=== PATIENT | male | born 1940 | race Caucasian/White ===

== ENCOUNTER 2023-06-09 21:15 | Emergency (ER) | payer MEDICARE, SELFPAY ==
[2023-06-09 21:20] VITALS: BP 152/91; PULSE 61; RESP 18; TEMP 36.6; O2SAT 98; BMI 25.8
--- NOTE | 2023-06-09 21:28 | XR_ITS ---
The [address] [address] Patient Name: DORIS FAY MRN: [id number] date: 1940 Sex: M Assigned Patient Location: ED.MAIN Current Patient Location: ER Accession/Order Number: [id number] Exam Date: 06/09/2023 22:20 Report Date: 06/09/2023 23:17 At the request of: GAGAN DINH Procedure: XR knee RT 4V EXAM: XR knee RT 4V HISTORY: fall COMPARISON: None. TECHNIQUE: 4 views FINDINGS: IMPRESSION: Anterior soft tissue edema. Patient is status post total knee replacement arthroplasty. No knee effusion. The prosthesis or [place] bone are unremarkable. Joint spaces are maintained Electronically authenticated by: YAMEL LOVE Date: 06/09/2023 23:17
--- NOTE | 2023-06-09 21:35 | PC.NURSE ---
pt presents to ED because pt states at 2pm he tripped on a curb and fell. pt caught himself with his hands. pt now has laceration to left palm of hand/thumb and laceration to right thumb. pt has brusing and swelling to right knee and c/o pain. pt is able to move the right knee without difficulty. pt is on eliquis. denies hitting head. no loc.
--- NOTE | 2023-06-09 21:43 | XR_ITS ---
[address] [address] Patient Name: DORIS FAY MRN: [id number] date: 1940 Sex: M Assigned Patient Location: ER Current Patient Location: ER Accession/Order Number: [id number] Exam Date: 06/09/2023 22:20 Report Date: 06/09/2023 23:16 At the request of: GAGAN DINH Procedure: XR hand RT min 3V EXAM: XR hand RT min 3V HISTORY: Pain after tripping off of curb COMPARISON: None. TECHNIQUE: 3 views FINDINGS: IMPRESSION: Dorsal soft tissue edema. No visualized acute fracture, dislocation, subluxation or osseous lesion. Severe degenerative changes of the first carpometacarpal joint. Degenerative changes of the IP and triscaphe joints. Electronically authenticated by: YAMEL LOVE Date: 06/09/2023 23:16
--- NOTE | 2023-06-09 21:52 | ED.GENADUL1 ---
HPI - General Adult General Chief complaint: Wound/Laceration Stated complaint: FALL/ HAND INJURY RT KNEE Time Seen by Provider: 06/09/23 21:52 Source: patient Mode of arrival: Wheelchair Limitations: no limitations History of Present Illness HPI narrative: Patient process the emergency department after he fell. Patient was going to a and tripped over a curb. He states he can't do so with his hands which hit the curb. He landed on his right knee and has pain and swelling to the right knee. He is able to move it and bear weight. He sustained bilateral lacerations to the thumbs. Patient is on Eliquist. He did not hit his head, or having loss of consciousness. He denies any headache. He denies any visual disturbance, speech difficulties. He denies any neck pain. He denies any paresthesias, or weakness. Denies any chest pain, shortness of breath.He denies any abdominal pain, or flank pain. Patient has not taken anything for pain. His concern was that the bleeding wasn't stopping from his hand lacerations. Denies any hand pain. Related Data Allergies Allergy/AdvReac Type Severity Reaction Status Date / Time No Known Drug Allergies Allergy Verified 06/09/23 21:25 Review of Systems ROS Status of ROS 10 or more systems reviewed and unremarkable except as noted in history and below Exam Narrative Exam Narrative: Nurses notes and vital signs reviewed and patient is not hypoxic. General: Nontoxic, Elderly,Well-appearing and in no apparent distress. Skin: Warm, dry, no pallor noted. No Rash Head: Normocephalic, atraumatic. Neck: Supple, non-tender. Eye: Pupils are equal, round and EOMI. No scleral icterus. Ears, Nose, Mouth, and Throat: TM clear, no posterior oropharynx erythema or nasal mucosal hypertrophy, uvula is mid-line Oral mucosa is moist Cardiovascular: Regular Rate and Rhythm without murmur, gallop or rub. Respiratory: No accessory muscle use or respiratory distress. Lungs are clear to auscultation, no wheezing, rales or rhonchi Chest Wall: no tenderness Back: No midline thoracic or lumbar vertebral tenderness. No CVA tenderness Musculoskeletal: Right knee with an anterior patella 3cm hematoma, small abrasion. Full range of motion. no calf or popliteal tenderness, no lower extremity edema/swelling Bilateral hand lacerations to the palmar surface of the MCP joints without any arterial bleeding. Right hand laceration is 2.5 cm, left hand laceration is 2 cm. There is no bony tenderness. There is no pain over the snuffbox. He has full range of motion. GI: Abdomen is soft, non-distended. Normal bowel sounds. No masses appreciated. No tenderness to palpation. No rebound, guarding, or rigidity noted. Neurological: A&O x4. No cranial nerve dysfunction observed. No truncal ataxia. Moves all extremities. Sensation intact. Psychiatric: Cooperative and interactive. Normal mood and affect. Constitutional Vital Signs, click to edit/add: Last Vital Signs Temp 97.9 F 06/09/23 21:20 Pulse 61 06/09/23 21:20 Resp 18 06/09/23 21:20 BP 152/91 H 06/09/23 21:20 Pulse Ox 98 06/09/23 21:20 O2 Del Method Room Air 06/09/23 21:20 Course Vital Signs Vital signs: Vital Signs Temperature 97.9 F 06/09/23 21:20 Pulse Rate 61 06/09/23 21:20 Respiratory Rate 18 06/09/23 21:20 Blood Pressure 152/91 H 06/09/23 21:20 Pulse Oximetry 98 06/09/23 21:20 Oxygen Delivery Method Room Air 06/09/23 21:20 Temperature 97.9 F 06/09/23 21:20 Pulse Rate 61 06/09/23 21:20 Respiratory Rate 18 06/09/23 21:20 Blood Pressure 152/91 H 06/09/23 21:20 Pulse Oximetry 98 06/09/23 21:20 Oxygen Delivery Method Room Air 06/09/23 21:20 Medical Decision Making MDM Narrative Medical decision making narrative: X-ray of the right knee and right hand Without any bony injury. Ted wrap was applied to the left knee. Laceration repair Right hand The patient was identified by me. Procedure risks and benefits were discussed with patient and/or family. Area was prepped and draped in a sterile fashion. 1ml lidocaine 1% without epinephrine were injected. wound was inspected in full range of motion. Adequate anesthesia was obtained.4 sutures, interrupted, nylon 4.0 were used to obtain adequate closure The edges were well approximated. Antibiotic ointment was applied. Nonstick dressing was applied with pressure gauze and Ted wrap. Laceration repair left hand The patient was identified by me. Procedure risks and benefits were discussed with patient and/or family. Area was prepped and draped in a sterile fashion. 1ml lidocaine 1% without epinephrine were injected. wound was inspected in full range of motion. Adequate anesthesia was obtained. 5 sutures, interrupted, nylon 4.0 were used to obtain adequate closure. The edges were well approximated. Antibiotic ointment was applied. Nonstick dressing was applied with pressure gauze and Ted wrap. Wound care instructions given to the patient and daughter who is a nurse. sutures out in 10-12 days. At this time the patient is without objective evidence of an acute process requiring hospitalization or inpatient management. The patient has remained hemodynamically stable. No additional indication for emergent studies at this time. I answered all questions. Discussed discharge instructions including standard anticipatory guidance and what should prompt a return to the emergency department, including if they get worse are not getting better or develops any new or concerning symptoms. I've given them specific time frame in which to follow-up, and who to follow-up with. The patient demonstrates understanding. Patient is nontoxic and stable for discharge with outpatient follow-up. This note was created with the assistance of a speech recognition program. Although the intention is to generate documents that actually reflects the content of the visit, no guarantees can be provided that every mistake has been identified and corrected by editing. Discharge Plan Discharge Chief Complaint: Wound/Laceration Clinical Impression: Laceration, Contusion of knee, right Patient Disposition: Home, Self-Care Time of Disposition Decision: 23:23 Condition: Good Mode of Transportation: Private Vehicle Instructions: Laceration (ED), Contusion in Adults (ED) Additional Instructions: Wound care as instructed. Sutures out in 10-12 days. Follow-up with primary care doctor for reevaluation. Return to the emergency department With any problems or concerns as discussed. Stand Alone Forms: Portal Instructions Discharge Date/Time: 06/10/23 00:25
--- NOTE | 2023-06-09 21:59 | PC.NURSE ---
bilateral thumb laceration were cleansed with hibicleanse and wrapped with gauze and combine.
== END 2023-06-10 00:25 | disposition home or self-care (01) ==
PROVIDERS: Emergency Provider Emergency Medicine
DX: S80.01XA Contusion of right knee, initial encounter (principal); S61.412A Laceration without foreign body of left hand, initial encounter; S61.411A Laceration without foreign body of right hand, initial encounter; W10.1XXA Fall (on)(from) sidewalk curb, initial encounter; Z79.01 Long term (current) use of anticoagulants
CPT/HCPCS: 12002; 73130; 73564; 99284

== ENCOUNTER 2024-01-13 08:54 | Outpatient (OUT) | payer MEDICARE, SELFPAY ==
[2024-01-13 09:16] LABS: Basophils Percent Auto 0.6 % (0.2-2.0); Eosinophils Absolute Auto 0.1 10^3/uL (0.0-0.7); Eosinophils Percent Auto 2.6 % (0.9-7.0); Hematocrit 42.7 % (42.0-54.0); Hemoglobin 13.9 g/dL (14.0-18.0); Immature Granulocytes Abs Auto 0.01 10^3/uL (0.00-0.03); Immature Granulocytes Pct Auto 0.2 % (0.0-0.5); Lymphocytes Absolute Auto 0.9 10^3/uL (1.2-3.8); Mean Corpuscular HGB Conc 32.6 g/dL (29.9-35.2); Mean Platelet Volume 9.6 fL (9.5-13.5); Monocytes Absolute Auto 0.4 10^3/uL (0.3-0.8); Monocytes Percent Auto 8.4 % (1.7-12.0); Neutrophils Absolute Auto 3.6 10^3/uL (1.4-6.5); Neutrophils Percent Auto 71.2 % (43.0-75.0); Platelet Count 197 10^3/uL (150-450); Red Blood Count 4.64 10^6/uL (4.70-6.10); Red Cell Distribution Width 14.6 % (11.0-15.0)
[2024-01-13 10:47] LABS: Alanine Aminotransferase 21 U/L (16-63); Albumin Globulin Ratio 1.2; Albumin Level 3.7 g/dL (3.4-5.0); Alkaline Phosphatase 55 U/L (46-116); Anion Gap 12.8; Aspartate Amino Transferase 17 U/L (15-37); BUN Creatinine Ratio 17.6; Bilirubin Total 0.7 mg/dL (0.2-1.0); Calcium 9.4 mg/dL (8.5-10.1); Carbon Dioxide 28.5 mmol/L (21.0-32.0); Chloride 105 mmol/L (98-107); Chol HDL Ratio 3.9; Cholesterol 164 mg/dL (<=200); Estimated GFR (African America >60 (>=60); Estimated GFR (Non-African Ame >60 (>=60); Globulin 3.2 g/dL; Glucose 108 mg/dL (74-106); HDL Cholesterol 42 mg/dL (40-60); LDL Cholesterol Calculated 105.2 mg/dL; Potassium 4.3 mmol/L (3.5-5.1); Sodium 142 mmol/L (136-145); Total Protein 6.9 g/dL (6.4-8.2); Triglycerides 84 mg/dL (<=150); VLDL CHOLESTEROL 16.8 mg/dL
== END 2024-01-13 08:55 | disposition home or self-care (01) ==
LOC: LAB 08:59
PROVIDERS: Visit Provider Nurse Practitioner
DX: I10 Essential (primary) hypertension (principal); I25.10 Atherosclerotic heart disease of native coronary artery without angina pectoris
CPT/HCPCS: 36415; 80053; 80061; 85025

== ENCOUNTER 2024-02-25 22:35 | Emergency (ER) | payer MEDICARE, SELFPAY ==
[2024-02-25 22:53] VITALS: BP 145/56; PULSE 50; TEMP 36.8; O2SAT 99; BMI 26.5
--- NOTE | 2024-02-25 23:01 | ECG_ITS ---
The [facility] Test Date: 2024-02-25 Pat Name: DORIS FAY Department: Room: - Gender: Male Pediatric Physician Assistant: : 1940 Requested By: [id number] Order Number: [id number] Reading MD: QAMAR VASQUEZ Measurements Intervals [place] Rate: 78 P: 44 MO: 244 QRS: 53 QRSD: 92 T: 74 QT: 368 QTc: 402 Interpretive Statements 1100 Sinus rhythm with frequent ventricular premature complexes in a pattern of bigeminy 2231 First degree AV block 7300 Indeterminate axis 8003 Consistent with pulmonary disease 9150 abnormal ECG Electronically Signed On 02-26-2024 6:59:57 EDT by QAMAR VASQUEZ
--- NOTE | 2024-02-25 23:25 | ED_ITS ---
HPI - Weakness General Chief complaint: Weakness Stated complaint: Low Heart Rate, Hypertension, Hip and Knee Pain Time Seen by Provider: 02/25/24 23:11 Source: patient and family Mode of arrival: walk-in Limitations: no limitations History of Present Illness HPI Narrative: This 84-year-old male who has a pacemaker and a history of coronary artery disease presents for evaluation of generalized weakness. Earlier today the patient was not feeling well, he was flushed and kind of dizzy. He called his daughter who took his pulse and thought that it was a regular. 2 weeks ago the patient had his pacemaker interrogated and was told he had a run of atrial fibrillation that was nonsustained. He was asymptomatic at that time. He is on Coreg and also on Eliquis. He denies any chest pain or shortness of breath. He d enies any syncope. He has no abdominal pain or back pain. He did recently completed a Medrol Dosepak due to bursitis in his hip. The patient's female letter of credit document examiner states that she took his pulse and found it to be very irregular and when she took his blood pressure was greater than 200/100. Upon arrival an EKG was done that shows sinus rhythm with frequent PVCs C's in a pattern of bigeminy. He has never been told that he had bigeminy in the past. Related Data Home Medications ?Medication ?Instructions ?Recorded ?Confirmed acetaminophen 500 mg tablet 500 mg PO Q4H PRN pain 02/25/24 02/25/24 apixaban 5 mg tablet (Eliquis) 5 mg PO Q12H 02/25/24 02/25/24 carvedilol 6.25 mg tablet 6.25 mg PO Q12H 02/25/24 02/25/24 saw palmetto 450 mg capsule 450 mg PO BID 02/25/24 02/25/24 Allergies Allergy/AdvReac Type Severity Reaction Status Date / Time No Known Drug Allergies Allergy Verified 02/25/24 22:58 Review of Systems ROS Status of ROS 10 or more systems reviewed and unremark able except as noted in history and below Exam Narrative Exam Narrative: Nurses note and vital signs reviewed and patient is not hypoxic. He is bradycardic with a pulse of 50, blood pressure is mildly elevated at 145/56 he is not hypoxic with pulse ox is 99 percent on room air General: The patient appears well and in no apparent distress. Patient is resting comfortably on cart. Skin: Warm, dry, no pallor noted. There is no rash noted. Head: Normocephalic, atraumatic Eye: Normal conjunctiva, no drainage, EOMI. PERRL Ears, Nose, Mouth, and Throat: oral mucosa is moist. Nares patent. Cardiovascular: Regular Rate and Rhythm S1S2 with frequent PVS in a pattern of Bigeminy, pulses are brisk and equal bilaterally Respiratory: Patient is in no distress, no accessory muscle use, lungs are clear to auscultation, no wheezing, rales or rhonchi Back: non-tender, no CVA tenderness bilaterally to percussion. GI: Normal bowel sounds, no tenderness to palpation, no masses appreciated. No rebound, guarding, or rigidity noted. Musculoskeletal: The patient has no evidence of calf tenderness, no pitting edema, symmetrical pulses noted bilaterally Neurological: A&O x4, normal speech Psychiatric: Cooperative Constitutional Vital Signs, click to edit/add: Last Vital Signs Temp 98.2 F 02/25/24 22:53 Pulse 67 02/26/24 01:39 Resp 24 H 02/26/24 01:39 BP 132/77 02/26/24 01:39 Pulse Ox 98 02/26/24 01:39 O2 Del Method Room Air 02/25/24 22:53 Course Vital Signs Vital signs: Vital Signs Temperature 98.2 F 02/25/24 22:53 Pulse Rate 50 L 02/25/24 22:53 Respiratory Rate 20 02/25/24 22:53 Blood Pressure 145/56 H 02/25/24 22:53 Pulse Oximetry 99 02/25/24 22:53 Oxygen Delivery Method Room Air 02/25/24 22:53 Temperature 98.2 F 02/25/24 22:53 Pulse Rate 67 02/26/24 01:39 Respiratory Rate 24 H 02/26/24 01:39 Blood Pressure 132/77 02/26/24 01:39 Pulse Oximetry 98 02/26/24 01:39 Oxygen Delivery Method Room Air 02/25/24 22:53 MDM - Weakness MDM Narrative Medical decision making narrative: This 84-year-old male with a history of coronary artery disease who had a pacemaker placed 6 or 7 years ago and is a patient of Dr. Lozoya at [facility] presents for evaluation of a low pulse and high blood pressure. The patient pulse and blood pressure was taken at home on a home monitoring device. His da ughter who brought him to the ED states that his blood pressure was extremely high and his pulse felt irregular to her. He is on Eliquis and has episodes of atrial fibrillation. He denied any lambert chest pain but states he generally feels weak and his daughter states that he was flushed and was not quick to respond to her, which was unusual for him. He was recently on a Medrol Dosepak bursitis in his hip and knee pain. On arrival an EKG was performed that was a pattern of bigeminy with a first-degree AV block. An IV was placed and he was medicated with a small amount of IV fluids and 2 g of IV magnesium. Routine cardiac labs were reviewed. He has a normal white count and hemoglobin. Electrolytes are normal. Troponin is normal. BNP is normal. TSH is normal. CXR was reviewed by radiology and is normal. After the magnesium and IV fluids his rhythm changed and he had fewer PVCs. Repeat EKG is a sinus rhythm at 65 bpm with only occasional PVCs. I did reach out to the pacemaker company to see if we could interrogate his pacemaker via one of our portable devices but this pacemaker company does not have a portable devices that we can interrogated the pacemaker with so the computed tomography technician came to the ED. He Interrogated the pacemaker and found that it is functioning normally. The pacemaker was interrogated on February 03. In the prior 6 months the device noted that there had been 98,000 PVCs. However in the 3 weeks since this device was interrogated there was 101,000 PVCs. By the computed tomography technician. I did discuss this with Dr. Matamoros, [facility] cardiology operator receptionist who suggested that I have the patient increase his Coreg to 12.5mg PO BID. She was in agreement with a one time dose of IV Lopressor and at that time his pulse was in the 70s and BP 150's/70s. This was discussed with the patient that his daughter who is in agreement with this plan. 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 He has enough of the Coreg to increase this dose without needing a prescription and I also suggested that he take MagOx 400mg po daily and he will be given a prescription for this at the time of discharge. Medical Records Medical records narrative: The [address] [address] XRay Report Signed Patient: DORIS FAY MR#: [id number] : 1940 Acct:[id number] Age/Sex: 84 / M ADM Date: 02/25/24 Loc: ER Attending Dr: Ordering Physician: Gian Zavala Date of Service: 02/26/24 Procedure(s): XR chest 1V Accession Number(s): [id number] cc: Gina Zavala; Physician,Non-Staff M.D.~ The [address] [address] Patient Name: DORIS FAY MRN: [id number] date: 1940 Sex: M Assigned Patient Location: ER Current Patient Location: ER Accession/Order Number: [id number] Exam Date: 02/26/2024 01:12 Report Date: 02/26/2024 02:11 At the request of: GINA ZAVALA Procedure: XR chest 1V EXAM: XR chest 1V HISTORY: CP COMPARISON: Chest x-ray 09/20/2022 TECHNIQUE: Single frontal view chest x-ray FINDINGS: Left chest wall device with lead tips are at the right atrium and right ventricle. No lung consolidation, large pleural effusion, pneumothorax, or acute bony abnormality. Cardiac size is borderline prominent. XR/XR chest 1V IMPRESSION: Borderline prominent heart size. No radiographic lung consolidation or large pleural effusion. Lab Data Attestation: I reviewed the patient's lab results. Labs: Lab Results 02/25/24 Range/Units 23:20 WBC 9.6 (4.0-11.0) 10^3/uL RBC 4.69 L (4.70-6.10) 10^6/uL Hgb 14.0 (14.0-18.0) g/dL Hct 42.7 (42.0-54.0) % MCV 91.0 (80.0-94.0) fL MCH 29.9 (25.9-34.0) pg MCHC 32.8 (29.9-35.2) g/dL RDW 14.9 (11.0-15.0) % Plt Count 206 (150-450) 10^3/uL MPV 9.7 (9.5-13.5) fL Neut % (Auto) 77.8 H (43.0-75.0) % Lymph % (Auto) 12.9 L (20.5-60.0) % Creek % (Auto) 7.1 (1.7-12.0) % Eos % (Auto) 1.5 (0.9-7.0) % Baso % (Auto) 0.3 (0.2-2.0) % Neut # (Auto) 7.4 H (1.4-6.5) 10^3/uL Lymph # (Auto) 1.2 (1.2-3.8) 10^3/uL Creek # (Auto) 0.7 (0.3-0.8) 10^3/uL Eos # (Auto) 0.1 (0.0-0.7) 10^3/uL Baso # (Auto) 0.0 (0.0-0.1) 10^3/uL Abs Immat Gran (auto) 0.04 H (0.00-0.03) 10^3/uL Imm/Tot Granulo (auto) 0.4 (0.0-0.5) % Sodium 138 (136-145) mmol/L Potassium 4.5 (3.5-5.1) mmol/L Chloride 105 (98-107) mmol/L Carbon Dioxide 24.1 (21.0-32.0) mmol/L Anion Gap 13.4 BUN 26.0 H (7.0-18.0) mg/dL Creatinine 1.23 (0.70-1.30) mg/dL Est GFR ( Amer) >60 (>=60) Est GFR (Non-Af Amer) 56 L (>=60) BUN/Creatinine Ratio 21.1 Glucose 97 (74-106) mg/dL Calcium 9.3 (8.5-10.1) mg/dL Magnesium 2.2 (1.8-2.4) mg/dL Total Bilirubin 0.4 (0.2-1.0) mg/dL AST 14 L (15-37) U/L ALT 21 (16-63) U/L Alkaline Phosphatase 48 (46-116) U/L Troponin I High Sens 8.1 (4.0-76.1) pg/mL NT-Pro-B Natriuret Pep 753.0 (<=1800.0) pg/mL Total Protein 6.6 (6.4-8.2) g/dL Albumin 3.4 (3.4-5.0) g/dL Globulin 3.2 g/dL Albumin/Globulin Ratio 1.1 TSH 2.669 (0.358-3.740) uIU/mL ECG Data Attestation: I personally reviewed and interpreted this ECG as follows: (Sinus rhythm with frequent PVCs in a pattern of bigeminy. First-degree AV block, normal axis, no acute ST segment elevation or T-wave inversion) Discharge Plan Discharge Stand Alone Forms: Portal Instructions Chief Complaint: Weakness Clinical Impression: Bigeminy, Arrhythmia Patient Disposition: Home, Self-Care Time of Disposition Decision: 03:24 Condition: Good Prescriptions / Home Meds: No Action Eliquis 5 mg tablet 5 mg PO Q12H carvedilol 6.25 mg tablet 6.25 mg PO Q12H saw palmetto 450 mg capsule 450 mg PO BID Rx Instructions: give with food (meal/snack) acetaminophen 500 mg tablet 500 mg PO Q4H PRN (Reason: pain) Print Language: Portuguese Instructions: Premature Ventricular Contractions (ED) Additional Instructions: Increase your COREG to 12.5mg BID. Call your reclamation furnace operator for a follow up appointment in the next several weeks. Referrals: Kevin Lozoya MD [Physician] - 1 week PhysicianNon-MD Estrada [Primary Care Provider] - 1 week
[2024-02-25 23:31] LABS: Basophils Percent Auto 0.3 % (0.2-2.0); Eosinophils Absolute Auto 0.1 10^3/uL (0.0-0.7); Eosinophils Percent Auto 1.5 % (0.9-7.0); Hematocrit 42.7 % (42.0-54.0); Immature Granulocytes Abs Auto 0.04 10^3/uL (0.00-0.03); Immature Granulocytes Pct Auto 0.4 % (0.0-0.5); Lymphocytes Absolute Auto 1.2 10^3/uL (1.2-3.8); Lymphocytes Percent Auto 12.9 % (20.5-60.0); Mean Corpuscular HGB Conc 32.8 g/dL (29.9-35.2); Mean Corpuscular Hemoglobin 29.9 pg (25.9-34.0); Mean Platelet Volume 9.7 fL (9.5-13.5); Monocytes Absolute Auto 0.7 10^3/uL (0.3-0.8); Monocytes Percent Auto 7.1 % (1.7-12.0); Neutrophils Absolute Auto 7.4 10^3/uL (1.4-6.5); Neutrophils Percent Auto 77.8 % (43.0-75.0); Platelet Count 206 10^3/uL (150-450); Red Blood Count 4.69 10^6/uL (4.70-6.10); Red Cell Distribution Width 14.9 % (11.0-15.0); White Blood Count 9.6 10^3/uL (4.0-11.0)
[2024-02-25 23:46] LABS: Alanine Aminotransferase 21 U/L (16-63); Albumin Globulin Ratio 1.1; Albumin Level 3.4 g/dL (3.4-5.0); Alkaline Phosphatase 48 U/L (46-116); Anion Gap 13.4; Aspartate Amino Transferase 14 U/L (15-37); BUN Creatinine Ratio 21.1; Bilirubin Total 0.4 mg/dL (0.2-1.0); Calcium 9.3 mg/dL (8.5-10.1); Carbon Dioxide 24.1 mmol/L (21.0-32.0); Chloride 105 mmol/L (98-107); Estimated GFR (African America >60 (>=60); Estimated GFR (Non-African Ame 56 (>=60); Globulin 3.2 g/dL; Glucose 97 mg/dL (74-106); Potassium 4.5 mmol/L (3.5-5.1); Sodium 138 mmol/L (136-145); Total Protein 6.6 g/dL (6.4-8.2)
[2024-02-25 23:54] LABS: Magnesium 2.2 mg/dL (1.8-2.4); Thyroid Stimulating Hormone 2.669 uIU/mL (0.358-3.740); Troponin I High Sensitivity 8.1 pg/mL (4.0-76.1)
[2024-02-26] MEDS: 0.9 % SODIUM CHLORIDE 250 ML IV.SOLN IV (00:03)
[2024-02-26] MEDS: MAGNESIUM SULFATE IN WATER 2 GM/50 ML PREMIX IV (00:03)
--- NOTE | 2024-02-26 00:53 | XR_ITS ---
The [address] [address] Patient Name: DORIS FAY MRN: [id number] date: 1940 Sex: M Assigned Patient Location: ER Current Patient Location: ER Accession/Order Number: [id number] Exam Date: 02/26/2024 01:12 Report Date: 02/26/2024 02:11 At the request of: SKYLER MARKER Procedure: XR chest 1V EXAM: XR chest 1V HISTORY: CP COMPARISON: Chest x-ray 09/20/2022 TECHNIQUE: Single frontal view chest x-ray FINDINGS: Left chest wall device with lead tips are at the right atrium and right ventricle. No lung consolidation, large pleural effusion, pneumothorax, or acute bony abnormality. Cardiac size is borderline prominent. XR/XR chest 1V IMPRESSION: Borderline prominent heart size. No radiographic lung consolidation or large pleural effusion. Electronically authenticated by: SANGEETA OBANDO Date: 02/26/2024 02:11
--- NOTE | 2024-02-26 01:07 | ECG_ITS ---
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
--- NOTE | 2024-02-26 01:14 | PC.NURSE ---
States sat down and felt warm all over. No dizziness or other complaints
[2024-02-26 01:39] VITALS: BP 132/77; PULSE 67; O2SAT 98
[2024-02-26] MEDS: ONDANSETRON PF 4 MG/2 ML VIAL IV (01:48)
[2024-02-26] MEDS: HYDROCODONE/ACET 5-325 MG TABLET 1 TAB PO (01:48)
[2024-02-26] MEDS: METOPROLOL TARTRATE 5 MG/5 ML VIAL IVP (02:59)
== END 2024-02-26 03:45 | disposition home or self-care (01) ==
PROVIDERS: Emergency Provider Emergency Medicine
DX: I49.9 Cardiac arrhythmia, unspecified (principal); R00.8 Other abnormalities of heart beat; R53.1 Weakness; I25.10 Atherosclerotic heart disease of native coronary artery without angina pectoris; Z95.0 Presence of cardiac pacemaker; Z79.01 Long term (current) use of anticoagulants; Z79.899 Other long term (current) drug therapy
CPT/HCPCS: 36415; 71045; 80053; 83735; 83880; 84443; 84484; 85025; 93005; 96365; 96375; 99285

== ENCOUNTER 2024-04-10 13:51 | Outpatient (OUT) | payer MEDICARE, SELFPAY ==
--- NOTE | 2024-04-10 14:00 | CA_ITS ---
Patient Name: DORIS FAY MR#: [id number] : 1940 Exam Date: 04/10/2024 Ordering Doctor: JIE MAHARAJ ECHOCARDIOGRAM REPORT PROCEDURE: CA ECHO DOPPLER COMPLETE INDICATIONS: Mitral valve regurgitation, pacemaker COMPARISON: None. DESCRIPTION: COMPLETE ECHOCARDIOGRAM Real-time transthoracic echocardiography with 2D, M-mode, spectral and color flow Doppler performed. QUALITY: Technical quality was good. LEFT VENTRICLE: Normal chamber size. Thickened septal wall. Systolic function is at the lower limits of normal. LV EF: Lower limits of normal left ventricular ejection fraction, (50-55%). DIASTOLIC: Diastolic function is indeterminate. ATRIAL SEPTUM: Visually appears intact. LEFT ATRIUM: Moderate dilatation. RIGHT ATRIUM: Moderate dilatation. RIGHT VENTRICLE: Mild dilatation. Normal right ventricular systolic function. Pacer wire present. TRICUSPID VALVE: Normal mobility and thickness. No stenosis with trivial regurgitation. No evidence of pulmonary hypertension. RVSP 33 mmHg MITRAL VALVE: Normal mobility and thickness. No evidence of mitral valve stenosis. There is no mitral annular calcification. Mild mitral regurgitation. AORTIC VALVE: Normal trileaflet appearance. No visible sclerosis. Normal leaflet mobility. No evidence of aortic valve stenosis. Trivial aortic regurgitation. AORTIC ROOT: Normal diameter and appearance. Ascending aorta is normal in size. PULMONIC VALVE: Normal thickness and mobility. No stenosis. Mild regurgitation. PERICARDIUM: No evidence of pericardial effusion. IVC: Collapses with inspirations. PLEURA: CONCLUSION: 1. The left ventricle is normal in size and exhibits low normal systolic function. LVEF is 50 to 55%. 2. The right ventricle is mildly dilated and exhibits normal systolic function. 3. Moderate biatrial dilatation. 4. Mild mitral and pulmonic regurgitation. 5. Normal right-sided pressures. Adult Echocardiography Procedure Report Left Ventricle LVEDD (3.7 - 5.6 cm): 5.41 cm LVESD (2.2 - 4.0 cm): 3.50 cm LVIVS thickness (0.6 - 1.2 cm): 1.11 cm LVPW thickness (0.5 - 1.0 cm): 0.89 cm e': 0.09 m/s E - e': 5.47 LVOT Max Gradient: 1.57 mm[Hg] LVOT Area (cm2): 0.63 m/s Peak Velocity (LVOT): 0.63 m/s Mean Velocity (LVOT): 0.43 m/s LVOT Diameter 2.67 cm Left Atrium LA Volume Index (2D A2C): 37.75 ml/m2 Left Atrium Systolic Dimension: 4.10 cm Mitral Valve MV E to A Ratio: 0.92 Mitral Valve A-Wave Peak Velocity: 0.55 m/s Mitral Valve E-Wave Peak Velocity: 0.51 m/s Right Ventricle Aorta AO Root Diam: 3.74 cm Ascending Ao Diam: 3.03 cm Aortic Valve AoV Area (Peak Nain): 4.23 cm2, 4.23 cm2 AoV Area (VTI): 3.95 cm2, 3.95 cm2 Peak Velocity(Antegrade Flow): 0.83 m/s Peak Gradient(Antegrade Flow): 2.74 mm[Hg] Mean Velocity(Antegrade Flow): 0.59 m/s Mean Gradient(Antegrade Flow): 1.53 mm[Hg] Velocity Time Integral: 21.99 cm Tricuspid Valve Peak Velocity (Regurgitant Flow): 2.76 m/s Pulmonic Valve Peak Gradient: 7.43 mm[Hg], 5.86 mm[Hg] Right Atrium Right Atrium Systolic Pressure: 77.87 ml, 77.87 ml Dictated by: Sammy Mcdaniel M.D. on 04/10/2024 at 18:48 Approved by: Sammy Mcdaniel M.D. on 04/10/2024 at 18:50
== END 2024-04-10 13:52 | disposition home or self-care (01) ==
LOC: CARD 13:52
PROVIDERS: PCP Family Medicine; Visit Provider Internal Medicine Cardiovascular Disease
DX: I34.0 Nonrheumatic mitral (valve) insufficiency (principal)
CPT/HCPCS: 93306

== ENCOUNTER 2024-09-18 08:41 | Emergency (ER) | payer MEDICARE, SELFPAY ==
[2024-09-18 08:46] VITALS: BP 152/80; PULSE 74; TEMP 36.6; O2SAT 95; BMI 26.7
--- OUTSIDE RECORDS SUMMARY | 2024-09-18 08:58 | XMS_ITS | CCD ---
Author Organization [facility] Cl[facility]Syin Care Team Providers Care Breaker Boss Name Role Phone BRIANNE MUSTAFA Admitting Unavailable BRIANNE MUSTAFA Attending Unavailable ZIGGY KABA Primary Care Unavailable UNKNOWN, PHYSICIAN Referring Unavailable SEGUN TRAVIS Admitting Unavailable SEGUN TRAVIS Attending Unavailable ZIGGY KABA Referring Unavailable ZIGGY KABA Primary Care Unavailable Harsha Whitehead Unavailable Jhony Coyle II Unavailable MD Ziggy Kaba Primary Care Provider [phone] MD Jhony Coyle II Attending Provider [phone] SESAR, DR ZIGGY Aguayo Primary Care Unavailable ELTAHAWY, DR ANDERS Admitting Unavailable ELTAHAWY, DR ANDERS Attending Unavailable ELTAHAWY, DR ANDERS Consulting Unavailable SESAR, DR ZIGGY Aguayo Admitting Unavailable KABA, DR ZIGGY Aguayo Attending Unavailable KABA, DR ZIGGY Aguayo Consulting Unavailable KABA, DR ZIGGY Aguayo Primary Care Unavailable KABA, DR ZIGGY Aguayo Primary Care Unavailable KABA, DR ZIGGY Aguayo Admitting Unavailable KABA, DR ZIGGY Aguayo Attending Unavailable KABA, DR ZIGGY Aguayo Consulting Unavailable WILLARD YANG Consulting Unavailable MD Ziggy Kaba Primary Care Provider MD Jhony Coyle II Attending Provider Esperanza Powell Unavailable Abby Rocha Unavailable MD Ziggy Kaba Primary Care Provider [phone] KANIKA Rocha Attending Provider KANIKA Rocha Attending Provider NO FAMILY, PHYSICIAN Primary Care Provider Unava [facility] Provider [phone] NO FAMILY, PHYSICIAN Primary Care Provider Unava ilable Deny INSURANCE VERIFICATION SPECIALISTMaria VictoriaC Bianca Martínez Attending Provider MD Cory Hameed Primary Care Provider MD Cory Hameed Attending Provider DO Brian Hernandez Attending Provider Beba Castillo Admitting Unavailable Beba Castillo N Attending Unavailable NO FAMILY, PHYSICIAN Primary Care Unavailable Abby Rocha Admitting Unavailable Abby Rocha Attending Unavailable Ziggy Kaba Primary Care Unavailable Bianca Barclay Admitting Unavailable Bianca Barclay Attending Unavailable NO FAMILY, PHYSICIAN Primary Care Unavailable Cory Hameed Admitting Unavailable Cory Hameed Primary Care Unavailable Cory Hameed Attending Unavailable Brian Hernandez Admitting Unavailable David, Brian Attending Unavailable Cory Hameed Primary Care Unavailable Brian Hernandez Admitting Unavailable David, Brian Attending Unavailable Ziggy Kaba Primary Care Unavailable Jhony Coyle II Admitting Unavailkevin Coyle II Jhony Sharron Attending UnavailMD Cory Chan. Attending Unavailable MD Cory Hameed Attending Unavailable MD Cory Hameed Attending Unavailable MD Cory Hameed Attending Unavailable MD Cory Hameed Attending Unavailable MD Cory Hameed Attending Unavailable MD Cory Hameed Attending Unavailable SKYLER GREER Attending Unavailable JIE MAHARAJ Referring Unavailable JIE MAHARAJ Attending Unavailable JIE MAHARAJ Referring Unavailable eKlly Boykin MD Unavailable Brian Hernandez DO Unavailable Cory Hameed MD Primary Care Provider KELLY BOYKIN Attending Unavailable CORY HAMEED Referring Unavailable BRIAN HERNANDEZ Attending Unavailable PETITTKELLY Castrejon Referring Unavailable RUSHCEKBRIAN W Attending Unavailable RUSHCEKBRIAN W Referring Unavailable MURCEKBRIAN W Attending Unavailable PETITTCash KELLY A Referring Unavailable RUSHCEKBRIAN W Attending Unavailable PETITTKELLY Castrejon A Attending Unavailable Allergies Allergy Classification Reported Allergen(s) Allergy Type Date of Onset Reaction(s) Facility (4 sources) Adhesive Tape Drug allergy (disorder) 7 Blister, redness [facility] Repository (1 source) Desonide Drug Allergy 7 [facility] Repository (1 source) Adhesive Tape Drug allergy (disorder) [address] [facility] Repository (1 source) Adhesive bandage; Translations: [Adhesive Bandage] Propensity to adverse reactions (disorder) [facility] Repository (1 source) hydrOXYzine; Translations: [Vistaril] Drug Allergy [facility] Repository (1 source) ADHESIVE TAPE-SILICONES; Translations: [ADHESIVE TAPE-SILICONES] Propensity to adverse reactions to drug (disorder) 2 [facility] Repository (3 sources) hydrOXYzine Drug Allergy 4 [facility] Work Phone: (3 sources) Wound Dressing Adhesive Drug Allergy 2 [facility] Healthcare Medications Current Medications Medication Drug Class(es) Dates Sig (Normalized) Sig (Original) acetaminophen 325 mg oral tablet (8 sources) take 1 tablet by mouth every four hours Tylenol 325 MG 1 tablet as needed Orally every 4 hrs prn Active acetaminophen 325 mg / oxyCODONE hydrochloride 5 mg oral tablet (15 sources) Opioid Agonist Start: 06-28-2021 take 1 tablet by mouth every six hours as needed for pain Percocet 5-325 MG 1 tablet Orally every 6 hrs as needed for severe pain for 7 days Jun, Active Start: 05-16-2021 take 1 tablet by phu th every four to six hours Oxycodone-Acetaminophen (Percocet) 5-325 mg tablet Active 1 - 2 TAB PO EVERY 4-6 HOURS 7 May 16, 2021 apixaban 5 mg oral tablet (20 sources) Factor Xa Inhibitor Start: 05-03-2021 take 1 tablet by mouth twice daily Apixaban (Eliquis) 5 mg tablet Active 5 MG PO Twice daily May 03, 2021 12:00am aspirin 81 mg delayed release oral tablet (17 sources) Platelet Aggregation Inhibitor, Nonsteroidal Anti-inflammatory Drug Start: 05-03-2021 Aspirin (Verna Low Dose Aspirin) 81 mg Tablet,Delayed Release (Dr/Ec) Active 81 MG PO Daily May 03, 2021 12:00am aspirin 81 MG ch ewable tablet Chew 81 mg 1 (one) time Active carvedilol 12.5 mg oral tablet (20 sources) alpha-Adrenergic Randi, beta-Adrenergic Randi Start: 03-20-2024 End: 03-20-2025 take 1 tablet by mouth in the morning carvedilol (Coreg) 12.5 MG tablet Take 12.5 mg by mouth in the morning and 12.5 mg in the evening. Take with meals. 03/20/2024 03/20/2025 Active Start: 02-10-2024 take 2 tablets by mo uth in the morning carvedilol (Coreg) 6.25 MG tablet Take 12.5 mg by mouth in the morning and 12.5 mg in the evening. Take with meals. 02/10/2024 Active Start: 05-03-2021 take 6.25 mg by mout h twice daily Carvedilol Active 6.25 MG PO Twice daily May 03, 2021 12:00am cefuroxime 500 mg oral tablet (1 source) Cephalosporin Antibacterial Start: 10-28-2023 take 1 tablet by mouth every twelve hours Cefuroxime Axetil 500 MG 1 tablet Orally every 12 hrs for 7 days Oct, Active Chondroitin Sulfates / Glucosamine (8 sources) Glucosamine-Jani droitin Active codeine phosphate 2 mg/ml / phenylephrine hydrochloride 1 mg/ml / promethazine hydrochloride 1.25 mg/ml oral solution (9 sources) Opioid Agonist, Phenothiazine, alpha-1 Adrenergic Agonist Start: 11-10-2023 Promethazine-Phe nyleph-Codeine 6.25-5-10 MG/5ML syrup EVERY 4-6 HOURS 11/10/2023 Active Start: 11-10-2023 take 1 mL by mouth every four to six hours Vxmdybdpfdvy-Suuftwphu-Mjesbnb (Prometha zine Vc-Codeine) 6.25-5-10 mg/5 mL syrup Active 5 ML PO EVERY 4-6 HOURS 473 7 November 10, 2023 1:00am dextromethorphan hydrobromide 1.5 mg/ml / pyrilamine maleate 1.5 mg/ml oral solution (2 sources) Uncompetitive Q-woqibp-K-aspartate Receptor Antagonist, Sigma-1 Agonist Start: 10-15-2023 [place] DM 7.5-7.5 MG/5ML 20 ml Orally every 6-8 hours as needed for cough for 5 days Sep, Active docusate sodium 100 mg oral capsule (9 sources) Start: 05-16-2021 take 1 capsule by mouth twice daily Docusate Sodium (Dok) 100 mg Capsule Active 100 MG PO Twice daily May 16, 2021 12:00am doxycycline hyclate 100 mg oral tablet (1 source) Tetracycline-class Drug Start: 10-28-2023 take 1 tablet by mouth every twelve hours Doxycycline Hyclate 100 MG 1 tablet Orally Twice a day for 7 days Oct, Active Glucosamine-Chondroit -Vit C-Mn (Glucosamine-Chondroi tin Complx) Capsule (9 sources) Start: 05-03-2021 take 1 capsule by mouth twice daily Glucosamine-Cho ndroit-Vit C-Mn (Glucosamine-Ch ondroitin Complx) Capsule Active 1 CAP PO Twice daily May 02, 2021 11:00pm Start: 05-03-2021 take 1 capsule by mo [facility] twice daily Aniojwgcalg-Szrlgendf-Krz C-Mn (Glucosamine-Chondroitin Complx) Capsule Active 1 CAP PO Twice daily May 03, 2021 12:00am hydrOXYzine pamoate 25 mg oral capsule (10 sources) Antihistamine Start: 05-10-2021 Hydroxyzine Pamoate (Vistaril) 25 mg capsule Active 25 MG PO every 6 to 8 hours May 16, 2021 12:00am magnesium oxide 400 mg oral tablet (3 sources) Start: 03-10-2024 take 1 tablet by mouth in the morning magnesium oxide (Mag-Ox) 400 MG tablet Take 400 mg by mouth in the morning. 03/10/2024 Active methylPREDNISolone 4 mg oral tablet (5 sources) Corticosteroid Start: 02-13-2024 take 1 tablet by mouth once Methylprednisolone (Medrol (Gerry)) 4 mg tablets,dose pack Active 0 PO per package directions February 13, 2024 12:00am PO PER PKG DIR Start: 10-28-2023 Medrol 4 MG as directed Orally As Directed for 6 days Oct, Active nitroglycerin 0.4 mg sublingual tablet (12 sources) Nitrate Vasodilator Start: 05-03-2021 Nitroglycerin Active 0.4 MG SUBLINGUAL every 5 to 15 minutes May 03, 2021 12:00am rivaroxaban 20 mg oral tablet (3 sources) Factor Xa Inhibitor Start: 02-03-2024 take 1 tablet by mouth at mealtime rivaroxaban (Xarelto) 20 MG tablet Take 20 mg by mouth in the evening. Take with meals 02/03/2024 Active [place] 450 MG (8 sources) [place] 450 MG as directed Orally Active [place] (9 sources) Start: 05-03-2021 take 450 mg by mouth twice daily [place] Active 450 MG PO Twice daily May 02, 2021 11:00pm Start: 05-03-2021 take 450 mg by mouth twice dorothy ly [place] Active 450 MG PO Twice daily May 03, 2021 12:00am Completed/Discontinued Medications Medication Drug Class(es) Dates Sig (Normalized) Sig (Original) amoxicillin 500 mg oral capsule (4 sources) Penicillin-class Antibacterial Start: 06-12-2023 Amoxicillin 500 MG 2 grams 1hr before dental procedure Orally as directed for 1 May, Not-Taking/PRN amoxicillin 875 mg / clavulanate 125 mg oral tablet (2 sources) Penicillin-class Antibacterial Start: 10-15-2023 take 1 tablet by mouth every twelve hours Amoxicillin-Pot Clavulanate 875-125 MG 1 tablet Orally every 12 hrs for 10 day(s) Sep, Not-Taking/PRN diclofenac sodium 75 mg delayed release oral tablet (8 sources) Nonsteroidal Anti-inflammatory Drug Start: 11-30-2019 take 1 tablet by mouth every twelve hours Diclofenac Sodium 75 MG 1 tablet Orally Twice a day for 30 day(s) Nov, Not-Taking/PRN hyaluronate (20 sources) Start: 01-18-2020 Supartz Dec, 25 mg Start: 01-11-2020 Supartz Dec 25 mg Start: 01-04-2020 Supartz Dec 25 mg Start: 12-28-2019 Supartz Dec 25 mg Start: 12-21-2019 Supartz Dec 25 mg predniSONE 20 mg oral tablet (6 sources) Start: 11-10-2023 End: 02-13-2024 take 40 mg by mouth once daily Prednisone Discontinued 40 MG PO Daily 6 November 10, 2023 1:00am February 13, 2024 8:40am Triamcinolone (6 sources) Corticosteroid Start: 11-30-2019 Kenalog -40 mg 10 Nov, 2019 40 mg Problems Active Problems Problem Classification Problem Date Documented Date Episodic/Chronic Acute bronchitis (1 source) Acute bronchitis, unspecified Episodic Acute myocardial infarction (3 sources) Myocardial infarction; Translations: [Acute myocardial infarction, unspecified] Onset: 7 04-18-2024 Chronic Cardiac dysrhythmias (4 sources) Paroxysmal atrial fibrillation; Translations: [Atrial fibrillation] Onset: 2 04-18-2024 Chronic Conduction disorders (7 sources) Encounter for adjustment and management of automatic implantable cardiac defibrillator; Translations: [Presence of cardiac pacemaker] Onset: 4 Chronic Coronary atherosclerosis and other heart disease (9 sources) 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; Translations: [Arteriosclerotic vascular disease] Onset: 1 Chronic Disorders of lipid metabolism (1 source) Pure hypercholesterolemia, unspecified; Translations: [PURE HYPERCHOLESTEROLEMIA UNSPEC] Onset: 2 Chronic Essential hypertension (6 sources) Essential (primary) hypertension; Translations: [Hypertensive disorder] Onset: 7 Chronic Fever of unknown origin (1 source) Fever, unspecified Episodic Heart valve disorders (11 sources) Nonrheumatic mitral (valve) insufficiency; Translations: [Rheumatic tricuspid insufficiency] Onset: 1 Chronic Osteoarthritis (20 sources) Osteoarthritis of left knee joint; Translations: [Unilateral primary osteoarthritis, left knee] Onset: 1 Resolved: 2 Chronic Other aftercare (8 sources) Patient encounter status; Translations: [Aftercare following joint replacement surgery] Chronic Other connective tissue disease (11 sources) History of left total knee replacement; Translations: [Presence of left artificial knee joint] Onset: 4 05-11-2024 Chronic Other connective tissue disease (10 sources) Presence of left artificial knee joint; Translations: [Knee joint replacement] Onset: 1 Resolved: 2 Chronic Other connective tissue disease (17 sources) History of total knee arthroplasty; Translations: [Presence of left artificial knee joint] Onset: 4 05-16-2021 Chronic Other connective tissue disease (1 source) Presence of right artificial knee joint Chronic Other connective tissue disease (4 sources) Trochanteric bursitis, unspecified hip; Translations: [Enthesopathy of hip region] 02-13-2024 Episodic Other non-epithelial cancer of skin (3 sources) Unspecified malignant neoplasm of skin of scalp and neck; Translations: [History of squamous cell carcinoma of skin] Onset: 4 09-14-2024 Episodic Other skin disorders (2 sources) Seborrheic keratosis; Translations: [Other seborrheic keratosis] 09-14-2024 Episodic Other upper respiratory infections (1 source) Acute maxillary sinusitis, unspecified Episodic Residual codes; unclassified (3 sources) Sleep apnea; Translations: [Sleep apnea, unspecified] Onset: 7 04-18-2024 Chronic Unclassified (3 sources) COUGH, UNSPECIFIED; Translations: [COUGH, UNSPECIFIED] Onset: 2 Unclassified (1 source) Cough, unspecified; Translations: [Cough, unspecified] Onset: 4 Unclassified (1 source) Presence of right artificial knee joint; Translations: [Presence of right artificial knee joint] Onset: 3 Past or Other Problems Problem Classification Problem Date Documented Date Episodic/Chronic Malaise and fatigue (3 sources) Asthenia; Translations: [Weakness] Onset: 04-18-2024 04-18-2024 Episodic Other aftercare (4 sources) 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) use of anticoagulants; Translations: [USP CURRNT USE ANTICOAGULANTS] Onset: 01-01-2022 Episodic Other connective tissue disease (7 sources) Trochanteric bursitis; Translations: [Trochanteric bursitis, unspecified hip] Onset: 05-11-2024 02-13-2024 Episodic Other diseases of veins and lymphatics (3 sources) Vascular insufficiency; Translations: [Venous insufficiency (chronic) (peripheral)] Onset: 03-10-2024 04-18-2024 Episodic Other infections; including parasitic (9 sources) Personal history of other infectious and parasitic diseases; Translations: [History of COVID-19] Onset: 03-10-2024 11-10-2023 Episodic Other lower respiratory disease (9 sources) Cough; Translations: [Cough] Onset: 03-10-2024 11-10-2023 Episodic Other non-traumatic joint disorders (8 sources) Hip pain; Translations: [Pain in left hip] Onset: 05-11-2024 02-13-2024 Episodic Other non-traumatic joint disorders (6 sources) Pain in left hip; Translations: [Pain in joint, pelvic region and thigh] Onset: 02-13-2024 02-13-2024 Episodic Other nutritional; endocrine; and metabolic disorders (3 sources) Overweight in adulthood with body mass index of 25 or more but less than 30; Translations: [Body mass index (BMI) 28.0-28.9, adult] Onset: 03-10-2024 04-18-2024 Episodic Other screening for suspected conditions (not mental disorders or infectious disease) (3 sources) Melanocytic nevus of skin ; Translations: [Encounter for screening for other disorder] Onset: 03-10-2024 04-18-2024 Episodic Other skin disorders (3 sources) Actinic keratosis; Translations: [Actinic keratosis] Onset: 04-16-2017 04-18-2024 Episodic Residual codes; unclassified (3 sources) Peripheral edema; Translations: [Localized edema] Onset: 03-10-2024 04-18-2024 Episodic Unclassified (1 source) COUGH, UNSPECIFIED; Translations: [COUGH, UNSPECIFIED] Onset: 09-20-2022 Unclassified (1 source) Cough, unspecified R05.9 Results Test Name Value Interpretation Reference Range Facil ity Ambulatory Visit Summaryon 1 Ambulatory Visit Summary Ambulatory Visit Summary MORGAN BARRIENTOS :1940 Visit Date:08/03/2024 Ambulatory Visit Instructions Your Diagnosis ASCVD (arteriosclerotic cardiovascular disease) Atrial fibrillation HTN (hypertension) Sleep apnea BMI 28.0-28.9,adult Overweight Former smoker Other benign neoplasm of skin, unspecified Your Care Team Attending Physician - Cory Hameed MD Primary Care Physician - Cory Hameed MD This Is Your Medications List Contact prescribing physician if questions or concerns apixaban (Eliquis 5 mg oral tablet) carvedilol (carvedilol 6.25 mg Tab) nitroglycerin aide severino [Image Removed: STOP]Stop taking these medications Misc Prescription (Physical Therapy) magnesium oxide (magnesium oxide 400 mg Tab) Procedures Performed Arthroplasty, Cardiac pacemaker, Knee replacement, Knee replacement. Discharge Vitals Temperature (Temporal Artery) 36.3 ?C Heart Rate (Peripheral) 56 Respiratory Rate 16 Blood Pressure 100/64 Height 178 cm Height 70 in Weight 91.0 kg Weight 200.2 lb BMI 28.72 What to do next Scheduled Follow-Up Appointments Saturday 10:45 AM EDT With: Siddhartha OROZCO, Cory Sanderson Where: [address] [address]- Saturday 11:00 AM EDT With: Where: [address] [phone]- Medications What How Much When Instructions Unchanged apixaban (Eliquis 5 mg oral tablet) 1 Tablets By Mouth 2 times a day TAKE 1 TABLET BY MOUTH IN THE MORNING and ONE TABLET BY MOUTH AT BEDTIME Contact prescribing physician if questions or concerns Unchanged carvedilol (carvedilol 6.25 mg Tab) 2 Tablets By Mouth 2 times a day TAKE 1 TABLET BY MOUTH IN THE MORNING then TAKE 1 TABLET BY MOUTH AT BEDTIME Contact prescribing physician if questions or concerns Unchanged nitroglycerin 0.4 Milligram Sublingual Every 5 minutes as needed for Chest pain Contact prescribing physician if questions or concerns Unchanged aide severino See instructions take 450mg twice daily Contact prescribing physician if questions or concerns What How Much When Comments Stop Taking magnesium oxide (magnesium oxide 400 mg Tab) 1 Tablets By Mouth Every day Stop Taking Misc Prescription (Physical Therapy) See instructions evaluate and treat for weakness Medications and Immunizations Administered Not Given influenza virus vaccine, inactivated, Patient Refuses Allergies Adhesive Bandage (Unknown) Vistaril Problems Ongoing - Any problem that you are currently receiving treatment for. ASCVD (arteriosclerotic cardiovascular disease) Atrial fibrillation BMI 28.0-28.9,adult Encounter for surveillance of abnormal nevi HTN (hypertension) Peripheral edema Sleep apnea Venous insufficiency Weakness Patient Survey You may receive a survey via text or e-mail asking about your office visit. Please share your experience with us by completing your survey. We appreciate your feedback and thank you for choosing us for your care. Normal Ken [facility] Medicine Office/Clini c Noteon 08-03-2024 Family Medicine Office/Clinic Note Family Medicine Office/Clinic Note Chief Complaint The patient presents for routine follow-up to manage atrial fibrillation and sleep apnea. HPI Staff Morgan is an 84 year old male presenting for 6 month follow up htn, afib, ASCVD and sleep apnea Follows with cardiology, Dr Lozoya for a fib and ASCVD Patient is here for follow up on hypertension. How often are you checking your blood pressure? sometimes daily or every couple days What are your average readings? normal for him around 130/80's Yearly BMP: 01/13/24 flu: refused questions/concerns: none History of Present Illness The patient is an 84-year-old male presenting for a routine follow-up visit. The primary focus of this visit is the management of his atrial fibrillation and sleep apnea. The patient has a documented history of Atrial Fibrillation, with Dr. Lozoya providing specialized care for this condition. The patient currently manages the condition with the use of medications, specifically Eliquis and Coreg. The patient has confirmed compliance with these medications and reported no missed doses. Previous evaluations indicated irregular heartbeat consistent with atrial fibrillation, which persists without exacerbation and with no associated symptoms such as chest pain or shortness of breath reported during this visit. Additionally, the patient has a history of sleep apnea, for which continuous positive airway pressure (CPAP) therapy is being utilized. The patient reports adequate compliance with the CPAP machine and does not currently exhibit any symptoms indicative of exacerbations in his sleep apnea, such as nocturnal dyspnea or excessive daytime sleepiness. In addition to the aforementioned conditions, the patient mentioned a recent dermatological procedure concerning a potential skin cancer lesion on the ear. This lesion required surgical excision. The patient reported encountering residual nodularity at the surgical site, but no acute symptoms or complications necessitating further immediate intervention were discussed during this visit. Review of Systems PHQ Score Initial Depression Screen Score: 0 SCORE - Respiratory: Denies shortness of breath. - Cardiovascular: Denies chest pain. - Integumentary: Reports recent skin lesion removal, with residual nodularity. Physical Exam Vitals & Measurements T: 36.3 ?C(Temporal Artery) HR: 56(Peripheral) RR: 16 BP: 100/64 SpO2: 97% HT: 70 in HT: 178 cm WT: 91.0 kg WT: 200.2 lb BMI: 28.72 General: alert, no acute distress ENMT: oral mucosa moist Cardiovascular: Irregular heartbeat, normal peripheral perfusion Respiratory: Lungs clear to auscultation, respirations non labored Extremities: no deformity, no trauma Neurological: oriented x 4, level of consciousness appropriate for age, CN II-XII intact, motor strength equal & normal bilaterally, speech normal Abdomen: Soft, Non-tender, Non-distended, + Bowel sounds Assessment/Plan 1. ASCVD (arteriosclerotic cardiovascular disease) (I25.10: 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) The patient continues to be monitored for atherosclerotic heart disease secondary to documented ASCVD. Ongoing management with Coreg has shown stability with no new angina symptoms. Evaluation of blood pressure and symptom monitoring will remain integral to management. Ordered: Body Mass Index (BMI) documented 3008F Current tobacco non-user 1036F Depression Screening Negative 3352F Influenza immunization status assessed 1030F Most recent diastolic blood pressure <80 mm Hg 3078F Patient screen for fall risk: no falls in last year or 1 fall with no injury in last year 1101F Systolic BP <130 mm Hg (Most Recent) 3074F 2. Atrial fibrillation (I48.91: Unspecified atrial fibrillation) The chronic atrial fibrillation is being effectively managed with anticoagulant therapy (Eliquis) and beta-randi therapy (Coreg). The patient denies typical arrhythmia symptoms, indicating adequate management. Continued routine monitoring, symptom evaluation, and compliance with prescribed medical regimen are advised. Ordered: Body Mass Index (BMI) documented 3008F Current tobacco non-user 1036F Depression Screening Negative 3352F Influenza immunization status assessed 1030F Most recent diastolic blood pressure <80 mm Hg 3078F Patient screen for fall risk: no falls in last year or 1 fall with no injury in last year 1101F Systolic BP <130 mm Hg (Most Recent) 3074F 3. HTN (hypertension) (I10: Essential (primary) hypertension) At goal. No issues with meds. Reviewed with the patient. Follow up PRN Ordered: Body Mass Index (BMI) documented 3008F Current tobacco non-user 1036F Depression Screening Negative 3352F Influenza immunization status assessed 1030F Most recent diastolic blood pressure <80 mm Hg 3078F Patient screen for fall risk: no falls in last year or 1 fall with no injury in last year 1101F Systolic BP <130 mm Hg (Most Recent) 307 (more content not included)... [facility] Comment on above: Result Comment: Elec tronically Signed By: Siddhartha OROZCO, Cory Armstrong.brandon\Date and Time Signed: 08/03/24 10:18 EDT Geraldo 05-05-2024 L Specimen: [id number] Received: 05/06/24 Status: SOUJohnson Owens Num: [id number] Spec Type: Surgical Subm Dr: Brian Hernandez DO Tissues: A Skin-Other than Cyst, tag, debridement or plastic repair (LT POSTERIOR NECK) Procedures: HE/8, Gross/Micro L4 Age/ Patient Sex Location Account Attending Physician Morgan Barrientos/M ZULMA [id number] Brian Hernandez DO SPEC NUM: [id number] RECD: 05/06/24 STATUS: VIVIENNEJohnson OWENS NUM: [id number] JORGE: 05/05/24- SUBM DR: Brian Hernandez DO ENTERED: 05/06/24 [facility] DR: Michael Aguilar [facility] SPEC TYPE: Surgical DEPT: S ORDERED: HE/8, Gross/Micro L4 ORDERED: HE8, Gross/Micro L4 Pathological Diagnosis Skin of neck, left posterior (excision): Actinic changes Changes consistent with prior excision/biopsy No residual carcinoma seen Clinical Information Skin cancer. Excision. Gross Description Received in formalin, labeled with the patient's name, date of and left posterior neck is an unoriented pale-robles elliptical excision of skin measuring 3.0 x 1.5 x 0.7 cm in depth. The skin surface contains an eccentrically located 0.9 x 0.6 cm well-healed, ill- defined previous biopsy site coming to within 0.2 cm of the nearest margin. The specimen is inked black along its resection margin. The tips are amputated. The remainder of the excision is serially sectioned. The specimen is submitted entirely in A1 (tips), A2-A4 (remainder of excision). CPT Codes 63653 -------- -------- Specimen: [id number] Received: 05/06/24 Status: TAYLOR Adi Num: [id number] Spec Type: Surgical Subm Dr: Brian Hernandez DO Tissues: A Skin-Other than Cyst, tag, debridement or plastic repair (LT POSTERIOR NECK) Procedures: Farzana ASHLEY/Gail L4 -------- Patient: Morgan Barrientos [id number] (Continued) -------- Signed (signature on file) Isaiah Olivarez Jr., MD 05/12/24 0859 Normal [facility] Automated basophil %Ordered By: Brian Hernandez on 04-28-2024 Basophils/100 WBC (Bld) 0.5 % Normal . [facility] Comment on above: Performed By: #### C BC #### [address] Automated basophil countOrde red By: Brian Hernandez on 04-28-2024 Basophils (Bld) [#/Vol] 0.0 10*3/uL Normal 0.0-0.[address] [facility] Comment on above: Result Comment: PERF ORMED BY: [place] [address] PATHOLOGIST [employer] MARY JANE ORNELAS M.D. Performed By: #### C BC #### [address] Automated blood monocyte cou ntOrdered By: Brian Hernandez on 04-28-2024 Monocytes (Bld) [#/Vol] 0.5 10*3/uL Normal 0.0-0.[address] [facility] Comment on above: Performed By: #### C BC #### [address] Automated eosinophil %Ordere d By: Brian Hernandez on 04-28-2024 Eosinophils/100 WBC (Bld) 1.6 % Normal . [facility] Comment on above: Performed By: #### C BC #### [address] Automated eosinophil countOr dered By: Brian Hernandez on 04-28-2024 Eosinophils (Bld) [#/Vol] 0.1 10*3/uL Normal 0.0-0.[address] [facility] Comment on above: Performed By: #### C BC #### [address] Automated monocyte %Ordered By: Brian Hernandez on 04-28-2024 Monocytes/100 WBC (Bld) 7.5 % Normal . [facility] Comment on above: Performed By: #### C BC #### [address] Automated neutrophil %Ordere d By: Brian Hernandez on 04-28-2024 Neutrophils/100 WBC (Bld) 76.4 % Normal . [facility] Comment on above: Performed By: #### C BC #### [address] Basic Metabolic Panelon GFR/1.73 sq M.predicted MDRD (S/P/Bld) [Vol rate/Area] mL/min/{1.73_m2} Normal [facility] Comment on above: Performed By: #### B MP #### [address] Calcium [Mass/volume] in Ser um or PlasmaOrdered By: Brian Hernandez on 04-28-2024 Calcium [Mass/Vol] 9.0 mg/dL Normal 8.6-10.[address] [facility] Comment on above: Result Comment: PERF ORMED BY: [place] [address] PATHOLOGIST [employer] MARY JANE ORNELAS M.D. Performed By: #### B MP #### [address] Carbon dioxide, total [Moles /volume] in Serum or PlasmaOrdered By: Brian Hernandez on 04-28-2024 CO2 [Moles/Vol] 30.8 mmol/L Normal 21.0-31.0 [facility] Comment on above: Performed By: #### B MP #### [place] [address] [place] Chloride [Moles/volume] in S zaina or PlasmaOrdered By: Brian Hernandez on 04-28-2024 Chloride [Moles/Vol] 105 mmol/L Normal 98-107 [facility] Comment on above: Performed By: #### B MP #### [address] Complete Blood Count Auto Di ffon 04-28-2024 Mean Corpuscular HGB Conc 33.2 g/dL Normal 32.5-35.6 [facility] Comment on above: Performed By: #### C BC #### [facility] [address] NRBC% 0.1 /100{WBC} Normal 0-0.5 [facility] Comment on above: Performed By: #### C BC #### [facility] [address] Creatinine [Mass/volume] in Serum or PlasmaOrdered By: Brian Hernandez on 04-28-2024 Creatinine [Mass/Vol] 1.11 mg/dL Normal 0.70-1.30 [facility] Comment on above: Performed By: #### B MP #### [address] ECG 12 lead ECGon 04-28-2024 ECG 12 lead ECG [facility] [place] [address] [place] [address] Electrocardiograph Report Signed Patient: Morgan Barrientos MR#: [id number] : 1940 Acct:[id number] Age/Sex: 84 / M ADM Date: 04/28/24 Loc: Room: Type: [facility] Attending Dr: Brian Hernandez DO Ordering Provider: Brian Hernandez DO Date of Service: 04/28/2407/14/1149 ECG/ECG 12 lead ECG: pst Copies to: Test Reason : Blood Pressure : / mmHG Vent. Rate : 071 BPM Atrial Rate : 060 BPM P-R Int : 000 ms QRS Dur : 130 ms QT Int : 412 ms P-R-T Axes : 000 104 061 degrees QTc Int : 447 ms Electronic ventricular pacemaker Abnormal ECG When compared with ECG of 10-NOV-2023 13:59, Ventricular pacemaker rhythm replaced sinus rhythm Confirmed by SERGO OROZCO [facility], JESSICA ([id number]) on 04/28/2024 4:02:29 PM Referred By: Electronically Signed By:JESSICA TROTTER MD [facility] Transcribed By: MUS Signed By Jessica Trotter MD, FAC 04/28/24 1602 Normal [facility] Erythrocyte distribution wid th [Ratio] by Automated countOrdered By: Brian Hernandez on 04-28-2024 Erythrocyte distribution width (RBC) [Ratio] 15.9 % High 12.0-14.[address] [facility] Comment on above: Performed By: #### C BC #### [facility] [address] Erythrocytes [#/volume] in B lood by Automated countOrdered By: Brian Hernandez on 04-28-2024 RBC (Bld) [#/Vol] 4.66 10*6/uL Normal 3.90-5.60 [facility] Comment on above: Performed By: #### C BC #### [facility] [address] Glucose [Mass/volume] in Ser um or PlasmaOrdered By: Brian Hernandez on 04-28-2024 Glucose [Mass/Vol] 85 mg/dL Normal 70-[address] [facility] Comment on above: ADA recommended refe rence rangeRandom Glucose Reference Range is dependent on time and content of last meal. Glucose of more than 200 mg/dL in a nonstressed, ambulatory subject supports the diagnosis of Diabetes Mellitus. Result Comment: [place] om Glucose Reference Range is dependent on time and content of last meal. Glucose of more than 200 mg/dL in a nonstressed, ambulatory subject supports the diagnosis of Diabetes Mellitus. ADA recommended reference range Performed By: #### B MP #### [address] Hematocrit [Volume Fraction] of Blood by Automated countOrdered By: Brian Hernandez on 04-28-2024 Hematocrit (Bld) [Volume fraction] 41.6 % Normal 38.8-50.[address] [facility] Comment on above: Performed By: #### C BC #### [facility] [address] [place] [address] [place] Hemoglobin [Mass/volume] in BloodOrdered By: Brian Hernandez on 04-28-2024 Hemoglobin (Bld) [Mass/Vol] 13.8 g/dL Normal 13.0-17.[address] [facility] Comment on above: Performed By: #### C BC #### [place] [address] [place] Leukocytes [#/volume] correc sofía for nucleated erythrocytes in Blood by Automated counOrdered By: Brian Hernandez on 04-28-2024 WBC corrected for nucl RBC Auto (Bld) [#/Vol] 6.2 10*3/uL 4.1-10.[address] [facility] Leukocytes [#/volume] in Blo od by Automated countOrdered By: Brian Hernandez on 04-28-2024 WBC (Bld) [#/Vol] 6.2 10*3/uL Normal 4.1-10.[address] [facility] Comment on above: Performed By: #### C BC #### [address] Lymphocytes [#/volume] in Bl ood by Automated countOrdered By: Brian Hernandez on 04-28-2024 Lymphocytes (Bld) [#/Vol] 0.9 10*3/uL Low 1.00-4.[address] [facility] Comment on above: Performed By: #### C BC #### [address] Lymphocytes/100 leukocytes i n Blood by Automated countOrdered By: Brian Hernandez on 04-28-2024 Lymphocytes/100 WBC (Bld) 14.0 % Normal . [facility] Comment on above: Performed By: #### C BC #### [address] MCH [Entitic mass] by Automa sofía countOrdered By: Brian Hernandez on 04-28-2024 MCH (RBC) [Entitic mass] 29.7 pg Normal 27.5-35.[address] [facility] Comment on above: Performed By: #### C BC #### [address] MCHC Auto (RBC) [Mass/Vol]Or dered By: Brian Hernandez on 04-28-2024 MCHC (RBC) [Mass/Vol] 33.2 g/dL 32.5-35.6 [facility] MCV [Entitic volume] by Auto mated countOrdered By: Brian Hernandez on 04-28-2024 MCV (RBC) [Entitic vol] 89.4 fL Normal 83.5-[address] [facility] Comment on above: Performed By: #### C BC #### [address] Neutrophils [#/volume] in Bl ood by Automated countOrdered By: Brian Hernandez on 04-28-2024 Neutrophils (Bld) [#/Vol] 4.7 10*3/uL Normal 1.8-7.[address] [facility] Comment on above: Performed By: #### C BC #### [address] No Panel InformationOrdered By: Brian Hernandez on 04-28-2024 Estimated GFR (CKD-EPI) > 60.0 mL/Min [facility] Creatinine Clearance (Chem N/A [facility] Nucleated erythrocytes [Pres ence] in Blood by Automated countOrdered By: Brian Hernandez on 04-28-2024 Nucleated RBC Auto Ql (Bld) 0.1 /100{WBC} 0-0.[address] [facility] Platelet mean volume [Entiti c volume] in Blood by Automated countOrdered By: Brian Hernandez on 04-28-2024 Platelet mean volume (Bld) [Entitic vol] 8.3 fL Normal 6.6-10.[address] [facility] Comment on above: Performed By: #### C BC #### [address] Platelets [#/volume] in Bloo d by Automated countOrdered By: Brian Hernandez on 04-28-2024 Platelets (Bld) [#/Vol] 181 10*3/uL Normal 150-[address] [facility] Comment on above: Performed By: #### C BC #### [address] Potassium [Moles/volume] in Serum or PlasmaOrdered By: Brian Hernandez on 04-28-2024 Potassium [Moles/Vol] 4.6 mmol/L Normal 3.5-5.1 [facility] Comment on above: Performed By: #### B MP #### [address] [place] [address] [facility] Serum or plasma anion gap de terminationOrdered By: Brian Hernandez on 04-28-2024 Anion gap [Moles/Vol] 7.8 mmol/L Normal 6.0-15.0 [facility] Comment on above: Performed By: #### B MP #### [facility] [address] Sodium [Moles/volume] in Ser um or PlasmaOrdered By: Brian Hernandez on 04-28-2024 Sodium [Moles/Vol] 139 mmol/L Normal 136-[address] [facility] Comment on above: Performed By: #### B MP #### [facility] [address] Urea nitrogen [Mass/volume] in Serum or PlasmaOrdered By: Brian Hernandez on 04-28-2024 Urea nitrogen [Mass/Vol] 18 mg/dL Normal 7-[address] [facility] Comment on above: Performed By: #### B MP #### [address] ED Note-Physicianon 03-11-20 24 ED Note-Physician [id number] .00TIFF [facility] Physician Referralon 024 Physician Referral [id number]. 00TIFF [facility] Ambulatory Visit Summaryon 0 03-10-2024 Ambulatory Visit Summary MORGAN BARRIENTOS :1940 Visit Date:03/10/2024 Ambulatory Visit Instructions Your Diagnosis BMI 27.0-27.9,adult Over weight Nonsmoker Your Care Team Attending Physician - Cory Hameed MD Primary Care Physician - Cory Hameed MD This Is Your Medications List apixaban (Eliquis 5 mg oral tablet) carvedilol (carvedilol 6.25 mg Tab) magnesium oxide (magnesium oxide 400 mg Tab) nitroglycerin saw palmhilario Procedures Performed Arthroplasty, Cardiac pacemaker, Knee replacement, Knee replacement. Discharge Vitals Temperature (Oral) 36.7 ?C Heart Rate (Peripheral) 60 Respiratory Rate 14 Blood Pressure 122/70 Height 178 cm Height 70 in Weight 87.2 kg Weight 191.84 lb BMI 27.52 What to do next Scheduled Follow-Up Appointments Saturday 10:00 AM EDT With: Siddhartha OROZCO, Cory Sanderson Where: [facility] [place] Normal [address] [id number]- \.br\ Medications\.br \ What How Much When Instructions\.b r\ Unchanged apixaban (Eliquis 5 mg oral tablet) 1 Tablets By Mouth 2 times a day TAKE 1 TABLET BY MOUTH IN THE MORNING and ONE TABLET BY MOUTH AT BEDTIME \.br\ Unchanged carvedilol (carvedilol 6.25 mg Tab) 2 Tablets By Mouth 2 times a day TAKE 1 TABLET BY MOUTH IN THE MORNING then TAKE 1 TABLET BY MOUTH AT BEDTIME \.br\ Unchanged magnesium oxide (magnesium oxide 400 mg Tab) 1 Tablets By Mouth Every day\.br\ Unchanged nitroglycerin 0.4 Milligram Sublingual Every 5 minutes as needed for Chest pain\.br\ Unchanged saw palmetto See instructions take 450mg twice daily \.br\ Allergies\.br\ Adhesive Bandage (Unknown)\.br\ Vistaril\.br\ Problems\.br\ Ongoing - Any problem that you are currently receiving treatment for.\.br\ ASCVD (arteriosclerot ic cardiovascular disease)\.br\ Atrial fibrillation\.b r\ BMI 28.0-28.9,adult \.br\ Encounter for surveillance of abnormal nevi\.br\ HTN (hypertension)\ .br\ Peripheral edema\.br\ Sleep apnea\.br\ Venous insufficiency\. br\ Patient Survey\.br\ You may receive a survey via text or e-mail asking about your office visit. Please share your experience with us by completing your survey. We appreciate your feedback and thank you for choosing us for your care.\.br\ \.br\ [facility] Medicine Office/Clini c Noteon 03-10-2024 Family Medicine Office/Clinic Note HPI Staff morgan is an 84 year old male presenting for ER follow up ER followup: Hospital: [facility] Visit date: 02/25/24 Symptoms the patient presented with: elevated BP low pulse Did labs work, chest xray, couple EKG's, had his pacemaker interrogated per his daughter tried to override it to lessen his PVCs from Jul to January had just under 97,000 PVCs then from february 03 to february 24 had over 100,000 PVCs. That night he went to ER was in bigemy and couldn't get him out of it. Gave him metoprolol and magnesium Current concerns: Increased his slow rate on pacemaker from 55 to 60 and that's okay but checks BP at home and still gets some rates of 53. History of Present Illness - See staff HPI. Review of Systems PHQ Score Initial Depression Screen Score: 0 SCORE Physical Exam Vitals & Measurements T: 36.7 ?C(Oral) HR: 60(Peripheral) RR: 14 BP: 122/70 SpO2: 98% HT: 70 in HT: 178 cm WT: 87.2 kg WT: 191.84 lb BMI: 27.52 General: alert, no acute distress ENMT: oral mucosa moist, Cardiovascular: Marciano rate and rhythm, normal peripheral perfusion Respiratory: Lungs CTA, respirations non labored Extremities: no deformity, no trauma Neurological: oriented x 4, LOC appropriate for age, CN II-XII intact, motor strength equal & normal bilaterally, speech normal Abdomen: Soft, Nontender, Non-distended, + BS Assessment/Plan 1. Atrial fibrillation (I48.91: Unspecified atrial fibrillation) - Called his [employer] office and asked for an EP doctor to see the patient. - EP doctor in today and willing to work him in - Pt is very happy and is heading there now. - No other concerns 2. ASCVD (arteriosclerotic cardiovascular disease) (I25.10: 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) - No CP today 3. HTN (hypertension) (I10: Essential (primary) hypertension) - At goal. 4. BMI 27.0-27.9,adult (Z68.27: Body mass index [BMI] 27.0-27.9, adult) - BMI education given Ordered: Body Mass Index (BMI) documented 3008F Current tobacco non-user 1036F Depression Screening Negative 3352F Most recent diastolic blood pressure <80 mm Hg 3078F Patient screen for fall risk: no falls in last year or 1 fall with no injury in last year 1101F Systolic BP <130 mm Hg (Most Recent) 3074F 5. Over weight (E66.3: Overweight) - Diet and exercise advised Ordered: Body Mass Index (BMI) documented 3008F Current tobacco non-user 1036F Depression Screening Negative 3352F Most recent diastolic blood pressure <80 mm Hg 3078F Patient screen for fall risk: no falls in last year or 1 fall with no injury in last year 1101F Systolic BP <130 mm Hg (Most Recent) 3074F 6. Nonsmoker (Z78.9: Other specified health status) - Please continue to not smoke. Ordered: Body Mass Index (BMI) documented 3008F Current tobacco non-user 1036F Depression Screening Negative 3352F Most recent diastolic blood pressure <80 mm Hg 3078F Patient screen for fall risk: no falls in last year or 1 fall with no injury in last year 1101F Systolic BP <130 mm Hg (Most Recent) 3074F 7. Weakness (R53.1: Weakness) - Discussed PT with the patient as there is concerns for weakness - Follow up PRN Ordered: Physical Therapy Evaluation - External Facility Total time spent preparing for the encounter, evaluating and assessing the patient, documenting the visit, and ordering appropriate follow-up work was 40 minutes. Follow-up No qualifying data available Problem List/Past Medical History Ongoing ASCVD (arteriosclerotic cardiovascular disease) Atrial fibrillation BMI 28.0-28.9,adult Encounter for surveillance of abnormal nevi HTN (hypertension) Peripheral edema Sleep apnea Venous insufficiency Weakness Historical No qualifying data Procedure/Surgical History Arthroplasty, Cardiac pacemaker, Knee replacement, Knee replacement. Medications carvedilol 6.25 mg Tab, 12.5 mg= 2 tab(s), Oral, BID Eliquis 5 mg oral tablet, 5 mg= 1 tab(s), Oral, BID magnesium oxide 400 mg Tab, 400 mg= 1 tab(s), Oral, Daily nitroglycerin, 0.4 mg, SubLingual, q5min, PRN aide severino, See Instructions Allergies Adhesive Bandage (Unknown) Vistaril Social History Alcohol - Low Risk, 02/10/2024 Current, Beer, 1-2 times per month, 1 drinks/episode average. 2.00 drinks/episode maximum. Previous treatment: None. Alcohol use interferes with work or home: No. Drinks more than intended: No. Others hurt by drinking: No. Ready to change: No. Household alcohol concerns: No., 02/10/2024 Substance Abuse - Denies Substance Abuse, 02/10/2024 Tobacco - Denies Tobacco Use, 02/10/2024 4 or less cigarettes(less than 1/4 pack)/day in last 30 days Tobacco Use:. Never Smokeless Tobacco Use:. Cigarettes, 0.25 per day. 22 year(s). Total pack years: 6. Started age 18.0 Years. Stopped age 39 Years., 03/10/2024 Immunizations Vaccine Date Status Comments tetanus-diphtheria toxoids 06/11/2023 Given SARS-CoV-2 (COVID-19) (more content not included)... [facility] Comment on above: Result Comment: Elec tronically Signed By: Siddhartha OROZCO, Cory Sanderson\.br\Date and Time Signed: 03/10/24 15:52 EDT Office Visiton 03-10-2024 Follow-up visit [id number] Parul Barrientos 1940 M Date Provider Department Center 03/10/2024 JIE JAIMES TOBY [place] Family History Problem Relation Age of Onset Heart disease Mother Other Mother Heart disease Father Family Status - Relation Status Age at Mother Father Level of Service:09463 RI OFFICE/OUTPATIENT NEW MODERATE MDM 45 MINUTES Normal [facility] Orders Onlyon 03-10-2024 Orders Only [id number] Parul Barrientos 1940 M Date Provider Department Center 03/10/2024 MATEO ARANA TOBY [facility] Family History Problem Relation Age of Onset Heart disease Mother Other Mother Heart disease Father Family Status - Relation Status Age at Mother Father Normal [facility] ECG 12-Leadon 03-09-2024 ECG 12-Lead [id number]. 00TIFF [facility] RAD - MISCon 03-09-2024 RAD - MISC [id number]#1 .00TIFF [facility] XR knee LT 3V - NOT FOR ER U Cadence 02-13-2024 XR knee LT 3V - NOT FOR ER USE [facility] [address] [place] [address] XRay Report Signed Patient: Morgan Barrientos MR#: [id number] : 1940 Acct:[id number] Age/Sex: 84 / M ADM Date: 02/13/24 Loc: [facility] Room: Type: [facility] Attending Dr: Bianca WYMANC Copies to: NESS Dumont Ordering Provider: NESS Dumont Date of Service: 02/13/24 XR/XR knee LT 3V - NOT FOR ER USE: Z96.652 - Presence of left artificial knee joint ([id number]) XR/XR hip LT min 2V(w/wo pelvis)*: M25.552 - Pain in left hip 2 views left hip with single view pelvis plain film COMPARISON: None HISTORY: Left posterior hip pain ACUTE FINDINGS: None DEGENERATIVE CHANGE: Mild bilateral hip and SI joint degeneration. SOFT TISSUE FINDINGS: Unremarkable JOINT EFFUSION: None POSTOP CHANGES: None BONY MINERALIZATION: Adequate XR/XR hip LT min 2V(w/wo pelvis)* IMPRESSION: Mild degeneration 3 views left knee Left anterior knee pain Left knee arthroplasty. No hardware failure. Small joint effusion. Adequate alignment. No acute bony findings. IMPRESSION: Uncomplicated left knee arthroplasty. Impression dictated by: Kirill Garcia M.D.02/13/2024 2:12 PM Dictation Location: [place] [address] Transcribed By: [facility] 02/13/24 1412 Dictated By: Kirill Garcia DO 02/13/24 1408 Signed By: 02/13/24 1412 Normal [facility] Consultation Noteon 02-12-20 Consultation Note [id number] .00TIFF [facility] Family Medicine Office/Clini c Noteon 02-11-2024 Family Medicine Office/Clinic Note Chief Complaint Medicare Wellness Visit History of Present Illness Covid-19, MERS, Ebola Screen *Contact With Person With Highly Contagious Disease Like Ebola/MERS/COVID-19 AND Have One or More of the Symptoms Below : No *Travel to a Country With Wide-Spread Ebola/MERS/COVID-19 in the Past 21 Days AND Have One or More of the Symptoms Below : No Patient Reported Covid-19 Testing : No *Verify Droplet, Contact Precautions for Ebola (Reference for CDC) : N/A *Verify Airborne, Droplet Precautions for MERS/COVID-19 : N/A Nicole Calles LPN Mauricio - 02/10/2024 11:03 EDT Medicare/Medicaid Summary Chief Complaint : Medicare Wellness Visit Patient Counseled : Nutrition, Physical activity, Elevated BMI Height/Length Measured : 178 cm(Converted to: 5 ft 10 in, 70.08 in) Weight Measured : 91 kg(Converted to: 200 lb 10 Ounces, 200.621 lb) Body Mass Index Measured : 28.72 kg/m2 Height in Inches : 70 in Weight in Pounds : 200.2 lb Systolic Blood Pressure : 154 mmHg (HI) Diastolic Blood Pressure : 82 mmHg Blood Pressure Location : Right arm Blood Pressure Position : Sitting O2 Sat Resting/Exertion Alpha : Resting Peripheral Pulse Rate : 72 bpm Respiratory Rate : 16 br/min SpO2 : 98 % Pain Present : No actual or suspected pain Nicole Calles LPN Mauricio - 02/10/2024 11:03 EDT Hearing and Vision Screening FT FT Whisper Test Comments : No deficits noted. Vision Screen Comments : Wears glasses to read. Sees [facility] yearly. 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 Patient Wishes to Receive Further Information on Advance Directives : No Organ Donation Consent : No Nicole Calles LPN Mauricio - 02/10/2024 11:03 EDT Procedures / Surgeries FT - Procedure History (As Of: 02/10/2024 11:24:35 EDT) Anesthesia Minutes: 0 ; Procedure Name: Arthroplasty, left knee ; Procedure Minutes: 0 ; Last Reviewed Dt/Tm: 02/10/2024 11:11:57 EDT Anesthesia Minutes: 0 ; Procedure Name: Knee replacement, left ; Procedure Minutes: 0 ; Last Reviewed Dt/Tm: 02/10/2024 11:11:57 EDT Anesthesia Minutes: 0 ; Procedure Name: Knee replacement, right ; Procedure Minutes: 0 ; Last Reviewed Dt/Tm: 02/10/2024 11:11:57 EDT Anesthesia Minutes: 0 ; Procedure Name: Cardiac pacemaker ; Procedure Minutes: 0 ; Comments: 02/03/2024 13:29 EDT - Renee Dillon LPN 2016 ; Last Reviewed Dt/Tm: 02/10/2024 11:11:57 EDT Family History Family History (As Of: 02/10/2024 11:24:35 EDT) Father: Relation: Father ; Gender: Male ; Unknown History Mother: Relation: Mother ; Gender: Female ; Unknown History Medicare/Medicaid Social History FT Social History (As Of: 02/10/2024 11:24:35 EDT) Alcohol: Low Risk Current, Beer, 1-2 times per month, 1 drinks/episode average. 2.00 drinks/episode maximum. Previous treatment: None. Alcohol use interferes with work or home: No. Drinks more than intended: No. Others hurt by drinking: No. Ready to change: No. Household alcohol concerns: No. (Last Updated: 02/10/2024 11:13:18 EDT by Nicole Calles LPN) Tobacco: Denies Tobacco Use 4 or less cigarettes(less than 1/4 pack)/day in last 30 days Tobacco Use:. Never Smokeless Tobacco Use:. Cigarettes, 0.25 per day. 21 year(s). Total pack years: 6. Started age 17.0 Years. Stopped age 39 Years. (Last Updated: 02/10/2024 11:14:58 EDT by Nicole Calels LPN) Substance Abuse: Denies Substance Abuse (Last Updated: 02/10/2024 11:15:02 EDT by Nicole Calles LPN ) Health Risk Assessment FT HRA little interest or pleasure? : No HRA down, depressed, or hopeless? : No Hazards in your house? : No Fall Risk Past Year : No Worried About Falling : No Use a Cane or Walker? : No Someone Helps You in the Morning : No Fallen or felt dizzy standing up? : No Assistance with personal care? : No Trouble taking meds correctly? : No HRA Pain Present : No Able to walk without help? : Yes Ability to shop w/out help : Yes Prepare your own meals? : Yes Housework without help? : Yes Handle money without help : Yes Track own medications without help? : Yes Overall mood for past four weeks : Very well General health rating : Good Someone avail. to help if needed? : Yes, as much as I wanted Phys. & emotional health limit social act? : Not at all Nicole Calles LPN - 02/10/2024 11:03 EDT Misc Health Risks Grid Sexual problems : Never Trouble eating well : Never Teeth or denture problems : Never Problems using the telephone : Never Nicole Calles LPN - 02/10/2024 11:03 EDT Confident you control health problems : Very confident Difficulties driving your car? : No Seatbelts : I always fasten my seat belt Nicole Calles LPN - 02/10/2024 11:03 EDT Depression Screening Little Interest, Pleasure in Activities (ref) : Not at all Feeling Down, Depressed, Hopeless : Not at all Initial Depression Screening Score : 0 SCO (more content not included)... [facility] Comment on above: Result Comment: Elec tronically Signed By: Cory Hameed MD\.br\Date and Time Signed: 02/11/24 08:40 EDT\.br\Electronically Co-Signed By: Nicole Calles LPN\.br\Date and Time Co-Signed: 02/10/24 17:25 EDT [place] 02-11-2024 Screens [id number] .[id number] [facility] Ambulatory Visit Summaryon 0 02-10-2024 Ambulatory Visit Summary MORGAN BARRIENTOS :1940 Visit Date:02/10/2024 Ambulatory Visit Instructions Your Diagnosis Annual visit for general adult medical examination with abnormal findings ASCVD (arteriosclerotic cardiovascular disease) Atrial fibrillation HTN (hypertension) Overweight Vaccination refused by patient Your Care Team Attending Physician - Cory Hameed MD Primary Care Physician - Cory Hameed MD This Is Your Medications List apixaban (Eliquis 5 mg oral tablet) carvedilol (carvedilol 6.25 mg Tab) nitroglycerin saw palmetto Procedures Performed Arthroplasty, Cardiac pacemaker, Knee replacement, Knee replacement. Discharge Vitals Heart Rate (Peripheral) 72 Respiratory Rate 16 Blood Pressure 130/82 Height 70 in Height 178 cm Weight 200.2 lb Weight 91 kg BMI 28.72 What to do next Scheduled Follow-Up Appointments Saturday 10:00 AM EDT With: Siddhartha OROZCO, Cory Sanderson Where: [facility] [address] [place] [address]- \.br\ Medications\.br \ What How Much When Instructions\.b r\ Unchanged apixaban (Eliquis 5 mg oral tablet) 1 Tablets By Mouth 2 times a day TAKE 1 TABLET BY MOUTH IN THE MORNING and ONE TABLET BY MOUTH AT BEDTIME \.br\ Unchanged carvedilol (carvedilol 6.25 mg Tab) 1 Tablets By Mouth 2 times a day TAKE 1 TABLET BY MOUTH IN THE MORNING then TAKE 1 TABLET BY MOUTH AT BEDTIME \.br\ Unchanged nitroglycerin 0.4 Milligram Sublingual Every 5 minutes as needed for Chest pain\.br\ Unchanged saw palmetto See instructions take one daily \.br\ Allergies\.br\ Adhesive Bandage (Unknown)\.br\ Vistaril\.br\ Problems\.br\ Ongoing - Any problem that you are currently receiving treatment for.\.br\ ASCVD (arteriosclerot ic cardiovascular disease)\.br\ Atrial fibrillation\.b r\ BMI 28.0-28.9,adult \.br\ Encounter for surveillance of abnormal nevi\.br\ HTN (hypertension)\ .br\ Peripheral edema\.br\ Sleep apnea\.br\ Venous insufficiency\. br\ Patient Survey\.br\ You may receive a survey via text or e-mail asking about your office visit. Please share your experience with us by completing your survey. We appreciate your feedback and thank you for choosing us for your care.\.br\ Education Materials\.br\ Heart Disease Prevention\.br\ Heart disease is the leading cause of in the world. Coronary artery disease is the most common cause of heart disease. This condition results when cholesterol and other substances (plaque) build up inside the cotton of the blood vessels that supply your heart muscle (arteries). This buildup in arteries is called atherosclerosis . You can take actions to lower your risk of heart disease.\.br\ How can heart disease affect me?\.br\ Heart disease can cause many unpleasant symptoms and complications, such as:\.br\ ? \.br\ Chest pain (angina).\.br\ ? \.br\ Reduced or blocked blood flow to your heart. This can cause:\.br\ ? \.br\ Irregular heartbeats (arrhythmias).\ .br\ ? \.br\ Heart attack.\.br\ ? \.br\ Heart failure.\.br\ What can increase my risk?\.br\ The following factors may make you more likely to develop this condition:\.br\ ? \.br\ High blood pressure (hypertension). \.br\ ? \.br\ High cholesterol.\.b r\ ? \.br\ A diet high in saturated fats or trans fats.\.br\ ? \.br\ Obesity.\.br\ ? \.br\ Diabetes.\.br\ ? \.br\ Having a family history of heart disease.\.br\ ? \.br\ Certain lifestyle factors, including:\.br\ ? \.br\ Smoking.\.br\ ? \.br\ Lack of physical activity.\.br\ ? \.br\ Drinking too much alcohol.\.br\ What actions can I take to prevent heart disease?\.br\ Nutrition\.br\ \.br\ ? \.br\ Follow a heart-healthy eating plan as told by your health care provider. Examples include the DASH eating plan. DASH stands for Dietary Approaches to Stop Hypertension.\. br\ ? \.br\ Generally, it is recommended that you:\.br\ ? \.br\ Eat less salt (sodium). Ask your health care provider how much sodium is safe for you. Most people should have less than 2,300 mg each day.\.br\ ? \.br\ Limit unhealthy fats, such as saturated and trans fats, in your diet. You can do this by eating low-fat dairy products, eating less red meat, and avoiding processed foods.\.br\ ? \.br\ Eat healthy fats (omega-3 fatty acids). These are found in fish, such as mackerel or salmon.\.br\ ? \.br\ Eat more fruits and vegetables. You should try to fill one-half of your plate with fruits and vegetables at each meal.\.br\ ? \.br\ Eat more whole grains.\.br\ ? \.br\ Avoid foods and drinks that have added sugars. Try to limit how much added sugar you have to:\.br\ ? \.br\ Less than 25 grams a day for women.\.br\ ? \.br\ Less than 36 grams a day for men.\.br\ Lifestyle\.br\ \.br\ ? \.br\ Get regular exercise. This is one of the most important things you can do for your health. Generally, it is recommended that you:\.br\ ? \.br\ Exercise for at least 30 minutes on most days of the week (150 minutes each week). This should be exercise that causes your heart to beat faster (aerobic exercise).\.br\ ? \.br\ Add strength exercises on at least 2 days each week.\.br\ ? \.br\ Do not use any products that contain nicotine or tobacco. These products include cigarettes, chewing tobacco, and vaping devices, such as e-cigarettes. These can damage your heart and blood vessels. If you need help quitting, ask your health care provider.\.br\ Alcohol use\.br\ ? \.br\ Do not drink alcohol if:\.br\ ? \.br\ Your health care provider tells you not to drink.\.br\ ? \.br\ You are , may be , or are planning to become .\.br\ ? \.br\ If you drink alcohol:\.br\ ? \.br\ Limit how much you have to:\.br\ ? \.br\ 0?1 drink a day for women.\.br\ ? \.br\ 0?2 drinks a day for men.\.br\ ? \.br\ Know how much alcohol is in your drink. In the [place] one drink equals one 12 oz bottle of beer (355 mL), one 5 oz glass of wine (148 mL), or one 1? oz glass of hard liquor (44 mL).\.br\ Medicines\.br\ ? \.br\ Take rtjg-pgr-aqyrac r and prescription medicines only as told by your health care provider.\.br\ ? \.br\ Work with your health care provider to find out whether it is safe and beneficial for you to take aspirin daily. Make sure that you understand how much to take and what form to take.\.br\ ? \.br\ Depending on your risk factors, your health care provider may prescribe medicines to lower your risk of heart disease or to control related conditions. You may take medicine to:\.br\ ? \.br\ Lower cholesterol.\.b r\ ? \.br\ Control blood pressure.\.br\ ? \.br\ Control diabetes.\.br\ General information\.br \ ? \.br\ Keep your blood pressure under control, as recommended by your health care provider. For most healthy people, the upper number of their blood pressure (systolic) should be no higher than 120, and the lower number (diastolic) no higher than 80. Treatment may be needed if your blood pressure is higher than 130/80.\.br\ ? \.br\ Have your blood pressure checked at least every 2 years. Your health care provider may check your blood pressure more often if you have high blood pressure.\.br\ ? \.br\ After age 20, have your cholesterol checked every 4?6 years. If you have risk factors for heart disease, you may need to have it checked more often. Treatment may be needed if your cholesterol is high.\.br\ ? \.br\ Have your body mass index (BMI) checked every year. Your health care provider can calculate your BMI from your height and weight.\.br\ ? \.br\ Check your waist circumference. It should be:\.br\ ? \.br\ No more than 35 inches (89 cm) for women who are not .\.br\ ? \.br\ No more than 40 inches (102 cm) for men.\.br\ ? \.br\ Work with your health care provider to lose weight, if needed, or to maintain a healthy weight.\.br\ Where to find more information:\.b r\ ? \.br\ Centers for Disease Control and Prevention: www.cdc.gov/hea rtdisease\.br\ ? \.br\ [place] [employer] Association: www.heart.org\. br\ Summary\.br\ ? \.br\ Heart disease is the leading cause of in the world.\.br\ ? \.br\ Heart disease can cause chest pain, abnormal heart rhythms, heart attack, and heart failure.\.br\ ? \.br\ Some of the risk factors for heart disease include high blood pressure, high cholesterol, and smoking.\.br\ ? \. [facility] Ambulatory Visit Summary MORGAN BARRIENTOS :1940 Visit Date:02/10/2024 Ambulatory Visit Instructions Your Care Team Attending Physician - Cory Hameed MD Primary Care Physician - Cory Hameed MD This Is Your Medications List apixaban (Eliquis 5 mg oral tablet) carvedilol (carvedilol 6.25 mg Tab) nitroglycerin aide severino Procedures Performed Arthroplasty, Cardiac pacemaker, Knee replacement, Knee replacement. Discharge Vitals Heart Rate (Peripheral) 72 Respiratory Rate 16 Blood Pressure 154/82 Height 178 cm Height 70 in Weight 91 kg Weight 200.2 lb BMI 28.72 What to do next Scheduled Follow-Up Appointments Saturday 10:00 AM EDT With: Cory Hameed MD Where: [facility] [address] [place], [place] [id number]- \.br\ Medications\.br \ What How Much When Instructions\.b r\ Unchanged apixaban (Eliquis 5 mg oral tablet) 1 Tablets By Mouth 2 times a day TAKE 1 TABLET BY MOUTH IN THE MORNING and ONE TABLET BY MOUTH AT BEDTIME \.br\ Unchanged carvedilol (carvedilol 6.25 mg Tab) 1 Tablets By Mouth 2 times a day TAKE 1 TABLET BY MOUTH IN THE MORNING then TAKE 1 TABLET BY MOUTH AT BEDTIME \.br\ Unchanged nitroglycerin 0.4 Milligram Sublingual Every 5 minutes as needed for Chest pain\.br\ Unchanged saw maycol See instructions take one daily \.br\ Allergies\.br\ Adhesive Bandage (Unknown)\.br\ Vistaril\.br\ Problems\.br\ Ongoing - Any problem that you are currently receiving treatment for.\.br\ ASCVD (arteriosclerot ic cardiovascular disease)\.br\ Atrial fibrillation\.b r\ Encounter for surveillance of abnormal nevi\.br\ HTN (hypertension)\ .br\ Peripheral edema\.br\ Sleep apnea\.br\ Venous insufficiency\. br\ Patient Survey\.br\ You may receive a survey via text or e-mail asking about your office visit. Please share your experience with us by completing your survey. We appreciate your feedback and thank you for choosing us for your care.\.br\ \.br\ [facility] Patient Educationon 02-10-20 Patient Education Cardiovascular Hypertension, Adult High blood pressure (hypertension) is when the force of blood pumping through the arteries is too strong. The arteries are the blood vessels that carry blood from the heart throughout the body. Hypertension forces the heart to work harder to pump blood and may cause arteries to become narrow or stiff. Untreated or uncontrolled hypertension can lead to a heart attack, heart failure, a stroke, kidney disease, and other problems. A blood pressure reading consists of a higher number over a lower number. Ideally, your blood pressure should be below 120/80. The first ( top ) number is called the systolic pressure. It is a measure of the pressure in your arteries as your heart beats. The second ( bottom ) number is called the diastolic pressure. It is a measure of the pressure in your arteries as the heart relaxes. What are the causes? The exact cause of this condition is not known. There are some conditions that result in high blood pressure. What increases the risk? Certain factors may make you more likely to develop high blood pressure. Some of these risk factors are under your control, including: ? Smoking. ? Not getting enough exercise or physical activity. ? Being overweight. ? Having too much fat, sugar, calories, or salt (sodium) in your diet. ? Drinking too much alcohol. Other risk factors include: ? Having a personal history of heart disease, diabetes, high cholesterol, or kidney disease. ? Stress. ? Having a family history of high blood pressure and high cholesterol. ? Having obstructive sleep apnea. ? Age. The risk increases with age. What are the signs or symptoms? High blood pressure may not cause symptoms. Very high blood pressure (hypertensive crisis) may cause: ? Headache. ? Fast or irregular heartbeats (palpitations). ? Shortness of breath. ? Nosebleed. ? Nausea and vomiting. ? Vision changes. ? Severe chest pain, dizziness, and seizures. How is this diagnosed? This condition is diagnosed by measuring your blood pressure while you are seated, with your arm resting on a flat surface, your legs uncrossed, and your feet flat on the floor. The cuff of the blood pressure monitor will be placed directly against the skin of your upper arm at the level of your heart. Blood pressure should be measured at least twice using the same arm. Certain conditions can cause a difference in blood pressure between your right and left arms. If you have a high blood pressure reading during one visit or you have normal blood pressure with other risk factors, you may be asked to: ? Return on a different day to have your blood pressure checked again. ? Monitor your blood pressure at home for 1 week or longer. If you are diagnosed with hypertension, you may have other blood or imaging tests to help your health care provider understand your overall risk for other conditions. How is this treated? This condition is treated by making healthy lifestyle changes, such as eating healthy foods, exercising more, and reducing your alcohol intake. You may be referred for counseling on a healthy diet and physical activity. Your health care provider may prescribe medicine if lifestyle changes are not enough to get your blood pressure under control and if: ? Your systolic blood pressure is above 130. ? Your diastolic blood pressure is above 80. Your personal target blood pressure may vary depending on your medical conditions, your age, and other factors. Follow these instructions at home: Eating and drinking ? Eat a diet that is high in fiber and potassium, and low in sodium, added sugar, and fat. An example of this eating plan is called the DASH diet. DASH stands for Dietary Approaches to Stop Hypertension. To eat this way: ? Eat plenty of fresh fruits and vegetables. Try to fill one half of your plate at each meal with fruits and vegetables. ? Eat whole grains, such as whole-wheat pasta, brown rice, or whole-grain bread. Fill about one fourth of your plate with whole grains. ? Eat or drink low-fat dairy products, such as skim milk or low-fat yogurt. ? Avoid fatty cuts of meat, processed or cured meats, and poultry with skin. Fill about one fourth of your plate with lean proteins, such as fish, chicken without skin, beans, eggs, or tofu. ? Avoid pre-made and processed foods. These tend to be higher in sodium, added sugar, and fat. ? Reduce your daily sodium intake. Many people with hypertension should eat less than 1,500 mg of sodium a day. ? Do not drink alcohol if: ? Your health care provider tells you not to drink. ? You are , may be , or are planning to become . ? If you drink alcohol: ? Limit how much you have to: ? 0?1 drink a day for women. ? 0?2 drinks a day for men. ? Know how much alcohol is in your drink. In the [place] one drink equals one 12 oz bottle of beer (355 mL), one 5 oz glass of wine (148 mL), or one 1? oz glass (more content not included)... [facility] Medicine Office/Clini c Noteon 02-07-2024 Family Medicine Office/Clinic Note HPI Staff Morgan is an 83 year old male presenting to replaced by [facility] Establish Care: History: pacemaker, ascvd, a fib, sleep apnea Any previous diagnosis: htn History of seeing any specialist: partner marketing manager [facility] Devora When was your last doctors visit: 2021 Last provider: Sesar Any recent labs: unsure when and what was done Health Maintenance UTD: Colonoscopy: aged out last one been quite awhile ago PSA: ?? flu: refused Acute: Current issues/complaints: growth on left neck that he thinks needs removed and one by right ear on eliquis bid for a fib but he doesn't know the mg strength History of Present Illness Morgan Barrientos is an 83-year-old male who presents for evaluation of multiple medical concerns. The patient reports experiencing a stinging sensation upon palpation of a growth on his skin. He denies picking at the growth, however, he does acknowledge its friction from his sleep apnea machine. Since Saturday and Saturday, he has been having a cold marked by a constant rhinorrhea. He has not been tested for COVID-19. He has been using acetaminophen and cough syrup, which have helped relieve his symptoms. He had COVID-19 before. He is under the care of Dr. Lozoya for his atrial fibrillation and has an appointment scheduled for tomorrow. The patient's blood pressure has been well-regulated. Review of Systems PHQ Score Initial Depression Screen Score: 0 SCORE Physical Exam Vitals & Measurements T: 36.6 ?C(Oral) HR: 60(Peripheral) RR: 16 BP: 112/66 SpO2: 98% HT: 70 in HT: 178.9 cm WT: 90.3 kg WT: 198.66 lb BMI: 28.21 General: alert, no acute distress ENMT: oral mucosa moist, no pharyngeal erythema or exudate Cardiovascular: The heart has an irregularly irregular rate Respiratory: Lungs CTA, respirations non labored Extremities: no deformity, no trauma Neurological: oriented x 4, LOC appropriate for age, CN II-XII intact, motor strength equal & normal bilaterally, speech normal Assessment/Plan 1. Atrial fibrillation (I48.91: Unspecified atrial fibrillation) The patient is under the care of a partner marketing manager and is currently on beta randi and Xarelto. I have requested that the partner marketing manager send us his records for further information. 2. ASCVD (arteriosclerotic cardiovascular disease) (I25.10: 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) The patient is going to be put on statin when he discusses with his partner marketing manager tomorrow. 3. HTN (hypertension) (I10: Essential (primary) hypertension) The patient's blood pressure is at goal with no concerns. His heart rate is also well-controlled. 4. Peripheral edema (R60.9: Edema, unspecified) The edema is minimal today. We will continue to monitor . 5. Sleep apnea (G47.30: Sleep apnea, unspecified) The patient is doing well. He continues to use his CPAP. 6. BMI 28.0-28.9,adult (Z68.28: Body mass index [BMI] 28.0-28.9, adult) BMI education given. 7. Over weight (E66.3: Overweight) Diet and exercise advised. 8. Nonsmoker (Z78.9: Other specified health status) I have encouraged the patient to abstain from smoking. 9. Encounter for surveillance of abnormal nevi (Z13.89: Encounter for screening for other disorder) The nevi is causing issues with the patient's CPAP machine. I will refer the patient to dermatology for removal. Follow-up The patient is scheduled for a follow-up visit in 6 months, or sooner if necessary. Portions of this record may have been created with voice recognition artificial intelligence software, specifically [employer] and or [employer] Substitutions may have occurred due to the inherent limitations of voice recognition and artificial intelligence software. Documentation services were performed after patient or guardian consented to allow [employer] to record this visit. [facility] access specialist and provider reviewed before signing. [place]: Ijeoma Fang Follow-up No qualifying data available Patient Education BMI for Adults Problem List/Past Medical History Ongoing ASCVD (arteriosclerotic cardiovascular disease) Atrial fibrillation Encounter for surveillance of abnormal nevi HTN (hypertension) Peripheral edema Sleep apnea Venous insufficiency Historical No qualifying data Procedure/Surgical History Arthroplasty, Cardiac pacemaker, Knee replacement, Knee replacement. Medications carvedilol 3.125 mg Tab, 3.125 mg= 1 tab(s), Oral, BID nitroglycerin, 0.4 mg, SubLingual, q5min, PRN aide severino, See Instructions Xarelto 20 mg oral tablet, 20 mg= 1 tab(s), Oral, qPM Allergies Adhesive Bandage (Unknown) Vistaril Social History Tobacco Never (less than 100 in lifetime) Tobacco Use:. Never Smokeless Tobacco Use:., 02/03/2024 Immunizations Vaccine Date Status Comments tetanus-diphtheria toxoids 06/11/2023 Given SARS-CoV-2 (COVID-19) mRNA [id number] vax 10/11/2021 Recorded SARS-CoV-2 (COVID-19) mRNA (more content not included)... [facility] Comment on above: Result Comment: Elec tronically Signed By: Cory Hameed MD\.br\Date and Time Signed: 02/07/24 09:46 EDT\.br\Electronically Co-Signed By: Ijeoma Fang\.br\Date and Time Co-Signed: 02/03/24 17:05 EDT Physician Referralon 024 Physician Referral [id number] 1.00TIFF [facility] Ambulatory Visit Summaryon 0 02-03-2024 Ambulatory Visit Summary MORGAN BARRIENTOS :1940 Visit Date:02/03/2024 Ambulatory Visit Instructions Your Diagnosis Atrial fibrillation BMI 28.0-28.9,adult Over weight Nonsmoker ASCVD (arteriosclerotic cardiovascular disease) HTN (hypertension) Peripheral edema Sleep apnea Your Care Team Attending Physician - Cory Hameed MD Primary Care Physician - Cory Hameed MD This Is Your Medications List rivaroxaban (Xarelto 20 mg oral tablet) Contact prescribing physician if questions or concerns carvedilol (carvedilol 3.125 mg Tab) nitroglycerin aide severino [Image Removed: STOP]Stop taking these medications aspirin Procedures Performed Arthroplasty, Cardiac pacemaker, Knee replacement, Knee replacement. Discharge Vitals Temperature (Oral) 36.6 ?C Heart Rate (Peripheral) 60 Respiratory Rate 16 Blood Pressure 112/66 Height 178.9 cm Height 70 in Weight 90.3 kg Weight 198.66 lb BMI 28.21 What to do next Scheduled Follow-Up Appointments Saturday 11:00 AM EDT Where: [facility] [place] [facility] ECG 12-Leadon 02-03-2024 ECG 12-Lead [id number] .00TIFF [facility] Lab Reportson 02-03-2024 Lab Reports [id number] .00TIFF [facility] Patient Educationon 02-03-20 Patient Education Nutrition BMI for Adults What is BMI? Body mass index (BMI) is a number that is calculated from a person's weight and height. BMI can help estimate how much of a person's weight is composed of fat. BMI does not measure body fat directly. Rather, it is an alternative to procedures that directly measure body fat, which can be difficult and expensive. BMI can help identify people who may be at higher risk for certain medical problems. What are BMI measurements used for? BMI is used as a screening tool to identify possible weight problems. It helps determine whether a person is obese, overweight, a healthy weight, or underweight. BMI is useful for: ? Identifying a weight problem that may be related to a medical condition or may increase the risk for medical problems. ? Promoting changes, such as changes in diet and exercise, to help reach a healthy weight. BMI screening can be repeated to see if these changes are working. How is BMI calculated? BMI involves measuring your weight in relation to your height. Both height and weight are measured, and the BMI is calculated from those numbers. This can be done either in [place] or metric measurements. Note that charts and online BMI calculators are available to help you find your BMI quickly and easily without having to do these calculations yourself. To calculate your BMI in [place] measurements: 1. Measure your weight in pounds (lb). 2. Multiply the number of pounds by 703. ? For example, for a person who weighs 180 lb, multiply that number by 703, which equals 126,540. 3. Measure your height in inches. Then multiply that number by itself to get a measurement called inches squared. ? For example, for a person who is 70 inches tall, the inches squared measurement is 70 inches x 70 inches, which equals 4,900 inches squared. 4. Divide the total from step 2 (number of lb x 703) by the total from step 3 (inches squared): 126,540 ? 4,900 = 25.8. This is your BMI. To calculate your BMI in metric measurements: 1. Measure your weight in kilograms (kg). 2. Measure your height in meters (m). Then multiply that number by itself to get a measurement called meters squared. ? For example, for a person who is 1.75 m tall, the meters squared measurement is 1.75 m x 1.75 m, which is equal to 3.1 meters squared. 3. Divide the number of kilograms (your weight) by the meters squared number. In this example: 70 ? 3.1 = 22.6. This is your BMI. What do the results mean? BMI charts are used to identify whether you are underweight, normal weight, overweight, or obese. The following guidelines will be used: ? Underweight: BMI less than 18.5. ? Normal weight: BMI between 18.5 and 24.9. ? Overweight: BMI between 25 and 29.9. ? Obese: BMI of 30 or above. Keep these notes in mind: ? Weight includes both fat and muscle, so someone with a muscular build, such as an athlete, may have a BMI that is higher than 24.9. In cases like these, BMI is not an accurate measure of body fat. ? To determine if excess body fat is the cause of a BMI of 25 or higher, further assessments may need to be done by a health care provider. ? BMI is usually interpreted in the same way for men and women. Where to find more information For more information about BMI, including tools to quickly calculate your BMI, go to these websites: ? Centers for Disease Control and Prevention: www.cdc.gov ? [place] Heart Association: www.heart.org ? National Heart, Lung, and Blood [place]: www.nhlbi.nih.gov Summary ? Body mass index (BMI) is a number that is calculated from a person's weight and height. ? BMI may help estimate how much of a person's weight is composed of fat. BMI can help identify those who may be at higher risk for certain medical problems. ? BMI can be measured using [place] measurements or metric measurements. ? BMI charts are used to identify whether you are underweight, normal weight, overweight, or obese. This information is not intended to replace advice given to you by your health care provider. Make sure you discuss any questions you have with your health care provider. Document Revised: 06/29/2020 Document Reviewed: 05/06/2020 [employer] Patient Education ? 2022 [employer]. [facility]20[facility] [id number] .00TIFF [facility] 36on 01-15-2024 36 Regarding lab result s from 01/13/2024: ANGIE Cervantes MA Let him labs looks pretty good- CBC, kidney and liver function good, except his cholesterol is a little too high- why isn't he taking a statin? I don't see an allergy. If he is agreeable start lipitor 40 mg or crestor 20 mg. Please and thank you Spoke with patient and informed him of lab results. He doesn't think he's ever taken a statin in the past, and I also did not see any in his historical medications in [place]. He said he would think about it and let me know. Normal [facility] Activated partial thrombopla stin time (aPTT) in platelet poor plasma by coagulation aOrdered By: Beba Castillo on 11-10-2023 aPTT Coag (PPP) [Time] 33.2 s 25.1-36.[address] [facility] Comment on above: A hematocrit value g reater than 55% may lead to inaccurate results in coagulation testing. Patients having hematocrit values >55% require a special collection tube for coagulation studies. Please contact the laboratory at [phone] for redraw instructions. Automated basophil %Ordered By: Beba Castillo on 11-10-2023 Basophils/100 WBC (Bld) 0.9 % Normal . [facility] Comment on above: Performed By: #### P TT, BMP, DDIMER, CBC, HS TROP, PT, BNP #### [facility] [address] [place] [address] Automated basophil countOrde red By: Beba Castillo on 11-10-2023 Basophils (Bld) [#/Vol] 0.1 10*3/uL Normal 0.0-0.[address] [facility] Comment on above: Result Comment: PERF ORMED BY: [place] [address] PATHOLOGIST [employer] MARY JANE ORNELAS M.D. Performed By: #### P TT, BMP, DDIMER, CBC, HS TROP, PT, BNP #### [facility] [address] [place] [address] Automated blood monocyte cou ntOrdered By: Beba Castillo on 11-10-2023 Monocytes (Bld) [#/Vol] 0.4 10*3/uL Normal 0.0-0.[address] [facility] Comment on above: Performed By: #### P TT, BMP, DDIMER, CBC, HS TROP, PT, BNP #### [address] Automated eosinophil %Ordere d By: Beba Castillo on 11-10-2023 Eosinophils/100 WBC (Bld) 2.6 % Normal . [facility] Comment on above: Performed By: #### P TT, BMP, DDIMER, CBC, HS TROP, PT, BNP #### [facility] [address] Automated eosinophil countOr dered By: Beba Castlilo on 11-10-2023 Eosinophils (Bld) [#/Vol] 0.2 10*3/uL Normal 0.0-0.[address] [facility] Comment on above: Performed By: #### P TT, BMP, DDIMER, CBC, HS TROP, PT, BNP #### [facility] [address] Automated monocyte %Ordered By: Beba Castillo on 11-10-2023 Monocytes/100 WBC (Bld) 6.5 % Normal . [facility] Comment on above: Performed By: #### P TT, BMP, DDIMER, CBC, HS TROP, PT, BNP #### [address] Automated neutrophil %Ordere d By: Beba Castillo on 11-10-2023 Neutrophils/100 WBC (Bld) 77.3 % Normal . [facility] Comment on above: Performed By: #### P TT, BMP, DDIMER, CBC, HS TROP, PT, BNP #### [address] BNP ser/plasOrdered By: Gume Castillo on 11-10-2023 Natriuretic peptide B (Bld) [Mass/Vol] 100.0 pg/mL Normal 5-[address] [facility] Comment on above: Result Comment: PERF ORMED BY: [place] [address] PATHOLOGIST [employer] MARY JANE ORNELAS M.D. Performed By: #### P TT, BMP, DDIMER, CBC, HS TROP, PT, BNP #### [address] Basic Metabolic Panelon 10-22 Creatinine Clr Calc Pharmacy 60.33 Normal [facility] Comment on above: Result Comment: PERF ORMED BY: [place] [address] PATHOLOGIST [employer] MARY JANE ORNELAS M.D. Performed By: #### P TT, BMP, DDIMER, CBC, HS TROP, PT, BNP #### [address] GFR/1.73 sq M.predicted MDRD (S/P/Bld) [Vol rate/Area] mL/min/{1.73_m2} Normal [facility] Comment on above: Performed By: #### P TT, BMP, DDIMER, CBC, HS TROP, PT, BNP #### [place] [address] [place] Calcium [Mass/volume] in Ser um or PlasmaOrdered By: Beba Castillo on 11-10-2023 Calcium [Mass/Vol] 8.8 mg/dL Normal 8.6-10.[address] [facility] Comment on above: Performed By: #### P TT, BMP, DDIMER, CBC, HS TROP, PT, BNP #### [address] Carbon dioxide, total [Moles /volume] in Serum or PlasmaOrdered By: Beba Castillo on 11-10-2023 CO2 [Moles/Vol] 29.8 mmol/L Normal 21.0-31.0 [facility] Comment on above: Performed By: #### P TT, BMP, DDIMER, CBC, HS TROP, PT, BNP #### [place] [address] [place] Chloride [Moles/volume] in S zaina or PlasmaOrdered By: Beba Castillo on 11-10-2023 Chloride [Moles/Vol] 105 mmol/L Normal 98-107 [facility] Comment on above: Performed By: #### P TT, BMP, DDIMER, CBC, HS TROP, PT, BNP #### [address] Complete Blood Count Auto Di ffon 11-10-2023 Mean Corpuscular HGB Conc 34.2 g/dL Normal 32.5-35.6 [facility] Comment on above: Performed By: #### P TT, BMP, DDIMER, CBC, HS TROP, PT, BNP #### [address] Monocytes/100 WBC (Bld) 17.18 % Normal 0.00-20.00 [facility] Comment on above: Performed By: #### P TT, BMP, DDIMER, CBC, HS TROP, PT, BNP #### [address] NRBC% 0.1 /100{WBC} Normal 0-0.5 [facility] Comment on above: Performed By: #### P TT, BMP, DDIMER, CBC, HS TROP, PT, BNP #### [address] Creatinine [Mass/volume] in Serum or PlasmaOrdered By: Beba Castillo on 11-10-2023 Creatinine [Mass/Vol] 1.03 mg/dL Normal 0.70-1.30 [facility] Comment on above: Performed By: #### P TT, BMP, DDIMER, CBC, HS TROP, PT, BNP #### [address] D-Dimer High Sensitivityon 0 11-10-2023 D-Dimer High Sensitivity < 200 Normal 0-243 [facility] Comment on above: Result Comment: The reference range for D-dimer is <243 ng/mL D-dimer units. D-dimer results must be used in conjunction with a clinical pretest probability (PTP) assessment model for deep vein thrombosis (DVT) and pulmonary embolism (PE). Results <230 ng/mL d-dimer units can be used as a negative predictor in patients with low or moderate probability for DVT/PE. Results above the exclusion threshold of 230 ng/ml D-dimer units for DVT/PE may indicate the need for further diagnostic testing. D-Dimer can be increased in hospitalized patients due to co-morbid conditions. A hematocrit value greater than 55% may lead to inaccurate results in coagulation testing. Patients having hematocrit values >55% require a special collection tube for coagulation studies. Please contact the laboratory at [phone] for redraw instructions. PERFORMED BY: [place] [address] PATHOLOGIST [employer] MARY JANE ORNELAS M.D. Performed By: #### P TT, BMP, DDIMER, CBC, HS TROP, PT, BNP ####[facility] [id number] [place] [address] [facility] ECG 12 lead ECGon 11-10-2023 ECG 12 lead ECG [facility] [place] [address] [place] [address] Electrocardiograph Report Signed Patient: Morgan Barrientos MR#: [id number] : 1940 Acct:[id number] Age/Sex: 83 / M ADM Date: 11/10/23 Loc: ER Room: Type: [facility] ER Attending Dr: Ordering Provider: Beba Castillo APRN Date of Service: 11/10/23 ECG/ECG 12 lead ECG: Shortness of Breath/Dyspnea Copies to: Test Reason : Blood Pressure : / mmHG Vent. Rate : 062 BPM Atrial Rate : 062 BPM P-R Int : 306 ms QRS Dur : 094 ms QT Int : 370 ms P-R-T Axes : 047 111 045 degrees QTc Int : 375 ms Sinus rhythm with 1st degree AV block Right axis deviation Septal infarct , age undetermined Abnormal ECG When compared with ECG of 06-MAR-2016 11:38, premature atrial complexes are no longer present Confirmed by VICKY CARPENTER MD ([id number]) on 11/10/2023 3:17:31 PM Referred By: Electronically Signed By:VICKY CARPENTER MD Transcribed By: MUS Signed By Vicky Carpenter MD 11/10/23 1517 Normal [facility] Erythrocyte distribution wid th [Ratio] by Automated countOrdered By: Beba Castillo on 11-10-2023 Erythrocyte distribution width (RBC) [Ratio] 14.6 % Normal 12.0-14.[address] [facility] Comment on above: Performed By: #### P TT, BMP, DDIMER, CBC, HS TROP, PT, BNP #### [facility] [address] [place], [place] [id number] [facility] Erythrocytes [#/volume] in B lood by Automated countOrdered By: Beba Castillo on 11-10-2023 RBC (Bld) [#/Vol] 4.40 10*6/uL Normal 3.90-5.60 [facility] Comment on above: Performed By: #### P TT, BMP, DDIMER, CBC, HS TROP, PT, BNP #### [address] Fibrin D-dimer [Presence] in Platelet poor plasma by Latex agglutinationOrdered By: Beba Castillo on 11-10-2023 Fibrin D-dimer LA Ql (PPP) < 200 ng/mL 0-[address] [facility] Comment on above: The reference range for D-dimer is <243 ng/mL D-dimer units.D-dimer results must be used in conjunction with a clinicalpretest probability (PTP) assessment model for deep veinthrombosis (DVT) and pulmonary embolism (PE). Results <230ng/mL d-dimer units can be used as a negative predictor inpatients with low or moderate probability for DVT/PE.Results above the exclusion threshold of 230 ng/ml D-dimerunits for DVT/PE may indicate the need for furtherdiagnostic testing.D-Dimer can be increased in hospitalized patients due toco-morbid conditions.A hematocrit value greater than 55% may lead to inaccurate results in coagulation testing. Patients having hematocrit values >55% require a special collection tube for coagulation studies. Please contact the laboratory at [phone] for redraw instructions. Glucose [Mass/volume] in Ser um or PlasmaOrdered By: Beba Castillo on 11-10-2023 Glucose [Mass/Vol] 100 mg/dL Normal 70-[address] [facility] Comment on above: ADA recommended refe rence rangeRandom Glucose Reference Range is dependent on time and content of last meal. Glucose of more than 200 mg/dL in a nonstressed, ambulatory subject supports the diagnosis of Diabetes Mellitus. Result Comment: [place] om Glucose Reference Range is dependent on time and content of last meal. Glucose of more than 200 mg/dL in a nonstressed, ambulatory subject supports the diagnosis of Diabetes Mellitus. ADA recommended reference range Performed By: #### P TT, BMP, DDIMER, CBC, HS TROP, PT, BNP #### [facility] [address] Hematocrit [Volume Fraction] of Blood by Automated countOrdered By: Beba Castillo on 11-10-2023 Hematocrit (Bld) [Volume fraction] 38.6 % Low 38.8-50.[address] [facility] Comment on above: Performed By: #### P TT, BMP, DDIMER, CBC, HS TROP, PT, BNP #### [facility] [address] Hemoglobin [Mass/volume] in BloodOrdered By: Beba Castillo on 11-10-2023 Hemoglobin (Bld) [Mass/Vol] 13.2 g/dL Normal 13.0-17.[address] [facility] Comment on above: Performed By: #### P TT, BMP, DDIMER, CBC, HS TROP, PT, BNP #### [facility] [address] INR in Platelet poor plasma by Coagulation assayOrdered By: Beba Castillo on 11-10-2023 INR Coag (PPP) [Relative time] 1.4 {INR} Normal [facility] Comment on above: INR Therapeutic Rang e A) Pre- and Peroperative OAT started two weeks before surgery. NOT HIP SURGERY: 1.5 - 2.5 HIP SURGERY: 2 - 3B) Primary and secondary prevention of venous THROMBOSIS: 2 - 3C) Active venous thrombosis, pulmonary embolismand prevention of recurrent venous thrombosis: 2 - 3D) Prevention of arterial thromboembolismincluding patients with mechanical heart valves: 3 - 4.5 Result Comment: INR Therapeutic Range A) Pre- and Peroperative OAT started two weeks before surgery. NOT HIP SURGERY: 1.5 - 2.5 HIP SURGERY: 2 - 3 B) Primary and secondary prevention of venous THROMBOSIS: 2 - 3 C) Active venous thrombosis, pulmonary embolism and prevention of recurrent venous thrombosis: 2 - 3 D) Prevention of arterial thromboembolism including patients with mechanical heart valves: 3 - 4.5 Performed By: #### P TT, BMP, DDIMER, CBC, HS TROP, PT, BNP ####[facility] [id number] Leukocytes [#/volume] correc sofía for nucleated erythrocytes in Blood by Automated counOrdered By: Beba Castillo on 11-10-2023 WBC corrected for nucl RBC Auto (Bld) [#/Vol] 6.5 10*3/uL 4.1-10.[address] [facility] Leukocytes [#/volume] in Blo od by Automated countOrdered By: Beba Castillo on 11-10-2023 WBC (Bld) [#/Vol] 6.5 10*3/uL Normal 4.1-10.[address] [facility] Comment on above: Performed By: #### P TT, BMP, DDIMER, CBC, HS TROP, PT, BNP #### [facility] [address] [place] [address] [place] Lymphocytes [#/volume] in Bl ood by Automated countOrdered By: Beba Castillo on 11-10-2023 Lymphocytes (Bld) [#/Vol] 0.8 10*3/uL Low 1.00-4.[address] [facility] Comment on above: Performed By: #### P TT, BMP, DDIMER, CBC, HS TROP, PT, BNP #### [facility] [address] [place] [address] [place] Lymphocytes/100 leukocytes i n Blood by Automated countOrdered By: Beba Castillo on 11-10-2023 Lymphocytes/100 WBC (Bld) 12.7 % Normal . [facility] Comment on above: Performed By: #### P TT, BMP, DDIMER, CBC, HS TROP, PT, BNP #### [facility] [address] [place] [address] [place] MCH [Entitic mass] by Automa sofía countOrdered By: Beba Castillo on 11-10-2023 MCH (RBC) [Entitic mass] 30.1 pg Normal 27.5-35.[address] [facility] Comment on above: Performed By: #### P TT, BMP, DDIMER, CBC, HS TROP, PT, BNP #### [facility] [address] [place] [address] MCHC Auto (RBC) [Mass/Vol]Or dered By: Beba Castillo on 11-10-2023 MCHC (RBC) [Mass/Vol] 34.2 g/dL 32.5-35.6 [facility] MCV [Entitic volume] by Auto mated countOrdered By: Beba Castillo on 11-10-2023 MCV (RBC) [Entitic vol] 87.9 fL Normal 83.5-[address] [facility] Comment on above: Performed By: #### P TT, BMP, DDIMER, CBC, HS TROP, PT, BNP #### [facility] [address] Monocyte distribution width [Entitic volume] in Blood by AutomatedOrdered By: Beba Castillo on 11-10-2023 Monocyte distribution width Auto (Bld) [Entitic vol] 17.18 % 0.00-20.[address] [facility] Neutrophils [#/volume] in Bl ood by Automated countOrdered By: Beba Castillo on 11-10-2023 Neutrophils (Bld) [#/Vol] 5.0 10*3/uL Normal 1.8-7.[address] [facility] Comment on above: Performed By: #### P TT, BMP, DDIMER, CBC, HS TROP, PT, BNP #### [facility] [address] No Panel InformationOrdered By: Beba Castillo on 11-10-2023 Estimated GFR (CKD-EPI) > 60.0 mL/Min [facility] Creatinine Clearance (Chem 60.[address] [facility] Nucleated erythrocytes [Pres ence] in Blood by Automated countOrdered By: Beba Castillo on 11-10-2023 Nucleated RBC Auto Ql (Bld) 0.1 /100{WBC} 0-0.[address] [facility] Partial Thromboplastin Timeo n 11-10-2023 aPTT Coag (Bld) [Time] 33.2 s Normal 25.1-36.5 [facility] Comment on above: Result Comment: A he matocrit value greater than 55% may lead to inaccurate results in coagulation testing. Patients having hematocrit values >55% require a special collection tube for coagulation studies. Please contact the laboratory at [phone] for redraw instructions. Performed By: #### P TT, BMP, DDIMER, CBC, HS TROP, PT, BNP ####[facility] [id number] Platelet mean volume [Entiti c volume] in Blood by Automated countOrdered By: Beba Castillo on 11-10-2023 Platelet mean volume (Bld) [Entitic vol] 8.3 fL Normal 6.6-10.[address] [facility] Comment on above: Performed By: #### P TT, BMP, DDIMER, CBC, HS TROP, PT, BNP #### [facility] [address] Platelets [#/volume] in Bloo d by Automated countOrdered By: Beba Castillo on 11-10-2023 Platelets (Bld) [#/Vol] 157 10*3/uL Normal 150-[address] [facility] Comment on above: Performed By: #### P TT, BMP, DDIMER, CBC, HS TROP, PT, BNP #### [facility] [address] Potassium [Moles/volume] in Serum or PlasmaOrdered By: Beba Castillo on 11-10-2023 Potassium [Moles/Vol] 4.3 mmol/L Normal 3.5-5.1 [facility] Comment on above: Performed By: #### P TT, BMP, DDIMER, CBC, HS TROP, PT, BNP #### [facility] [address] Prothrombin time (PT)Ordered By: Beba Castillo on 11-10-2023 PT Coag (PPP) [Time] 15.6 s High 9.0-12.9 [facility] Comment on above: A hematocrit value g reater than 55% may lead to inaccurate results in coagulation testing. Patients having hematocrit values >55% require a special collection tube for coagulation studies. Please contact the laboratory at [phone] for redraw instructions. Result Comment: A he matocrit value greater than 55% may lead to inaccurate results in coagulation testing. Patients having hematocrit values >55% require a special collection tube for coagulation studies. Please contact the laboratory at [phone] for redraw instructions. Performed By: #### P TT, BMP, DDIMER, CBC, HS TROP, PT, BNP ####[address] Serum or plasma anion gap de terminationOrdered By: Beba Castillo on 11-10-2023 Anion gap [Moles/Vol] 6.5 mmol/L Normal 6.0-15.0 [facility] Comment on above: Performed By: #### P TT, BMP, DDIMER, CBC, HS TROP, PT, BNP #### [facility] [address] [place] [address] Sodium [Moles/volume] in Ser um or PlasmaOrdered By: Beba Castillo on 11-10-2023 Sodium [Moles/Vol] 137 mmol/L Normal 136-[address] [facility] Comment on above: Performed By: #### P TT, BMP, DDIMER, CBC, HS TROP, PT, BNP #### [address] Troponin I High Sensitivityo n 11-10-2023 Troponin I High Sensitivity 4.1 pg/mL Normal 0.0-20.0 [facility] Comment on above: Result Comment: PERF ORMED BY: [place] [address] PATHOLOGIST [employer] MARY JANE ORNELAS M.D. Performed By: #### P TT, BMP, DDIMER, CBC, HS TROP, PT, BNP ####[address] Troponin I.cardiac [Mass/vol ume] in Serum or Plasma by Detection limit <= 0.01 ng/Ordered By: Beba Castillo on 11-10-2023 Troponin I.cardiac DL <= 0.01 ng/mL [Mass/Vol] 4.1 pg/mL 0.0-20.[address] [facility] Urea nitrogen [Mass/volume] in Serum or PlasmaOrdered By: Beba Castillo on 11-10-2023 Urea nitrogen [Mass/Vol] 14 mg/dL Normal 7-[address] [facility] Comment on above: Performed By: #### P TT, BMP, DDIMER, CBC, HS TROP, PT, BNP #### [facility] [address] [place] [address] [place] XR chest 1V portableon 11-10 XR chest 1V portable [facility] [address] [place] [address] XRay Report Signed Patient: Morgan Barrientos MR#: [id number] : 1940 Acct:[id number] Age/Sex: 83 / M ADM Date: 11/10/23 Loc: ER Room: Type: PRE ER Attending Dr: Copies to: Beba Castillo APRN Ordering Provider: Beba Castillo APRN Date of Service: 11/10/23 XR/XR chest 1V portable: Shortness of Breath/Dyspnea SINGLE VIEW CHEST CLINICAL HISTORY: Shortness of breath COMPARISON: Chest 10/28/2023 FINDINGS: 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 Heart is normal in size. Lungs are clear. No free air. XR/XR chest 1V portable IMPRESSION: NO ACUTE FINDINGS Impression dictated by: Yimi Merlos Jr., D.O.11/10/2023 2:19 PM Dictation Location: [facility] Transcribed By: [facility] 11/10/23 1419 Dictated By: Yimi Merlos Jr, DO 11/10/23 1418 Signed By: 11/10/23 1419 Normal [facility] XR chest 2V*on 10-28-2023 XR chest 2V* [facility] [employer] Other XR chest 2V* [facility] [employer] Other XR chest 2V* [address] [place] [address] [employer] Other XR chest 2V* [place] [address] [facility] [employer] Other XR chest 2V* XRay Report [facility] [employer] Other XR chest 2V* Signed [place] [email or web address] Other XR chest 2V* Patient: Parul Barrientos MR#: [id number] [place] Other XR chest 2V* : 1940 Acct:[id number] [place] Other XR chest 2V* Age/Sex: 83 / M ADM Date: 10/28/23 [place] Other XR chest 2V* Loc: XDUCLY Room: Type: [facility] [place] Other XR chest 2V* Attending Dr: Abby BOUDREAUX [place] Other XR chest 2V* Copies to: KANIKA Arcos [place] Other XR chest 2V* Ordering Provider: KANIKA Arcos [place] Other XR chest 2V* Date of Service: 10/28/23 [place] Other XR chest 2V* XR/XR chest 2V*: Cough, unspecified [place] Other XR chest 2V* Chest 2 views [facility]UN[facility]E [facility] [employer] Other XR chest 2V* CLINICAL HISTORY: Productive cough and congestion, wheezing for 20 days [place] Other XR chest 2V* COMPARISON: Chest 03/06/2016 [place] Other XR chest 2V* FINDINGS: [place] Other XR chest 2V* 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 Heart is normal in size. Lungs are clear. No free air. [place] Other XR chest 2V* XR/XR chest 2V* [place] Other XR chest 2V* IMPRESSION: [place] Other XR chest 2V* NO ACUTE CARDIOPULMONARY ABNORMALITY. [place] Other XR chest 2V* Impression dictated by: Yimi Merlos Jr., D.O.10/28/2023 1:25 PM [place] Other XR chest 2V* Dictation Location: [facility]15 [place] [employer] Other XR chest 2V* Transcribed By: DEVON 10/28/23 1325 [place] Other XR chest 2V* Dictated By: Yimi Merlos Jr, DO 10/28/23 1323 [place] Other XR chest 2V* Signed By: [place] Other XR chest 2V* 10/28/23 1325 [facility] [employer] Other XR chest 2V* [facility] Main [place] [address] [place] [address] XRay Report Signed Patient: Morgan Barrientos MR#: [id number] : 1940 Acct:[id number] Age/Sex: 83 / M ADM Date: 10/28/23 Loc: [facility] Room: Type: [facility] Attending Dr: Abby BOUDREAUX Copies to: KANIKA Arcos Ordering Provider: KANIKA Arcos Date of Service: 10/28/23 XR/XR chest 2V*: Cough, unspecified Chest 2 views CLINICAL HISTORY: Productive cough and congestion, wheezing for 20 days COMPARISON: Chest 03/06/2016 FINDINGS: 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 Heart is normal in size. Lungs are clear. No free air. XR/XR chest 2V* IMPRESSION: NO ACUTE CARDIOPULMONARY ABNORMALITY. Impression dictated by: Yimi Merlos Jr., D.O.10/28/2023 1:25 PM Dictation Location: [facility]15 Transcribed By: DEVON 10/28/23 1325 Dictated By: Yimi Merlos Jr, DO 10/28/23 1323 Signed By: 10/28/23 1325 Normal [facility] Office Visiton 10-23-2023 Follow-up visit [id number] Parul Barrientos rosita Natarajan 1940 M Date Provider Department Center 10/23/2023 SKYLER MONTEJO CARD [facility] Family History Problem Relation Age of Onset Heart disease Mother Other Mother Heart disease Father Family Status - Relation Status Age at Mother Father Level of Service:99475 RI OFFICE/OUTPATIENT ESTABLISHED MOD MDM 30 MIN Normal [facility] XR knee BI 3Von 06-20-2023 XR knee BI 3V XR/XR knee BI 3V - NOT FOR ER USE: History of total left knee [place] Other XR knee BI 3V replacement;Presence of right art [place] Other XR knee BI 3V 3 views both knee plain film [place] Other XR knee BI 3V COMPARISON: 05/17/2022 [place] Other XR knee BI 3V HISTORY: Fell. Right knee tightness [place] Other XR knee BI 3V ACUTE FINDINGS: None [employer] Other XR knee BI 3V DEGENERATIVE CHANGE: Unremarkable [place] Other XR knee BI 3V SOFT TISSUE FINDINGS : Unremarkable [place] Other XR knee BI 3V JOINT EFFUSION: None [employer] Other XR knee BI 3V POSTOP CHANGES: Bilateral knee arthroplasties without hardware failure loosening [place] Other XR knee BI 3V BONE MINERALIZATION: Adequate [place] Other XR knee BI 3V XR/XR knee BI 3V - NOT FOR ER USE [place] Other XR knee BI 3V IMPRESSION: No acute findings [place] Other XR knee BI 3V Dictated By: Kirill Garcia DO 06/20/23 1621 [place] Other XR knee BI 3V - NOT FOR ER U [facility] 06-20-2023 XR knee BI 3V - NOT FOR ER USE [facility] Main [address] [address] XRay Report Signed Patient: Morgan Barrientos MR#: [id number] : 1940 Acct:[id number] Age/Sex: 83 / M ADM Date: 06/20/23 Loc: [facility] Room: Type: REG CLI Attending Dr: Jhony Coyle II, MD Copies to: Jhony Coyle MD Ordering Provider: Jhony Coyle MD Date of Service: 06/20/23 XR/XR knee BI 3V - NOT FOR ER USE: History of total left knee replacement;Presence of right art 3 views both knee plain film COMPARISON: 05/17/2022 HISTORY: Fell. Right knee tightness ACUTE FINDINGS: None DEGENERATIVE CHANGE: Unremarkable SOFT TISSUE FINDINGS: Unremarkable JOINT EFFUSION: None POSTOP CHANGES: Bilateral knee arthroplasties without hardware failure loosening BONE MINERALIZATION: Adequate XR/XR knee BI 3V - NOT FOR ER USE IMPRESSION: No acute findings Impression dictated by: Kirill Garcia M.D.06/20/2023 4:21 PM Dictation Location: [place] [address] Transcribed By: [facility] 06/20/23 162 Dictated By: Kirill Garcia DO 06/20/23 162 Signed By: 06/20/23 1621 Normal [facility] XR pelvis 1-2Von 06-20-2023 XR pelvis 1-2V [facility] Main [address] [address] XRay Report Signed Patient: Morgan Barrientos MR#: [id number] : 1940 Acct:[id number] Age/Sex: 83 / M ADM Date: 06/20/23 Loc: [facility] Room: Type: REG CLI Attending Dr: Jhony Coyle II, MD Copies to: Jhony Coyle MD Ordering Provider: Jhony Coyle MD Date of Service: 06/20/23 XR/XR pelvis 1-2V: History of total left knee replacement;Presence of right art Single view of the pelvis plain film HISTORY: Fell. Right knee bruising COMPARISON: None SI JOINTS Intact HIPS Unremarkable FRACTURE: No fracture BONY ALIGNMENT: Adequate SOFT TISSUES: Unremarkable LOWER LUMBAR SPINE: Unremarkable INTRAPELVIC STRUCTURES: Unremarkable POSTSURGICAL CHANGES:None XR/XR pelvis 1-2V IMPRESSION:No significant bony abnormality. Impression dictated by: Kirill Garcia M.D.06/20/2023 4:21 PM Dictation Location: [facility]14 Transcribed By: [facility] 06/20/23 162 Dictated By: Kirill Garcia DO 06/20/23 161 Signed By: 06/20/23 162 Normal [facility] XR pelvis 1-2V [facility] [email or web address] Other XR pelvis 1-2V [facility] [email or web address] Other XR pelvis 1-2V [address] [place] [address] [employer] Other XR pelvis 1-2V [place] [id number] No [facility] [employer] Other XR pelvis 1-2V XRay Report [employer] Other XR pelvis 1-2V Signed [employer] Other XR pelvis 1-2V Patient: Parul Barrientos MR#: [id number] [place] Other XR pelvis 1-2V : 1940 Acct:[id number] [place] Other XR pelvis 1-2V Age/Sex: 83 / M ADM Date: 06/20/23 [place] Other XR pelvis 1-2V Loc: [facility] Room: Type : [facility] [place] Other XR pelvis 1-2V Attending Dr: Jhony Coyle II, MD [place] Other XR pelvis 1-2V Copies to: Jhony Coyle MD [place] Other XR pelvis 1-2V Ordering Provider: Jhony Coyle MD [place] Other XR pelvis 1-2V Date of Service: 06/20/23 [place] Other XR pelvis 1-2V XR/XR pelvis 1-2V: History of total left knee replacement;Presence of [place] Other XR pelvis 1-2V right art [employer] Other XR pelvis 1-2V Single view of the pelvis plain film [place] Other XR pelvis 1-2V HISTORY: Fell. Right knee bruising [place] Other XR pelvis 1-2V COMPARISON: None [employer] Other XR pelvis 1-2V SI JOINTS Intact [employer] Other XR pelvis 1-2V HIPS Unremarkable [employer] Other XR pelvis 1-2V FRACTURE: No fracture [place] Other XR pelvis 1-2V BONY ALIGNMENT: Adequate [place] Other XR pelvis 1-2V SOFT TISSUES: Unremarkable [place] Other XR pelvis 1-2V LOWER LUMBAR SPINE: Unremarkable [place] Other XR pelvis 1-2V INTRAPELVIC STRUCTURES: Unremarkable [place] Other XR pelvis 1-2V POSTSURGICAL CHANGES:None [place] Other XR pelvis 1-2V XR/XR pelvis 1-2V [place] Other XR pelvis 1-2V IMPRESSION:No significant bony abnormality. [place] Other XR pelvis 1-2V Impression dictated by: Kirill Garcia M.D.06/20/2023 4:21 PM [place] Other XR pelvis 1-2V Dictation Location: [facility] [place] Other XR pelvis 1-2V Transcribed By: [facility] 06/20/23 1621 [place] Other XR pelvis 1-2V Dictated By: Kirill Garcia DO 06/20/23 1619 [place] Other XR pelvis 1-2V Signed By: [employer] Other XR pelvis 1-2V 06/20/23 1621 [employer] Other ECHOCARDIO M/2D COMPLETEon 0 11-16-2022 ECHOCARDIO M/2D COMPLETE Patient: MORGAN BARRIENTOS Exam Date: 11/16/2022 : 1940 Gender:M Ordering : DR MARTITA LOZOYA M.D. Admission #: [id number] Family : DR ZIGGY KABA . Order #: [id number] CLICK HERE TO VIEW EXAM ECHOCARDIOGRAM REPORT PROCEDURE: CARDIO PULMONARY ECHOCARDIO M/2D COMP INDICATIONS: Nonrheumatic mitral valve disease, pacemaker COMPARISON: None. DESCRIPTION: COMPLETE ECHOCARDIOGRAM Real-time transthoracic echocardiography with 2D, M-mode, spectral and color flow Doppler performed. QUALITY: Technical quality was good. 73 190# BP 124/68 LEFT VENTRICLE: Normal chamber size. Borderline left ventricular hypertrophy. Normal systolic function. LV EF: Normal left ventricular ejection fraction, (>55%). DIASTOLIC: Normal diastolic function. ATRIAL SEPTUM: Visually appears intact. LEFT ATRIUM: Mild dilatation. RIGHT ATRIUM: Moderate dilatation. RIGHT VENTRICLE: Moderate dilatation. Normal systolic function. Pacer wire present. TRICUSPID VALVE: Normal mobility and thickness. No stenosis with mild regurgitation. Doppler studies reveal mildly (35-45) elevated right sided pressures. RVSP is 40 mmHg MITRAL VALVE: Normal mobility and thickness. No evidence of mitral valve stenosis. There is no mitral annular calcification. Mild to moderate mitral regurgitation. AORTIC VALVE: Normal trileaflet appearance. Mildly calcified aortic valve. Normal leaflet mobility. No evidence of aortic valve stenosis. Trivial aortic regurgitation. AORTIC ROOT: Normal diameter and appearance. PULMONIC VALVE: Normal thickness and mobility. No stenosis. Mild regurgitation. PERICARDIUM: No evidence of pericardial effusion. IVC: Collapses with inspirations. IVC is normal in size. PLEURA: CONCLUSION: 1. Normal left ventricular systolic function. LVEF is 55 to 60%. 2. Moderately dilated right ventricle with normal systolic function. 3. Mild to moderate mitral regurgitation. 4. Mild tricuspid and pulmonic regurgitation. 5. Mildly elevated right-sided pressures. Adult Echocardiography Procedure Report Left Ventricle LVEDD (3.7 - 5.6 cm): 5.31 cm LVESD (2.2 - 4.0 cm): 3.33 cm LVIVS thickness (0.6 - 1.2 cm): 1.06 cm LVPW thickness (0.5 - 1.0 cm): 0.96 cm e': 0.11 m/s E - e': 5.96 LVOT Max Gradient: 2.40 mm[Hg] Peak Velocity (LVOT): 0.77 m/s Mean Velocity (LVOT): 0.56 m/s LVOT Diameter 2.21 cm Left Ventricular Ejection Fraction: 55-60% Left Atrium LA Volume Index (2D A2C): 75.31 ml, 75.31 ml Left Atrium Systolic Dimension: 3.80 cm Mitral Valve MV E to A Ratio: 1.15, 0.93 Mitral Valve A-Wave Peak Velocity: 0.63 m/s, 0.66 m/s Mitral Valve E-Wave Peak Velocity: 0.73 m/s, 0.61 m/s Right Ventricle Aorta AO Root Diam: 3.66 cm Aortic Valve AoV Area (Peak Nain): 2.84 cm2, 2.84 cm2 AoV Area (VTI): 2.61 cm2, 2.61 cm2 Peak Velocity(Antegrade Flow): 1.05 m/s Peak Gradient(Antegrade Flow): 4.39 mm[Hg] Mean Velocity(Antegrade Flow): 0.76 m/s Mean Gradient(Antegrade Flow): 2.59 mm[Hg] Velocity Time Integral: 27.36 cm Tricuspid Valve Peak Velocity (Regurgitant Flow): 2.67 m/s, 3.06 m/s Peak Velocity: 0.44 m/s Pulmonic Valve Peak Velocity: 1.64 m/s, 1.82 m/s Peak Gradient: 10.71 mm[Hg], 13.28 mm[Hg] Right Atrium Right Atrium Systolic Pressure: 80.92 ml, 80.92 ml Dictated by: Sammy Mcdaniel M.D. on 11/16/2022 at 17:08 Approved by: Sammy Mcdaniel M.D. on 11/16/2022 at 17:12 Normal [facility] XR CHEST 2 Von 09-20-2022 XR CHEST 2 V EXAM: XR CHEST 2 V HISTORY: Cough for 3 months. A small amount of hemoptysis 2 days ago. COMPARISON: 08/23/2017 TECHNIQUE: Upright PA and lateral chest x-ray FINDINGS: The heart is not enlarged and the vasculature is not distended. No acute infiltrate, effusion or pneumothorax is identified. A left-sided pacemaker remains in place. Degenerative changes are seen in the spine. IMPRESSION: No acute infiltrate or evidence of cardiac decompensation. The overall appearance of the chest is unchanged. Electronically authenticated by: WILLARD YANG Date: 2022-09-20 17:24 Normal [facility] CBC AUTO DIFFon 01-01-2022 BASO # 0.0 103/ul Normal 0.0-0.1 [facility] Comment on above: Performed By: #### C BC #### [facility] [address] [place] [address] Dr. Judy Ortiz Basophils/100 WBC (Bld) 0.5 % Normal 0.2-2.0 [facility] Comment on above: Performed By: #### C BC #### [facility] [address] [place] [address] Dr. Judy Ortiz EO # 0.2 103/ul Normal 0.0-0.7 [facility] Comment on above: Performed By: #### C BC #### [facility] [address] [place] [address] Dr. Judy Ortiz Eosinophils/100 WBC (Bld) 2.7 % Normal 0.9-7.0 [facility] Comment on above: Performed By: #### C BC #### [facility] [address] [place] [address] Dr. Judy Ortiz Erythrocyte distribution width (RBC) [Ratio] 14.7 % Normal 11.0-15.0 [facility] Comment on above: Performed By: #### C BC #### [facility] [address] [place] [address] Dr. Judy Ortiz Hematocrit (Bld) [Volume fraction] 44.3 % Normal 42.0-54.0 [facility] Comment on above: Performed By: #### C BC #### [facility] [address] [place] [address] Dr. Judy Ortiz Hemoglobin (Bld) [Mass/Vol] 14.6 g/dL Normal 14.0-18.0 [facility] Comment on above: Performed By: #### C BC #### [facility] [address] [place] [address] Dr. Judy Otriz IG # 0.02 10e3/ul Normal 0.00-0.03 [facility] Comment on above: Performed By: #### C BC #### [facility] [address] [place] [address] Dr. Judy Ortiz IG % 0.4 % Normal 0.0-0.5 [facility] Comment on above: Performed By: #### C BC #### [facility] [address] [place] [address] Dr. Judy Ortiz LYMPH # 0.8 103/ul Critically low 1.2-3.8 [facility] Comment on above: Performed By: #### C BC #### [facility] [address] [place] [address] Dr. Judy Ortiz Lymphocytes/100 WBC (Bld) 14.0 % Critically low 20.5-60.0 [facility] Comment on above: Performed By: #### C BC #### [facility] [address] [place] [address] Dr. Judy Ortiz MANUAL DIFF REQ NO Normal [facility] Comment on above: Performed By: #### C BC #### [facility] [address] [place] [address] Dr. Judy Ortiz MCH (RBC) [Entitic mass] 29.9 pg Normal 25.9-34.0 [facility] Comment on above: Performed By: #### C BC #### [facility] [address] [place] [address] [address] Judy Ortiz MCHC (RBC) [Mass/Vol] 33.0 g/dL Normal 29.9-35.2 [facility] Comment on above: Performed By: #### C BC #### [facility] [address] [place] [address] [address] Judy Ortiz MCV (RBC) [Entitic vol] 90.6 fL Normal 80.0-94.0 [facility] Comment on above: Performed By: #### C BC #### [facility] [address] [place] [address] Dr. Judy Ortiz MONO # 0.4 103/ul Normal 0.3-0.8 [facility] Comment on above: Performed By: #### C BC #### [facility] [address] [place] [address] Dr. Judy Ortiz Monocytes/100 WBC (Bld) 7.9 % Normal 1.7-12.0 [facility] Comment on above: Performed By: #### C BC #### [facility] [address] [place] [address] Dr. Judy Ortiz NEUT # 4.2 103/ul Normal 1.4-6.5 [facility] Comment on above: Performed By: #### C BC #### [facility] [address] [place] [address] Dr. Judy Ortiz Neutrophils/100 WBC (Bld) 74.5 % Normal 43.0-75.0 [facility] Comment on above: Performed By: #### C BC #### [facility] [address] [place] [address] [address] Judy Ortiz Platelet mean volume (Bld) [Entitic vol] 9.8 fL Normal 9.5-13.5 [facility] Comment on above: Performed By: #### C BC #### [facility] [address] [place] [address] [address] Judy Ortiz PLT 183 103/ul Normal 150-450 [facility] Comment on above: Performed By: #### C BC #### [facility] [address] [place] [address] [address] Judy Ortiz RBC 4.89 106/ul Normal 4.70-6.10 [facility] Comment on above: Performed By: #### C BC #### [facility] [address] [place] [address] [address] Judy Ortiz WBC 5.6 103/ul Normal 4.0-11.0 [facility] Comment on above: Performed By: #### C BC #### [facility] [address] [place] [address] Dr. Judy Ortiz LIPID PROFILEon 01-01-2022 CHOL-HDL RATIO NORM SEE BELOW Normal [facility] Comment on above: Result Comment: 3.3 - 4.4 LOW RISK 4.4 - 7.1 AVERAGE RISK 7.1 - 11.0 MODERATE RISK >11.0 HIGH RISK Performed By: #### C MP, LIPID #### [facility] [address] [place] [address] Dr. Judy Ortiz Cholesterol [Mass/Vol] 146 mg/dL Normal <=200 [facility] Comment on above: Performed By: #### C MP, LIPID #### [facility] [address] [place] [address] Dr. Judy Ortiz Cholesterol in HDL [Mass/Vol] 37 mg/dL Normal [facility] Comment on above: Performed By: #### C MP, LIPID #### [facility] [address] [place] [address] Dr. Judy Ortiz Cholesterol in LDL [Mass/Vol] 87.2 mg/dL Normal [facility] Comment on above: Performed By: #### C MP, LIPID #### [facility] [address] [place] [address] Dr. Judy Ortiz Cholesterol.total/Cho lesterol in HDL [Mass ratio] 3.9 {ratio} Normal [facility] Comment on above: Performed By: #### C MP, LIPID #### [facility] [address] [place] [address] [address] Judy Ortiz HDL NORMAL > or = 60 mg/dl - LO W CARDIOVASCULAR RISK <40 mg/dl - HIGH CARDIOVASCULAR RISK Normal [facility] Comment on above: Performed By: #### C MP, LIPID #### [facility] [address] [place] [address] Dr. Judy Ortiz LDL CALC NORMAL SEE BELOW Normal [facility] Comment on above: Result Comment: <100 mg/dl OPTIMAL 100 - 129 mg/dl NEAR OR ABOVE OPTIMAL 130 - 159 mg/dl BORDERLINE HIGH 160 - 189 mg/dl HIGH >190 mg/dl VERY HIGH Performed By: #### C MP, LIPID #### [facility] [address] [place] [address] Dr. Judy Ortiz Triglyceride [Mass/Vol] 109 mg/dL Normal <=150 [facility] Comment on above: Performed By: #### C MP, LIPID #### [facility] [address] [place] [address] [address] Judy Ortiz VLDL CALC 21.8 mg/dL Normal [facility] Comment on above: Performed By: #### C MP, LIPID #### [facility] [address] [place] [address] Dr. Judy Ortiz PROF 14(COMP METB)on 022 Albumin [Mass/Vol] 3.6 g/dL Normal 3.5-5.[address] [facility] Comment on above: Performed By: #### C MP, LIPID #### [facility] [address] [place] [address] Dr. Judy Ortiz Albumin/Globulin [Mass ratio] 1.1 {ratio} Normal [facility] Comment on above: Performed By: #### C MP, LIPID #### [facility] [address] [place] [address] Dr. Judy Ortiz ALP [Catalytic activity/Vol] 57 U/L Normal 38-126 [facility] Comment on above: Performed By: #### C MP, LIPID #### [facility] [address] [place] [address] Dr. Judy Ortiz ALT [Catalytic activity/Vol] 17 U/L Critically low 21-72 [facility] Comment on above: Performed By: #### C MP, LIPID #### [facility] [address] [place] [address] Dr. Judy Ortiz Anion gap [Moles/Vol] 11.5 mmol/L Normal Th [facility] Comment on above: Performed By: #### C MP, LIPID #### [facility] [address] [place] [address] [address] Judy Ortiz AST [Catalytic activity/Vol] 19 U/L Normal 17-59 [facility] Comment on above: Performed By: #### C MP, LIPID #### [facility] [address] [place] [address] Dr. Judy Ortiz Bilirubin [Mass/Vol] 0.6 mg/dL Normal 0.2-1.3 [facility] Comment on above: Performed By: #### C MP, LIPID #### [facility] [address] [place] [address] Dr. Judy Ortiz Calcium [Mass/Vol] 9.0 mg/dL Normal 8.4-10.[address] [facility] Comment on above: Performed By: #### C MP, LIPID #### [facility] [address] [place] [address] Dr. Judy Ortiz Chloride [Moles/Vol] 103 mmol/L Normal 98-107 [facility] Comment on above: Performed By: #### C MP, LIPID #### [facility] [address] [place] [address] Dr. Judy Ortiz CO2 [Moles/Vol] 29.1 mmol/L Normal 22.0-30.0 [facility] Comment on above: Performed By: #### C MP, LIPID #### [facility] [address] [place] [address] Dr. Judy Ortiz Creatinine [Mass/Vol] 1.16 mg/dL Normal 0.66-1.25 [facility] Comment on above: Performed By: #### C MP, LIPID #### [facility] [address] [place] [address] Dr. Judy Ortiz EGFR-AF SPANISH >60 Normal >=60 [facility] Comment on above: Performed By: #### C MP, LIPID #### [facility] [address] [place] [address] Dr. Judy Ortiz EGFR-NON AF SPANISH =60 Normal >=60 [facility] Comment on above: Performed By: #### C MP, LIPID #### [facility] [address] [address] [address] Judy Ortiz Globulin (S) [Mass/Vol] 3.2 g/dL Normal [facility] Comment on above: Performed By: #### C MP, LIPID #### [facility] [address] [address] [address] Judy Ortiz Glucose [Mass/Vol] 101 mg/dL Normal 74-[address] [facility] Comment on above: Performed By: #### C MP, LIPID #### [facility] [address] [place] [address] Dr. Judy Ortiz Potassium [Moles/Vol] 4.6 mmol/L Normal 3.4-5.0 [facility] Comment on above: Performed By: #### C MP, LIPID #### [facility] [address] [place] [address] Dr. Judy Ortiz Protein [Mass/Vol] 6.8 g/dL Normal 6.1-8.[address] [facility] Comment on above: Performed By: #### C MP, LIPID #### [facility] [address] [place] [address] Dr. Judy Ortiz Sodium [Moles/Vol] 139 mmol/L Normal 137-145 [facility] Comment on above: Performed By: #### C MP, LIPID #### [facility] [address] [address] [address] uJdy Ortiz Urea nitrogen [Mass/Vol] 21.0 mg/dL Critically high 9.0-20.0 [facility] Comment on above: Performed By: #### C MP, LIPID #### [facility] [address] [place] [address] Dr. Judy Ortiz Urea nitrogen/Creatinine [Mass ratio] 18.1 mg/mg Normal [facility] Comment on above: Performed By: #### C MP, LIPID #### [facility] [address] [address] [address] Judy Ortiz XR knee LT 2Von 08-08-2021 XR knee LT 2V [facility] [place] Other XR knee LT 2V [facility] [email or web address] Other XR knee LT 2V [address] [place] [address] [employer] Other XR knee LT 2V [address] [employer] Other XR knee LT 2V XRay Report [email or web address] [facility] [email or web address] Other XR knee LT 2V Signed [place] Other XR knee LT 2V Patient: Parul Barrientos MR#: [id number] [place] Other XR knee LT 2V : 1940 Acct:[id number] [place] Other XR knee LT 2V Age/Sex: 81 / M ADM Date: 08/08/21 [place] Other XR knee LT 2V Loc: [facility] Room: Type : [facility] [place] Other XR knee LT 2V Attending Dr: Harsha Whitehead MD [place] Other XR knee LT 2V Ordering Provider: Harsha Whitehead MD [place] Other XR knee LT 2V Date of Service: 08/08/21 [place] Other XR knee LT 2V XR/XR knee LT 2V: History of total left knee replacement [place] Other XR knee LT 2V Copies to: Harsha Whitehead MD [place] Other XR knee LT 2V CLINICAL INFORMATION : Status post knee arthroplasty. [place] Other XR knee LT 2V POST OP LEFT KNEE: Nor [employer] Other XR knee LT 2V COMPARISON: 06/28/2021] [place] Other XR knee LT 2V FINDINGS: Standing A P and lateral views of the left knee were obtained. There is unremarkable [place] Other XR knee LT 2V alignment of the bon y structures and knee prosthesis. No fracture is noted. [place] Other XR knee LT 2V XR/XR knee LT 2V [place] Other XR knee LT 2V IMPRESSION: [employer] Other XR knee LT 2V UNREMARKABLE POSTOPERATIVE EXAMINATION. [place] Other XR knee LT 2V Impression dictated by: Edison Angel M.D.08/08/2021 1:21 PM [place] Other XR knee LT 2V Dictation Location: [facility] [place] Other XR knee LT 2V Transcribed By: [facility] 08/08/21 [facility] [place] Other XR knee LT 2V Dictated By: Edison Angel MD 08/08/21 [facility] [place] Other XR knee LT 2V Signed By: [place] Other XR knee LT 2V [facility]08[facility] UPPER EXTREMITY W CONTRAS T Kym 10-11-2020 CT UPPER EXTREMITY W CONTRAST RIGHT [facility] Department of Radiology [address] [place] [phone] Patient Name: MORGAN BARRIENTOS : 1940 Sex: M Age: Race: White Pt. Location: Patient Status: D Ordered Date: 10/03/2020 3:10:00 PM Completed Date: 10/11/2020 01:02 PM Requesting Provider: SEGUN TRAVIS Attending Provider: SEGUN TRAVIS Report Copy To: ZIGGY KABA Signs & Symptoms: M75.101 Unsp rotatr-cuff tear/ruptr of right shoulder, not trauma I10 History: [place] [facility] PER MEDICARE ABN PASSED [id number] 10-06-20 [place] Comments: , CT arthrogram of the R shouldeR Exam: CT UPPER EXTREMITY W CONTRAST RIGHT CT UPPER EXTREMITY W CONTRAST RIGHT 10/11/2020 1:02 PM CLINICAL INDICATION: M75.101 Unsp rotatr-cuff tear/ruptr of right shoulder, not trauma I10 TECHNOLOGIST COMMENTS: s/p right shoulder arthrogram QUESTION FOR THE RADIOLOGIST: , CT arthrogram of the R shouldeR PROTOCOL: Axial CT images of the extremity were obtained with IV contrast. CONTRAST: Post arthrogram CT. No adverse reactions reported. TECHNIQUE: Multiple detector CT axial slices of the right shoulder/upper extremity were obtained after intra-articular injection of contrast in the fluoroscopy suite. Multiplanar reformats were performed and viewed on a separate workstation and reviewed to further define anatomy and possible pathology. All CT scans at this facility use dose modulation, iterative reconstruction, and/or weight based dosing when appropriate to reduce radiation dose to as low as reasonably achievable no adverse reaction is reported COMPARISON: None. FINDINGS: The supraspinatus tendon is torn. The frayed stump is retracted to the glenoid rim. The infraspinatus tendon is torn. The frayed stump is retracted to the glenoid rim. The teres minor tendon is intact. The subscapularis appears intact. The long head biceps tendon is intact. Contrast is appreciated in the subacromial bursa as expected given the large rotator cuff tear. The humeral head is high riding, as expected. The head nearly opposes the acromion. The humeral head is somewhat sagging posteriorly. The anterior labrum appears torn or avulsed. The debris posteriorly in the glenohumeral joint space is noted. No fracture, healing fracture, or callus formation is noted. Irregularity and hypertrophy of the lesser tuberosity is appreciated. This indicates sequela of chronic tendinopathy. Sclerosis and irregularity of the greater tuberosity is less prominent. AC joint is maintained. IMPRESSION: Large rotator cuff tear. The supraspinatus and infraspinatus tendons are torn and retracted to the glenoid rim. The humeral head is nearly opposing the acromion. Anterior labral tear. Please see above discussion. Electronically signed: Chandrika Isabel. Transcribed by: [email or web address], User Resident: Electronically Signed by: CHANDRIKA ISABEL @ 10/17/2020 10:20 AM Normal [facility] Comment on above: Order Comment: , CT arthrogram of the R shouldeR SHOULDER ARTHROGRAM RIGHTon 10-11-2020 SHOULDER ARTHROGRAM RIGHT [facility] Department of Radiology [address] [place] [id number] Patient Name: MORGAN BARRIENTOS : 1940 Sex: M Age: Race: White Pt. Location: Patient Status: D Ordered Date: 09/23/2020 3:10:00 PM Completed Date: 10/11/2020 12:46 PM Requesting Provider: SEGUN TRAVIS Attending Provider: SEGUN TRAVIS Report Copy To: ZIGGY KABA Signs & Symptoms: M75.101 Unsp rotatr-cuff tear/ruptr of right shoulder, not trauma I10 History: Comments: Evaluate Exam: SHOULDER ARTHROGRAM RIGHT SHOULDER ARTHROGRAM RIGHT 10/11/2020 12:46 PM CLINICAL INDICATIONS: M75.101 Unsp rotatr-cuff tear/ruptr of right shoulder, not trauma I10 TECHNOLOGIST COMMENTS: right shoulder arthrogram with Dr. Stone .51 minutes fluoro time used 3 images sent QUESTION FOR THE RADIOLOGIST: Evaluate TECHNIQUE: See below CONTRAST: Contrast: OMNIPAQUE 180 (LOCM), 11 milliliter, Intra-articular Procedure: Risks, benefits, indications, and alternatives to the procedure were explained to the patient. Risks include bleeding and infection. All questions were answered. Both written and verbal informed consent was obtained. Patient was placed in the supine position on the fluoroscopic table. Suitable site was marked using fluoroscopic guidance and overlying the right shoulder. Skin prepped and draped in usual sterile fashion. Lidocaine 1% was used for local and deep anesthesia. A 22-gauge 3-1/2 inch spinal needle was advanced under fluoroscopic guidance. Approximately 12 cc of Omnipaque 180 injected into the joint space for CT arthrogram. There was no complication. Needle was removed and a sterile bandage applied. Patient tolerated the procedure well. IMPRESSION: Intra-articular administration of 12 cc of Omnipaque [address] arthrogram into the right shoulder. Procedure done by Dr. Stone No complications and minimal, less than 5mL bleeding. Electronically signed: Oscar Stone. Transcribed by: [email or web address], User Resident: Electronically Signed by: OSCAR STONE @ 10/12/2020 08:35 PM Normal [facility] Comment on above: Order Comment: Evalu ate SHOULDER RIGHTon 09-02-2020 SHOULDER RIGHT [facility] Department of Radiology [address] [place] [phone] Patient Name: MORGAN BARRIENTOS : 1940 Sex: M Age: Race: White Pt. Location: 84 Patient Status: Ordered Date: 09/02/2020 9:40:00 AM Completed Date: 09/02/2020 10:00 AM Requesting Provider: SEGUN TRAVIS Attending Provider: Report Copy To: Signs & Symptoms: M25.511 Pain in right shoulder I10 History: [place] Comments: Evaluate Exam: SHOULDER RIGHT SHOULDER RIGHT 09/02/2020 10:00 AM CLINICAL INDICATIONS: M25.511 Pain in right shoulder I10 TECHNOLOGIST COMMENTS: Follow up right shoulder injury about six weeks ago. QUESTION FOR THE RADIOLOGIST: Evaluate PROTOCOL: AP,Grashey and Axillary views were obtained. COMPARISON: July 29, 2020. FINDINGS: AC joint DJD. Spur formation of the acromion. Osseous irregularity of the humeral head and greater tuberosity. The mild degree of offset of the greater tuberosity is likely due to chronic rotator cuff tendon insertion disease. IMPRESSION: Chronic insertional rotator cuff tendon disease. Electronically signed: Jay Colon. Transcribed by: [email or web address], User Resident: Electronically Signed by: JAY COLON @ 09/02/2020 02:28 PM Normal [facility] Comment on above: Order Comment: Evalu ate SHOULDER RIGHTon 07-29-2020 SHOULDER RIGHT [facility] Department of Radiology [address] [place] [phone] Patient Name: MORGAN BARRIENTOS : 1940 Sex: M Age: Race: White Pt. Location: Patient Status: Ordered Date: 07/29/2020 9:35:00 AM Completed Date: 07/29/2020 09:50 AM Requesting Provider: SEGUN TRAVIS Attending Provider: Report Copy To: Signs & Symptoms: S43.004A Unspecified dislocation of right shoulder joint, init encntr I10 History: Comments: Evaluate Exam: SHOULDER RIGHT EXAMINATION: SHOULDER RIGHT 07/29/2020 9:50 AM CLINICAL HISTORY: S43.004A Unspecified dislocation of right shoulder joint, init encntr I10 TECHNOLOGIST COMMENTS: right shoulder pain and swelling s/p fall 07/25/20 QUESTION FOR THE RADIOLOGIST: Evaluate TECHNIQUE: AP,Grashey and Axillary views were obtained. COMPARISON: None FINDINGS: There is no evidence of fracture, dislocation or acute bony pathology. Glenohumeral joint is intact. There are minimal degenerative changes in the acromioclavicular joint. Right clavicular and right upper bony rib cage are intact. No abnormal soft tissue calcifications are seen. IMPRESSION: Mild degenerative changes in the acromioclavicular joint. No evidence of fracture or acute bony pathology. Electronically signed: Burak Dodson. Transcribed by: [email or web address], User Resident: Electronically Signed by: BURAK DODSON @ 07/29/2020 10:47 AM Normal [facility] Comment on above: Order Comment: Evalu ate *SARS-CoV-2 COVID-19on 07-25 Clinical Report Normal [facility] Comment on above: Result Comment: Spec imen: OROPHARYNGEAL Collected: 07/25/2020 04:47 Status: Final Last Updated: 07/25/2020 11:53 COVID-19 (Final) Not Detected The Pi[employer]GX SARS-CoV-2 assay is a real-time (rt) reverse transcriptase (RT) polymerase chain reaction (PCR) test intended for the [employer] system. The SARS-CoV-2 primer and probe sets are designed to detect RNA from SARS-CoV-2 in a nasopharyngeal (INSURANCE VERIFICATION SPECIALIST) or oropharyngeal (OP) swab from patients with signs and symptoms of infection who are suspected of COVID-19. Results are for the identification of SARS-CoV-2 RNA. The SARS-CoV-2 RNA is generally detectable in a nasopharyngeal or oropharyngeal swab during the acute phase of infection. The Pi[employer]GX SARS-CoV-2 assay is intended for use by qualified and trained clinical laboratory personnel specifically instructed and trained in the techniques of real-time PCR and in vitro diagnostic procedures. The PiperGX SARS-CoV-2 assay is only for use under the Food and Drug Administration Emergency Use Authorization. Testing is limited to laboratories certified under the Clinical Laboratory Improvement Amendments of 1988 (CLIA), 42 U.S.C. 263a, to perform high complexity tests. Performed By: #### 3 [id number] #### [address] Consultationon 07-25-2020 Consultation MR#: [id number] [facility] Pt. Name: Morgan Barrientos Date of Service: 07/25/2020 Room #: FRANK Birthdate: 1940 Referring Physician: CONSULTATION REASON FOR CONSULTATION: Right shoulder dislocation. HISTORY: This is an 80-year-old male, who presents as a transfer from [facility] after sustaining a right shoulder dislocation yesterday at approximately 7 p.m. He states he was walking when he tripped and fell on his outstretched arm, and immediately felt pain and deformity. He was able to make it to his daughter's house just across the street, and was brought to the [facility] ER. There, 2 attempts at closed reduction with conscious sedation were performed and unsuccessful, he was transferred to [facility] for higher level of care. He denies any previous dislocations and has never had any surgeries or injuries to this shoulder before. Currently complains of pain only of the shoulder and denies pain elsewhere in the extremity, denies any numbness and tingling, denies any radiating pain. PAST MEDICAL HISTORY: HI, hypertension, and arthritis. PAST SURGICAL HISTORY: None. ALLERGIES: Adhesive tape. MEDICATIONS: Carvedilol, nitroglycerin p.r.n., and aspirin 81 daily. FAMILY HISTORY: Noncontributory. PHYSICAL EXAM: GENERAL: The patient is in no acute distress, he is alert and oriented, as healthy-appearing. EXTREMITIES: Focused exam of the right upper extremity reveals tenderness to palpation over the right shoulder and none elsewhere. Sensation is grossly intact to light touch in the extremity. There are no noticeable motor deficits distally. Brisk capillary refill. IMAGING DATA: Outside x-rays of the right shoulder reveals an anterior dislocation confirmed by new imaging obtained in our ER. ASSESSMENT: An 80-year-old male with right glenohumeral dislocation, anterior. PLAN: The patient was given a dose of oral Flexeril, and verbal consent was obtained for closed reduction with conscious sedation. Conscious sedation was provided with propofol by the emergency department attending participating in his care, which was adequate for the reduction. I was able to close reduce him with a combination of traction, abduction, and internal rotation. Once relocated, he quickly dislocated again, and was able to relocate him following that. Post reduction x-rays confirmed concentric reduction, he was placed in a sling with instructions to remain at all times until he sees Dr. Travis this coming Saturday. I also spoke with his , who is understanding and agreeable to this plan, and all other questions and concerns were addressed. Case was discussed with Dr. Travis. Electronically Signed by: Segun Travis M.D. 07/27/2020 09:57 A Segun Travis M.D. I was not present but assume all responsibility for the exam. NOT BILLABLE Date Dict: 07/25/2020/06:38 A/Kirill Joseph MD Date Trans: 07/25/2020 09:50 A/mmo [id number] cc: Ziggy Kaba M.D. [address] [place] [address] A [facility] [phone] Normal [facility] PORTABLE SHOULDER RIGHT 2 VW Son 07-25-2020 PORTABLE SHOULDER RIGHT 2 S [facility] Department of Radiology [address] [place] [phone] Patient Name: MORGAN BARRIENTOS : 1940 Sex: M Age: Race: White Pt. Location: [facility] Patient Status: E Ordered Date: 07/25/2020 5:20:00 AM Completed Date: 07/25/2020 05:49 AM Requesting Provider: KIRILL JOSEPH Attending Provider: BRIANNE MUSTAFA Report Copy To: Signs & Symptoms: Pain ( specify Location) History: See Comments Comments: evaluate for Dislocation, post reduction Exam: PORTABLE SHOULDER RIGHT 2 [facility] PORTABLE SHOULDER RIGHT 2 S 07/25/2020 5:49 AM CLINICAL INDICATIONS: Right shoulder pain, anterior shoulder dislocation post reduction TECHNOLOGIST COMMENTS: post reduction QUESTION FOR THE RADIOLOGIST: evaluate for Dislocation, post reduction PROTOCOL: AP and Axillary views were obtained. COMPARISON: 07/25/2020 FINDINGS: Portable AP and axillary view of the right shoulder demonstrates improved alignment post reduction of glenohumeral joint. No displaced fracture. IMPRESSION: Improved alignment of the glenohumeral joint postreduction. Electronically signed: Clara Garces. Transcribed by: [email or web address], User Resident: Electronically Signed by: CLARA GARCES @ 07/25/2020 05:52 AM Normal [facility] Comment on above: Order Comment: evalu ate for Dislocation, post reduction PORTABLE SHOULDER RIGHT 2 [facility] Department of Radiology [address] [place] [phone] Patient Name: MORGAN BARRIENTOS : 1940 Sex: M Age: Race: White Pt. Location: [facility] Patient Status: E Ordered Date: 07/25/2020 3:40:00 AM Completed Date: 07/25/2020 04:20 AM Requesting Provider: BRIANNE MUSTAFA Attending Provider: BRIANNE MUSTAFA Report Copy To: Signs & Symptoms: Deformity History: See Comments Comments: evaluate for Dislocation Exam: PORTABLE SHOULDER RIGHT 2 [facility] PORTABLE SHOULDER RIGHT 2 [facility] 07/25/2020 4:20 AM CLINICAL INDICATIONS: Deformity acute right shoulder pain and injury with deformity TECHNOLOGIST COMMENTS: right shoulder pain QUESTION FOR THE RADIOLOGIST: evaluate for Dislocation COMPARISON: None FINDINGS: Portable AP, Grashey and axillary view of the right shoulder demonstrates anterior glenohumeral joint dislocation. No displaced fracture. IMPRESSION: Anterior glenohumeral dislocation. Electronically signed: Clara Garces. Transcribed by: Skye, User Resident: Electronically Signed by: CLARA GARCES @ 07/25/2020 04:25 AM Normal [facility] Comment on above: Order Comment: evalu ate for Dislocation Vital Signs Date Time Vital Sign Value Performing Clinician Facility 11-10-2023 15:07-0500 Diastolic blood pressure 79 mm[Hg] MD Ziggy Kaba Work Phone: [facility] 11-10-2023 15:07-0500 Heart rate 63 /min MD Ziggy Kaba Work Phone: [facility] 11-10-2023 15:07-0500 Respiratory rate 20 /min MD Ziggy Kaba Work Phone: [facility] 11-10-2023 15:07-0500 SaO2% (BldA) [Mass fraction] 99 % MD Ziggy Kaba Work Phone: [facility] 11-10-2023 15:07-0500 Systolic blood pressure 164 mm[Hg] MD Ziggy Kaba Work Phone: [facility] 11-10-2023 13:29-0500 Body height 185.42 cm MD Ziggy Kaba Work Phone: [facility] 11-10-2023 13:29-0500 Body temperature 97.6 [degF] MD Ziggy Kaba Work Phone: [facility] 11-10-2023 13:29-0500 Body weight 88.4 kg MD Ziggy Kaba Work Phone: [facility] 10-28-2023 12:30-0500 Body height 185.42 cm Abyb Rocha Other [place] Other 10-28-2023 12:30-0500 Body mass index (BMI) [Ratio] 26.38 kg/m2 Abby Rocha Other [place] Other 10-28-2023 12:30-0500 Body temperature 97.9 [degF] Abby Rocha Other [place] Other 10-28-2023 12:30-0500 Body weight 90.72 kg Abby Rocha Other [place] Other 10-28-2023 12:30-0500 Diastolic blood pressure 48 mm[Hg] Abby Rocha Other [place] Other 10-28-2023 12:30-0500 Respiratory rate 16 /min Abby Rocha Other [place] Other 10-28-2023 12:30-0500 SaO2% (BldA) [Mass fraction] 100 % Abby Rocha Other [place] Other 10-28-2023 12:30-0500 Systolic blood pressure 101 mm[Hg] Abby Rocha Other [place] Other 10-15-2023 14:45-0500 Body height 185.42 cm Esperanza Powell Other [place] Other 10-15-2023 14:45-0500 Body mass index (BMI) [Ratio] 26.52 kg/m2 Esperanza Powell Other [place] Other 10-15-2023 14:45-0500 Body temperature 98.3 [degF] Esperanza Powell Other [place] Other 10-15-2023 14:45-0500 Body weight 91.17 kg Esperanza Powell Other [place] Other 10-15-2023 14:45-0500 Respiratory rate 18 /min Esperanza Powell Other [place] Other 10-15-2023 14:45-0500 SaO2% (BldA) [Mass fraction] 99 % Esperanza Powell Other [place] Other 06-20-2023 15:00-0400 Body height 185.42 cm Jhony Red Devil II Other [place] Other 06-20-2023 15:00-0400 Body mass index (BMI) [Ratio] 25.06 kg/m2 Jhony Red Devil II Other [place] Other 06-20-2023 15:00-0400 Body weight 86.18 kg Jhony Leonides II Other [place] Other 05-17-2022 10:30-0400 Body height 185.42 cm Jhony Red Devil II Other [place] Other 05-17-2022 10:30-0400 Body mass index (BMI) [Ratio] 25.06 kg/m2 Jhony Red Devil II Other [place] Other 05-17-2022 10:30-0400 Body weight 86.18 kg Jhony Red Devil II Other [place] Other 08-08-2021 11:45-0400 Body height 185.42 cm Harsha Whitehead Other [place] Other 08-08-2021 11:45-0400 Body mass index (BMI) [Ratio] 25.06 kg/m2 Harsha Whiteehad Other [place] Other 08-08-2021 11:45-0400 Body weight 86.18 kg Harsha Whitehead Other [place] Other Encounters Encounter Date Encounter Type Care Provider Facility Start: 02-08-2025 ambulatory MD Cory Torrez ity: ROMEL [facility] Start: 09-14-2024 End: 09-14-2024 Office outpatient visit 10 minutes Kelly Boykin MD Work Phone: [facility] Comment on above: Seborrheic keratosis (Primary Dx); History of SCC (squamous cell carcinoma) of skin Start: 09-14-2024 End: 09-14-2024 ambulatory KELLY BOYKIN Not Available Start: 09-14-2024 End: 09-14-2024 Bamboo flowsheet Kelly Boykin MD Work Phone: [facility] Start: 09-14-2024 End: 09-14-2024 Bamboo flowsheet Kelly Boykin MD Work Phone: [facility] Start: 09-01-2024 End: 09-01-2024 ambulatory [facility] Start: 08-03-2024 End: 08-03-2024 ambulatory MD Cory Hameed Facility:[facility] Iris frankel Start: 06-30-2024 End: 06-30-2024 ambulatory BRIAN HERNANDEZ Not Available Start: 05-13-2024 End: 05-13-2024 ambulatory BRIAN W LORELEIK Not Available Start: 05-06-2024 End: 05-06-2024 ambulatory BRIAN W MURCEK Not Available Start: 05-05-2024 End: 05-05-2024 ambulatory PHYSICIAN NO [facility] Work Phone: Start: 05-05-2024 End: 05-05-2024 Departed Referred PHYSICIAN [facility] [place] Work Phone: Start: 04-28-2024 End: 04-28-2024 Patient encounter procedure PHYSICIAN NO [facility] Work Phone: Start: 04-28-2024 Encounter for other preprocedural examination Brian Hernandez [facility] Start: 04-28-2024 End: 04-28-2024 ambulatory PHYSICIAN NO [facility] Work Phone: Start: 04-28-2024 End: 04-28-2024 Discharged Recurring PHYSICIAN NO [facility] [place] Start: 04-28-2024 Registered Recurring PHYSICIAN NO [facility] [facility] [place] Start: 04-22-2024 End: 04-22-2024 ambulatory BRIAN MOSELEYTena Not Available Start: 03-24-2024 End: 03-24-2024 ambulatory KELLY CORCORANCash Not Available Start: 03-10-2024 End: 03-10-2024 ambulatory [facility] Start: 03-10-2024 End: 03-10-2024 ambulatory MD Cory Hameed Facility:[facility] Start: 02-13-2024 End: 02-13-2024 ambulatory PHYSICIAN NO [facility] Work Phone: Start: 02-13-2024 End: 02-13-2024 Patient encounter procedure PHYSICIAN NO [facility] [facility] Work Phone: Start: 02-10-2024 End: 02-10-2024 ambulatory MD Cory Hameed Facility:[facility] [place] [facility] Start: 02-04-2024 End: 02-04-2024 ambulatory [facility] Start: 02-03-2024 End: 02-03-2024 ambulatory MD Cory Hameed Facility:[facility] [place] [facility] Start: 02-03-2024 ambulatory MD Cory Hameed Facility :[facility] Start: 11-10-2023 End: 11-10-2023 Emergency department patient visit MD Ziggy Kaba Work Phone: [facility] Work Phone: Start: 10-28-2023 Office outpatient vi sit 15 minutes Abby Rocha [facility] Start: 10-28-2023 End: 10-28-2023 Patient encounter procedure MD Ziggy Kaba Work Phone: [facility] Work Phone: Start: 10-28-2023 End: 10-28-2023 ambulatory MD Ziggy Kaba Work Phone: [facility] Work Phone: Start: 10-28-2023 End: 10-28-2023 Patient encounter procedure MD Ziggy Kaba Work Phone: [facility] Work Phone: Start: 10-23-2023 End: 10-23-2023 ambulatory [facility] Start: 10-15-2023 End: 10-15-2023 ambulatory Esperanza Powell Other [place] Other Start: 10-15-2023 Office outpatient vi sit 15 minutes Esperanza Powell [facility] Start: 10-15-2023 End: 10-15-2023 Patient encounter procedure MD Ziggy Kaba Work Phone: [facility] Work Phone: Start: 06-20-2023 End: 06-20-2023 Patient encounter procedure MD Ziggy Kaba Work Phone: [facility] [place] [facility] Start: 06-20-2023 End: 06-20-2023 ambulatory MD Ziggy Kaba Work Phone: [facility] Work Phone: Start: 06-20-2023 Office outpatient vi sit 25 minutes Jhony Coyle II [facility] [place] [facility] Start: 06-12-2023 End: 06-12-2023 ambulatory Jhony Coyle II Other [place] Other Start: 06-12-2023 Telephone encounter Jhony Mimsle II [facility] [facility] Start: 11-16-2022 End: 11-17-[address] ZIGGY KABA Facility:[facility] Start: 09-20-2022 End: 09-21-[address] ZIGGY KABA Facility:[facility] Start: 05-17-2022 End: 05-17-2022 ambulatory Jhony Red Devil II Other [place] Other Start: 05-17-2022 End: 05-17-2022 Patient encounter procedure Jhony Red Devil II [facility] [place] [facility] Start: 03-20-2022 End: 03-20-2022 ambulatory Harsha Ventura Other [place] Other Start: 03-20-2022 Telephone encounter Harsha Whitehead [facility] [facility] Start: 01-01-2022 End: 01-02-[address] ZIGGY KABA Facility:[facility] Start: 11-08-2021 End: 11-08-2021 ambulatory Jhony Leonides II Other [place] Other Start: 11-08-2021 Patient encounter procedure Jhony Red Devil II [facility] [facility] Start: 08-08-2021 End: 08-08-2021 ambulatory Harsha Whitehead Other [place] Other Start: 08-08-2021 Postop follow up vis it related to original px Harsha Whitehead [facility] Start: 09-02-2020 End: 09-03-2020 Patient encounter procedure SEGUN TRAVIS Facility:[facility] Start: 07-25-2020 End: 07-25-2020 Emergency department patient visit BRIANNE MUSTAFA Facility:[facility] Procedures Date Procedure Procedure Detail Performing Clinician Start: 02-13-2024 Plain X-ray of left hip PHYSICIAN NO FAMILY Start: 02-13-2024 X-ray of left knee PHYS ICIAN NO FAMILY Start: 11-10-2023 Plain chest X-ray MD Ashwin Kaba Work Phone: Start: 10-28-2023 Plain chest X-ray MD Ashwin Kaba Work Phone: Start: 06-20-2023 Pelvis X-ray MD Ziggy Lynne [facility] Work Phone: Start: 06-20-2023 X-ray of both knees MD Ziggy Kaba Work Phone: Start: 05-17-2022 X-ray of left knee MD Tena Kaba Work Phone: H/O: artificial joint Harsha Whitehead Other History of operative procedure on knee Harsha Whitehead Other Plan of Treatment Date Care Activity Detail Author Start: 03-25-2025 End: 03-25-2025 Patient encounter procedure 03/25/2025 2:30 PM EDT Office Visit [facility] [address] [place] [address] Kelly Boykin MD [address] [place] [address] [facility] Start: 09-14-2024 End: 09-14-2024 Patient encounter procedure 09/14/2024 2:30 PM EST Office Visit [facility] [address] [place] [address] Kelly Boykin MD [address] [place] [address] Arrived [facility] Comment on above: Arrived Start: 06-21-2024 Influenza vaccination Influenza Vacc ine (#1) [facility] Start: 02-13-2024 Plain X-ray of left hip XR hip LT min 2V(w/wo pelvis)* [facility] Start: 02-13-2024 X-ray of left knee XR knee LT 3V - NOT FOR ER USE [facility] Start: 02-13-2024 XR Hip - left 2 Views F [facility] Start: 02-13-2024 XR Knee - left [address] [facility] Start: 02-07-2004 Pneumococcal Vaccine : 65+ Years (1 of 1 - PCV) Pneumococcal Vaccine: 65+ Years (1 of 1 - PCV) [facility] Patient Education Cough in adults [facility] Work Phone: Patient referral [facility] Work Phone: Immunizations Immunization Date Immunization Notes Care Provider Fa [facility] 06-11-2023 tetanus and diphther ia toxoids, adsorbed, preservative free, for adult use (5 Lf of tetanus toxoid and 2 Lf of diphtheria toxoid) Kelly Boykin MD Work Phone: [facility] 12-15-2020 COVID-19 Peyton Barkley (Pfizer) MD Ziggy Kaba Work Phone: [facility] 11-23-2020 COVID-19 mRNAPeyton (Pfizer) MD Ziggy Kaba Work Phone: [facility] Payers Date Payer Category Payer Medicare (Managed Care) SHUKRI INMAN [id number] 2023 Medicare [id number] 2023 Self-pay [id number] 1959 Medicare [id number] 1959 Unknown [id number] 1939 Unknown [id number] 2..840.1.395652.3.579.2. 647 1939 Unknown [id number] 2.16.840.1.473290.3.579.2. 647 1939 Unknown [id number] 2.16.840.1.203198.3.579.2. 593 1939 Unknown [id number] 2.16.840.1.896055.3.579.2. 593 1939 Unknown [id number] 2.16.840.1.606224.3.579.2. 593 1939 Unknown [id number] 2.16.840.1.380973.3.579.2. 727 1939 Unknown [id number] 2.16.840.1.575094.3.579.2. 72 1939 Unknown [id number] 2.16.840.1.030501.3.579.2. 72 1939 Unknown [id number] 2.16.840.1.140636.3.579.2. 72 1939 Unknown [id number] 2.16.840.1.198356.3.579.2. 72 1939 Unknown [id number] 2.16.840.1.134809.3.579.2. 727 1939 Unknown [id number] 2.16.840.1.462589.3.579.2. 72 1939 Unknown [id number] 2.16.840.1.887027.3.579.2. 125 1939 Unknown [id number] 2.16.840.1.824316.3.579.2. 125 1939 Unknown [id number] 2.16.840.1.031076.3.579.2. 125 1939 Unknown [id number] 2.16.840.1.419606.3.579.2. 125 1939 Unknown [id number] 2.16.840.1.252307.3.579.2. 1259 1939 Unknown [id number] 2.16.840.1.068311.3.579.2. 1259 Unknown [id number] 2.16.840.1.883591.3.579.2. 531 Unknown [id number] 2.16.840.1.371672.3.579.2. 531 Unknown [id number] 2.16.840.1.899850.3.579.2. 531 Unknown [id number] 2.16.840.1.532523.3.579.2. 531 Unknown [id number] 2.16.840.1.510712.3.579.2. 531 Unknown [id number] 2.16.840.1.526582.3.579.2. 531 Unknown [id number] 2.16.840.1.770449.3.579.2. 531 Social History Date Type Detail Facility Unknown if ever smoked [facility] [employer] Other Start: 06-30-2024 Sex Assigned At N [facility] [employer] Other Start: 05-15-2021 End: 04-22-2024 Tobacco smoking status FLIS Ex-smoker (finding) [facility] Start: 1940 Sex Assigned At Male F [facility] History of tobacco use Current smoker [facility] History of tobacco use Cigarette Smoker [facility] Start: 04-22-2024 Tobacco use and exposure Smokeless tobacco non-user [facility] Start: 06-30-2024 History of Social function [facility] Start: 1940 Sex assigned at Not on file N [facility] Medical Equipment Procedure Code Equipment Code Equipment Origin al Text Equipment Identifier Dates Arthroplasty, knee, total, minimally invasive Orthopaedic cement, non-medicated [id number] FDA Start: 05-15-2021 Arthroplasty, knee, total, minimally invasive Coated knee femur prosthesis ()[id number] FDA Start: 05-15-2021 Arthroplasty, knee, total, minimally invasive Polyethylene patella prosthesis ()[id number] FDA Start: 05-15-2021 Arthroplasty, knee, total, minimally invasive Tibial insert ()[id number] FDA Start: 05-15-2021 Arthroplasty, knee, total, minimally invasive Uncoated knee tibia prosthesis, metallic [id number] FDA Start: 05-15-2021 Clinical Notes 08-08-2021 to 09-14-2024 Kelly Boykin MD - 09/14/2024 2:30 PM EST Note Date & Type Note Facility 09-14-2024 History of Present illness Narrative Follow up Diagnosis: Squamous Cell Carcinoma Location: left neck Last visit: 03/2024 Symptoms: itchy at times Procedure performed: Excision by Dr. Hernandez Date of procedure: 05/05/2024 Lesions: Location: nose Duration: I have no idea Quality: denies pain, denies itch, denies bleeding Associated symptoms: non-healing Treatments: none Established patient All pertinent medical history, medications, and allergies were reviewed. General Exam: alert, oriented to person, place, and time, normal affect, well appearing Unaccompanied A focused exam completed based on patient reported problems, see below: 1. Seborrheic keratosis (2) Mid Tip of Nose, Right Forearm - Posterior Stuck on verrucous, robles-brown papules and plaques. Patient was counseled regarding these benign growths. Removal is normally not necessary, but they may be removed if they are symptomatic or for cosmetic reasons. 2. History of SCC (squamous cell carcinoma) of skin Left Neck No evidence of recurrence at SCC scar. The patient was counseled that scars from excisional sites of nonmelanoma skin cancers should be monitored closely for recurrence. The patient was instructed to contact the office for any new, changing, or symptomatic moles. The patient was also instructed to contact the office for any new lesions that develop within or around the previous surgery scar. Next Visit: as scheduled documented in this encounter [facility] 03-10-2024 Note [facility] Consult Note [facility] Reason for visit: PVC HPI: Morgan Barrientos is a 84 y.o. year old with past medical history of HTN, SND s/p PPM, Afib was recently seen at [facility] as his pulse was felt to be low in the 40's. He was noted to have signficant PVC. He was seen later at [facility] and Dr. Shelton increased carvedilol to 12.5mg bid when she was consulted over the phone. Daughter said a rep from [facility] came to the ED and interrogated his device. He also says he isn't himself and hasn't been doing his normal day to day activities around the house. He denies chest pain, SOB, palpitations, lightheadedness/syncope, and bleeding on Eliquis. PMH: Past Medical History: Diagnosis Date Coronary artery disease Heart valve disease Hypertension Myocardial infarction (CMS/HCC) Paroxysmal atrial flutter (CMS/HCC) Sleep apnea PSH: Past Surgical History: Procedure Laterality Date APPENDECTOMY CARDIAC CATHETERIZATION 05/27/2017 INSERT / REPLACE / REMOVE PACEMAKER TONSILLECTOMY SH: Social Determinants of Health Tobacco Use: Medium Risk (10/23/2023) Patient History Smoking Tobacco Use: Former Smokeless Tobacco Use: Never Passive Exposure: Not on file Alcohol Use: Not on file Financial Resource Strain: Not on file Food Insecurity: Not on file Transportation Needs: Not on file Physical Activity: Not on file Stress: Not on file Social Connections: Not on file Intimate Partner Violence: Unknown (12/12/2023) [facility] Safety [facility] Fear of Current or Ex-Partner: Not on file Emotionally Abused: Not on file Physically Abused: Not on file Sexually Abused: Not on file Physically or Sexually Abused: Not on file Depression: Not on file Housing Stability: Not on file Utilities: Not on file Allergies: Allergies Allergen Reactions Adhesive Tape-Silicones Weight: 85.7kg Visit Vitals BP 146/70 (BP Location: Right arm, Patient Position: Sitting) Pulse 77 Ht 1.854 m (6' 1 ) Wt 85.7 kg (189 lb) SpO2 96% BMI 24.94 kg/m??? Smoking Status Former BSA 2.1 m??? Meds: Current Outpatient Medications on File Prior to Visit Medication Sig Dispense Refill apixaban (Eliquis) 5 mg tablet Take 1 tablet (5 mg) by mouth in the morning and at bedtime. 60 tablet 11 carvedilol (Coreg) 6.25 mg tablet Take 1 tablet (6.25 mg) by mouth in the morning and at bedtime. (Patient taking differently: Take 12.5 mg by mouth in the morning and at bedtime.) 180 tablet 3 magnesium oxide (Mag-Ox) 400 mg tablet 400 mg in the morning. nitroglycerin (Nitrostat) 0.4 mg SL tablet See administration instructions. aspirin 81 mg chewable tablet Chew 1 tablet every day by oral route. No current facility-administered medications on file prior to visit. ROS: Review of Systems Hematologic/Lymphatic: Bruises/bleeds easily. All other systems reviewed and are negative. Physical Exam: Constitutional General Appearance: well-nourished, well-developed, appears stated age Level of Distress: comfortable Psychiatric Mental Status: alert, normal affect Orientation: oriented to time, place, and person Insight: good judgement Eyes Lids and Conjunctivae: non-injected, no xanthelasma ENMT Ears: no lesions on external ear Nose: no lesions on external nose Oropharynx: no cyanosis, no pallor Neck Neck: supple, trachea midline Carotid Arteries: bilateral normal upstroke, no bruits Jugular Veins: normal jugular venous pressure Thyroid: not enlarged Lungs Respiratory Effort: unlabored Chest Exam: normal curvature, no thoracic deformity Auscultation: clear, no wheezing, no rales, no rhonchi Cardiovascular Rate And Rhythm: regular Heart Sounds: normal S1, normal s2, no gallop Systolic Murmur: not heard Diastolic Murmur: not heard Extremities: no cyanosis, no edema, no peripheral signs of emboli Peripheral Pulses Radial Pulse: normal Abdomen Inspection and Palpation: soft, non distended, no bruit, non tender Musculoskeletal Inspection: no joint swelling Neurologic Gait: normal gait Skin Inspection and Palpation: warm and dry Nails: no clubbing Labs: @LABRESULTS@ No results found for: CHOLESTEROL TOTAL , HDL , LDL CALC , LDL DIRECT , TRIGLYCERIDES , TSH , T3 TOTAL , T4 TOTAL , THYROID PEROXIDASE AB , BNP EKG: No results found for this or any previous visit (from the past 4464 hour(s)). Echo:11/16/22 Echocardiogram 11/23/20 Normal LVSF EF >55% Mild dilatation of RV- normal systolic function Mild LA and moderate RA dilatation Mild Mitral valve regurg Coronary angiogram: 05/30/2017: Impression: Patent coronary arteries with normal LAD, left circumflex and dominant right system. The patient should be medically managed for other causes of chest discomfort. Assessment and Plan: - PVC: patient had evidence of bigeminy which was resulted in the heart rate being noted as low due to the lack of (more content not included)... [facility] 11-10-2023 Hospital Discharge instructions Additional Instructions A humidifier may be beneficial Flonase daily may be beneficial Zyrtec or Claritin daily may be beneficial Good handwashing Cough syrup as needed to help suppress cough Be cautious when taking due to side effect of drowsiness Steroids at home as instructed Start your steroid dose tomorrow Albuterol inhaler 2 puffs every 4-6 hours if needed for wheezing or shortness of breath [facility] Work Phone: 10-28-2023 Evaluation note Encounter Date Diagnosis Assessment Notes Oct, Cough, unspecified (ICD-10 - R05.9) Oct, Acute bronchitis, unspecified organism (ICD-10 - J20.9) Drink plenty fluids, get plenty of rest. Continue your home medications as prescribed. Take the doxycycline and cefuroxime as well as Medrol Dosepak as prescribed until gone. You may take Mucinex and/or Sudafed as needed for congestion. Take your Keppra and as needed for cough. Follow-up with your family physician if no improvement in 2 to 3 days. Go to the ER for worsening symptoms or concerns Oct, Fever, unspecified (ICD-10 - R50.9) [place] Other 01-03-2024 NoteNo concerning symptomsUnHolzer [facility]-03-2024 NotePatient here for 1 year follow up CAD, hypertension, and mitral valve regurgitation. He's doing very well, as he denies chest pain, SOB, palpitations, lightheadedness/syncope, and bleeding on Eliquis. Review of Systems Hematologic/Lymphatic: Bruises/bleeds easily. All other systems reviewed and are negative.[facility] 10-23-2023 NoteUTP CARDIOLOGY PROGRESS NOTE HPI: Morgan Barrientos is a 83 y.o. male here for routine f/U HPI Pt presents for 1 year follow up CAD, hypertension, paroxysmal a flutter, and mitral valve regurgitation. He's doing very well, as he denies chest pain, SOB, palpitations, lightheadedness/syncope, and bleeding on Eliquis. Overall he is doing well without any concerning symptoms. Denied any significant bleeding events- admits that he bruises easily but no worse than usual. States he is looking for a new PCP. Review of Systems Hematologic/Lymphatic: Bruises/bleeds easily. All other systems reviewed and are negative. Visit Vitals BP 140/70 (BP Location: Left arm, Patient Position: Sitting) Pulse 68 Ht 1.854 m (6' 1 ) Wt 88.5 kg (195 lb) SpO2 97% BMI 25.73 kg/m??? Smoking Status Former BSA 2.13 m??? Allergies Allergen Reactions Adhesive Tape-Silicones Medications: Current Outpatient Medications on File Prior to Visit Medication Sig Dispense Refill apixaban (Eliquis) 5 mg tablet Take 1 tablet (5 mg) by mouth in the morning and at bedtime. 60 tablet 11 carvedilol (Coreg) 6.25 mg tablet Take 1 tablet (6.25 mg) by mouth in the morning and at bedtime. 180 tablet 3 nitroglycerin (Nitrostat) 0.4 mg SL tablet See administration instructions. aspirin 81 mg chewable tablet Chew 1 tablet every day by oral route. No current facility-administered medications on file prior to visit. Physical Exam: Constitutional: Appearance: Normal appearance. Without apparent distress HENT: Head: Normocephalic and atraumatic. Nose: Nose normal. Mouth/Throat: Mouth: Mucous membranes are moist. Eyes: Extraocular Movements: Extraocular movements intact. Conjunctiva/sclera: Conjunctivae normal. Neck: Vascular: No JVD. Cardiovascular: Rate and Rhythm: Normal rate and regular rhythm. Pulses: Dorsalis pedis pulses are 3 on the right side and 3on the left side. Posterior tibial pulses are 3 on the right side and 3 on the left side. Heart sounds: Normal heart sounds, S1 normal and S2 normal. Pulmonary: Effort: Pulmonary effort is normal. Breath sounds: Normal breath sounds. Abdominal: General: Bowel sounds are normal. Palpations: Abdomen is soft. Musculoskeletal: General: Normal range of motion. Cervical back: Normal range of motion. Right lower leg: No edema. Left lower leg: No edema. Skin: General: Skin is warm and dry. Capillary Refill: Capillary refill takes less than 2 seconds. Neurological: General: No focal deficit present. Mental Status: he is alert and oriented to person, place, and time. Psychiatric: Mood and Affect: Mood normal. Behavior: Behavior normal. Thought Content: Thought content normal. Judgment: Judgment normal. Labs: 01/01/23 renal and liver function normal, CBC normal LDL 87 Last lab values have been reviewed CV Testin08/13/2023 PPM interrogation 11/16/2022 TTE Echocardiogram 11/23/20 Normal LVSF EF >55% Mild dilatation of RV- normal systolic function Mild LA and moderate RA dilatation Mild Mitral valve regurg Cardiac catheterization 05/30/2017: Impression: Patent coronary arteries with normal LAD, left circumflex and dominant right system. The patient should be medically managed for other causes of chest discomfort. Assessment/Plan: Coronary arteriosclerosis Coronary artery disease is stable Continue GDMT- ASA, coreg continue risk factor modifications- heart healthy diet, regular exercise as tolerated and continue all medications. Hypertensive disorder Hypertension is stable and well controlled at home Continue coreg Cardiac pacemaker in situ Device interrogation q 6 months Recent was 07/2023- battery life 3 years, device working appropriately. 1 episode of NSVT- 5 sec and Atrial tach Mitral valve regurgitation No concerning symptoms RTC q 6 months for device check- RTC for eval in 6 mos to 1 year.[facility]01-03-2024 NoteDevice interrogation q 6 months Recent was 07/2023- battery life 3 years, device working appropriately. 1 episode of NSVT- 5 sec and Atrial tachUnHolzer Medical Center [facility] [place] 10-23-2023 NoteHypertension is stable and well controlled at home Continue coregUnHolzer Medical Center – [place]01-03-2024 NoteCoronary artery disease is stable Continue GDMT- ASA, coreg continue risk factor modifications- heart healthy diet, regular exercise as tolerated and continue all medications.[facility] 10-15-2023 Evaluation note* Encounter Date Diagnosis Assessment Notes Treatment Notes Treatment Clinical Notes Sep, Acute non-recurrent maxillary sinusitis (ICD-10 - J01.00) Lung clear on exam, lower suspicion for pneumonia. Will tx tody for bacterial sinusitis based on physical exam and duration of symptoms. Take antibiotic as prescribed, complete entire course of therapy even if symptoms resolve. [place] as needed for cough. Encouraged OTC Mucinex. Supportive care as directed, push fluids and rest, Tylenol/Motrin as directed for aches/fever, warm moist compress over sinuses several times a day, cool mist humidifier, nasal saline spray as directed. Symptoms should improve in the next 2-3 days, if symptoms persist follow up with PCP. Immediate eval for warning s/sx as discussed including worsening SOB, chest pain, palpitations, light headedness/dizziness , significant dehydration, fevers unresponsive to antipyretic, weakness or lethargy. Patient verbalizes understanding and is agreeable to treatment plan. 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 In regards to the left knee, I will think there is anything to do since he is doing so well and x-rays look good. In regards to the right knee, we discussed his prepatellar hematoma and we discussed icing, swelling prevention and continue conservative management. At this point time if in 4 weeks he is not seeing improvement he is getting give me a call and we will reevaluate. Otherwise he can call on a as needed basis. [place] Other 07-28-2022 Evaluation note* Encounter Date Diagnosis Assessment Notes Treatment Notes Treatment Clinical Notes Apr, Primary osteoarthritis of left knee (ICD-10 - M17.12) Apr, History of total lef t knee replacement (ICD-10 - Z96.652) Apr, Other [place] TKA at [facility] on 05/15/2021 Happy with surgical result Follow up yearly with standing AP and lateral xrays of the left knee Patient instructed to call with any questions or concerns. [place] Other 01-19-2022 Evaluation note* Encounter Date Diagnosis Assessment Notes Treatment Notes Treatment Clinical Notes Oct, Primary osteoarthritis of left knee (ICD-10 - M17.12) Oct, History of total lef t knee replacement (ICD-10 - Z96.652) Oct, Other On the lungs michelle with the patient and his daughter in regards to his left total knee. I feel that he is doing A[place] fantastic at this time. I recommended that he continue all activities as tolerated. If he has any issues he should give us a call soon as possible. We also discussed dental prophylaxis with antibiotics as well as any other invasive procedures. The patient and his daughter were all in agreement about taking oral antibiotics within 1 hour of the procedure. If he needs us to prescribe this, he understands that he will call us and we will provide him a prescription for 2000 mg of amoxicillin. I will see him back in 6 months with repeat x-rays. [place] Other 10-19-2021 Evaluation note* Encounter Date Diagnosis Assessment Notes Treatment Notes Treatment Clinical Notes Jul, Primary osteoarthritis of left knee (ICD-10 - M17.12) Jul, History of total lef t knee replacement (ICD-10 - Z96.652) Patient is progressing well. Continue physical therapy exercises and TKA precautions. Instructed patient to call with any questions or concerns. [place] Other Evaluation noteNo InformationNort [email or web address] Other Evnsrfqeqf noteNo assessment information available [facility] Work Phone: Evaluation note* Diagnosis Onset Date Resolution Status History of total left knee replacement acute Left hip pain acute Primary osteoarthritis of left knee acute [facility] Work Phone: Evaluation note* Diagnosis Onset Date Resolution Status Greater trochanteric bursitis acute History of total left knee replacement acute Left hip pain acute Primary osteoarthritis of left knee acute [facility] Work Phone: Evaluation note* Diagnosis Seborrheic keratosis- Primary History of SCC (squamous cell carcinoma) of skin Personal history of other malignant neoplasm of skin documented in this encounter [facility] N[facility]ative - Reported* Type Description Date Medical History hypertension Medical History Atrial fibrillation Surgical History right total knee arthroplasty 2 016 Surgical History Pacemaker insertion 2016 Surgical History hernia X3 Surgical History hemorrhoidectomy Surgical History appendectomy Surgical History left TKA 2020 Hospitalization History see above [place] Other Summary Purpose Family History No Family History Records Found Relationship Condition Age at Onset Recorded Date/T juan alberto father Irregular heart rhythm Unknown Heart block Unknown Not Specified Malignant neoplasm of breast Unknown Disorder of thyroid Unknown Relationship Condition Age at Onset Recorded Date/T juan alberto father Irregular heart rhythm Unknown Heart block Unknown Not Specified Malignant neoplasm of breast Unknown Disorder of thyroid Unknown father Unknown Not Specified Unknown Relationship Condition Age at Onset Recorded Date/T juan alberto father Irregular heart rhythm Unknown Heart block Unknown mother Malignant neoplasm of breast Unknown Disorder of thyroid Unknown father Unknown mother Unknown Advance Directives No Advanced Directives Records Found Advance Directive Response Recorded Date/ Time Advance Directives No November 5:11pm Advance Directive Response Recorded Date/ Time Advance Directives No November 4:11pm Chief Complaint and Reason for Visit Chief Complaint M17.12 Z96.652 Chief Complaint Upper Respitory, Cou gh, Congestion, Sor Cough, Congestion R05.9 COUGH Chief Complaint [facility] PT LTKA AND LT H IP PAIN NX M25.552 - Pain in left hip Z96.652 - Presence of l Reason for Visit History of total lef t knee replacement Left hip pain Primary osteoarthritis of left knee Chief Complaint [facility] PT LTKA AND LT H IP PAIN NX M25.552 - Pain in left hip Z96.652 - Presence of l Reason for Visit Greater trochanteric bursitis History of total left knee replacement Left hip pain Primary osteoarthritis of left knee Chief Complaint [facility] PT LTKA AND LT H IP PAIN NX Z96.652 M17.12 M25.552 weakness Z01.818 Reason for Visit Greater trochanteric bursitis History of total left knee replacement Left hip pain Primary osteoarthritis of left knee Chief Complaint [facility] PT LTKA AND LT H IP PAIN NX Z96.652 M17.12 M25.552 weakness Z01.818 C44.40 Reason for Visit Greater trochanteric bursitis History of total left knee replacement Left hip pain Primary osteoarthritis of left knee Additional Source Comments (unrecognized sect ion and content) No Status Records FoundNo Status Records FoundNo Status Records FoundNo Status Records FoundNo Status Records FoundNo Status Records Found INFORMATION SOURCE (unrecogn ized section and content) DATE CREATED AUTHOR 11/09/2020 [facility] DATE CREATED AUTHOR AUTHOR'S ORGANIZ ATION 11/21/2022 [facility] DATE CREATED AUTHOR AUTHOR'S ORGANIZ ATION 05/14/2024 [facility] DATE CREATED AUTHOR AUTHOR'S ORGANIZ ATION 08/04/2024 [facility] DATE CREATED AUTHOR AUTHOR'S ORGANIZ ATION 09/03/2024 [facility] DATE CREATED AUTHOR AUTHOR'S ORGANIZ ATION 09/16/2024 [facility] EPIC REASON FOR VISIT (unrecogniz ed section and content) Reason Comments Follow-up Suspicious Skin Lesion Care Teams (unrecognized sec tion and content) Team Status: Active Member Role Status Dates Cory Hameed MD Primary Care Provider Active Team Status: Inactive Member Role Status Dates PHYSICIAN NO FAMILY Primary Care Provider Active Start: February 13, 2024 End: February 13, 2024 KANIKA Dumont Attending Provider Active Start: February 13, 2024 End: February 13, 2024 Team Status: Active Member Role Status Dates Cory Hameed MD Primary Care Provide r, Attending Provider Active Start: April 28, 2024 Team Status: Inactive Member Role Status Dates Cory Hameed MD Primary Care Provider Active Start: April 28, 2024 End: April 28, 2024 Brian Hernandez DO Attending Provider Active S tart: April 28, 2024 End: April 28, 2024 Team Status: Active Member Role Status Dates Ziggy Kaba MD Primary Care Provider Active Team Status: Inactive Member Role Status Dates Ziggy Kaba MD Primary Care Provider Active Jhony Coyle II, MD Attending Provider Active Team Status: Inactive Member Role Status Dates Ziggy Kaba MD Primary Care Provider Active KANIKA Daniel Attending Provider Active Team Status: Active Member Role Status Dates PHYSICIAN NO FAMILY Primary Care Provider Active Team Status: Inactive Member Role Status Dates Esperanza Powell APRN Attending Provider Active Sta rt: October 15, 2023 End: October 15, 2023 Team Status: Inactive Member Role Status Dates Abby Josefina , INSURANCE VERIFICATION SPECIALIST-C Attending Provider Active S tart: October 28, 2023 End: October 28, 2023 Team Status: Inactive Member Role Status Dates Ziggy Kaba MD Primary Care Provider Active S tart: October 28, 2023 End: October 28, 2023 KANIKA Daniel Attending Provider Active S tart: October 28, 2023 End: October 28, 2023 Team Status: Inactive Member Role Status Dates PHYSICIAN NO FAMILY Primary Care Provider Active Start: November 10, 2023 End: November 10, 2023 Beba Castillo APRN Emergency Provider Active Start: November 10, 2023 End: November 10, 2023 Team Status: Active Member Role Status Dates PHYSICIAN NO FAMILY Primary Care Provider Active Start: February 13, 2024 GARO DumontC Attending Provider Active Start: February 13, 2024 Team Status: Inactive Member Role Status Dates Cory Hameed MD Primary Care Provide r, Attending Provider Active Start: April 28, 2024 End: April 28, 2024 Team Status: Inactive Member Role Status Dates Brian Hernandez DO Attending Provider Active S tart: May 05, 2024 End: May 05, 2024 Breaker Boss Relationship Specialty Start Date End Date Cory Hameed MD [address] [place] [address] PCP - General Family Medicine 06/30/24 Kelly Boykin MD [address] [place] [address] Referring Physician Dermatology 05/13/24 Brian Hernandez DO [address] [facility] [place] [address] Otolaryngology 05/13/24 Breaker Boss Relationship Specialty Start Date End Date Cory Hameed MD [address] [place] [address] PCP - General Family Medicine 06/30/24 Kelly Boykin MD [address] [place] [address] Referring Physician Dermatology 05/13/24 Brian Hernandez DO [address] [place] [address] Otolaryngology 05/13/24 Goals (unrecognized section and content) Goals may be documented in a n alternate section FOR RECORDS PERTAINING TO PATIENTS WHO ARE OR HAVE BEEN ENROLLED IN A CHEMICAL DEPENDENCY/SUBSTANCEABUSE PROGRAM, SOME INFORMATION MAY BE OMITTED. This clinical summary was aggregated from multiple sources. Caution should be exercised in using it in the provision of clinical care. This summary normalizes information from multiple sources, and as a consequence, information in this document may materially change the coding, format and clinical context of patient data. In addition, data may be omitted in some cases. CLINICAL DECISIONS SHOULD BE BASED ON THE PRIMARY CLINICAL RECORDS. [employer] [facility]. provides no warranty or guarantee of the accuracy or completeness of information in this document.
--- NOTE | 2024-09-18 09:02 | ED_ITS ---
HPI HPI - General Adult General Chief complaint: Recheck/Abnormal Lab/Rx Stated complaint: bleeding from foot, blood thinner Time Seen by Provider: 09/18/24 08:44 Source: patient Mode of arrival: Wheelchair Limitations: no limitations History of Present Illness HPI narrative: 84-year-old male presents to the emergency department for bleeding from his right ankle area. He is on Eliquis and thinks he may have scratched the inside of his right ankle and it started bleeding and he could not get it to stop. This happened this morning. Related Data Home Medications ?Medication ?Instructions ?Recorded ?Confirmed acetaminophen 500 mg tablet 500 mg PO Q4H PRN pain 02/25/24 02/25/24 apixaban 5 mg tablet (Eliquis) 5 mg PO Q12H 02/25/24 02/25/24 carvedilol 6.25 mg tablet 6.25 mg PO Q12H 02/25/24 02/25/24 saw palmetto 450 mg capsule 450 mg PO BID 02/25/24 02/25/24 Allergies Allergy/AdvReac Type Severity Reaction Status Date / Time No Known Drug Allergies Allergy Verified 09/18/24 08:50 Opioid HPI Opioid Management Most Recent Opioid Data: Last Pain Scale 6 02/26/24 01:48 02/26/24 Review of Systems ROS Narrative A ten point review of systems is negative except as noted above. PFSH PFSH Social History Little interest or pleasure in doing things: not at all Feeling down, depressed, or hopeless: not at all Exam Narrative Exam Narrative: Nurses note and vital signs reviewed and patient is not hypoxic. General: The patient appears well and in no apparent distress. Patient is resting comfortably on cart. Skin: Warm, dry, no pallor noted. There is no rash noted. Head: Normocephalic, atraumatic Eye: Normal conjunctiva, no drainage Ears, Nose, Mouth, and Throat: oral mucosa is moist. Nares patent. Cardiovascular: Not tachycardic Respiratory: Patient is in no distress, no accessory muscle use GI: Nontender Musculoskeletal: The right ankle area has a dressing on it. Upon removal of the site of bleeding is found and is punctate. No pulsatile bleeding. The bleeding is easily controlled with pressure. Neurological: A&O, normal speech Psychiatric: Cooperative Constitutional Vital Signs, click to edit/add: Last Vital Signs Temp 97.8 F 09/18/24 08:46 Pulse 74 09/18/24 08:46 Resp 18 09/18/24 08:46 BP 152/80 H 09/18/24 08:46 Pulse Ox 95 09/18/24 08:46 O2 Del Method Room Air 09/18/24 08:46 Course Vital Signs Vital signs: Vital Signs Temperature 97.8 F 09/18/24 08:46 Pulse Rate 74 09/18/24 08:46 Respiratory Rate 18 09/18/24 08:46 Blood Pressure 152/80 H 09/18/24 08:46 Pulse Oximetry 95 09/18/24 08:46 Oxygen Delivery Method Room Air 09/18/24 08:46 Temperature 97.8 F 09/18/24 08:46 Pulse Rate 74 09/18/24 08:46 Respiratory Rate 18 09/18/24 08:46 Blood Pressure 152/80 H 09/18/24 08:46 Pulse Oximetry 95 09/18/24 08:46 Oxygen Delivery Method Room Air 09/18/24 08:46 Medical Decision Making MDM Narrative Medical decision making narrative: The sutures to be removed in a week. Treatment diagnosis and follow-up were discussed with the patient and his family. Differential Diagnosis Differential Diagnosis: Laceration, puncture wound Discharge Plan Discharge Chief Complaint: Recheck/Abnormal Lab/Rx Clinical Impression: Laceration Patient Disposition: Home, Self-Care Time of Disposition Decision: 09:07 Condition: Good Mode of Transportation: Private Vehicle Prescriptions / Home Meds: No Action Eliquis 5 mg tablet 5 mg PO Q12H carvedilol 6.25 mg tablet 6.25 mg PO Q12H saw palmetto 450 mg capsule 450 mg PO BID Rx Instructions: give with food (meal/snack) acetaminophen 500 mg tablet 500 mg PO Q4H PRN (Reason: pain) Print Language: Chinese Instructions: Laceration (ED) Additional Instructions: Suture to be removed in a week. Referrals: CORY HAMEED [Primary Care Provider] - 1 week Procedures ED Procedure Instructions Procedures Procedures: The following procedure was performed by me. Local infiltration was carried out with 1% lidocaine without epinephrine resulting in complete skin anesthesia. The area was prepped with Betadine x 3 and draped sterilely. A single 4-0 Ethilon suture was placed resulting in complete hemostasis. No complications.
[2024-09-18] MEDS: LIDOCAINE HCL 1% 100 MG/10 ML MDV INJ (10:03)
== END 2024-09-18 10:03 | disposition home or self-care (01) ==
PROVIDERS: Emergency Provider Emergency Medicine; PCP Family Medicine
DX: S91.011A Laceration without foreign body, right ankle, initial encounter (principal); X58.XXXA Exposure to other specified factors, initial encounter; Z79.01 Long term (current) use of anticoagulants
CPT/HCPCS: 12001; 99284

== ENCOUNTER 2024-10-16 08:36 | Outpatient (OUT) | payer MEDICARE, SELFPAY ==
--- OUTSIDE RECORDS SUMMARY | 2024-10-16 08:54 | XMS_ITS | CCD ---
Author Organization [facility] CliniSywa Care Team Providers Care Manufacturing Associate Name Role Phone BRIANNE MUSTAFA Admitting Unavailable BRIANNE MUSTAFA Attending Unavailable ZIGGY KABA Primary Care Unavailable UNKNOWN, PHYSICIAN Referring Unavailable SEGUN TRAVIS Admitting Unavailable SEGUN TRAVIS Attending Unavailable ZIGGY KABA Referring Unavailable SESAR, ZIGGY Primary Care Unavailable Harsha Whitehead Unavailable Jhony Coyle II Unavailable MD Ziggy Kaba Primary Care Provider MD Jhony Coyle II Attending Provider [phone] SESAR, DR ZIGGY Aguayo Primary Care Unavailable ELTAHAWY, DR ANDERS Admitting Unavailable ELTAHAWY, DR ANDERS Attending Unavailable ELTAHAWY, DR ANDERS Consulting Unavailable KABA, DR ZIGGY Aguayo Admitting Unavailable KABA, DR ZIGGY Aguayo Attending Unavailable KABA, DR ZIGGY Aguayo Consulting Unavailable KABA, DR ZIGGY Aguayo Primary Care Unavailable KABA, DR ZIGGY Aguayo Primary Care Unavailable KABA, DR ZIGGY Aguayo Admitting Unavailable KABA, DR ZIGGY Aguayo Attending Unavailable KABA, DR ZIGGY Aguayo Consulting Unavailable NEFCY, WILLARD Consulting Unavailable MD Ziggy Kaba Primary Care Provider [phone] MD Jhony Coyle II Attending Provider Esperanza Powell Unavailable Abby Rocha Unavailable MD Ziggy Kaba Primary Care Provider [phone] KANIKA Rocha Attending Provider [phone] KANIKA Rocha Attending Provider NO FAMILY, PHYSICIAN Primary Care Provider Unava ilable CHARLOTTE Castillo Emergency Provider NO FAMILY, PHYSICIAN Primary Care Provider Unava ilable GARO BarclayC Bianca Martínez Attending Provider MD Cory Hameed Primary Care Provider MD Cory Hameed Attending Provider DO Brian Hernandez Attending Provider Beba Castillo N Admitting Unavailable Beba Castillo N Attending Unavailable NO FAMILY, PHYSICIAN Primary Care Unavailable Verena Rochaela Admitting Unavailable Abby Rocha Attending Unavailable Ziggy Kaba Primary Care Unavailable Bianca Barclay Admitting Unavailable Bianca Barclay Attending Unavailable NO FAMILY, PHYSICIAN Primary Care Unavailable Cory Hameed Admitting Unavailable Cory Hameed Primary Care Unavailable Cory Hameed Attending Unavailable Brian Hernandez Admitting Unavailable Brian Hernandez Attending Unavailable Cory Hameed Primary Care Unavailable Brian Hernandez Admitting Unavailable Brian Hernandez Attending Unavailable Ziggy Kaba Primary Care Unavailable Jhony Coyle II Admitting UnavailJhony Whatley II Attending UnavailMD Cory Chan. Attending Unavailable MD Cory Hameed. Attending Unavailable MD Cory Hameed. Attending Unavailable MD Cory Hameed. Attending Unavailable MD Cory Hameed Attending Unavailable MD Cory Hameed Attending Unavailable MD Cory Hameed Attending Unavailable Kelly Boykin MD Unavailable Brian Hernandez DO Unavailable Cory Hameed MD Primary Care Provider [phone] PETMARIO KELLY A Attending Unavailable CORY HAMEED Referring Unavailable BRIAN HERNANDEZ Attending Unavailable PETKELLY MARTIN Referring Unavailable MURBRIAN MCQUEEN W Attending Unavailable RUSHCEBRIAN Madsen W Referring Unavailable MURCEKBRIAN W Attending Unavailable PETITTI, KELLY A Referring Unavailable MURCEK BRIAN W Attending Unavailable PETMARIO KELLY A Attending Unavailable JIE MAHARAJ Attending Unavailable JIE MAHARAJ Referring Unavailable ROSEMARIE WADE Attending Unavailable SKYLER GREER Attending Unavailable JIE MAHARAJ Referring Unavailable Allergies Allergy Classification Reported Allergen(s) Allergy Type Date of Onset Reaction(s) Facility (4 sources) Adhesive Tape Drug allergy (disorder) 7 Blister, redness [facility] Repository (1 source) Desonide Drug Allergy 7 [facility] Repository (1 source) Adhesive Tape Drug allergy (disorder) 4 [facility] Repository (1 source) Adhesive bandage; Translations: [Adhesive Bandage] Propensity to adverse reactions (disorder) [facility] Repository (1 source) hydrOXYzine; Translations: [Vistaril] Drug Allergy [facility] Repository (6 sources) hydrOXYzine Drug Allergy 4 [facility] Healthcare Work Phone: (6 sources) Wound Dressing Adhesive Drug Allergy 2 [facility] (1 source) ADHESIVE TAPE-SILICONES; Translations: [ADHESIVE TAPE-SILICONES] Propensity to adverse reactions to drug (disorder) 2 [facility] Repository Medications Current Medications Medication Drug Class(es) Dates [...] aspirin 81 mg delayed release oral tablet (20 sources) Platelet Aggregation Inhibitor, Nonsteroidal Anti-inflammatory Drug [...] / promethazine hydrochloride 1.25 mg/ml oral solution (12 sources) Opioid Agonist, Phenothiazine, alpha-1 Adrenergic Agonist Start: 11-10-2023 Promethazine-Phe nyleph-Codeine 6.25-5-10 MG/5ML syrup EVERY 4-6 HOURS 11/10/2023 Active Start: 11-10-2023 take 1 mL by mouth every four to six hours Yutelmhtxdix-Apiyeuesq-Bqylatw (Prometha zine Vc-Codeine) 6.25-5-10 mg/5 mL syrup Active 5 ML PO EVERY 4-6 HOURS 473 7 November 10, 2023 1:00am dextromethorphan hydrobromide 1.5 mg/ml / pyrilamine maleate 1.5 mg/ml oral solution (2 sources) Uncompetitive L-wrsqfi-K-aspartate Receptor Antagonist, Sigma-1 Agonist Start: 10-15-2023 [place] DM 7.5-7.5 MG/5ML 20 ml Orally every [...] Start: 05-03-2021 take 1 capsule by mo [facility] twice daily Sckqmfatinb-Lfbrhincf-Uqn C-Mn (Glucosamine-Chondroitin Complx) Capsule Active 1 CAP PO Twice daily May 03, 2021 12:00am hydrOXYzine pamoate 25 mg oral capsule (10 sources) Antihistamine Start: 05-10-2021 Hydroxyzine Pamoate (Vistaril) 25 mg capsule Active 25 MG PO every 6 to 8 hours May 16, 2021 12:00am magnesium oxide 400 mg oral tablet (6 sources) Start: 03-10-2024 take 1 tablet by [...] Oct, Active nitroglycerin 0.4 mg sublingual tablet (15 sources) Nitrate Vasodilator Start: 05-03-2021 Nitroglycerin Active 0.4 MG SUBLINGUAL every 5 to 15 minutes May 03, 2021 12:00am rivaroxaban 20 mg oral tablet (6 sources) Factor Xa Inhibitor Start: 02-03-2024 take 1 tablet by mouth at mealtime rivaroxaban (Xarelto) 20 MG tablet Take 20 mg by mouth in the evening. Take with meals 02/03/2024 Active Saw Eudora 450 MG (8 sources) Saw Eudora 450 MG as directed Orally Active Saw Eudora (9 sources) Start: 05-03-2021 take 450 mg by mouth twice daily Saw Eudora Active 450 MG PO Twice daily May 02, 2021 11:00pm Start: 05-03-2021 take 450 mg by mouth twice dorothy ly Saw Eudora Active 450 MG PO Twice daily May [...] Acute bronchitis, unspecified Episodic Acute myocardial infarction (6 sources) Myocardial infarction; Translations: [Acute myocardial infarction, unspecified] Onset: 7 04-18-2024 Chronic Cardiac dysrhythmias (9 sources) Paroxysmal atrial fibrillation; Translations: [Atrial fibrillation] Onset: 2 04-18-2024 Chronic Conduction disorders (10 sources) Cardiac pacemaker in situ; Translations: [Presence of cardiac pacemaker] Onset: 4 04-18-2024 Chronic Coronary atherosclerosis and other heart disease (15 sources) Atherosclerotic heart disease of [place] coronary artery without angina pectoris; Translations: [Arteriosclerotic vascular disease] Onset: 1 04-18-2024 Chronic Disorders of lipid metabolism (1 source) Pure hypercholesterolemia, unspecified; Translations: [PURE HYPERCHOLESTEROLEMIA UNSPEC] Onset: 2 Chronic Essential hypertension (9 sources) Essential (primary) hypertension; Translations: [Hypertensive disorder] Onset: 7 04-18-2024 Chronic Fever of unknown origin (1 source) Fever, unspecified Episodic Heart valve disorders (14 sources) Nonrheumatic mitral (valve) insufficiency; Translations: [Rheumatic tricuspid insufficiency] Onset: 1 Chronic Osteoarthritis (20 sources) Osteoarthritis of left knee joint; Translations: [Unilateral primary osteoarthritis, left knee] Onset: 1 Resolved: 2 Chronic Other aftercare (8 sources) Patient encounter status; Translations: [Aftercare following joint replacement surgery] Chronic Other connective tissue disease (14 sources) History of left total knee replacement; Translations: [Presence of left artificial knee joint] Onset: 4 05-11-2024 Chronic Other connective tissue disease (10 sources) Presence of left artificial knee joint; Translations: [Knee joint replacement] Onset: 1 Resolved: 2 Chronic Other connective tissue disease (20 sources) History of total knee arthroplasty; Translations: [...] maxillary sinusitis, unspecified Episodic Residual codes; unclassified (6 sources) Sleep apnea; Translations: [Sleep apnea, unspecified] Onset: 7 04-18-2024 Chronic Unclassified (3 sources) COUGH, UNSPECIFIED; Translations: [COUGH, UNSPECIFIED] Onset: 2 Unclassified (1 source) Cough, unspecified; Translations: [Cough, unspecified] Onset: 4 Unclassified (1 source) Presence of right artificial knee joint; Translations: [Presence of right artificial knee joint] Onset: 3 Past or Other Problems Problem Classification Problem Date Documented Date Episodic/Chronic Complications of surgical procedures or medical care (2 sources) Stitch abscess; Translations: [Infection following a procedure, superficial incisional surgical site, initial encounter] 06-30-2024 Episodic Malaise and fatigue (6 sources) Asthenia; Translations: [Weakness] Onset: 04-18-2024 04-18-2024 Episodic Other aftercare (4 sources) penitentiary (current) use of anticoagulants; Translations: [[employer] INTEGRATOR CURRNT USE ANTICOAGULANTS] Onset: 01-01-2022 Episodic Other connective tissue disease (10 sources) Trochanteric bursitis; Translations: [Trochanteric bursitis, unspecified hip] Onset: 05-11-2024 02-13-2024 Episodic Other diseases of veins and lymphatics (6 sources) Vascular insufficiency; Translations: [Venous insufficiency (chronic) (peripheral)] Onset: 03-10-2024 04-18-2024 Episodic Other infections; including parasitic (12 sources) Personal history of other infectious and parasitic diseases; Translations: [History of COVID-19] Onset: 03-10-2024 11-10-2023 Episodic Other lower respiratory disease (12 sources) Cough; Translations: [Cough] Onset: 03-10-2024 11-10-2023 Episodic Other non-traumatic joint disorders (11 sources) Hip pain; Translations: [Pain in left hip] Onset: 05-11-2024 02-13-2024 Episodic Other non-traumatic joint disorders (6 sources) Pain in left hip; Translations: [Pain in joint, pelvic region and thigh] Onset: 02-13-2024 02-13-2024 Episodic Other nutritional; endocrine; and metabolic disorders (6 sources) Overweight in adulthood with body mass index of 25 or more but less than 30; Translations: [Body mass index (BMI) 28.0-28.9, adult] Onset: 03-10-2024 04-18-2024 Episodic Other screening for suspected conditions (not mental disorders or infectious disease) (6 sources) Melanocytic nevus of skin ; Translations: [Encounter for screening for other disorder] Onset: 03-10-2024 04-18-2024 Episodic Other skin disorders (6 sources) Actinic keratosis; Translations: [Actinic keratosis] Onset: 04-16-2017 04-18-2024 Episodic Residual codes; unclassified (6 sources) Peripheral edema; Translations: [Localized edema] Onset: 03-10-2024 04-18-2024 Episodic Unclassified (1 source) COUGH, UNSPECIFIED; Translations: [COUGH, UNSPECIFIED] Onset: 09-20-2022 Unclassified (1 source) Cough, unspecified R05.9 Results Test Name Value Interpretation Reference Range Facil ity Office Visiton 09-30-2024 Follow-up visit [id number] Parul Barrientos 1940 M Date Provider Department Center 09/30/2024 Ayala-ROSEMARIE WADE [facility] Family History Problem Relation Age of Onset Heart disease Mother Other Mother Heart disease Father Family Status - Relation Status Age at Mother Father Level of Service:20076 PA OFFICE/OUTPATIENT ESTABLISHED MOD MDM 30 MIN Reason for Visit and Comments: Coronary Artery Disease [187] Hypertension [740773] Normal [facility] Ambulatory Visit Summaryon 1 Ambulatory Visit Summary [...] Follow-Up Appointments Saturday 10:45 AM EDT With: Cory Hameed MD Where: [address] [address]- Saturday 11:00 AM EDT With: Where: [address] [id number] Medications What How Much When Instructions Unchanged [...] prescribing physician if questions or concerns Unchanged saw palmetto See instructions take 450mg twice daily Contact [...] for choosing us for your care. Normal [facility] Family Medicine Office/Clini c Noteon 08-03-2024 Family Medicine [...] cardiovascular disease) (I25.10: Atherosclerotic heart disease of [place] coronary artery without angina pectoris) The patient [...] Recent) 307 (more content not included)... Normal [facility] Comment on above: Result Comment: Elec tronically Signed By: Siddhartha OROZCO, Cory Sanderson\.br\Date and Time Signed: 08/03/24 10:18 EDT Geraldo 05-05-2024 L Specimen: [id number] Received: 05/06/24 Status: TAYLOR Owens Num: [id number] Spec Type: Surgical Subm Dr: Brian Hernandez DO Tissues: A Skin-Other than Cyst, tag, debridement or plastic repair (LT POSTERIOR NECK) Procedures: HE/8, Gross/Micro L4 Age/ Patient Sex Location Account Attending Physician Morgan Barrientos 84/M [place] [id number] Brian Hernandez DO SPEC NUM: [id number] RECD: 05/06/24 STATUS: TAYLOR OWENS NUM: [id number] JORGE: 05/05/24- SUBM DR: Brian Hernandez DO ENTERED: 05/06/[address] [facility] [address]: iMchael Aguilar [facility] SPEC TYPE: Surgical DEPT: S ORDERED: HE/8, Gross/Micro L4 ORDERED: HE/8, Gross/Micro L4 Pathological Diagnosis Skin of neck, [...] (tips), A2-A4 (remainder of excision). CPT Codes 14632 -------- -------- Specimen: [id number] Received: 05/06/24 Status: TAYLOR Owens Num: [id number] Spec Type: Surgical Subm Dr: Brian Hernandez DO Tissues: A Skin-Other than Cyst, tag, debridement or plastic repair (LT POSTERIOR NECK) Procedures: /Rubio, Gross/Micro L4 -------- Patient: Morgan Barrientos [id number] (Continued) -------- Signed (signature on file) Isaiah Olivarez Jr., MD 05/12/24 0859 Normal [facility] Automated basophil %Ordered By: Brian Hernandez on 04-28-2024 Basophils/100 WBC (Bld) 0.5 % Normal . [facility] Comment on above: Performed By: #### C BC #### [address] Automated basophil countOrde red By: Brian Hernandez on 04-28-2024 Basophils (Bld) [#/Vol] 0.0 10*3/uL Normal 0.0-0.2 [facility] Comment on above: Result Comment: PERF ORMED BY: [address] [place] [address] PATHOLOGIST DERMATOLOGIST MARY JANE ORNELAS M.D. Performed By: #### C BC #### [address] Automated blood monocyte cou ntOrdered By: Brian Hernandez on 04-28-2024 Monocytes (Bld) [#/Vol] 0.5 10*3/uL Normal 0.0-0.8 [facility] Comment on above: Performed By: #### C BC #### [address] Automated eosinophil %Ordere d By: Brian Hernandez on 04-28-2024 Eosinophils/100 WBC (Bld) 1.6 % Normal . [facility] Comment on above: Performed By: #### C BC #### [address] Automated eosinophil countOr dered By: Brian Hernandez on 04-28-2024 Eosinophils (Bld) [#/Vol] 0.1 10*3/uL Normal 0.0-0.45 [facility] Comment on above: Performed By: #### C BC #### [address] Automated monocyte %Ordered By: Brian Hernandez on 04-28-2024 Monocytes/100 WBC (Bld) 7.5 % Normal . [facility] Comment on above: Performed By: #### C BC #### [address] Automated neutrophil %Ordere d By: Brian Hernandez on 04-28-2024 Neutrophils/100 WBC (Bld) 76.4 % Normal . [facility] Comment on above: Performed By: #### C BC #### [address] Basic Metabolic Panelon GFR/1.73 sq M.predicted MDRD (S/P/Bld) [Vol rate/Area] mL/min/{1.73_m2} Normal [facility] Comment on above: Performed By: #### B MP #### [address] Calcium [Mass/volume] in Ser um or PlasmaOrdered By: Brian Hernandez on 04-28-2024 Calcium [Mass/Vol] 9.0 mg/dL Normal 8.6-10.3 [facility] Comment on above: Result Comment: PERF ORMED BY: [place] [address] PATHOLOGIST DERMATOLOGIST MARY JANE ORNELAS M.D. Performed By: #### B MP #### [address] Carbon dioxide, total [Moles /volume] in Serum or PlasmaOrdered By: Brian Hernandez on 04-28-2024 CO2 [Moles/Vol] 30.8 mmol/L Normal 21.0-31.0 [facility] Comment on above: Performed By: #### B MP #### [place] [address] [place] Chloride [Moles/volume] in S zaina or PlasmaOrdered By: Brian Hernandez on 04-28-2024 Chloride [Moles/Vol] 105 mmol/L Normal 98-107 [facility] Comment on above: Performed By: #### B MP #### [address] Complete Blood Count Auto Di ffon 04-28-2024 Mean Corpuscular HGB Conc 33.2 g/dL Normal 32.5-35.6 [facility] Comment on above: Performed By: #### C BC #### [address] NRBC% 0.1 /100{WBC} Normal 0-0.5 [facility] Comment on above: Performed By: #### C BC #### [address] Creatinine [Mass/volume] in Serum or PlasmaOrdered By: Brian Hernandez on 04-28-2024 Creatinine [Mass/Vol] 1.11 mg/dL Normal 0.70-1.30 [facility] Comment on above: Performed By: #### B MP #### [address] ECG 12 lead ECGon 04-28-2024 ECG 12 lead ECG [facility] [place] [address] Electrocardiograph Report Signed Patient: Morgan Barrientos MR#: [id number] 37 : 1940 Acct:[id number] Age/Sex: 84 / M ADM Date: 04/28/24 Loc: Room: Type: [facility] Attending Dr: Brian Hernandez DO Ordering Provider: [...] replaced sinus rhythm Confirmed by SERGO OROZCO [facility], JESSICA ([id number]) on 04/28/2024 4:02:29 PM Referred By: Electronically Signed By:JESSICA TROTTER MD [facility] Transcribed By: MUS Signed By Jessica Trotter MD, [facility] 04/28/24 1602 Normal [facility] Erythrocyte distribution wid th [Ratio] by Automated countOrdered By: Brian Hernandez on 04-28-2024 Erythrocyte distribution width (RBC) [Ratio] 15.9 % High 12.0-14.8 [facility] Comment on above: Performed By: #### C BC #### [address] Erythrocytes [#/volume] in B lood by Automated countOrdered By: Brian Hernandez on 04-28-2024 RBC (Bld) [#/Vol] 4.66 10*6/uL Normal 3.90-5.60 [facility] Comment on above: Performed By: #### C BC #### [address] Glucose [Mass/volume] in Ser um or PlasmaOrdered By: Brian Hernandez on 04-28-2024 Glucose [Mass/Vol] 85 mg/dL Normal 70-100 [facility] Comment on above: ADA recommended refe rence rangeRandom Glucose Reference Range is dependent on time and content of last meal. Glucose of more than 200 mg/dL in a nonstressed, ambulatory subject supports the diagnosis of Diabetes Mellitus. Result Comment: Jeff om Glucose Reference Range is dependent on time and content of last meal. Glucose of more than 200 mg/dL in a nonstressed, ambulatory subject supports the diagnosis of Diabetes Mellitus. ADA recommended reference range Performed By: #### B MP #### [place] [address] [place] Hematocrit [Volume Fraction] of Blood by Automated countOrdered By: Brian Hernandez on 04-28-2024 Hematocrit (Bld) [Volume fraction] 41.6 % Normal 38.8-50.0 [facility] Comment on above: Performed By: #### C BC #### [address] Hemoglobin [Mass/volume] in BloodOrdered By: Brian Hernandez on 04-28-2024 Hemoglobin (Bld) [Mass/Vol] 13.8 g/dL Normal 13.0-17.0 [facility] Comment on above: Performed By: #### C BC #### [address] Leukocytes [#/volume] correc sofía for nucleated erythrocytes in Blood by Automated counOrdered By: Brian Hernandez on 04-28-2024 WBC corrected for nucl RBC Auto (Bld) [#/Vol] 6.2 10*3/uL 4.1-10.5 [facility] Leukocytes [#/volume] in Blo od by Automated countOrdered By: Brian Hernandez on 04-28-2024 WBC (Bld) [#/Vol] 6.2 10*3/uL Normal 4.1-10.5 [facility] Comment on above: Performed By: #### C BC #### [address] Lymphocytes [#/volume] in Bl ood by Automated countOrdered By: Brian Hernandez on 04-28-2024 Lymphocytes (Bld) [#/Vol] 0.9 10*3/uL Low 1.00-4.8 [facility] Comment on above: Performed By: #### C BC #### [place] [address] [place] Lymphocytes/100 leukocytes i n Blood by Automated countOrdered By: Brian Hernandez on 04-28-2024 Lymphocytes/100 WBC (Bld) 14.0 % Normal . [facility] Comment on above: Performed By: #### C BC #### [place] [address] [place] MCH [Entitic mass] by Automa sofía countOrdered By: Brian Hernandez on 04-28-2024 MCH (RBC) [Entitic mass] 29.7 pg Normal 27.5-35.2 [facility] Comment on above: Performed By: #### C BC #### [address] MCHC Auto (RBC) [Mass/Vol]Or dered By: Brian Hernandez on 04-28-2024 MCHC (RBC) [Mass/Vol] 33.2 g/dL 32.5-35.6 [facility] MCV [Entitic volume] by Auto mated countOrdered By: Brian Hernandez on 04-28-2024 MCV (RBC) [Entitic vol] 89.4 fL Normal 83.5-101 [facility] Comment on above: Performed By: #### C BC #### [address] Neutrophils [#/volume] in Bl ood by Automated countOrdered By: Brian Hernandez on 04-28-2024 Neutrophils (Bld) [#/Vol] 4.7 10*3/uL Normal 1.8-7.7 [facility] Comment on above: Performed By: #### C BC #### [address] No Panel InformationOrdered By: Brian Hernandez on 04-28-2024 Estimated GFR (CKD-EPI) > 60.0 mL/Min [facility] Creatinine Clearance (Chem N/A [facility] Nucleated erythrocytes [Pres ence] in Blood by Automated countOrdered By: Brian Hernandez on 04-28-2024 Nucleated RBC Auto Ql (Bld) 0.1 /100{WBC} 0-0.5 [facility] Platelet mean volume [Entiti c volume] in Blood by Automated countOrdered By: Brian Hernandez on 04-28-2024 Platelet mean volume (Bld) [Entitic vol] 8.3 fL Normal 6.6-10.1 [facility] Comment on above: Performed By: #### C BC #### [address] Platelets [#/volume] in Bloo d by Automated countOrdered By: Brian Hernandez on 04-28-2024 Platelets (Bld) [#/Vol] 181 10*3/uL Normal 150-450 [facility] Comment on above: Performed By: #### C BC #### [address] Potassium [Moles/volume] in Serum or PlasmaOrdered By: Brian Hernandez on 04-28-2024 Potassium [Moles/Vol] 4.6 mmol/L Normal 3.5-5.1 [facility] Comment on above: Performed By: #### B MP #### [address] Serum or plasma anion gap de terminationOrdered By: Brian Hernandez on 04-28-2024 Anion gap [Moles/Vol] 7.8 mmol/L Normal 6.0-15.0 [facility] Comment on above: Performed By: #### B MP #### [address] Sodium [Moles/volume] in Ser um or PlasmaOrdered By: Brian Hernandez on 04-28-2024 Sodium [Moles/Vol] 139 mmol/L Normal 136-145 [facility] Comment on above: Performed By: #### B MP #### [address] Urea nitrogen [Mass/volume] in Serum or PlasmaOrdered By: Brian Hernandez on 04-28-2024 Urea nitrogen [Mass/Vol] 18 mg/dL Normal 7-25 [facility] Comment on above: Performed By: #### B MP #### [address] ED Note-Physicianon 03-11-20 24 ED Note-Physician [id number] .[id number] Normal [facility] Physician Referralon 024 Physician Referral [id number]. 00TIFF Normal [facility] Ambulatory Visit Summaryon 0 03-10-2024 Ambulatory Visit Summary MORGAN BARRIENTOS :1940 Visit Date:03/10/2024 Ambulatory Visit Instructions Your Diagnosis BMI 27.0-27.9,adult Over weight Nonsmoker Your Care Team Attending Physician - Cory Hameed MD Primary Care Physician - Cory Hameed MD This Is Your Medications List apixaban (Eliquis 5 mg oral tablet) carvedilol (carvedilol 6.25 mg Tab) magnesium oxide (magnesium oxide 400 mg Tab) nitroglycerin aide severino Procedures Performed Arthroplasty, Cardiac pacemaker, Knee replacement, Knee replacement. Discharge Vitals Temperature (Oral) 36.7 ?C Heart Rate (Peripheral) 60 Respiratory Rate 14 Blood Pressure 122/70 Height 178 cm Height 70 in Weight 87.2 kg Weight 191.84 lb BMI 27.52 What to do next Scheduled Follow-Up Appointments Saturday 10:00 AM EDT With: Cory Hameed MD Where: [facility] Normal [address] [place] [address]- \.br\ Medications\.br \ What How Much When [...] as needed for Chest pain\.br\ Unchanged saw argentinaetto See instructions take 450mg twice daily \.br\ [...] for choosing us for your care.\.br\ \.br\ Ken [facility] Family Medicine Office/Clini c Noteon 03-10-2024 Family Medicine Office/Clinic Note HPI Staff morgan is an 84 year old male presenting for ER follow up ER followup: Hospital: [place] Visit date: 02/25/24 Symptoms the patient presented [...] (I48.91: Unspecified atrial fibrillation) - Called 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 - EP doctor in today and willing to work him in - Pt is very happy and is heading there now. - No other concerns 2. ASCVD (arteriosclerotic cardiovascular disease) (I25.10: Atherosclerotic heart disease of [place] coronary artery without angina pectoris) - No [...] Given SARS-CoV-2 (COVID-19) (more content not included)... Normal [facility] Comment on above: Result Comment: Elec tronically Signed By: Siddhartha OROZCO, Cory Armstrong.br\Date and Time Signed: 03/10/24 15:52 EDT Office Visiton 03-10-2024 Follow-up visit [id number] Parul Barrientos 1940 M Date Provider Department Center 03/10/2024 JIE JAIMES Family History Problem Relation Age of Onset Heart disease Mother Other Mother Heart disease Father Family Status - Relation Status Age at Mother Father Level of Service:02628 PA OFFICE/OUTPATIENT NEW MODERATE MDM 45 MINUTES Normal [facility] Orders Onlyon 03-10-2024 Orders Only [id number] Parul Barrientos 1940 M Date Provider Department Center 03/10/2024 Edel-MATEO SANCHEZ Family History Problem Relation Age of Onset Heart disease Mother Other Mother Heart disease Father Family Status - Relation Status Age at Mother Father Normal [facility] ECG 12-Leadon 03-09-2024 ECG 12-Lead [id number]. 00TIFF Normal [facility] RAD - MISCon 03-09-2024 RAD - MISC [id number] .00TIFF Normal [facility] XR knee LT 3V - NOT FOR ER U Cadence 02-13-2024 XR knee LT 3V - NOT FOR ER USE [facility] [address] [place] [address] XRay Report Signed Patient: Morgan Barrientos MR#: [id number] : 1940 Acct:[id number] Age/Sex: 84 / M ADM Date: 02/13/24 Loc[place] [facility] [place]: Type: [facility] Attending Dr: Bianca BOUDREAUX Copies to: NESS Dumont Ordering Provider: NESS Dumont Date of Service: 02/13/24 XR/XR knee LT 3V - NOT FOR ER USE: Z96.652 - Presence of left artificial knee joint ([id number]) XR/XR hip LT min 2V(w/wo pelvis)*: M25.552 [...] Kirill Garcia M.D.02/13/2024 2:12 PM Dictation Location: [place] [address] Transcribed By: [facility] 02/13/24 1412 Dictated By: Kirill Garcia DO 02/13/24 1408 Signed By: 02/13/24 1412 Normal [facility] Consultation Noteon 02-12-20 Consultation Note [id number] .00TIFF Normal [facility] Family Medicine Office/Clini c Noteon 02-11-2024 Family [...] for MERS/COVID-19 : N/A Nicole Calles LPN - 02/10/2024 11:03 EDT Medicare/Medicaid Summary Chief [...] Present : No actual or suspected pain Stevan DARBY Nicole L - 02/10/2024 11:03 EDT Hearing and Vision Screening FT FT Whisper Test Comments : No deficits noted. Vision Screen Comments : Wears glasses to read. Sees [facility] yearly. Nicole Calles LPN - 02/10/2024 11:03 EDT Advance Directive FT Advance Directive : Yes Type of Advance Directive : Living will, Medical durable power of corporate attorney Patient Wishes to Receive Further Information on Advance Directives : No Organ Donation Consent : No Stevan DARBY Nicole Martínez - 02/10/2024 11:03 EDT Procedures / Surgeries [...] 02/03/2024 13:29 EDT - Renee Dillon LPN 2015 ; Last Reviewed Dt/Tm: 02/10/2024 11:11:57 EDT [...] (Last Updated: 02/10/2024 11:14:58 EDT by Nicole Calles LPN) Substance Abuse: Denies Substance Abuse (Last [...] Nicole Calles LPN - 02/10/2024 11:03 EDT [facility] Sexual problems : Never [...] 0 SCO (more content not included)... Normal [facility] Comment on above: Result Comment: Elec tronically Signed By: Cory Hameed MD\.br\Date and Time Signed: 02/11/24 08:40 EDT\.br\Electronically Co-Signed By: Nicole Calles LPN\.br\Date and Time Co-Signed: 02/10/24 17:25 EDT [place] 02-11-2024 Screens [id number] .00TIFF Normal [facility] Ambulatory Visit Summaryon [...] AM EDT With: Cory Hameed MD Where: [facility] Family Medicine [place] Normal [address] [place], [place] [address]- \.br\ Medications\.br \ What How Much When [...] minutes as needed for Chest pain\.br\ Unchanged aide severino See instructions take one daily \.br\ Allergies\.br\ [...] liquor (44 mL).\.br\ Medicines\.br\ ? \.br\ Take xmxq-dgh-ressmh r and prescription medicines only as told [...] Control and Prevention: www.cdc.gov/hea rtdisease\.br\ ? \.br\ [place] [employer]: www.heart.org\. br\ Summary\.br\ ? \.br\ Heart disease is the leading cause of in the world.\.br\ ? \.br\ Heart disease can cause chest pain, abnormal heart rhythms, heart attack, and heart failure.\.br\ ? \.br\ Some of the risk factors for heart disease include high blood pressure, high cholesterol, and smoking.\.br\ ? \. [facility] Ambulatory Visit Summary MORGAN BARRIENTOS :1940 Visit [...] AM EDT With: Cory Hameed MD Where: [facility] Normal [address] [place] [address]- \.br\ Medications\.br \ What How Much When [...] as needed for Chest pain\.br\ Unchanged saw palmjordano See instructions take one daily \.br\ Allergies\.br\ [...] for choosing us for your care.\.br\ \.br\ [facility] Patient Educationon 02-10-20 Patient Education Cardiovascular Hypertension, [...] oz glass (more content not included)... Normal [facility] Family Medicine Office/Clini c Noteon 02-07-2024 Family Medicine Office/Clinic Note HPI Staff Morgan is an 83 year old male presenting to [facility] care Establish Care: History: pacemaker, ascvd, a fib, sleep apnea Any previous diagnosis: htn History of seeing any specialist[facility] When was your last doctors visit: 2021 [...] patient is under the care of a radiation control specialist and is currently on beta randi and Xarelto. I have requested that the radiation control specialist send us his records for further information. 2. 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 3. HTN (hypertension) (I10: Essential (primary) [...] with voice recognition artificial intelligence software, specifically [employer], [employer] and or [employer]. Substitutions may have occurred due to the inherent limitations of voice recognition and artificial intelligence software. Documentation services were performed after patient or guardian consented to allow [employer] to record this visit. ALONA physical medicine specialist and provider reviewed before signing. ALONA: [...] BID nitroglycerin, 0.4 mg, SubLingual, q5min, PRN saw maycol, See Instructions Xarelto 20 mg oral tablet, 20 mg= 1 tab(s), Oral, qPM Allergies Adhesive Bandage (Unknown) Vistaril Social History Tobacco Never (less than 100 in lifetime) Tobacco Use:. Never Smokeless Tobacco Use:., 02/03/2024 Immunizations Vaccine Date Status Comments tetanus-diphtheria toxoids 06/11/2023 Given SARS-CoV-2 (COVID-19) mRNA BNT-162b2 vax 10/11/2021 Recorded SARS-CoV-2 (COVID-19) mRNA (more content not included)... [facility] Comment on above: Result Comment: Elec tronically Signed By: Cory Hameed MD\.br\Date and Time Signed: 02/07/24 09:46 EDT\.br\Electronically Co-Signed By: Ijeoma Fang\.br\Date and Time Co-Signed: 02/03/24 17:05 EDT Physician Referralon 024 Physician Referral [id number] 1.00TIFF [facility] Ambulatory Visit Summaryon 0 02-03-2024 Ambulatory Visit Summary MORGAN BARRIENTOS Rosa Isela :1940 Visit Date:02/03/2024 Ambulatory Visit Instructions Your [...] Follow-Up Appointments Saturday 11:00 AM EDT Where: [facility] Family Medicine [place] Normal [facility] ECG 12-Leadon 02-03-2024 ECG 12-Lead [id number] .00TIFF [facility] Lab Reportson 02-03-2024 Lab Reports [id number] .00TIFF Rossana Rogers [facility] Patient Educationon 02-03-20 24 Patient Education Nutrition BMI for Adults What [...] numbers. This can be done either in [place] ([place] or metric measurements. Note that charts and online BMI calculators are available to help you find your BMI quickly and easily without having to do these calculations yourself. To calculate your BMI in [place] ([place] measurements: 1. Measure your weight in [...] for Disease Control and Prevention: www.cdc.gov ? [place] [employer]: www.heart.org ? National Heart, Lung, and Blood [place]: www.nhlbi.nih.gov Summary ? Body mass index (BMI) is a number that is calculated from a person's weight and height. ? BMI may help estimate how much of a person's weight is composed of fat. BMI can help identify those who may be at higher risk for certain medical problems. ? BMI can be measured using [place]ese measurements or metric measurements. ? BMI charts are used to identify whether you are underweight, normal weight, overweight, or obese. This information is not intended to replace advice given to you by your health care provider. Make sure you discuss any questions you have with your health care provider. Document Revised: 06/29/2020 Document Reviewed: 05/06/2020 [employer] Patient Education ? 2022 [employer]. [facility] [id number] .00TIFF Normal [facility] 36on 01-15-2024 36 [...] see any in his historical medications in [place]. He said he would think about it and let me know. Normal [facility] Activated partial thrombopla stin time (aPTT) in platelet poor plasma by coagulation aOrdered By: Beba Castillo on 11-10-2023 aPTT Coag (PPP) [Time] 33.2 s 25.1-36.5 [facility] Comment on above: A hematocrit value g reater than 55% may lead to inaccurate results in coagulation testing. Patients having hematocrit values >55% require a special collection tube for coagulation studies. Please contact the laboratory at [phone] for redraw instructions. Automated basophil %Ordered By: Beba Castillo on 11-10-2023 Basophils/100 WBC (Bld) 0.9 % Normal . [facility] Comment on above: Performed By: #### P TT, BMP, DDIMER, CBC, HS TROP, PT, BNP #### [address] Automated basophil countOrde red By: Beba Castillo on 11-10-2023 Basophils (Bld) [#/Vol] 0.1 10*3/uL Normal 0.0-0.2 [facility] Comment on above: Result Comment: PERF ORMED BY: [place] [address] PATHOLOGIST DERMATOLOGIST MARY JANE ORNELAS M.D. Performed By: #### P TT, BMP, DDIMER, CBC, HS TROP, PT, BNP #### [facility] [address] Automated blood monocyte cou ntOrdered By: Beba Castillo on 11-10-2023 Monocytes (Bld) [#/Vol] 0.4 10*3/uL Normal 0.0-0.8 [facility] Comment on above: Performed By: #### P TT, BMP, DDIMER, CBC, HS TROP, PT, BNP #### [address] Automated eosinophil %Ordere d By: Beba Olitracy on 11-10-2023 Eosinophils/100 WBC (Bld) 2.6 % Normal . [facility] Comment on above: Performed By: #### P TT, BMP, DDIMER, CBC, HS TROP, PT, BNP #### [address] Automated eosinophil countOr dered By: Beba Castillo on 11-10-2023 Eosinophils (Bld) [#/Vol] 0.2 10*3/uL Normal 0.0-0.45 [facility] Comment on above: Performed By: #### P TT, BMP, DDIMER, CBC, HS TROP, PT, BNP #### [address] Automated monocyte %Ordered By: Beba Castillo on 11-10-2023 Monocytes/100 WBC (Bld) 6.5 % Normal . [facility] Comment on above: Performed By: #### P TT, BMP, DDIMER, CBC, HS TROP, PT, BNP #### [address] Automated neutrophil %Ordere d By: Beba Olitracy on 11-10-2023 Neutrophils/100 WBC (Bld) 77.3 % Normal . [facility] Comment on above: Performed By: #### P TT, BMP, DDIMER, CBC, HS TROP, PT, BNP #### [facility] [address] [place] [address] BNP ser/plasOrdered By: Gume Castillo on 11-10-2023 Natriuretic peptide B (Bld) [Mass/Vol] 100.0 pg/mL Normal 5-100 [facility] Comment on above: Result Comment: PERF ORMED BY: [place] [address] PATHOLOGIST DERMATOLOGIST MARY JANE ORNELAS M.D. Performed By: #### P TT, BMP, DDIMER, CBC, HS TROP, PT, BNP #### [address] Basic Metabolic Panelon 10-22 Creatinine Clr Calc Pharmacy 60.33 Normal [facility] Comment on above: Result Comment: PERF ORMED BY: [place] [address] PATHOLOGIST DERMATOLOGIST MARY JANE ORNELAS M.D. Performed By: #### P TT, BMP, DDIMER, CBC, HS TROP, PT, BNP #### [address] GFR/1.73 sq M.predicted MDRD (S/P/Bld) [Vol rate/Area] mL/min/{1.73_m2} Normal [facility] Comment on above: Performed By: #### P TT, BMP, DDIMER, CBC, HS TROP, PT, BNP #### [address] Calcium [Mass/volume] in Ser um or PlasmaOrdered By: Beba Castillo on 11-10-2023 Calcium [Mass/Vol] 8.8 mg/dL Normal 8.6-10.3 [facility] Comment on above: Performed By: #### P TT, BMP, DDIMER, CBC, HS TROP, PT, BNP #### [place] [address] [place] Carbon dioxide, total [Moles /volume] in Serum or PlasmaOrdered By: Beba Catsillo on 11-10-2023 CO2 [Moles/Vol] 29.8 mmol/L Normal 21.0-31.0 [facility] Comment on above: Performed By: #### P TT, BMP, DDIMER, CBC, HS TROP, PT, BNP #### [address] Chloride [Moles/volume] in S zaina or PlasmaOrdered By: Beba Castillo on 11-10-2023 Chloride [Moles/Vol] 105 mmol/L Normal 98-107 [facility] Comment on above: Performed By: #### P TT, BMP, DDIMER, CBC, HS TROP, PT, BNP #### [address] Complete Blood Count Auto Di ffon 11-10-2023 Mean Corpuscular HGB Conc 34.2 g/dL Normal 32.5-35.6 [facility] Comment on above: Performed By: #### P TT, BMP, DDIMER, CBC, HS TROP, PT, BNP #### [address] Monocytes/100 WBC (Bld) 17.18 % Normal 0.00-20.00 [facility] Comment on above: Performed By: #### P TT, BMP, DDIMER, CBC, HS TROP, PT, BNP #### [address] NRBC% 0.1 /100{WBC} Normal 0-0.5 [facility] Comment on above: Performed By: #### P TT, BMP, DDIMER, CBC, HS TROP, PT, BNP #### [address] Creatinine [Mass/volume] in Serum or PlasmaOrdered By: Beba Castillo on 11-10-2023 Creatinine [Mass/Vol] 1.03 mg/dL Normal 0.70-1.30 [facility] Comment on above: Performed By: #### P TT, BMP, DDIMER, CBC, HS TROP, PT, BNP #### [address] D-Dimer High Sensitivityon 0 11-10-2023 D-Dimer High Sensitivity < 200 Normal 0-243 [facility] Comment on above: Result Comment: [...] coagulation studies. Please contact the laboratory at [phone] for redraw instructions. PERFORMED BY: [place] [address] PATHOLOGIST DERMATOLOGIST MARY JANE ORNELAS M.D. Performed By: #### P TT, BMP, DDIMER, CBC, HS TROP, PT, BNP ####[facility] [id number] [place] [id number] [facility] ECG 12 lead ECGon 11-10-2023 ECG 12 lead ECG [facility] [place] [address] [place] [address] Electrocardiograph Report Signed Patient: Morgan Barrientos MR#: [id number] : 1940 Acct:[id number] Age/Sex: 83 / M ADM Date: 11/10/23 Loc: ER Room: Type: [facility] ER Attending Dr: Ordering Provider: Beba [...] Vicky Carpenter MD 11/10/23 1517 Normal [facility] Erythrocyte distribution wid th [Ratio] by Automated countOrdered By: Beba Bairdtracy on 11-10-2023 Erythrocyte distribution width (RBC) [Ratio] 14.6 % Normal 12.0-14.8 [facility] Comment on above: Performed By: #### P TT, BMP, DDIMER, CBC, HS TROP, PT, BNP #### [facility] [address] Erythrocytes [#/volume] in B lood by Automated countOrdered By: Beba Castillo on 11-10-2023 RBC (Bld) [#/Vol] 4.40 10*6/uL Normal 3.90-5.60 [facility] Comment on above: Performed By: #### P TT, BMP, DDIMER, CBC, HS TROP, PT, BNP #### [facility] [address] Fibrin D-dimer [Presence] in Platelet poor plasma by Latex agglutinationOrdered By: Beba Castillo on 11-10-2023 Fibrin D-dimer LA Ql (PPP) < 200 ng/mL 0-243 [facility] Comment on above: The reference range for [...] coagulation studies. Please contact the laboratory at [phone] for redraw instructions. Glucose [Mass/volume] in Ser um or PlasmaOrdered By: Beba Castillo on 11-10-2023 Glucose [Mass/Vol] 100 mg/dL Normal 70-100 [facility] Comment on above: ADA recommended refe rence rangeRandom Glucose Reference Range is dependent on time and content of last meal. Glucose of more than 200 mg/dL in a nonstressed, ambulatory subject supports the diagnosis of Diabetes Mellitus. Result Comment: Jeff om Glucose Reference Range is dependent on time and content of last meal. Glucose of more than 200 mg/dL in a nonstressed, ambulatory subject supports the diagnosis of Diabetes Mellitus. ADA recommended reference range Performed By: #### P TT, BMP, DDIMER, CBC, HS TROP, PT, BNP #### [facility] [address] Hematocrit [Volume Fraction] of Blood by Automated countOrdered By: Beba Castillo on 11-10-2023 Hematocrit (Bld) [Volume fraction] 38.6 % Low 38.8-50.0 [facility] Comment on above: Performed By: #### P TT, BMP, DDIMER, CBC, HS TROP, PT, BNP #### [facility] [address] Hemoglobin [Mass/volume] in BloodOrdered By: Beba Castillo on 11-10-2023 Hemoglobin (Bld) [Mass/Vol] 13.2 g/dL Normal 13.0-17.0 [facility] Comment on above: Performed By: #### P TT, BMP, DDIMER, CBC, HS TROP, PT, BNP #### [facility] [address] INR in Platelet poor plasma by Coagulation assayOrdered By: Beba Castillo on 11-10-2023 INR Coag (PPP) [Relative time] 1.4 {INR} Normal [facility] Comment on above: INR Therapeutic Rang e [...] BMP, DDIMER, CBC, HS TROP, PT, BNP ####[facility] [address] Leukocytes [#/volume] correc sofía for nucleated erythrocytes in Blood by Automated counOrdered By: Beba Castillo on 11-10-2023 WBC corrected for nucl RBC Auto (Bld) [#/Vol] 6.5 10*3/uL 4.1-10.5 [facility] Leukocytes [#/volume] in Blo od by Automated countOrdered By: Beba Castillo on 11-10-2023 WBC (Bld) [#/Vol] 6.5 10*3/uL Normal 4.1-10.5 [facility] Comment on above: Performed By: #### P TT, BMP, DDIMER, CBC, HS TROP, PT, BNP #### [facility] [address] [place] [address] [place] Lymphocytes [#/volume] in Bl ood by Automated countOrdered By: Beba Castillo on 11-10-2023 Lymphocytes (Bld) [#/Vol] 0.8 10*3/uL Low 1.00-4.8 [facility] Comment on above: Performed By: #### P TT, BMP, DDIMER, CBC, HS TROP, PT, BNP #### [facility] [address] [place] [address] [place] Lymphocytes/100 leukocytes i n Blood by Automated countOrdered By: Beba Castillo on 11-10-2023 Lymphocytes/100 WBC (Bld) 12.7 % Normal . [facility] Comment on above: Performed By: #### P TT, BMP, DDIMER, CBC, HS TROP, PT, BNP #### [facility] [address] [place] [address] MCH [Entitic mass] by Automa sofía countOrdered By: Beba Castillo on 11-10-2023 MCH (RBC) [Entitic mass] 30.1 pg Normal 27.5-35.2 [facility] Comment on above: Performed By: #### P TT, BMP, DDIMER, CBC, HS TROP, PT, BNP #### [facility] [address] [place] [address] MCHC Auto (RBC) [Mass/Vol]Or dered By: Beba Castillo on 11-10-2023 MCHC (RBC) [Mass/Vol] 34.2 g/dL 32.5-35.6 [facility] MCV [Entitic volume] by Auto mated countOrdered By: Beba Castillo on 11-10-2023 MCV (RBC) [Entitic vol] 87.9 fL Normal 83.5-101 [facility] Comment on above: Performed By: #### P TT, BMP, DDIMER, CBC, HS TROP, PT, BNP #### [facility] [address] [place] [address] Monocyte distribution width [Entitic volume] in Blood by AutomatedOrdered By: Beba Castillo on 11-10-2023 Monocyte distribution width Auto (Bld) [Entitic vol] 17.18 % 0.00-20.00 [facility] Neutrophils [#/volume] in Bl ood by Automated countOrdered By: Beba Castillo on 11-10-2023 Neutrophils (Bld) [#/Vol] 5.0 10*3/uL Normal 1.8-7.7 [facility] Comment on above: Performed By: #### P TT, BMP, DDIMER, CBC, HS TROP, PT, BNP #### [facility] [address] [place] [address] No Panel InformationOrdered By: Beba Castillo on 11-10-2023 Estimated GFR (CKD-EPI) > 60.0 mL/Min [facility] Creatinine Clearance (Chem 60.33 [facility] Nucleated erythrocytes [Pres ence] in Blood by Automated countOrdered By: Beba Castillo on 11-10-2023 Nucleated RBC Auto Ql (Bld) 0.1 /100{WBC} 0-0.5 [facility] Partial Thromboplastin Timeo n 11-10-2023 aPTT Coag (Bld) [Time] 33.2 s Normal 25.1-36.5 [facility] Comment on above: Result Comment: A he matocrit value greater than 55% may lead to inaccurate results in coagulation testing. Patients having hematocrit values >55% require a special collection tube for coagulation studies. Please contact the laboratory at [phone] for redraw instructions. Performed By: #### P TT, BMP, DDIMER, CBC, HS TROP, PT, BNP ####[facility] [id number] [place] [address] [place] Platelet mean volume [Entiti c volume] in Blood by Automated countOrdered By: Beba Castillo on 11-10-2023 Platelet mean volume (Bld) [Entitic vol] 8.3 fL Normal 6.6-10.1 [facility] Comment on above: Performed By: #### P TT, BMP, DDIMER, CBC, HS TROP, PT, BNP #### [facility] [address] [place] [address] [place] Platelets [#/volume] in Bloo d by Automated countOrdered By: Beba Castillo on 11-10-2023 Platelets (Bld) [#/Vol] 157 10*3/uL Normal 150-450 [facility] Comment on above: Performed By: #### P TT, BMP, DDIMER, CBC, HS TROP, PT, BNP #### [facility] [address] [place] [address] [place] Potassium [Moles/volume] in Serum or PlasmaOrdered By: Beba Castillo on 11-10-2023 Potassium [Moles/Vol] 4.3 mmol/L Normal 3.5-5.1 [facility] Comment on above: Performed By: #### P TT, BMP, DDIMER, CBC, HS TROP, PT, BNP #### [facility] [address] [id number] [facility] Prothrombin time (PT)Ordered By: Beba Castillo on 11-10-2023 PT Coag (PPP) [Time] 15.6 s High 9.0-12.9 [facility] Comment on above: A hematocrit value g reater than 55% may lead to inaccurate results in coagulation testing. Patients having hematocrit values >55% require a special collection tube for coagulation studies. Please contact the laboratory at [phone] for redraw instructions. Result Comment: A he matocrit value greater than 55% may lead to inaccurate results in coagulation testing. Patients having hematocrit values >55% require a special collection tube for coagulation studies. Please contact the laboratory at [phone] for redraw instructions. Performed By: #### P TT, BMP, DDIMER, CBC, HS TROP, PT, BNP ####[facility] Serum or plasma anion gap de terminationOrdered By: Beba Castillo on 11-10-2023 Anion gap [Moles/Vol] 6.5 mmol/L Normal 6.0-15.0 [facility] Comment on above: Performed By: #### P TT, BMP, DDIMER, CBC, HS TROP, PT, BNP #### [facility] [address] Sodium [Moles/volume] in Ser um or PlasmaOrdered By: Beba Castillo on 11-10-2023 Sodium [Moles/Vol] 137 mmol/L Normal 136-145 [facility] Comment on above: Performed By: #### P TT, BMP, DDIMER, CBC, HS TROP, PT, BNP #### [facility] [address] Troponin I High Sensitivityo n 11-10-2023 Troponin I High Sensitivity 4.1 pg/mL Normal 0.0-20.0 [facility] Comment on above: Result Comment: PERF ORMED BY: [place] [address] PATHOLOGIST DERMATOLOGIST MARY JANE ORNELAS M.D. Performed By: #### P TT, BMP, DDIMER, CBC, HS TROP, PT, BNP ####[facility] [id number] [id number] [facility] Troponin I.cardiac [Mass/vol ume] in Serum or Plasma by Detection limit <= 0.01 ng/Ordered By: Beba Castillo on 11-10-2023 Troponin I.cardiac DL <= 0.01 ng/mL [Mass/Vol] 4.1 pg/mL 0.0-20.0 [facility] Urea nitrogen [Mass/volume] in Serum or PlasmaOrdered By: Beba Castillo on 11-10-2023 Urea nitrogen [Mass/Vol] 14 mg/dL Normal 7-25 [facility] Comment on above: Performed By: #### P TT, BMP, DDIMER, CBC, HS TROP, PT, BNP #### [facility] [address] [id number] [facility] XR chest 1V portableon 11-10 XR chest 1V portable [facility] Main [place] [address] [place] [address] XRay Report Signed Patient: Morgan Barrientos MR#: [id number] : 1940 Acct:[id number] Age/Sex: 83 / M ADM Date: 11/10/23 [...] Merlos Jr., D.O.11/10/2023 2:19 PM Dictation Location: [place] [address] Transcribed By: [facility] 11/10/23 1419 Dictated By: Yimi Merlos Jr, DO 11/10/23 1418 Signed By: 11/10/23 1419 Normal [facility] XR chest 2V*on 10-28-2023 XR chest 2V* [facility] [employer] (app) Other XR chest 2V* [facility] Main [facility] [employer] (app) Other XR chest 2V* 1111 [facility] Chance (app) Other XR chest 2V* JAIME Munroe [address] [facility] (app) Other XR chest 2V* XRay Report [facility] [employer] (app) Other XR chest 2V* Signed [email or web address] Other XR chest 2V* Patient: Parul Barrientos MR#: [id number] [facility] [employer] (app) Other XR chest 2V* : 1940 Acct:[id number] [place] [email or web address] Other XR chest 2V* Age/Sex: 83 / M ADM Date: 10/28/23 [email or web address] Other XR chest 2V* Loc: XDUCLY Room: Type: [facility] Chance (app) Other XR chest 2V* Attending Dr: Abby BOUDREAUX [place] [email or web address] Other XR chest 2V* Copies to: KANIKA Arcos [employer] Other XR chest 2V* Ordering Provider: KANIKA Arcos [employer] Other XR chest 2V* Date of Service: 10/28/23 [employer] Other XR chest 2V* XR/XR chest 2V*: Cough, unspecified [email or web address] Other XR chest 2V* Chest 2 views [facility] [employer] (app) Other XR chest 2V* CLINICAL HISTORY: Productive cough and congestion, wheezing for 20 days [employer] Other XR chest 2V* COMPARISON: Chest 03/06/2016 [employer] Other XR chest 2V* FINDINGS: [employer] Other XR chest 2V* 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 Heart is normal in size. Lungs are clear. No free air. [employer] Other XR chest 2V* XR/XR chest 2V* [employer] Other XR chest 2V* IMPRESSION: [employer] Other XR chest 2V* NO ACUTE CARDIOPULMONARY ABNORMALITY. [employer] Other XR chest 2V* Impression dictated by: Yimi Merlos Jr., DAliaOAlia10/28/2023 1:25 PM [employer] Other XR chest 2V* Dictation Location: RADIO-PC-15 [employer] Other XR chest 2V* Transcribed By: DEVON 10/28/23 [facility] [employer] Other XR chest 2V* Dictated By: Yimi Merlos Jr DO 10/28/23 132 [employer] Other XR chest 2V* Signed By: [employer] Other XR chest 2V* 10/28/23 1325 [employer] Other XR chest 2V* [facility] Main [place] [address] [place] [address] XRay Report Signed Patient: Morgan Barrientos MR#: [id number] : 1940 Acct:[id number] Age/Sex: 83 / M ADM Date: 10/28/23 Loc: XDUCLY Room: Type: [facility] Attending Dr: Abby Rocha EPITAXIAL REACTOR OPERATOR-C Copies to: KANIKA Arcos Ordering Provider: KANIKA [...] 1:25 PM Dictation Location: RADIO-PC-15 Transcribed By: [facility] 10/28/23 1325 Dictated By: Yimi Merlos Jr, DO 10/28/23 1323 Signed By: 10/28/23 1325 Normal [facility] Office Visiton 10-23-2023 Follow-up visit [id number] Parul Barrientos 1940 M Date Provider Department Center 10/23/2023 SKYLER MONTEJO [facility] Family History Problem Relation Age of Onset Heart disease Mother Other Mother Heart disease Father Family Status - Relation Status Age at Mother Father Level of Service:58198 PA OFFICE/OUTPATIENT ESTABLISHED MOD MDM 30 MIN Normal [facility] XR knee BI 3Von 06-20-2023 XR knee BI 3V XR/XR knee BI 3V - NOT FOR ER USE: History of total left knee [employer] Other XR knee BI 3V replacement;Presence of right art [employer] Other XR knee BI 3V 3 views both knee plain film [employer] Other XR knee BI 3V COMPARISON: 05/17/2022 [employer] Other XR knee BI 3V HISTORY: Fell. Right knee tightness [employer] Other XR knee BI 3V ACUTE FINDINGS: None N [employer] Other XR knee BI 3V DEGENERATIVE CHANGE: Unremarkable [employer] Other XR knee BI 3V SOFT TISSUE FINDINGS : Unremarkable [employer] Other XR knee BI 3V JOINT EFFUSION: None N [facility] [email or web address] Other XR knee BI 3V POSTOP CHANGES: Bilateral knee arthroplasties without hardware failure loosening [employer] Other XR knee BI 3V BONE MINERALIZATION: Adequate [employer] Other XR knee BI 3V XR/XR knee BI 3V - NOT FOR ER USE [employer] Other XR knee BI 3V IMPRESSION: No acute findings [employer] Other XR knee BI 3V Dictated By: Kirill Garcia DO 06/20/23 162 [employer] Other XR knee BI 3V - NOT FOR ER U Cadence 06-20-2023 XR knee BI 3V - NOT FOR ER USE [facility] Main [place] [address] [place] [address] XRay Report Signed Patient: Morgan Barrientos MR#: [id number] : 1940 Acct:[id number] Age/Sex: 83 / M ADM Date: 06/20/23 Loc: [facility] Room: Type: [facility] Attending Dr: Jhony Coyle II, MD Copies [...] 4:21 PM Dictation Location: RADIO-PC-14 Transcribed By: DEVON 06/20/23 162 Dictated By: Kirill Garcia DO 06/20/23 162 Signed By: 06/20/23 162 Normal [facility] XR pelvis 1-2Von 06-20-2023 XR pelvis 1-2V [facility] Main [address] [address] XRay Report Signed Patient: Morgan Barrientos MR#: [id number] : 1940 Acct:[id number] Age/Sex: 83 / M ADM Date: 06/20/23 Loc: [facility] Room: Type: [facility] Attending Dr: Jhony Coyle II, MD Copies [...] 4:21 PM Dictation Location: RADIO-PC-14 Transcribed By: [facility] 06/20/23 162 Dictated By: Kirill Garcia DO 06/20/23 1619 Signed By: 06/20/23 162 Normal [facility] XR pelvis 1-2V [facility] [email or web address] Other XR pelvis 1-2V [facility] Main [facility] [email or web address] Other XR pelvis 1-2V 1111 [facility] [email or web address] Other XR pelvis 1-2V [place] [address] [facility] [email or web address] Other XR pelvis 1-2V XRay Report [facility] [employer] (app) Other XR pelvis 1-2V Signed [employer] Other XR pelvis 1-2V Patient: Parul Barrientos MR#: [id number] [employer] Other XR pelvis 1-2V : 1940 Acct:[id number] [employer] Other XR pelvis 1-2V Age/Sex: 83 / M ADM Date: 06/20/23 [employer] Other XR pelvis 1-2V Loc: SOXD Room: Type : [facility] [employer] Other XR pelvis 1-2V Attending Dr: Jhony Coyle II, MD [employer] Other XR pelvis 1-2V Copies to: Jhony Coyle MD [employer] Other XR pelvis 1-2V Ordering Provider: Jhony Coyle MD [employer] Other XR pelvis 1-2V Date of Service: 06/20/23 [employer] Other XR pelvis 1-2V XR/XR pelvis 1-2V: History of total left knee replacement;Presence of [employer] Other XR pelvis 1-2V right art [employer] Other XR pelvis 1-2V Single view of the pelvis plain film [employer] Other XR pelvis 1-2V HISTORY: Fell. Right knee bruising [employer] Other XR pelvis 1-2V COMPARISON: None [employer] Other XR pelvis 1-2V SI JOINTS Intact [employer] Other XR pelvis 1-2V HIPS Unremarkable [facility] [email or web address] Other XR pelvis 1-2V FRACTURE: No fracture [employer] Other XR pelvis 1-2V BONY ALIGNMENT: Adequate [employer] Other XR pelvis 1-2V SOFT TISSUES: Unremarkable [employer] Other XR pelvis 1-2V LOWER LUMBAR SPINE: Unremarkable [employer] Other XR pelvis 1-2V INTRAPELVIC STRUCTURES: Unremarkable [employer] Other XR pelvis 1-2V POSTSURGICAL CHANGES:None [employer] Other XR pelvis 1-2V XR/XR pelvis 1-2V [employer] Other XR pelvis 1-2V IMPRESSION:No significant bony abnormality. [employer] Other XR pelvis 1-2V Impression dictated by: Kirill Garcia M.D.06/20/2023 4:21 PM [employer] Other XR pelvis 1-2V Dictation Location: RADIO-PC-14 [employer] Other XR pelvis 1-2V Transcribed By: PWS 06/20/23 [facility] [employer] Other XR pelvis 1-2V Dictated By: Kirill Garcia DO 06/20/23 [facility] [employer] Other XR pelvis 1-2V Signed By: [employer] Other XR pelvis 1-2V 06/20/23 [facility] [employer] Other ECHOCARDIO M/2D COMPLETEon 0 11-16-2022 ECHOCARDIO M/2D COMPLETE Patient: MORGAN BARRIENTOS Exam Date: 11/16/2022 : 1940 Gender:M Ordering : DR MARTITA LOZOYA M.D. Admission #: [id number] Family : DR ZIGGY KABA . Order #: [id number] CLICK HERE TO VIEW EXAM ECHOCARDIOGRAM REPORT [...] Mcdaniel M.D. on 11/16/2022 at 17:12 Normal [facility] XR CHEST 2 Von 09-20-2022 XR CHEST [...] by: WILLARD YANG Date: 2022-09-20 17:24 Normal [facility] CBC AUTO DIFFon 01-01-2022 BASO # 0.0 103/ul Normal 0.0-0.1 [facility] Comment on above: Performed By: #### C BC #### [facility] [address] [place] [address] Dr. Judy Ortiz Basophils/100 WBC (Bld) 0.5 % Normal 0.2-2.0 [facility] Comment on above: Performed By: #### C BC #### [facility] [address] [place] [address] Dr. Judy Ortiz EO # 0.2 103/ul Normal 0.0-0.7 [facility] Comment on above: Performed By: #### C BC #### [facility] [address] [place] [address] Dr. Judy Ortiz Eosinophils/100 WBC (Bld) 2.7 % Normal 0.9-7.0 [facility] Comment on above: Performed By: #### C BC #### [facility] [address] [place] [address] Dr. Judy Ortiz Erythrocyte distribution width (RBC) [Ratio] 14.7 % Normal 11.0-15.0 [facility] Comment on above: Performed By: #### C BC #### [facility] [address] [place] [address] Dr. Judy Ortiz Hematocrit (Bld) [Volume fraction] 44.3 % Normal 42.0-54.0 [facility] Comment on above: Performed By: #### C BC #### [facility] [address] [place] [address] Dr. Judy Ortiz Hemoglobin (Bld) [Mass/Vol] 14.6 g/dL Normal 14.0-18.0 [facility] Comment on above: Performed By: #### C BC #### [facility] [address] [place] [address] Dr. Judy Ortiz IG # 0.02 10e3/ul Normal 0.00-0.03 [facility] Comment on above: Performed By: #### C BC #### [facility] [address] [place] [address] Dr. Judy Ortiz IG % 0.4 % Normal 0.0-0.5 [facility] Comment on above: Performed By: #### C BC #### [facility] [address] [place] [address] Dr. Judy Ortiz LYMPH # 0.8 103/ul Critically low 1.2-3.8 [facility] Comment on above: Performed By: #### C BC #### [facility] [address] [place] [address] Dr. Judy Ortiz Lymphocytes/100 WBC (Bld) 14.0 % Critically low 20.5-60.0 [facility] Comment on above: Performed By: #### C BC #### [facility] [address] [place] [address] Dr. Judy Ortiz MANUAL DIFF REQ NO Normal [facility] Comment on above: Performed By: #### C BC #### [facility] [address] [place] [address] Dr. Judy Ortiz MCH (RBC) [Entitic mass] 29.9 pg Normal 25.9-34.0 [facility] Comment on above: Performed By: #### C BC #### [facility] [address] [place] [address] Dr. Judy Ortiz MCHC (RBC) [Mass/Vol] 33.0 g/dL Normal 29.9-35.2 [facility] Comment on above: Performed By: #### C BC #### [facility] [address] [place] [address] Dr. Judy Ortiz MCV (RBC) [Entitic vol] 90.6 fL Normal 80.0-94.0 [facility] Comment on above: Performed By: #### C BC #### [facility] [address] [place] [address] Dr. Judy Ortiz MONO # 0.4 103/ul Normal 0.3-0.8 [facility] Comment on above: Performed By: #### C BC #### [facility] [address] [place] [address] Dr. Judy Ortiz Monocytes/100 WBC (Bld) 7.9 % Normal 1.7-12.0 [facility] Comment on above: Performed By: #### C BC #### [facility] [address] [place] [address] Dr. Judy rOtiz NEUT # 4.2 103/ul Normal 1.4-6.5 [facility] Comment on above: Performed By: #### C BC #### [facility] [address] [place] [address] Dr. Judy Ortiz Neutrophils/100 WBC (Bld) 74.5 % Normal 43.0-75.0 [facility] Comment on above: Performed By: #### C BC #### [facility] [address] [place] [address] Dr. Judy Ortiz Platelet mean volume (Bld) [Entitic vol] 9.8 fL Normal 9.5-13.5 [facility] Comment on above: Performed By: #### C BC #### [facility] [address] [place] [address] Dr. Judy Ortiz PLT 183 103/ul Normal 150-450 [facility] Comment on above: Performed By: #### C BC #### [facility] [address] [place] [address] Dr. Judy Ortiz RBC 4.89 106/ul Normal 4.70-6.10 [facility] Comment on above: Performed By: #### C BC #### [facility] [address] [place] [address] Dr. Judy Ortiz WBC 5.6 103/ul Normal 4.0-11.0 [facility] Comment on above: Performed By: #### C BC #### [facility] [address] [place] [address] Dr. Judy Ortiz LIPID PROFILEon 01-01-2022 CHOL-HDL RATIO NORM SEE BELOW Normal [facility] Comment on above: Result Comment: 3.3 - 4.4 LOW RISK 4.4 - 7.1 AVERAGE RISK 7.1 - 11.0 MODERATE RISK >11.0 HIGH RISK Performed By: #### C MP, LIPID #### [facility] [address] [place] [address] Dr. Judy Ortiz Cholesterol [Mass/Vol] 146 mg/dL Normal <=200 [facility] Comment on above: Performed By: #### C MP, LIPID #### [facility] [address] [address] [address] Judy Ortiz Cholesterol in HDL [Mass/Vol] 37 mg/dL Normal [facility] Comment on above: Performed By: #### C MP, LIPID #### [facility] [address] [address] [address] Judy Ortiz Cholesterol in LDL [Mass/Vol] 87.2 mg/dL Normal [facility] Comment on above: Performed By: #### C MP, LIPID #### [facility] [address] [address] [address] Judy Ortiz Cholesterol.total/Cho lesterol in HDL [Mass ratio] 3.9 {ratio} Normal [facility] Comment on above: Performed By: #### C MP, LIPID #### [facility] [address] [place] [address] Dr. Judy Ortiz HDL NORMAL > or = 60 mg/dl - LO W CARDIOVASCULAR RISK <40 mg/dl - HIGH CARDIOVASCULAR RISK Normal [facility] Comment on above: Performed By: #### C MP, LIPID #### [facility] [address] [place] [address] Dr. Judy Ortiz LDL CALC NORMAL SEE BELOW Normal [facility] Comment on above: Result Comment: <100 mg/dl OPTIMAL 100 - 129 mg/dl NEAR OR ABOVE OPTIMAL 130 - 159 mg/dl BORDERLINE HIGH 160 - 189 mg/dl HIGH >190 mg/dl VERY HIGH Performed By: #### C MP, LIPID #### [facility] [address] [place] [address] Dr. Judy Ortiz Triglyceride [Mass/Vol] 109 mg/dL Normal <=150 [facility] Comment on above: Performed By: #### C MP, LIPID #### [facility] [address] [address] [address] Judy Ortiz VLDL CALC 21.8 mg/dL Normal [facility] Comment on above: Performed By: #### C MP, LIPID #### [facility] [address] [place] [address] Dr. Judy Ortiz PROF 14(COMP METB)on 022 Albumin [Mass/Vol] 3.6 g/dL Normal 3.5-5.0 [facility] Comment on above: Performed By: #### C MP, LIPID #### [facility] [address] [address] [address] Judy Ortiz Albumin/Globulin [Mass ratio] 1.1 {ratio} Normal [facility] Comment on above: Performed By: #### C MP, LIPID #### [facility] [address] [address] [address] Judy Ortiz ALP [Catalytic activity/Vol] 57 U/L Normal 38-126 [facility] Comment on above: Performed By: #### C MP, LIPID #### [facility] [address] [address] [address] Judy Ortiz ALT [Catalytic activity/Vol] 17 U/L Critically low 21-72 [facility] Comment on above: Performed By: #### C MP, LIPID #### [facility] [address] [address] [address] Judy Ortiz Anion gap [Moles/Vol] 11.5 mmol/L Normal [facility] Comment on above: Performed By: #### C MP, LIPID #### [facility] [address] [address] [address] Judy Ortiz AST [Catalytic activity/Vol] 19 U/L Normal 17-59 [facility] Comment on above: Performed By: #### C MP, LIPID #### [facility] [address] [address] [address] Judy Ortiz Bilirubin [Mass/Vol] 0.6 mg/dL Normal 0.2-1.3 [facility] Comment on above: Performed By: #### C MP, LIPID #### [facility] [address] [address] [address] Judy Ortiz Calcium [Mass/Vol] 9.0 mg/dL Normal 8.4-10.2 [facility] Comment on above: Performed By: #### C MP, LIPID #### [facility] [address] [address] [address] Judy Ortiz Chloride [Moles/Vol] 103 mmol/L Normal 98-107 [facility] Comment on above: Performed By: #### C MP, LIPID #### [facility] [address] [address] [address] Judy Ortiz CO2 [Moles/Vol] 29.1 mmol/L Normal 22.0-30.0 [facility] Comment on above: Performed By: #### C MP, LIPID #### [facility] [address] [address] [address] Judy Ortiz Creatinine [Mass/Vol] 1.16 mg/dL Normal 0.66-1.25 [facility] Comment on above: Performed By: #### C MP, LIPID #### [facility] [address] [address] [address] Judy Ortiz EGFR-AF TURKMEN >60 Normal >=60 [facility] Comment on above: Performed By: #### C MP, LIPID #### [facility] [address] [address] [address] Judy Ortiz EGFR-NON AF TURKMEN =60 Normal >=60 [facility] Comment on above: Performed By: #### C MP, LIPID #### [facility] [address] [address] [address] Judy Ortiz Globulin (S) [Mass/Vol] 3.2 g/dL Normal [facility] Comment on above: Performed By: #### C MP, LIPID #### [facility] [address] [address] [address] Judy Ortiz Glucose [Mass/Vol] 101 mg/dL Normal 74-106 [facility] Comment on above: Performed By: #### C MP, LIPID #### [facility] [address] [address] [address] Judy Ortiz Potassium [Moles/Vol] 4.6 mmol/L Normal 3.4-5.0 [facility] Comment on above: Performed By: #### C MP, LIPID #### [facility] [address] [address] [address] Judy Ortiz Protein [Mass/Vol] 6.8 g/dL Normal 6.1-8.2 [facility] Comment on above: Performed By: #### C MP, LIPID #### [facility] [address] [place], [place] [address] Dr. Judy Ortiz Sodium [Moles/Vol] 139 mmol/L Normal 137-145 [facility] Comment on above: Performed By: #### C MP, LIPID #### [facility] [address], [place] [address] Dr. Judy Ortiz Urea nitrogen [Mass/Vol] 21.0 mg/dL Critically high 9.0-20.0 [facility] Comment on above: Performed By: #### C MP, LIPID #### [facility] [address] [place] [address] [address] Judy Ortiz Urea nitrogen/Creatinine [Mass ratio] 18.1 mg/mg Normal [facility] Comment on above: Performed By: #### C MP, LIPID #### [facility] [address] [place] [address] [address] Judy Ortiz XR knee LT 2Von 08-08-2021 XR knee LT 2V [facility] [employer] Other XR knee LT 2V [facility] [email or web address] Other XR knee LT 2V [address] [place] [address] [email or web address] Other XR knee LT 2V [address] [email or web address] Other XR knee LT 2V XRay Report [employer] Other XR knee LT 2V Signed [employer] Other XR knee LT 2V Patient: Parul Barrientos MR#: [id number] [place] [email or web address] Other XR knee LT 2V : 1940 Acct:[id number] [employer] Other XR knee LT 2V Age/Sex: 81 / M ADM Date: 08/08/21 [employer] Other XR knee LT 2V Loc: [facility] Room: Type : [facility] [employer] Other XR knee LT 2V Attending Dr: Harsha Whitehead MD [employer] Other XR knee LT 2V Ordering Provider: Harsha Whitehead MD [employer] Other XR knee LT 2V Date of Service: 08/08/21 [employer] Other XR knee LT 2V XR/XR knee LT 2V: History of total left knee replacement [employer] Other XR knee LT 2V Copies to: Harsha Whitehead MD [employer] Other XR knee LT 2V CLINICAL INFORMATION : Status post knee arthroplasty. [employer] Other XR knee LT 2V POST OP LEFT KNEE: Nor [email or web address] Other XR knee LT 2V COMPARISON: 06/28/2021] [employer] Other XR knee LT 2V FINDINGS: Standing A P and lateral views of the left knee were obtained. There is unremarkable [employer] Other XR knee LT 2V alignment of the bon y structures and knee prosthesis. No fracture is noted. [employer] Other XR knee LT 2V XR/XR knee LT 2V [employer] Other XR knee LT 2V IMPRESSION: [employer] Other XR knee LT 2V UNREMARKABLE POSTOPERATIVE EXAMINATION. [employer] Other XR knee LT 2V Impression dictated by: Edison Angel M.D.08/08/2021 1:21 PM [employer] Other XR knee LT 2V Dictation Location: [place] [address] [employer] Other XR knee LT 2V Transcribed By: DEVON 08/08/21 1321 [employer] Other XR knee LT 2V Dictated By: Edison Angel MD 08/08/21 1320 [employer] Other XR knee LT 2V Signed By: [employer] Other XR knee LT 2V 08/08/21 1321 [employer] Other CT UPPER EXTREMITY W CONTRAS T RIGHTon 10-11-2020 CT UPPER EXTREMITY W CONTRAST RIGHT [facility] Department of Radiology [address] [place] [phone] Patient Name: MORGAN BARRIENTOS : 1940 Sex: M Age: Race: White Pt. Location: Patient Status: D Ordered Date: 10/03/2020 3:10:00 PM Completed Date: 10/11/2020 01:02 PM Requesting Provider: SEGUN TRAVIS Attending Provider: SEGUN TRAVIS Report Copy To: ZIGGY KABA Signs & Symptoms: M75.101 Unsp rotatr-cuff tear/ruptr of right shoulder, not trauma I10 History: Brigida NPC PER MEDICARE ABN PASSED [id number] 10-06-20 [place]ICE[place] Comments: , CT arthrogram of [...] discussion. Electronically signed: Chandrika Isabel. Transcribed by: [email or web address], User Resident: Electronically Signed by: CHANDRIKA ISABEL @ 10/17/2020 10:20 AM Normal [facility] Comment on above: Order Comment: , CT arthrogram of the R shouldeR SHOULDER ARTHROGRAM RIGHTon 10-11-2020 SHOULDER ARTHROGRAM RIGHT [facility] Department of Radiology [address] [place] [phone] Patient Name: MORGAN BARRIENTOS : 1940 Sex: [...] bleeding. Electronically signed: Oscar Stone. Transcribed by: [email or web address], User Resident: Electronically Signed by: OSCAR STONE @ 10/12/2020 08:35 PM Normal [facility] Comment on above: Order Comment: Evalu ate SHOULDER RIGHTon 09-02-2020 SHOULDER RIGHT [facility] Department of Radiology [address] [place] [phone] Patient Name: MORGAN BARRIENTOS : 1940 Sex: M Age: Race: White Pt. Location: Patient Status: Ordered Date: 09/02/2020 9:40:00 AM Completed Date: 09/02/2020 10:00 AM Requesting Provider: SEGUN TRAVIS Attending Provider: Report Copy To: Signs & Symptoms: M25.511 Pain in right shoulder I10 History: [place] Comments: Evaluate Exam: SHOULDER RIGHT SHOULDER RIGHT [...] disease. Electronically signed: Jay Colon. Transcribed by: [email or web address], User Resident: Electronically Signed by: JAY COLON @ 09/02/2020 02:28 PM Normal [facility] Comment on above: Order Comment: Evalu ate SHOULDER RIGHTon 07-29-2020 SHOULDER RIGHT [facility] Department of Radiology [address] [place] [phone] Patient Name: MORGAN BARRIENTOS : 1940 [...] pathology. Electronically signed: Burak Dodson. Transcribed by: [email or web address], User Resident: Electronically Signed by: BURAK DODSON @ 07/29/2020 10:47 AM Normal [facility] Comment on above: Order Comment: Evalu ate *SARS-CoV-2 COVID-19on 07-25 Clinical Report Normal [facility] Comment on above: Result Comment: Spec imen: OROPHARYNGEAL Collected: 07/25/2020 04:47 Status: Final Last Updated: 07/25/2020 11:53 COVID-19 (Final) Not Detected The [employer] SARS-CoV-2 assay is a real-time (rt) reverse transcriptase (RT) polymerase chain reaction (PCR) test intended for the [employer] system. The SARS-CoV-2 primer and probe sets are designed to detect RNA from SARS-CoV-2 in a nasopharyngeal (EPITAXIAL REACTOR OPERATOR) or oropharyngeal (OP) swab from patients with signs and symptoms of infection who are suspected of COVID-19. Results are for the identification of SARS-CoV-2 RNA. The SARS-CoV-2 RNA is generally detectable in a nasopharyngeal or oropharyngeal swab during the acute phase of infection. The [employer]el[employer]X SARS-CoV-2 assay is intended for use by qualified and trained clinical laboratory personnel specifically instructed and trained in the techniques of real-time PCR and in vitro diagnostic procedures. The [employer] BioGX SARS-CoV-2 assay is only for use under the Food and Drug Administration Emergency Use Authorization. Testing is limited to laboratories certified under the Clinical Laboratory Improvement Amendments of 1988 (CLIA), 42 U.S.C. 263a, to perform high complexity tests. Performed By: #### 3 1792 #### [place] [address] [place] [address], [facility] Consultationon 07-25-2020 Consultation MR#: [id number] [facility] Pt. Name: Morgan Barrientos Date of Service: 07/25/2020 Room #: FRANK Birthdate: 1940 Referring Physician: CONSULTATION REASON FOR CONSULTATION: Right shoulder dislocation. HISTORY: This is an 80-year-old male, who presents as a transfer from [facility] after sustaining a right shoulder dislocation yesterday at approximately 7 p.m. He states he was walking when he tripped and fell on his outstretched arm, and immediately felt pain and deformity. He was able to make it to his daughter's house just across the street, and was brought to the [place] ER. There, 2 attempts at closed reduction with conscious sedation were performed and unsuccessful, he was transferred to [facility] for higher level of care. He denies any previous dislocations and has never had any surgeries or injuries to this shoulder before. Currently complains of pain only of the shoulder and denies pain elsewhere in the extremity, denies any numbness and tingling, denies any radiating pain. PAST MEDICAL HISTORY: IN, hypertension, and arthritis. PAST SURGICAL HISTORY: None. [...] A/Kirill Joseph MD Date Trans: 07/25/2020 09:50 A/alfredo [id number] cc: Ziggy Kaba M.D. [address] [place] [phone] Normal [facility] PORTABLE SHOULDER RIGHT 2 VW Son 07-25-2020 PORTABLE SHOULDER RIGHT 2 S [facility] Department of Radiology [address] [place] [phone] Patient Name: MORGAN BARRIENTOS : 1940 Sex: M Age: Race: White Pt. Location: [facility] Patient Status: E Ordered Date: 07/25/2020 5:20:00 AM Completed Date: 07/25/2020 05:49 AM Requesting Provider: KIRILL JOSEPH Attending Provider: BRIANNE MUSTAFA Report Copy To: Signs & Symptoms: Pain ( specify Location) History: See Comments Comments: evaluate for Dislocation, post reduction Exam: PORTABLE SHOULDER RIGHT 2 VWS PORTABLE SHOULDER RIGHT 2 S 07/25/2020 5:49 [...] postreduction. Electronically signed: Clara Garces. Transcribed by: [email or web address], User Resident: Electronically Signed by: CLARA GARCES @ 07/25/2020 05:52 AM Normal [facility] Comment on above: Order Comment: evalu ate for Dislocation, post reduction PORTABLE SHOULDER RIGHT 2 [facility] Department of Radiology [address] [place] [phone] Patient Name: MORGAN BARRIENTOS : 1940 Sex: M Age: Race: White Pt. Location: [facility] Patient Status: E Ordered Date: 07/25/2020 3:40:00 AM Completed Date: 07/25/2020 04:20 AM Requesting Provider: BRIANNE MUSTAFA Attending Provider: BRIANNE MUSTAFA Report Copy To: Signs & Symptoms: Deformity History: See Comments Comments: evaluate for Dislocation Exam: PORTABLE SHOULDER RIGHT 2 S PORTABLE SHOULDER RIGHT 2 VWS 07/25/2020 4:20 AM CLINICAL INDICATIONS: Deformity acute right shoulder pain and injury with deformity TECHNOLOGIST COMMENTS: right shoulder pain QUESTION FOR THE RADIOLOGIST: evaluate for Dislocation COMPARISON: None FINDINGS: Portable AP, Grashey and axillary view of the right shoulder demonstrates anterior glenohumeral joint dislocation. No displaced fracture. IMPRESSION: Anterior glenohumeral dislocation. Electronically signed: Clara Garces. Transcribed by: [email or web address], User Resident: Electronically Signed by: CLARA GARCES @ 07/25/2020 04:25 AM Normal [facility] Comment on above: Order Comment: evalu ate for Dislocation Vital Signs Date Time Vital Sign Value Performing Clinician Facility 06-30-2024 09:02-0400 Body height 182.9 cm Brian [employer] Work Phone: [facility] 06-30-2024 09:02-0400 Body mass index (BMI) [Ratio] 25.77 kg/m2 Brian [employer] Work Phone: [facility] 06-30-2024 09:02-0400 Body weight 86.18 kg Brian Hernandez [employer] Work Phone: [facility] 11-10-2023 15:07-0500 Diastolic blood pressure 79 mm[Hg] MD Ziggy Kaba Work Phone: [facility] 11-10-2023 15:07-0500 Heart rate 63 /min MD Ziggy Kaba Work Phone: [facility] 11-10-2023 15:07-0500 Respiratory rate 20 /min MD Ziggy Kaba Work Phone: [facility] 11-10-2023 15:07-0500 SaO2% (BldA) [Mass fraction] 99 % MD Ziggy Kaba Work Phone: [facility] 11-10-2023 15:07-0500 Systolic blood pressure 164 mm[Hg] MD Ziggy Kaba Work Phone: [facility] 11-10-2023 13:29-0500 Body height 185.42 cm MD Ziggy Kaba Work Phone: [facility] 11-10-2023 13:29-0500 Body temperature 97.6 [degF] MD Ziggy Kaba Work Phone: [facility] 11-10-2023 13:29-0500 Body weight 88.4 kg MD Ziggy Kaba Work Phone: [facility] 10-28-2023 12:30-0500 Body height 185.42 cm Abby Rocha Other [employer] Other 10-28-2023 12:30-0500 Body mass index (BMI) [Ratio] 26.38 kg/m2 Abby Josefina Other [employer] Other 10-28-2023 12:30-0500 Body temperature 97.9 [degF] Abby Josefina Other [employer] Other 10-28-2023 12:30-0500 Body weight 90.72 kg Abby Josefina Other [employer] Other 10-28-2023 12:30-0500 Diastolic blood pressure 48 mm[Hg] Abby Josefina Other [employer] Other 10-28-2023 12:30-0500 Respiratory rate 16 /min Abby Josefina Other [employer] Other 10-28-2023 12:30-0500 SaO2% (BldA) [Mass fraction] 100 % Abby Josefina Other [employer] Other 10-28-2023 12:30-0500 Systolic blood pressure 101 mm[Hg] Abby Josefina Other [employer] Other 10-15-2023 14:45-0500 Body height 185.42 cm Esperanza Powell Other [employer] Other 10-15-2023 14:45-0500 Body mass index (BMI) [Ratio] 26.52 kg/m2 Esperanza Powell Other [employer] Other 10-15-2023 14:45-0500 Body temperature 98.3 [degF] Esperanza Powell Other [employer] Other 10-15-2023 14:45-0500 Body weight 91.17 kg Esperanza Powell Other [employer] Other 10-15-2023 14:45-0500 Respiratory rate 18 /min Esperanza Powell Other [employer] Other 10-15-2023 14:45-0500 SaO2% (BldA) [Mass fraction] 99 % Esperanza Powell Other [employer] Other 06-20-2023 15:00-0400 Body height 185.42 cm Jhony [place] II Other [employer] Other 06-20-2023 15:00-0400 Body mass index (BMI) [Ratio] 25.06 kg/m2 Jhony [place] II Other [employer] Other 06-20-2023 15:00-0400 Body weight 86.18 kg Jhony Leonides II Other [employer] Other 05-17-2022 10:30-0400 Body height 185.42 cm Jhony [place] II Other [employer] Other 05-17-2022 10:30-0400 Body mass index (BMI) [Ratio] 25.06 kg/m2 Jhony Zambranoisle II Other [employer] Other 05-17-2022 10:30-0400 Body weight 86.18 kg Jhony Leonides II Other [employer] Other 08-08-2021 11:45-0400 Body height 185.42 cm Harsha Whitehead Other [employer] Other 08-08-2021 11:45-0400 Body mass index (BMI) [Ratio] 25.06 kg/m2 Harsha Whitehead Other [employer] Other 08-08-2021 11:45-0400 Body weight 86.18 kg Harsha Whitehead Other [employer] Other Encounters Encounter Date Encounter Type Care Provider Facility Start: 02-08-2025 ambulatory MD Cory Torrez ity:[facility] Start: 09-30-2024 End: 09-30-2024 [facility]ulatory [facility] Start: 09-14-2024 End: 09-14-2024 Office outpatient visit 10 minutes Kelly Boykin MD Work Phone: [facility] Comment on above: Seborrheic keratosis (Primary Dx); History of SCC (squamous cell carcinoma) of skin Start: 09-14-2024 End: 09-14-2024 ambulatory KELLY BOYKIN Not Available Start: 09-14-2024 End: 09-14-2024 Bamkane Boykin MD Work Phone: [facility] Start: 09-14-2024 End: 09-14-2024 Bamboo flowsheet Kelly Boykin MD Work Phone: [facility] Start: 09-01-2024 End: 09-01-2024 ambulatory JIE MAHARAJ [facility] Start: 08-03-2024 End: 08-03-2024 ambulatory MD Cory Hameed Facility:[facility] Iris frankel Start: 06-30-2024 End: 06-30-2024 Bamboo flowsheet Brian Juju Huizark DO Work Phone: [facility] [place] Start: 06-30-2024 End: 06-30-2024 Bamboo flowsheet Brian Huizark DO Work Phone: [facility] [place] Start: 06-30-2024 End: 06-30-2024 Office outpatient visit 15 minutes Brian Hernandez DO Work Phone: [facility] Comment on above: Postoperative absces s involving suture (Primary Dx) Start: 06-30-2024 End: 06-30-2024 ambulatory BRIAN HERNANDEZ Not Available Start: 05-13-2024 End: 05-13-2024 ambulatory BRIAN HERNANDEZ Not Available Start: 05-06-2024 End: 05-06-2024 ambulatory BRIAN HERNANDEZ Not Available Start: 05-05-2024 End: 05-05-2024 ambulatory PHYSICIAN NO [facility] Work Phone: Start: 05-05-2024 End: 05-05-2024 Departed Referred PHYSICIAN NO [facility] [place] Work Phone: Start: 04-28-2024 End: 04-28-2024 Patient encounter procedure PHYSICIAN NO [facility]-Electrodiagnostics Work Phone: Start: 04-28-2024 Encounter for other preprocedural examination Brian Hernandez [facility] Start: 04-28-2024 End: 04-28-2024 ambulatory PHYSICIAN NO [facility] Work Phone: Start: 04-28-2024 End: 04-28-2024 Discharged Recurring PHYSICIAN NO [facility] [place] Start: 04-28-2024 Registered Recurring PHYSICIAN NO [facility] [place] Start: 04-22-2024 End: 04-22-2024 ambulatory BRIAN Matute GUANACO Not Available Start: 03-24-2024 End: 03-24-2024 ambulatory KELLY Jennifer BOYKIN Not Available Start: 03-10-2024 End: 03-10-2024 ambulatory [facility] Start: 03-10-2024 End: 03-10-2024 ambulatory MD Cory Hameed Facility:[facility] [place] [facility] Start: 02-13-2024 End: 02-13-2024 ambulatory PHYSICIAN NO [facility] Work Phone: Start: 02-13-2024 End: 02-13-2024 Patient encounter procedure PHYSICIAN NO [facility] [place] [facility] Work Phone: Start: 02-10-2024 End: 02-10-2024 ambulatory MD Cory Hameed Facility:[facility] Start: 02-04-2024 End: 02-04-2024 ambulatory [facility] Start: 02-03-2024 End: 02-03-2024 ambulatory MD Cory Hameed Facility:[facility] Start: 02-03-2024 ambulatory MD oCry Hameed Facility :[facility] [place] Start: 11-10-2023 End: 11-10-2023 Emergency department patient visit MD Ziggy Kaba Work Phone: [facility]-Emergency Room Work Phone: Start: 10-28-2023 Office outpatient vi sit 15 minutes Abby Rocha [facility] Start: 10-28-2023 End: 10-28-2023 Patient encounter procedure MD Ziggy Kaba Work Phone: [facility] [place] Work Phone: Start: 10-28-2023 End: 10-28-2023 ambulatory MD Ziggy Kaba Work Phone: [facility] Work Phone: Start: 10-28-2023 End: 10-28-2023 Patient encounter procedure MD Ziggy Kaba Work Phone: [facility] Work Phone: Start: 10-23-2023 End: 10-23-2023 ambulatory [facility] Start: 10-15-2023 End: 10-15-2023 ambulatory Esperanza Pwoell Other [employer] Other Start: 10-15-2023 Office outpatient vi sit 15 minutes Esperanza Powell [facility] Start: 10-15-2023 End: 10-15-2023 Patient encounter procedure MD Ziggy Kaba Work Phone: [facility] Work Phone: Start: 06-20-2023 End: 06-20-2023 Patient encounter procedure MD Ziggy Kaba Work Phone: [facility] [place] [facility] Start: 06-20-2023 End: 06-20-2023 ambulatory MD Ziggy Kaba Work Phone: [facility] Work Phone: Start: 06-20-2023 Office outpatient vi sit 25 minutes Jhony Leonides II [facility] [place] [facility] Start: 06-12-2023 End: 06-12-2023 ambulatory Jhony [place] II Other [employer] Other Start: 06-12-2023 Telephone encounter Jhony [place] II [facility] [place] [facility] Start: 11-16-2022 End: 11-17-[address] ZIGGY KABA Facility:[facility] Start: 09-20-2022 End: 09-21-[address] ZIGGY KABA Facility:[facility] Start: 05-17-2022 End: 05-17-2022 ambulatory Jhony [place] II Other [employer] Other Start: 05-17-2022 End: 05-17-2022 Patient encounter procedure Jhony [place] II [facility] [place] [facility] Start: 03-20-2022 End: 03-20-2022 ambulatory Harsha Ventura Other [employer] Other Start: 03-20-2022 Telephone encounter Harsha Whitehead [facility] [place] [facility] Start: 01-01-2022 End: 01-02-[address] ZIGGY KABA Facility: Start: 11-08-2021 End: 11-08-2021 ambulatory Jhony Leonides II Other [employer] Other Start: 11-08-2021 Patient encounter procedure Jhony Mimsle II [facility] [place] [facility] Start: 08-08-2021 End: 08-08-2021 ambulatory Harsha Whitehead Other [employer] Other Start: 08-08-2021 Postop follow up vis it related to original px Harsha Whitehead [facility] [place] [facility] Start: 09-02-2020 End: 09-03-2020 Patient encounter procedure SEGUN GALICIAOlivier Facility:[facility] Start: 07-25-2020 End: 07-25-2020 Emergency department patient visit BRIANNE Martínez RAMSEY Facility:[facility] Procedures Date Procedure Procedure Detail Performing Clinician Start: 02-13-2024 Plain X-ray of left hip PHYSICIAN NO FAMILY Start: 02-13-2024 X-ray of left knee PHYS ICIAN NO FAMILY Start: 11-10-2023 Plain chest X-ray MD Ashwin Kaba Work Phone: Start: 10-28-2023 Plain chest X-ray MD Ashwin Kaba Work Phone: Start: 06-20-2023 Pelvis X-ray MD Ziggy mccoy Work Phone: Start: 06-20-2023 X-ray of both knees MD Ziggy Kaba Work Phone: Start: 05-17-2022 X-ray of left knee MD Tena Kaba Work Phone: H/O: artificial joint Harsha Whitehead Other History of operative procedure on knee Harsha Whitehead Other Plan of Treatment Date Care Activity Detail Author Start: 03-25-2025 End: 03-25-2025 Patient encounter procedure 03/25/2025 2:30 PM EDT Office Visit [facility] [address] [place] [address] Kelly Boykin MD [address] [place], [place] [id number] [facility] Start: 09-14-2024 End: 09-14-2024 Patient encounter procedure 09/14/2024 2:30 PM EST Office Visit [facility] [address] [place] [address] Kelly Boykin MD [address] [place] [address] Arrived [facility] Comment on above: Arrived Start: 06-30-2024 End: 06-30-2024 Patient encounter procedure 06/30/2024 9:15 AM EDT Office Visit [facility] [address] [place] [address] Brian Hernandez W, DO [address] [place] [address] Arrived [facility] Comment on above: Arrived Start: 06-21-2024 Influenza vaccination Influenza Vacc ine (#1) [facility] Start: 02-13-2024 Plain X-ray of left hip XR hip LT min 2V(w/wo pelvis)* [facility] Start: 02-13-2024 X-ray of left knee XR knee LT 3V - NOT FOR ER USE [facility] Start: 02-13-2024 XR Hip - left 2 Views [facility] Start: 02-13-2024 XR Knee - left 3 Views [facility] Start: 02-07-2004 Pneumococcal Vaccine : 65+ Years (1 of 1 - PCV) Pneumococcal Vaccine: 65+ Years (1 of 1 - PCV) [facility] Patient Education Cough in adults [facility] Work Phone: Patient referral [facility] Work Phone: Immunizations Immunization Date Immunization Notes Care Provider Fa cility 06-11-2023 tetanus and diphther ia toxoids, adsorbed, preservative free, for adult use (5 Lf of tetanus toxoid and 2 Lf of diphtheria toxoid) Brian Hernandez DO Work Phone: [facility] 12-15-2020 COVID-19 mRNA Comirnatamy (Pfizer) MD Ziggy Kaba Work Phone: [facility] 11-23-2020 COVID-19 mRNA Comirmathieu (Pfizer) MD Zigyg Kaba Work Phone: [facility] Payers Date Payer Category Payer Medicare [facility] MEDIC[facility] [id number] 2023-Present [address] [place] [id number] 2023 Medicare (Managed Care) [facility] [id number] 2023 Medicare [id number] 2023 [facility] [id number] 1959 Medicare [id number] 1959 Unknown [id number] 1940 Unknown [id number] [id number]. 647 1940 Unknown [id number] 2.16.840.1.750303.3.579.2. 647 1940 Unknown [id number] 2.16.840.1.905250.3.579.2. 593 1940 Unknown [id number] 2.16.840.1.474387.3.579.2. 593 1940 Unknown [id number] 2.16.840.1.119119.3.579.2. 593 1940 Unknown [id number] 2.16.840.1.869063.3.579.2. 727 1940 Unknown [id number] 2.16.840.1.214006.3.579.2. 727 1940 Unknown [id number] 2.16.840.1.834949.3.579.2. 727 1940 Unknown [id number] 2.16.840.1.366580.3.579.2. 727 1940 Unknown [id number] 2.16.840.1.106444.3.579.2. 727 1940 Unknown [id number] 2.16.840.1.665861.3.579.2. 727 1940 Unknown [id number] 2.16.840.1.868134.3.579.2. 727 1940 Unknown [id number] 2.16.840.1.026765.3.579.2. 1259 1940 Unknown [id number] 2.16.840.1.923301.3.579.2. 1259 1940 Unknown [id number] 2.16.840.1.910450.3.579.2. 1258 1940 Unknown [id number] 2.16.840.1.845486.3.579.2. 1258 1940 Unknown [id number] 2.16.840.1.890682.3.579.2. 1259 1940 Unknown [id number] 2.16.840.1.736035.3.579.2. 1259 Unknown [id number] 2.16.840.1.051874.3.579.2. 531 Unknown [id number] 2.16.840.1.099233.3.579.2. 531 Unknown [id number] 2.16.840.1.110742.3.579.2. 531 Unknown [id number] 2.16.840.1.652700.3.579.2. 531 Unknown [id number] 2.16.840.1.252293.3.579.2. 531 Unknown [id number] 2.16.840.1.976089.3.579.2. 531 Unknown [id number] 2.16.840.1.383670.3.579.2. 531 Social History Date Type Detail Facility Unknown if ever smoked [employer] Other Start: 05-13-2024 End: 06-30-2024 Sex Assigned At [facility] Other Start: 05-15-2021 End: 04-22-2024 Tobacco smoking status VAIS Ex-smoker (finding) [facility] Start: 1940 Sex Assigned At Male F [facility] History of tobacco use Current smoker [facility] History of tobacco use Cigarette Smoker [facility] Start: 04-22-2024 Tobacco use and exposure Smokeless tobacco non-user [facility] Start: 05-13-2024 End: 06-30-2024 History of Social function [facility] Start: 1940 Sex assigned at Not on file N [facility] Medical Equipment Procedure Code Equipment Code Equipment Origin al Text Equipment Identifier Dates Arthroplasty, knee, total, minimally invasive Orthopaedic cement, non-medicated [id number] FDA Start: 05-15-2021 Arthroplasty, knee, total, minimally invasive Coated knee femur prosthesis [id number] FDA Start: 05-15-2021 Arthroplasty, knee, total, minimally invasive Polyethylene patella prosthesis [id number] FDA Start: 05-15-2021 Arthroplasty, knee, total, minimally invasive Tibial insert [id number] FDA Start: 05-15-2021 Arthroplasty, knee, total, minimally invasive Uncoated knee tibia prosthesis, metallic [id number] FDA Start: 05-15-2021 Clinical Notes 08-08-2021 to 09-30-2024 Kelly Boykin MD - 09/14/2024 2:30 PM Kamila Hernandez DO - 06/30/2024 9:15 AM EDT Note Date & Type Note Facility 09-30-2024 Note Cardiovascular Medic [facility] SUBJECTIVE Chief Complaint Patient presents with Coronary Artery Disease Hypertension Morgan Barrientos is a 84 y.o. male here for follow-up. HPI PMHx: paroxysmal a.fib, CAD, HTN, mitral valve regurg, SND s/p PPM, PVCs He has been feeling well since last seen. Denies c/o CP, dyspnea, orthopnea, PND, dizziness/LH, palpitations, syncope. BP at home running 120/60s. He wears compression stockings for leg swelling. He notices increased swelling if he eats saltier foods, swelling improves after a day or so. One episode where he cut his foot and needed to report to the ER to control the bleeding. Received 1 stitch. No further issues after this. Bruising is better since stopping ASA. Patient Active Problem List Diagnosis Actinic keratosis Coronary arteriosclerosis Hypertensive disorder Mitral valve regurgitation Myocardial infarction (CMS/HCC) Sleep apnea Cardiac pacemaker in situ Atrial fibrillation (CMS/HCC) BMI 28.0-28.9,adult Cough Encounter for surveillance of abnormal nevi History of COVID-19 Peripheral edema Status post total left knee replacement Venous insufficiency Greater trochanteric bursitis Primary osteoarthritis of left knee Visit for suture removal Weakness Past Medical History: Diagnosis Date Abnormal ECG Arrhythmia Atrial fibrillation (CMS/HCC) Coronary artery disease Heart valve disease Hypertension Myocardial infarction (CMS/HCC) Paroxysmal atrial flutter (CMS/HCC) Sleep apnea Family History Problem Relation Name Age of Onset Heart disease Mother Other (DISORDER OF THYROID GLAND) Mother Heart disease Father Social History Tobacco Use Smoking status: Former Types: Cigarettes Smokeless tobacco: Never Substance Use Topics Alcohol use: Yes Comment: MODERATE Drug use: Never Allergies Allergen Reactions Adhesive Tape-Silicones ROS Hematologic/Lymphatic: Bruises/bleeds easily. All other systems reviewed and are negative. OBJECTIVE Visit Vitals BP 106/58 (BP Location: Left arm, Patient Position: Sitting) Pulse 64 Ht 1.854 m (6' 1 ) Wt 91.6 kg (202 lb) SpO2 97% BMI 26.65 kg/m??? Smoking Status Former BSA 2.17 m??? Medications: Current Outpatient Medications: apixaban (Eliquis) 5 mg tablet, Take 1 tablet (5 mg) by mouth in the morning and at bedtime., Disp: 60 tablet, Rfl: 11 carvedilol (Coreg) 12.5 mg tablet, Take 1 tablet (12.5 mg) by mouth with breakfast and with evening meal., Disp: 180 tablet, Rfl: 3 nitroglycerin (Nitrostat) 0.4 mg SL tablet, See administration instructions., Disp: , Rfl: Physical Exam Constitutional: Appearance: Normal appearance. He is normal weight. HENT: Head: Normocephalic and atraumatic. Right Ear: External ear normal. Left Ear: External ear normal. Eyes: Extraocular Movements: Extraocular movements intact. Pupils: Pupils are equal, round, and reactive to light. Neck: Vascular: No carotid bruit. Cardiovascular: Rate and Rhythm: Normal rate and regular rhythm. Pulses: Normal pulses. Heart sounds: Normal heart sounds. Pulmonary: Effort: Pulmonary effort is normal. Breath sounds: Normal breath sounds. Abdominal: General: Bowel sounds are normal. Palpations: Abdomen is soft. Musculoskeletal: General: Normal range of motion. Cervical back: Neck supple. Right lower leg: Edema present. Left lower leg: Edema present. Comments: Trace edema, compression socks in place Skin: General: Skin is warm and dry. Neurological: General: No focal deficit present. Mental Status: He is alert and oriented to person, place, and time. Psychiatric: Mood and Affect: Mood normal. Behavior: Behavior normal. Thought Content: Thought content normal. Judgment: Judgment normal. Labs: Ancillary Procedure on 07/10/2022 Component Date Value Ref Range Status BSA 11/15/2022 2.11 m2 Final No results found for: EXTCMP , BMPR1A , CBCDIF , BNP , LASAP , RED 03/06/2024 Hgb 14, plt 206 Cr 1.23, BUN 26, K 4.5, Na 138, eGFR 56, AST 14, ALT 21 NTproBNP 753 TSH 2.669 Labs: 01/01/23 renal and liver function normal, CBC normal LDL 87 04/12/21 renal function normal CR 1.04 LFT normal Thyroid function normal CBC normal 01/13/2024 Chol 164, trig 84, LDL 105, HDL 42 Testing/Procedures: ECHO 04/10/2024 LVEF 50-55%, mildly dilated RV with normal systolic function Moderate biatrial dilatation Mild MR and PA Normal right sided pressures 11/16/2022 TTE Echocardiogram 11/23/20 Normal LVSF EF >55% Mild dilatation of RV- normal systolic function Mild LA and moderate RA dilatation Mild Mitral valve regurg Cardiac catheterization 05/30/2017: Impression: Patent coronary arteries with normal LAD, left circumflex and dominant right system. The patient should be medically managed for other causes of chest discomfort. ASSESSMENT/PLAN: Diagnoses and all orders for this visit: PVC (premature (more content not included)... [facility] 09-30-2024 Note Patient here for 6 m o follow up afib, PVC's, hypertension, and SND s/p PPM. His device was interrogated last month. Had an echo back in March 2024. Denies chest pain, SOB, palpitations, and bleeding on Eliquis. Gets lightheaded sometimes when he stands up too quickly, but denies syncope/falls. Review of Systems Hematologic/Lymphatic: Bruises/bleeds easily. All other systems reviewed and are negative. [facility] 09-14-2024 History of Present illness Narrative Follow [...] Visit: as scheduled documented in this encounter [facility] 06-30-2024 History of Present illness Narrative HPI Patient presents today couple months postop excision of a skin cancer of left posterior neck with flap repair. Apparently last week he had some drainage from the area. Relevant postoperative physical examination Examination today site shows everything is well healed, he had a small area which I uncapped and he was spitting suture which I removed. Assessment/plan Morgan was seen today for post-op. Diagnoses and all orders for this visit: Postoperative abscess involving suture (Primary) Comments: I reassured the patient everything looks okay, I will see him back as needed documented in this encounter [facility] 03-10-2024 Note [place] Electrophysiology Consult Note [place] [facility] - [facility] Reason for visit: PVC HPI: Morgan Barrientos is a 84 y.o. year old with past medical history of HTN, SND s/p PPM, Afib was recently seen at [facility] as his pulse was felt to be low in the 40's. He was noted to have signficant PVC. He was seen later at [facility] and Dr. Shelton increased carvedilol to 12.5mg bid when she was consulted over the phone. Daughter said a rep from [facility] came to the ED and interrogated his [...] on file Intimate Partner Violence: Unknown (12/12/2023) [place] Safety & Environment Fear of Current or [...] the lack of (more content not included)... [facility] 11-10-2023 Hospital Discharge instructions Additional Instructions A [...] needed for wheezing or shortness of breath [facility] Work Phone: 10-28-2023 Evaluation note [...] concerns Oct, Fever, unspecified (ICD-10 - R50.9) [employer] Other 01-03-2024 NoteNo concerning symptomsUnSouthern [place] [facility] Center01-03-2024 NotePatient here for 1 year follow up CAD, hypertension, and mitral valve regurgitation. He's doing very well, as he denies chest pain, SOB, palpitations, lightheadedness/syncope, and bleeding on Eliquis. Review of Systems Hematologic/Lymphatic: Bruises/bleeds easily. All other systems reviewed and are negative.[facility] 10-23-2023 NoteUTP CARDIOLOGY PROGRESS NOTE HPI: Morgan [...] for eval in 6 mos to 1 year.[facility]01-03-2024 NoteDevice interrogation q 6 months Recent was 07/2023- battery life 3 years, device working appropriately. 1 episode of NSVT- 5 sec and Atrial tachUnSouthern [place] Medical Center 10-23-2023 NoteHypertension is stable and well controlled at home Continue coregUnSouthern [place] Medical Center01-03-2024 NoteCoronary artery disease is stable Continue GDMT- ASA, coreg continue risk factor modifications- heart healthy diet, regular exercise as tolerated and continue all medications.[facility] 10-15-2023 Evaluation note* Encounter Date Diagnosis Assessment Notes Treatment Notes Treatment Clinical Notes Sep, Acute non-recurrent maxillary sinusitis (ICD-10 - J01.00) Lung clear on exam, lower suspicion for pneumonia. Will tx tody for bacterial sinusitis based on physical exam and duration of symptoms. Take antibiotic as prescribed, complete entire course of therapy even if symptoms resolve. [place] as needed for cough. Encouraged OTC Mucinex. [...] understanding and is agreeable to treatment plan. [employer] Other 08-31-2023 Evaluation note* Encounter Date Diagnosis [...] can call on a as needed basis. [employer] Other 07-28-2022 Evaluation note* Encounter Date Diagnosis Assessment Notes Treatment Notes Treatment Clinical Notes Apr, Primary osteoarthritis of left knee (ICD-10 - M17.12) Apr, History of total lef t knee replacement (ICD-10 - Z96.652) Apr, Other [place] L TKA at [facility] on 05/15/2021 Happy with surgical result Follow up yearly with standing AP and lateral xrays of the left knee Patient instructed to call with any questions or concerns. [employer] Other 01-19-2022 Evaluation note* Encounter Date Diagnosis [...] back in 6 months with repeat x-rays. [employer] Other 10-19-2021 Evaluation note* Encounter Date Diagnosis Assessment Notes Treatment Notes Treatment Clinical Notes Jul, Primary osteoarthritis of left knee (ICD-10 - M17.12) Jul, History of total lef t knee replacement (ICD-10 - Z96.652) Patient is progressing well. Continue physical therapy exercises and TKA precautions. Instructed patient to call with any questions or concerns. [employer] Other Evaluation noteNo InformationNort [email or web address] Other Evaluation noteNo assessment information available [facility] Work Phone: Evaluation note* Diagnosis Onset Date Resolution Status History of total left knee replacement acute Left hip pain acute Primary osteoarthritis of left knee acute [facility] Work Phone: Evaluation note* Diagnosis Onset Date Resolution Status Greater trochanteric bursitis acute History of total left knee replacement acute Left hip pain acute Primary osteoarthritis of left knee acute [facility] Work Phone: Evaluation note* Diagnosis Seborrheic keratosis- Primary History of SCC (squamous cell carcinoma) of skin Personal history of other malignant neoplasm of skin documented in this encounter [facility] HealthcareEvaluation note* Diagnosis Postoperative abscess involving suture- Primary documented in this encounter [facility] HealthcareHistory general Narrative - Reported* Type Description Date Medical History hypertension Medical History Atrial fibrillation Surgical History right total knee arthroplasty 2 016 Surgical History Pacemaker insertion 2016 Surgical History hernia X3 Surgical History hemorrhoidectomy Surgical History appendectomy Surgical History left TKA 2020 Hospitalization History see above [employer] Other Summary Purpose Family History Relationship Condition Age at Onset Recorded Date/T [...] Unknown father Unknown mother Unknown Advance Directives Advance Directive Response Recorded Date/ Time Advance [...] section and content) DATE CREATED AUTHOR 11/09/2020 [facility] DATE CREATED AUTHOR AUTHOR'S ORGANIZ ATION 11/21/2022 [facility] DATE CREATED AUTHOR AUTHOR'S ORGANIZ ATION 05/14/2024 [facility] DATE CREATED AUTHOR AUTHOR'S ORGANIZ ATION 08/04/2024 [facility] DATE CREATED AUTHOR AUTHOR'S ORGANIZ ATION 09/16/2024 [facility] EPIC DATE CREATED AUTHOR AUTHOR'S ORGANIZ ATION 10/03/2024 [facility] REASON FOR VISIT (unrecogniz ed section and content) Reason Comments Follow-up Suspicious Skin Lesion Reason Comments Post-op 6 week jarod Care Teams (unrecognized sec tion and content) Team Status: Active Member Role Status Dates Cory Hameed MD Primary Care Provider Active Team Status: Inactive Member Role Status Dates PHYSICIAN NO FAMILY Primary Care Provider Active Start: February 13, 2024 End: February 13, 2024 Bianca Barclay NP-C Attending Provider Active Start: February 13, 2024 [...] Team Status: Inactive Member Role Status Dates KANIKA Daniel Attending Provider Active S tart: [...] Care Provider Active Start: February 13, 2024 KANIKA Dumont Attending Provider Active Start: February 13, 2024 Team Status: Inactive Member Role Status Dates Cory Hameed MD Primary Care Provide r, Attending Provider Active Start: April 28, 2024 End: April 28, 2024 Team Status: Inactive Member Role Status Dates Brian Hernandez DO Attending Provider Active S tart: May 05, 2024 End: May 05, 2024 Manufacturing Associate Relationship Specialty Start Date End Date Cory Hameed MD [address] [place] [address] PCP - General Family Medicine 06/30/24 Kelly Boykin MD [address] [place] [address] [place] [address] Referring Physician Dermatology 05/13/24 Brian Hernandez DO [address] [place] [address] Otolaryngology 05/13/24 Manufacturing Associate Relationship Specialty Start Date End Date Cory Hameed MD [address] [place] [address] PCP - General Family Medicine 06/30/24 Kelly Boykin MD [address] [place] [address] Referring Physician Dermatology 05/13/24 Brian Hernandez DO [address] [place] [address] Otolaryngology 05/13/24 Manufacturing Associate Relationship Specialty Start Date End Date Cory Hameed MD [address] [place] [address] PCP - General Family Medicine 06/30/24 Kelly Boykin MD [address] [place] [address] Referring Physician Dermatology 05/13/24 Brian Hernandez DO [address] [place] [address] Otolaryngology 05/13/24 Manufacturing Associate Relationship Specialty Start Date End Date Cory Hameed MD [address] [place] [address] PCP - General Family Medicine 06/30/24 Kelly Boykin MD [address] [place] [address] Referring Physician Dermatology 05/13/24 Brian Hernandez, [address] [place] [address] Otolaryngology 05/13/24 Goals (unrecognized section and content) [...] BE BASED ON THE PRIMARY CLINICAL RECORDS. [facility] [employer] provides no warranty or guarantee of the accuracy or completeness of information in this document.
--- NOTE | 2024-10-16 09:00 | CA_ITS ---
Patient Name: DORIS FAY MR#: [id number] : 1940 Exam Date: 10/16/2024 Ordering Doctor: ROSEMARIE WADE CNP ECHOCARDIOGRAM REPORT PROCEDURE: CA ECHO LIMITED INDICATIONS: Frequent premature ventricular contractions, pacemaker COMPARISON: None. DESCRIPTION: Limited ECHOCARDIOGRAM Real-time transthoracic echocardiography with 2D and M-mode performed. QUALITY: Technical quality was good. Limited echocardiogram per physician order. LEFT VENTRICLE: Normal chamber size. Borderline left ventricular hypertrophy. Normal systolic function. LV EF: Normal left ventricular ejection fraction, (55-60%). DIASTOLIC: ATRIAL SEPTUM: LEFT ATRIUM: Moderate dilatation. RIGHT ATRIUM: Moderate dilatation. RIGHT VENTRICLE: Mild dilatation. Normal systolic function. Pacer wire present. TRICUSPID VALVE: Normal mobility and thickness. MITRAL VALVE: Normal mobility and thickness. There is no mitral annular calcification. AORTIC VALVE: Normal trileaflet appearance. No visible sclerosis. Normal leaflet mobility. AORTIC ROOT: Normal diameter and appearance. Ascending aorta is normal in size. PULMONIC VALVE: Normal thickness and mobility. PERICARDIUM: No evidence of pericardial effusion. IVC: Collapses with inspirations. PLEURA: CONCLUSION: 1. Normal left ventricular size and systolic function. Estimated LVEF is 55 to 60%. 2. Mildly dilated right ventricle with normal systolic function. 3. Moderate biatrial dilatation. 4. No pericardial effusion. 5. Limited study performed with no Doppler interrogation as requested. Adult Echocardiography Procedure Report Left Ventricle LVEDD (3.7 - 5.6 cm): 4.86 cm LVESD (2.2 - 4.0 cm): 3.30 cm LVIVS thickness (0.6 - 1.2 cm): 1.03 cm LVPW thickness (0.5 - 1.0 cm): 1.12 cm LVOT Diameter 2.55 cm Left Atrium LA Volume Index (2D A2C): 30.77 ml/m2 Left Atrium Systolic Dimension: 3.73 cm Mitral Valve Right Ventricle Aorta AO Root Diam: 3.70 cm Ascending Ao Diam: 3.41 cm Aortic Valve Tricuspid Valve Pulmonic Valve Right Atrium Right Atrium Systolic Pressure: 70.10 ml, 70.10 ml Dictated by: Sammy Mcdaniel M.D. on 10/16/2024 at 19:23 Approved by: Sammy Mcdaniel M.D. on 10/16/2024 at 19:25
== END 2024-10-16 08:37 | disposition home or self-care (01) ==
LOC: CARD 08:37
PROVIDERS: PCP Family Medicine; Visit Provider Nurse Practitioner Family
DX: I49.3 Ventricular premature depolarization (principal)
CPT/HCPCS: 93308

== ENCOUNTER 2025-03-12 09:48 | Outpatient (OUT) | payer MEDICARE, SELFPAY ==
--- OUTSIDE RECORDS SUMMARY | 2025-02-24 12:36 | XMS_ITS ---
Author Name Auto Generated Organization [facility] Care Team Providers Care Wire Inspector Name Role Phone KELLY PABLO Attending Unavailable YOSEPH, CORY E Referring Unavailable MURCEKBRIAN Attending Unavailable PETKELLY MARTIN Referring Unavailable MURCEKBRIAN Attending Unavailable MURCEBRIAN Madsen Referring Unavailable MURCEK, BRIAN Matute Attending Unavailable PETKELLY MARTIN Referring Unavailable MURCEKBRIAN Attending Unavailable PETITTIKELLY Attending Unavailable Ross, Cory E. Attending Unavailable Joslyn, NON PROFIT JOB TITLES Suzie Martínez Attending Unavailable Ross, Cory E. Attending Unavailable Joslyn, NON PROFIT JOB TITLES Suzie Martínez Attending Unavailable Yoseph, Cory E. Attending Unavailable Ross, Cory E. Attending Unavailable Ross, Cory E. Attending Unavailable Ross, Cory E. Attending Unavailable Ross, Cory E. Referring Unavailable BRYSON WAN Attending Unavailable Ross, Cory E. Admitting Unavailable Ross, Cory E. Attending Unavailable Ross, Cory E. Admitting Unavailable Ross, Cory E. Attending Unavailable Ross, Cory E Primary Care Unavailable Ross, Cory E Admitting Unavailable Ross, Cory E Attending Unavailable Ross, Cory E Primary Care Unavailable Murcek, Brian Attending Unavailable David, Brian Admitting Unavailable David, Brian Attending Unavailable David, Brian Admitting Unavailable JIE MAHARAJ Referring Unavailable ROSEMARIE ROSARIO Attending Unavailable JIE MAHARAJ Referring Unavailable CAROL ANN, JIE Referring Unavailable PROBLEMS DATE TYPE CONDITION / CODE ATTENDING STATUS [facility] 02/24/2025 Admitting Diagnosis Encounter for adjustment and management of other part of cardiac pacemaker / Z45.018(ICD-10) NA [facility] 09/30/2024 Admitting Diagnosis 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) ROSEMARIE ROSARIO Active [facility] 09/01/2024 Admitting Diagnosis Encounter for adjustment and management of automatic implantable cardiac defibrillator / Z45.02(ICD-10) NA [facility] 05/05/2024 Unknown 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 Morgan Barrientos , [facility] has been trying to reach you with no success. It is important that you return our call regarding scheduling your scrotal ultrasound upon receiving this letter. Also, at the time of your call, please provide us with your current information. The order for the testing has been faxed to [facility]. Thank you for your prompt attention to this matter. Sincerely, [facility] , option #3 PATIENT EDUCATION Observed: 02/15/2025 12:34 PM Status: C Source: [facility] Patient Education Urology Benign Prostatic Hyperplasia Benign prostatic hyperplasia (BPH) is an enlarged prostate gland that is caused by the normal aging process. The prostate may get bigger as a man gets older. The condition is not caused by cancer. The prostate is a walnut-sized gland that is involved in the production of semen. It is located in front of the rectum and below the bladder. The bladder stores urine. The urethra carries stored urine out of the body. An enlarged prostate can press on the urethra. This can make it harder to pass urine. The buildup of urine in the bladder can cause infection. Back pressure and infection may progress to bladder damage and kidney (renal) failure. What are the causes? This condition is part of the normal aging process. However, not all men develop problems from this condition. If the prostate enlarges away from the urethra, urine flow will not be blocked. If it enlarges toward the urethra and compresses it, there will be problems passing urine. What increases the risk? This condition is more likely to develop in men older than 50 years. What are the signs or symptoms? Symptoms of this condition include: ??? Getting up often during the night to urinate. ??? Needing to urinate frequently during the day. ??? Difficulty starting urine flow. ??? Decrease in size and strength of your urine stream. ??? Leaking (dribbling) after urinating. ??? Inability to pass urine. This needs immediate treatment. ??? Inability to completely empty your bladder. ??? Pain when you pass urine. This is more common if there is also an infection. ??? Urinary tract infection (UTI). How is this diagnosed? This condition is diagnosed based on your medical history, a physical exam, and your symptoms. Tests will also be done, such as: ??? A post-void bladder scan. This measures any amount of urine that may remain in your bladder after you finish urinating. ??? A digital rectal exam. In a rectal exam, your health care provider checks your prostate by putting a lubricated, gloved finger into your rectum to feel the back of your prostate gland. This exam detects the size of your gland and any abnormal lumps or growths. ??? An exam of your urine (urinalysis). ??? A prostate specific antigen (PSA) screening. This is a blood test used to screen for prostate cancer. ??? An ultrasound. This test uses sound waves to electronically produce a picture of your prostate gland. Your health care provider may refer you to a specialist in kidney and prostate diseases (urologist). How is this treated? Once symptoms begin, your health care provider will monitor your condition (active surveillance or watchful waiting). Treatment for this condition will depend on the severity of your condition. Treatment may include: ??? Observation and yearly exams. This may be the only treatment needed if your condition and symptoms are mild. ??? Medicines to relieve your symptoms, including: ? Medicines to shrink the prostate. ? Medicines to relax the muscle of the prostate. ??? Surgery in severe cases. Surgery may include: ? Prostatectomy. In this procedure, the prostate tissue is removed completely through an open incision or with a laparoscope or robotics. ? Transurethral resection of the prostate (TURP). In this procedure, a tool is inserted through the opening at the tip of the penis (urethra). It is used to cut away tissue of the inner core of the prostate. The pieces are removed through the same opening of the penis. This removes the blockage. ? Transurethral incision (TUIP). In this procedure, small cuts are made in the prostate. This lessens the prostate's pressure on the urethra. ? Transurethral microwave thermotherapy (TUMT). This procedure uses microwaves to create heat. The heat destroys and removes a small amount of prostate tissue. ? Transurethral needle ablation (TUNA). This procedure uses radio frequencies to destroy and remove a small amount of prostate tissue. ? Interstitial laser coagulation (ILC). This procedure uses a laser to destroy and remove a small amount of prostate tissue. ? Transurethral electrovaporization (TUVP). This procedure uses electrodes to destroy and remove a small amount of prostate tissue. ? Prostatic urethral lift. This procedure inserts an implant to push the lobes of the prostate away from the urethra. Follow these instructions at home: ??? Take qala-esu-gfgwbqx and prescription medicines only as told by your health care provider. ??? Monitor your symptoms for any changes. Contact your health care provider with any changes. ??? Avoid drinking large amounts of liquid before going to bed or out in public. ??? Avoid or reduce how much caffeine or alcohol you drink. ??? Give yourself time when you urinate. ??? Keep all follow-up visits. This is important. Contact a health care provider if: ??? You have unexplained back pain. ??? Your symptoms do not get better with treatment. ??? You develop side effects from the medicine you are taking. ??? Your urine becomes very dark or has a bad smell. ??? Your lower abdomen becomes distended and you have trouble passing urine. Get help right away if: ??? You have a fever or chills. ??? You suddenly cannot urinate. ??? You feel light-headed or very dizzy, or you faint. ??? There are large amounts of blood or clots in your urine. ??? Your urinary problems become hard to manage. ??? You develop moderate to severe low back or flank pain. The flank is the side of your body between the ribs and the hip. These symptoms may be an emergency. Get help right away. Call 911. ??? Do not wait to see if the symptoms will go away. ??? Do not drive yourself to the hospital. Summary ??? Benign prostatic hyperplasia (BPH) is an enlarged prostate that is caused by the normal aging process. It is not caused by cancer. ??? An enlarged prostate can press on the urethra. This can make it hard to pass urine. ??? This condition is more likely to develop in men older than 50 years. ??? Get help right away if you suddenly cannot urinate. This information is not intended to replace advice given to you by your health care provider. Make sure you discuss any questions you have with your health care provider. Document Revised: 04/25/2022 Document Reviewed: 04/25/2022 [employer] Patient Education ? 2023 [employer]Hydrocelectomy, Adult A hydrocelectomy is a surgical procedure to remove a collection of fluid (hydrocele) from the scrotum. The scrotum is the pouch that holds the testicles. You may need to have this procedure if a hydrocele is causing painful swelling in your scrotum. Tell a health care provider about: ??? Any allergies you have. ??? All medicines you are taking, including vitamins, herbs, eye drops, creams, and ihyl-aow-smejzvg medicines. ??? Any problems you or family members have had with anesthetic medicines. ??? Any bleeding problems you have. ??? Any surgeries you have had. ??? Any medical conditions you have. What are the risks? Generally, this is a safe procedure. However, problems may occur, including: ??? Bleeding into the scrotum (scrotal hematoma). ??? Damage to nearby structures or organs, including to the testicle or the tube that carries sperm out of the testicle (vas deferens). ??? Infection. ??? Allergic reactions to medicines. What happens before the procedure? When to stop eating and drinking Follow instructions from your health care provider about what you may eat and drink before your procedure. These may include: ??? 8 hours before your procedure ? Stop eating most foods. Do not eat meat, fried foods, or fatty foods. ? Eat only light foods, such as toast or crackers. ? All liquids are okay except energy drinks and alcohol. ??? 6 hours before your procedure ? Stop eating. ? Drink only clear liquids, such as water, clear fruit juice, black coffee, plain tea, and sports drinks. ? Do not drink energy drinks or alcohol. ??? 2 hours before your procedure ? Stop drinking all liquids. ? You may be allowed to take medicines with small sips of water. If you do not follow your health care provider's instructions, your procedure may be delayed or canceled. Medicines Ask your health care provider about: ??? Changing or stopping your regular medicines. This is especially important if you are taking diabetes medicines or blood thinners. ??? Taking medicines such as aspirin and ibuprofen. These medicines can thin your blood. Do not take these medicines unless your health care provider tells you to take them. ??? Taking xavu-muc-ifsacqp medicines, vitamins, herbs, and supplements. Surgery safety Ask your health care provider: ??? How your surgery site will be marked. ??? What steps will be taken to help prevent infection. These steps may include: ? Removing hair at the surgery site. ? Washing skin with a germ-killing soap. ? Taking antibiotic medicine. General instructions ??? Do not use any products that contain nicotine or tobacco for at least 4 weeks before the procedure. These products include cigarettes, chewing tobacco, and vaping devices, such as e-cigarettes. If you need help quitting, ask your health care provider. ??? If you will be going home right after the procedure, plan to have a responsible adult: ? Take you home from the hospital or clinic. You will not be allowed to drive. ? Care for you for the time you are told. What happens during the procedure? An IV will be inserted into one of your veins. ??? You will be given one or both of the following: ? A medicine to make you relax (sedative). ? A medicine to make you fall asleep (general anesthetic). ??? A small incision will be made through the skin of your scrotum. ??? Your testicle and the hydrocele will be located, and the hydrocele sac will be opened with an incision. ??? The fluid will be drained from the hydrocele. Part of the hydrocele sac may be removed. ??? The hydrocele will be closed with stitches that dissolve (absorbable sutures). This prevents fluid from building up again. ??? If your hydrocele is large, you may have a thin, rubber drain placed to allow fluid to drain after the procedure. ??? The incision in your scrotum will be closed with absorbable sutures, skin glue, or adhesive strips. ??? A bandage (dressing) will be placed over the incision. The dressing may be held in place with an athletic support strap (scrotal support). The procedure may vary among health care providers and hospitals. What happens after the procedure? Your blood pressure, heart rate, breathing rate, and blood oxygen level will be monitored until you leave the hospital or clinic. ??? You will be given pain medicine as needed. ??? Your IV will be removed, and your insertion site will be checked for bleeding. ??? You may need to wear a scrotal support. This holds the dressing in place and supports your scrotum. ??? If you were given a sedative during the procedure, it can affect you for several hours. Do not drive or operate machinery until your health care provider says that it is safe. Summary ??? A hydrocelectomy is a surgical procedure to remove a collection of fluid from the scrotum. You may need to have this procedure if a hydrocele is causing painful swelling in your scrotum. ??? During the procedure, the hydrocele will be drained and then closed with stitches that dissolve (absorbable sutures). This prevents fluid from building up again. ??? If your hydrocele is large, you may have a thin, rubber drain placed to allow fluid to drain after the procedure. ??? You may need to wear a scrotal support after your procedure. This holds the dressing in place and supports your scrotum. This information is not intended to replace advice given to you by your health care provider. Make sure you discuss any questions you have with your health care provider. Document Revised: 05/24/2022 Document Reviewed: 05/24/2022 [employer] Patient Education ? 2023 [employer].Hydrocele, Adult A hydrocele is a collection of fluid in the loose pouch of skin that holds the testicles (scrotum). It can occur in one or both testicles. This may happen because: ??? The amount of fluid produced in the scrotum is not absorbed by the rest of the body. ??? Fluid from the abdomen fills the scrotum. Normally, the testicles develop in the abdomen and then drop into the scrotum before . The tube that the testicles travel through usually closes after the testicles drop. If the tube does not close, fluid from the abdomen can fill the scrotum. This is not very common in adults. What are the causes? A hydrocele may be caused by: ??? An injury to the scrotum. ??? An infection. ??? Decreased blood flow to the scrotum. ??? Twisting of a testicle (testicular torsion). ??? A defect. ??? A tumor or cancer of the testicle. Sometimes, the cause is not known. What are the signs or symptoms? A hydrocele feels like a water-filled balloon. It may also feel heavy. Other symptoms include: ??? Swelling of the scrotum. The swelling may decrease when you lie down. You may also notice more swelling at night than in the morning. This is called a communicating hydrocele, in which the fluid in the scrotum goes back into the abdominal cavity when the position of the scrotum changes. ??? Swelling of the groin. ??? Mild discomfort in the scrotum. ??? Pain. This can develop if the hydrocele was caused by infection or twisting. The larger the hydrocele, the more likely you are to have pain. Swelling may also cause pain. How is this diagnosed? This condition may be diagnosed based on a physical exam and your medical history. You may also have tests, including: ??? Imaging tests, such as an ultrasound. ??? A transillumination test. This test takes place in a dark room where a light is placed on the skin of the scrotum. Clear liquid will not impede the light and the scrotum will be illuminated. This helps a health care provider distinguish a hydrocele from a tumor. ??? Blood or urine tests. How is this treated? Most hydroceles go away on their own. If you have no discomfort or pain, your health care provider may suggest close monitoring of your condition until the condition goes away or symptoms develop. This is called watch and wait or watchful waiting. If treatment is needed, it may include: ??? Treating an underlying condition. This may include taking an antibiotic medicine to treat an infection. ??? Having surgery to stop fluid from collecting in the scrotum. ??? Having surgery to drain the fluid. Surgery may include: ? Hydrocelectomy. For this procedure, an incision is made in the scrotum to remove the fluid. ? Needle aspiration. A needle is used to drain fluid. However, the fluid buildup will come back quickly and may lead to an infection of the scrotum. This is rarely done. Follow these instructions at home: Medicines ??? Take rjlo-uef-vxdtzdp and prescription medicines only as told by your health care provider. ??? If you were prescribed an antibiotic medicine, take it as told by your health care provider. Do not stop taking the antibiotic even if you start to feel better. General instructions ??? Watch the hydrocele for any changes. ??? Keep all follow-up visits. This is important. Contact a health care provider if: ??? You notice any changes in the hydrocele. ??? The swelling in your scrotum or groin gets worse. ??? The hydrocele becomes red, firm, painful, or tender to the touch. ??? You have a fever. Get help right away if you: ??? Develop a lot of pain or your pain becomes worse. ??? Have chills. ??? Have a high fever. Summary ??? A hydrocele is a collection of fluid in the loose pouch of skin that holds the testicles (scrotum). ??? A hydrocele can cause swelling, discomfort, and pain. ??? In adults, the cause of a hydrocele may not be known. However, it is sometimes caused by an infection or the twisting of a testicle. ??? Hydroceles often go away on their own. If a hydrocele causes pain, treating the underlying cause may be needed to ease the pain. This information is not intended to replace advice given to you by your health care provider. Make sure you discuss any questions you have with your health care provider. Document Revised: 05/24/2022 Document Reviewed: 05/24/2022 [employer] Patient Education ? 2023 [employer]. 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 Referring Physician - Cory Carl MD. This Is Your Medications List [facility] Prescription (equipment for cpap) albuterol (Ventolin HFA 90 mcg/inh Aerosol-Adpt) apixaban (Eliquis 5 mg oral tablet) carvedilol (carvedilol 12.5 mg Tab) cetirizine (cetirizine 10 mg Tab) finasteride (finasteride 5 mg Tab) nitroglycerin aide severino Procedures Performed Colonoscopy (02/19/2017), Arthroplasty, Cardiac pacemaker, Cataract, Knee replacement, Knee replacement. Discharge Vitals Temperature (Temporal Artery) 36.3 ???C Heart Rate (Peripheral) 59 Respiratory Rate 16 Blood Pressure 98/78 Height 185 cm Height 73 in Weight 90 kg Weight 198.416 lb BMI 26.3 What to do next Scheduled Follow-Up Appointments Saturday 9:20 AM EDT With: Cory Carl MD Where: [address] [id number] 8:00 AM EDT With: Where: [address] [address]- You Need to Schedule the Following Appointments Follow Up with SOCO FLETCHER, SIOMARA SWENSON When: In 6 months Where: [address] [place] [address] Medications What How Much When Why Instructions New finasteride (finasteride 5 mg Tab) 1 Tablets By Mouth Every day Duration: 90 Days Refills: 3 Pickup at [facility] Unchanged albuterol (Ventolin HFA 90 mcg/ inh Aerosol-Adpt) 1 Puffs Inhalation Once as needed for for wheezing Cough BMI 29.0-29.9,adult Non-smoker Unchanged apixaban (Eliquis 5 mg oral tablet) 1 Tablets By Mouth 2 times a day TAKE 1 TABLET BY MOUTH IN THE MORNING and ONE TABLET BY MOUTH AT BEDTIME Unchanged carvedilol (carvedilol 12.5 mg Tab) 180 EA, 0 Refill(s), TAKE 1 TABLET BY MOUTH TWICE DAILY (WITH BREAKFAST and WITH evening meal) Unchanged cetirizine (cetirizine 10 mg Tab) 1 Tablets By Mouth Every day Unchanged [facility] Prescription (equipment for cpap) See instructions hear gear, face mask, tubing for cpap Unchanged nitroglycerin 0.4 Milligram Sublingual Every 5 minutes as needed for Chest pain Unchanged aide severino See instructions take 450mg twice daily Pharmacy Information [facility]: [address] [place], [place] [id number] [phone] Allergies Adhesive Bandage (Unknown) Vistaril Problems Ongoing - Any problem that you are currently receiving treatment for. Arthritis ASCVD (arteriosclerotic cardiovascular disease) Atrial fibrillation BMI 28.0-28.9,adult BPH with obstruction/lower urinary tract symptoms Encounter for surveillance of abnormal nevi Heart attack HTN (hypertension) Hydrocele Nonsmoker Overweight (BMI 25.0-29.9) Peripheral edema Skin cancer, basal cell Sleep apnea Venous insufficiency Visit for suture removal Weakness Patient Survey You may receive a survey via text or e-mail asking about your office visit. Please share your experience with us by completing your survey. We appreciate your feedback and thank you for choosing us for your care. Education Materials Hydrocelectomy, Adult A hydrocelectomy is a surgical procedure to remove a collection of fluid (hydrocele) from the scrotum. The scrotum is the pouch that holds the testicles. You may need to have this procedure if a hydrocele is causing painful swelling in your scrotum. Tell a health care provider about: ??? Any allergies you have. ??? All medicines you are taking, including vitamins, herbs, eye drops, creams, and hpvo-iew-lmmmmrd medicines. ??? Any problems you or family members have had with anesthetic medicines. ??? Any bleeding problems you have. ??? Any surgeries you have had. ??? Any medical conditions you have. What are the risks? Generally, this is a safe procedure. However, problems may occur, including: ??? Bleeding into the scrotum (scrotal hematoma). ??? Damage to nearby structures or organs, including to the testicle or the tube that carries sperm out of the testicle (vas deferens). ??? Infection. ??? Allergic reactions to medicines. What happens before the procedure? When to stop eating and drinking Follow instructions from your health care provider about what you may eat and drink before your procedure. These may include: ??? 8 hours before your procedure ? Stop eating most foods. Do not eat meat, fried foods, or fatty foods. ? Eat only light foods, such as toast or crackers. ? All liquids are okay except energy drinks and alcohol. ??? 6 hours before your procedure ? Stop eating. ? Drink only clear liquids, such as water, clear fruit juice, black coffee, plain tea, and sports drinks. ? Do not drink energy drinks or alcohol. ??? 2 hours before your procedure ? Stop drinking all liquids. ? You may be allowed to take medicines with small sips of water. If you do not follow your health care provider's instructions, your procedure may be delayed or canceled. Medicines Ask your health care provider about: ??? Changing or stopping your regular medicines. This is especially important if you are taking diabetes medicines or blood thinners. ??? Taking medicines such as aspirin and ibuprofen. These medicines can thin your blood. Do not take these medicines unless your health care provider tells you to take them. ??? Taking rsdi-rwb-uoennjc medicines, vitamins, herbs, and supplements. Surgery safety Ask your health care provider: ??? How your surgery site will be marked. ??? What steps will be taken to help prevent infection. These steps may include: ? Removing hair at the surgery site. ? Washing skin with a germ-killing soap. ? Taking antibiotic medicine. General instructions ??? Do not use any products that contain nicotine or tobacco for at least 4 weeks before the procedure. These products include cigarettes, chewing tobacco, and vaping devices, such as e-cigarettes. If you need help quitting, ask your health care provider. ??? If you will be going home right after the procedure, plan to have a responsible adult: ? Take you home from the hospital or clinic. You will not be allowed to drive. ? Care for you for the time you are told. What happens during the procedure? An IV will be inserted into one of your veins. ??? You will be given one or both of the following: ? A medicine to make you relax (sedative). ? A medicine to make you fall asleep (general anesthetic). ??? A small incision will be made through the skin of your scrotum. ??? Your testicle and the hydrocele will be located, and the hydrocele sac will be opened with an incision. ??? The fluid will be drained from the hydrocele. Part of the hydrocele sac may be removed. ??? The hydrocele will be closed with stitches that dissolve (absorbable sutures). This prevents fluid from building up again. ??? If your hydrocele is large, you may have a thin, rubber drain placed to allow fluid to drain after the procedure. ??? The incision in your scrotum will be closed with absorbable sutures, skin glue, or adhesive strips. ??? A bandage (dressing) will be placed over the incision. The dressing may be held in place with an athletic support strap (scrotal support). The procedure may vary among health care providers and hospitals. What happens after the procedure? Your blood pressure, heart rate, breathing rate, and blood oxygen level will be monitored until you leave the hospital or clinic. ??? You will be given pain medicine as needed. ??? Your IV will be removed, and your insertion site will be checked for bleeding. ??? You may need to wear a scrotal support. This holds the dressing in place and supports your scrotum. ??? If you were given a sedative during the procedure, it can affect you for several hours. Do not drive or operate machinery until your health care provider says that it is safe. Summary ??? A hydrocelectomy is a surgical procedure to remove a collection of fluid from the scrotum. You may need to have this procedure if a hydrocele is causing painful swelling in your scrotum. ??? During the procedure, the hydrocele will be drained and then closed with stitches that dissolve (absorbable sutures). This prevents fluid from building up again. ??? If your hydrocele is large, you may have a thin, rubber drain placed to allow fluid to drain after the procedure. ??? You may need to wear a scrotal support after your procedure. This holds the dressing in place and supports your scrotum. This information is not intended to replace advice given to you by your health care provider. Make sure you discuss any questions you have with your health care provider. Document Revised: 05/24/2022 Document Reviewed: 05/24/2022 [employer] Patient Education ??? 2023 [employer]. Hydrocele, Adult A hydrocele is a collection of fluid in the loose pouch of skin that holds the testicles (scrotum). It can occur in one or both testicles. This may happen because: ??? The amount of fluid produced in the scrotum is not absorbed by the rest of the body. ??? Fluid from the abdomen fills the scrotum. Normally, the testicles develop in the abdomen and then drop into the scrotum before . The tube that the testicles travel through usually closes after the testicles drop. If the tube does not close, fluid from the abdomen can fill the scrotum. This is not very common in adults. What are the causes? A hydrocele may be caused by: ??? An injury to the scrotum. ??? An infection. ??? Decreased blood flow to the scrotum. ??? Twisting of a testicle (testicular torsion). ??? A defect. ??? A tumor or cancer of the testicle. Sometimes, the cause is not known. What are the signs or symptoms? A hydrocele feels like a water-filled balloon. It may also feel heavy. Other symptoms include: ??? Swelling of the scrotum. The swelling may decrease when you lie down. You may also notice more swelling at night than in the morning. This is called a communicating hydrocele, in which the fluid in the scrotum goes back into the abdominal cavity when the position of the scrotum changes. ??? Swelling of the groin. ??? Mild discomfort in the scrotum. ??? Pain. This can develop if the hydrocele was caused by infection or twisting. The larger the hydrocele, the more likely you are to have pain. Swelling may also cause pain. How is this diagnosed? This condition may be diagnosed based on a physical exam and your medical history. You may also have tests, including: ??? Imaging tests, such as an ultrasound. ??? A transillumination test. This test takes place in a dark room where a light is placed on the skin of the scrotum. Clear liquid will not impede the light and the scrotum will be illuminated. This helps a health care provider distinguish a hydrocele from a tumor. ??? Blood or urine tests. How is this treated? Most hydroceles go away on their own. If you have no discomfort or pain, your health care provider may suggest close monitoring of your condition until the condition goes away or symptoms develop. This is called watch and wait or watchful waiting. If treatment is needed, it may include: ??? Treating an underlying condition. This may include taking an antibiotic medicine to treat an infection. ??? Having surgery to stop fluid from collecting in the scrotum. ??? Having surgery to drain the fluid. Surgery may include: ? Hydrocelectomy. For this procedure, an incision is made in the scrotum to remove the fluid. ? Needle aspiration. A needle is used to drain fluid. However, the fluid buildup will come back quickly and may lead to an infection of the scrotum. This is rarely done. Follow these instructions at home: Medicines ??? Take ncas-xzl-xzpdvst and prescription medicines only as told by your health care provider. ??? If you were prescribed an antibiotic medicine, take it as told by your health care provider. Do not stop taking the antibiotic even if you start to feel better. General instructions ??? Watch the hydrocele for any changes. ??? Keep all follow-up visits. This is important. Contact a health care provider if: ??? You notice any changes in the hydrocele. ??? The swelling in your scrotum or groin gets worse. ??? The hydrocele becomes red, firm, painful, or tender to the touch. ??? You have a fever. Get help right away if you: ??? Develop a lot of pain or your pain becomes worse. ??? Have chills. ??? Have a high fever. Summary ??? A hydrocele is a collection of fluid in the loose pouch of skin that holds the testicles (scrotum). ??? A hydrocele can cause swelling, discomfort, and pain. ??? In adults, the cause of a hydrocele may not be known. However, it is sometimes caused by an infection or the twisting of a testicle. ??? Hydroceles often go away on their own. If a hydrocele causes pain, treating the underlying cause may be needed to ease the pain. This information is not intended to replace advice given to you by your health care provider. Make sure you discuss any questions you have with your health care provider. Document Revised: 05/24/2022 Document Reviewed: 05/24/2022 [employer] Patient Education ??? 2023 [employer]. UROLOGY OFFICE/CLINIC NOTE Observed: 10:40 AM Status: F Source: [facility] Urology Office/Clinic Note Chief Complaint New patient scrotal swelling HPI Staff 85 year old male new patient referred for testicular swelling. Scrotal swelling x 1-2 years. Denies dysuria, denies hematuria, denies flank/abdominal pain IPSS: 22, MEG: 0 PVR: 64 ml Review of Systems PHQ Score Initial Depression Screen Score: 0 SCORE no fever, chills, malaise, myalgia. no rash/lesions. no chest pain, palpitations, or SOB. no abdominal pain, nausea, vomiting. Physical Exam Vitals & Measurements T: 36.3 ???C(Temporal Artery) HR: 59(Peripheral) RR: 16 BP: 98/78 HT: 73 in HT: 185 cm WT: 198.416 lb WT: 90 kg BMI: 26.3 General: nontoxic, NAD Mouth: moist mucosa Lungs: normal respiratory effort Cardio: regular rate, good distal perfusion Abdomen: nondistended Neurologic: Grossly normal Skin: No rashes or suspicious lesions : bilat scrotal swelling roughly the size of an orange, nontender, no erythema/warmth Assessment/Plan 1. Hydrocele (N43.3: Hydrocele, unspecified) Suspect bilat. Will obtain US to ensure nothing else. Will call results. Recommended supportive care - jock strap vs compression shorts, elevation. Gave info about hydrocelectomy but pt states w his age he would be unlikely to proceed. He would be increased risk d/t Eliquis. -Call w results of US Ordered: E&M of New Patient Moderate 45-59 Min 63238 2. BPH with obstruction/lower urinary tract symptoms (N40.1: Benign prostatic hyperplasia with lower urinary tract symptoms) IPSS _22 QOL _5 UA completed in office today shows no microhematuria or signs of infection. Pt is taking Saw Mazon and is unhappywith overall symptom control. Pt is experiencing noside effects. Was previously on Tamsulosin but this was dc'd when he started on Eliquis (dizziness/risk of falls?). We discussed Adding an additional agent such as finasteride/dutasteride vs minimally invasive DAILEY procedures. Pt strongly prefers the former. Risks/benefits/side effects discussed. -Start finasteride. F/u 6 mos to reassess. Ordered: E&M of New Patient Moderate 45-59 Min 72822 Other obstructive and reflux uropathy (N13.8: Other obstructive and reflux uropathy) Orders: finasteride, 5 mg = 1 tab(s), Oral, Daily, X 90 day(s), # 90 tab(s), Refills(s) 3, Pharmacy: [facility], 185, cm, 02/15/25 12:07:00 EDT, Height/Length Dosing, 90, kg, 02/15/25 12:07:00 EDT, Weight Dosing 77683 Measure Post Void residual urine and/or bladder capacity by US- non- imaging Urnls Dip Stick Auto w/o Microscopy POC 54140 Follow-up With When Contact Information SOCO FLETCHER, BRYSON Aguayo, URL In 6 months [address] [place] [address] Additional Instructions: Patient Education Benign Prostatic Hyperplasia Hydrocelectomy, Adult Hydrocele, Adult Problem List/Past Medical History Ongoing Arthritis ASCVD (arteriosclerotic cardiovascular disease) Atrial fibrillation BMI 28.0-28.9,adult BPH with obstruction/lower urinary tract symptoms Encounter for surveillance of abnormal nevi Heart attack HTN (hypertension) Hydrocele Nonsmoker Overweight (BMI 25.0-29.9) Peripheral edema Skin cancer, basal cell Sleep apnea Venous insufficiency Visit for suture removal Weakness Historical No qualifying data Procedure/Surgical History Colonoscopy (02/19/2017), Arthroplasty, Cardiac pacemaker, Cataract, Knee replacement, Knee replacement. Medications carvedilol 12.5 mg Tab cetirizine 10 mg Tab, 10 mg= 1 tab(s), Oral, Daily Eliquis 5 mg oral tablet, 5 mg= 1 tab(s), Oral, BID equipment for cpap, See Instructions finasteride 5 mg Tab, 5 mg= 1 tab(s), Oral, Daily, 3 refills nitroglycerin, 0.4 mg, SubLingual, q5min, PRN saw palmettpramod, See Instructions Ventolin HFA 90 mcg/inh Aerosol-Adpt, 1 puff(s), Inhalation, Once, PRN Allergies Adhesive Bandage (Unknown) Vistaril Social History Alcohol - Low Risk, 02/10/2024 Current, Beer, 1-2 times per week, 1 drinks/episode average. 2.00 drinks/episode maximum. Previous treatment: None. Alcohol use interferes with work or home: No. Drinks more than intended: No. Others hurt by drinking: No. Ready to change: No. Household alcohol concerns: No., 02/15/2025 Substance Abuse - Denies Substance Abuse, 02/10/2024 Tobacco - Denies Tobacco Use, 02/10/2024 Former smoker, quit more than 30 days ago, quit 1979 Tobacco Use:. Never Smokeless Tobacco Use:. Cigarettes, 0.25 per day. 22 year(s). Total pack years: 6. Started age 18.0 Years. Stopped age 39 Years. Household tobacco concerns: No. Yes, 02/15/2025 Family History Arthritis: Mother and Father. Cancer: Mother. Diabetes mellitus: Mother. Heart disease: Mother and Father. Hyperlipidemia: Mother and Father. Hypertension: Mother and Father. Immunizations Vaccine Date Status Comments influenza virus vaccine, inactivated - Not Given Patient Refuses tetanus-diphtheria toxoids 06/11/2023 Given SARS-CoV-2 (COVID-19) mRNA BNT-162b2 vax 10/11/2021 Recorded SARS-CoV-2 (COVID-19) mRNA BNT-162b2 vax 12/15/2020 Recorded 2024-02-03: [id number] SARS-CoV-2 (COVID-19) mRNA BNT-162b2 vax 11/23/2020 Recorded 2024-02-03: [id number] Lab Results Ambulatory Point of Care Results Bilirubin Urine Dipstick: Negative (02/15/25 11:59:00) Blood Urine Dipstick: Negative (02/15/25 11:59:00) Glucose Urine Dipstick: Negative (02/15/25 11:59:00) Ketones Urine Dipstick: Negative (02/15/25 11:59:00) Leukocytes Urine Dipstick: Negative (02/15/25 11:59:00) Nitrite Urine Dipstick: Negative (02/15/25 11:59:00) Protein Urine Dipstick: Negative (02/15/25 11:59:00) Specific [place] Urine Dipstick: 1.020 (02/15/25 11:59:00) Urine Appearance Urine Dipstick: Clear (02/15/25 11:59:00) Urine Color Urine Dipstick: Yellow (02/15/25 11:59:00) Urobilinogen Urine Dipstick: Normal 0.2-1 EU/dl (02/15/25 11:59:00) pH Urine Dipstick: 5.5 (02/15/25 11:59:00) Result Comment: Electronical ly Signed By: BRYSON WAN PA-C\vinnie\Date and Time Signed: 02/15/25 12:35 EDT LIPID PANEL Collected: 02/11/2025 8:31 AM Status: F Source: [facility] TYPE CODE TESTS RESULT OUT OF RANGE REFERENCE UNITS LAB 2092-3([facility]) CHOLESTEROL:M CNC:PT:SER/PL :QN: 163 Normal 120-200 mg/dL LAB 2085-06([facility]) CHOLESTEROL.I N HDL:MCNC:PT:S ER/PLAS:QN: 38 Unknown mg/dL Result Comment: '>= 60 LOW R ISK' '<= 40 HIGH RISK' LAB 2088-10([facility]) CHOLESTEROL.I N LDL:MCNC:PT:S ER/PLAS:QN: 112 Normal <=129 mg/dL LAB 2571-8([facility]) TRIGLYCERIDE: MCNC:PT:SER/P LAS:QN: 110 Normal <=149 mg/dL LAB 01134-3([facility]) CHOLESTEROL.I N VLDL:MCNC:PT: SER/PLAS:QN:C ALCULATED 22 Normal 7-40 mg/dL Performed By: #### [id number] # ### [facility] [address] [place] [address] EGFR Collected: 8:31 AM Status: F Source: [facility] TYPE CODE TESTS RESULT OUT OF RANGE REFERENCE UNITS LAB [id number]([facility]) eGFR 65 Normal >=59 mL/min/1 .7 3 m2 Performed By: #### [id number] #### [facility] [address] [place] [address] CMP Collected: 02/11/2025 8:31 AM Status: F Source: [facility] TYPE CODE TESTS RESULT OUT OF RANGE REFERENCE UNITS LAB 2345-7([facility]) GLUCOSE:MCNC:P T:SER/PLAS:QN: 121 Normal 55-199 mg/dL LAB 3094-0([facility]) UREA NITROGEN:MCNC: PT:SER/PLAS:QN : 23 High 5-21 mg/dL LAB 2160-0([facility]) CREATININE:MCN C:PT:SER/PLAS: QN: 1.1 Normal 0.5-1.3 mg/dL LAB 82521-0([facility]) CALCIUM:MCNC:P T:SER/PLAS:QN: 9.6 Normal 8.9-11.1 mg/dL LAB 2951-2([facility]) SODIUM:SCNC:PT :SER/PLAS:QN: 142 Normal 135-145 mmol/L LAB 2823-3([facility]) POTASSIUM:SCNC :PT:SER/PLAS:Q N: 4.5 Normal 3.5-5.3 mmol/L LAB 2075-0([facility]) CHLORIDE:SCNC: PT:SER/PLAS:QN : 108 Normal 101-111 mmol/L LAB 2028-9([facility]) CARBON DIOXIDE:SCNC:P T:SER/PLAS:QN: 29 Normal 21-31 mmol/L LAB 6768-6([facility]) ALKALINE PHOSPHATASE:CC NC:PT:SER/PLAS :QN: 44 Normal 21-98 Int._Unit /L LAB 1975-2([facility]) BILIRUBIN:MCNC :PT:SER/PLAS:Q N: 0.4 Normal 0.0-1.1 mg/dL LAB 1751-7([facility]) ALBUMIN:MCNC:P T:SER/PLAS:QN: 4.1 Normal 3.3-5.0 gm/dL LAB 2885-2([facility]) PROTEIN:MCNC:P T:SER/PLAS:QN: 6.6 Normal 6.0-7.8 gm/dL LAB 1744-2([facility]) ALANINE AMINOTRANSFERA SE:CCNC:PT:SER /PLAS:QN:NO ADDITION OF P-5'-P 19 Normal 6-46 Int._Unit /L LAB 1920-8([facility]) ASPARTATE AMINOTRANSFERA SE:CCNC:PT:SER /PLAS:QN: 22 Normal 5-43 Int._Unit /L LAB 3097-3([facility]) UREA NITROGEN/CREAT ININE:MRTO:PT: SER/PLAS:QN: 21 High 10-20 No Units LAB 32018-3([facility]) ANION GAP:SCNC:PT:SE R/PLAS:QN:CALC ULATED 10 Normal 6-16 mEq/L LAB 46114-1([facility]) GLOBULIN:MCNC: PT:SER:QN:CALC ULATED 2.5 Normal 1.4-4.0 gm/dL LAB 67878-3([facility]) ALBUMIN/GLOBUL IN:MCRTO:PT:SE R:QN: 1.6 Normal 1.1-2.2 Performed By: #### [id number] # ### [facility] [address] [place] [address] NURSE CONSULTATION NOTE Observed: 2024 8:20 AM Status: F Source: [facility] Nurse Consultation Note Reason for Visit patient came IO for lab draw Assessment/Plan 1. ASCVD (arteriosclerotic cardiovascular disease) (I25.10: Atherosclerotic heart disease of [place] coronary artery without angina pectoris) Medications carvedilol 12.5 mg Tab cetirizine 10 mg Tab, 10 mg= 1 tab(s), Oral, Daily Eliquis 5 mg oral tablet, 5 mg= 1 tab(s), Oral, BID equipment for cpap, See Instructions nitroglycerin, 0.4 mg, SubLingual, q5min, PRN predniSONE 20 mg Tab, 20 mg= 1 tab(s), Oral, Daily saw palmetto, See Instructions Ventolin HFA 90 mcg/inh Aerosol-Adpt, 1 puff(s), Inhalation, Once, PRN Allergies Adhesive Bandage (Unknown) Vistaril Immunizations Vaccine Date Status Comments influenza virus vaccine, inactivated - Not Given Patient Refuses tetanus-diphtheria toxoids 06/11/2023 Given SARS-CoV-2 (COVID-19) mRNA BNT-162b2 vax 10/11/2021 Recorded SARS-CoV-2 (COVID-19) mRNA BNT-162b2 vax 12/15/2020 Recorded 2024-02-03: [id number] SARS-CoV-2 (COVID-19) mRNA BNT-162b2 vax 11/23/2020 Recorded 2024-02-03: [id number] PATIENT EDUCATION Observed: 02/08/2025 2:17 PM Status: C Source: [facility] Patient Education Cardiovascular Atrial Fibrillation Atrial fibrillation (AFib) is a type of heartbeat that is irregular or fast. If you have AFib, your heart beats without any order. This makes it hard for your heart to pump blood in a normal way. AFib may come and go, or it may become a long-lasting problem. If AFib is not treated, it can put you at higher risk for stroke, heart failure, and other heart problems. What are the causes? AFib may be caused by diseases that damage the heart's electrical system. They include: ??? High blood pressure. ??? Heart failure. ??? Heart valve diseases. ??? Heart surgery. ??? Diabetes. ??? Thyroid disease. ??? Kidney disease. ??? Lung diseases, such as pneumonia or COPD. ??? Sleep apnea. Sometimes the cause is not known. What increases the risk? You are more likely to develop AFib if: ??? You are older. ??? You exercise often and very hard. ??? You have a family history of AFib. ??? You are male. ??? You are . ??? You are overweight. ??? You smoke. ??? You drink a lot of alcohol. What are the signs or symptoms? Common symptoms of this condition include: ??? A feeling that your heart is beating very fast. ??? Chest pain or discomfort. ??? Feeling short of breath. ??? Suddenly feeling light-headed or weak. ??? Getting tired easily during activity. ??? Fainting. ??? Sweating. In some cases, there are no symptoms. How is this treated? Medicines to: ? Prevent blood clots. ? Treat heart rate or heart rhythm problems. ??? Using devices, such as a pacemaker, to correct heart rhythm problems. ??? Doing surgery to remove the part of the heart that sends bad signals. ??? Closing an area where clots can form in the heart (left atrial appendage). In some cases, your doctor will treat other underlying conditions. Follow these instructions at home: Medicines ??? Take nyot-vns-iaqzvyq and prescription medicines only as told by your doctor. ??? Do not take any new medicines without first talking to your doctor. ??? If you are taking blood thinners: ? Talk with your doctor before taking aspirin or NSAIDs, such as ibuprofen. ? Take your medicines as told. Take them at the same time each day. ? Do not do things that could hurt or bruise you. Be careful to avoid falls. ? Wear an alert bracelet or carry a card that says you take blood thinners. Lifestyle ??? Do not smoke or use any products that contain nicotine or tobacco. If you need help quitting, ask your doctor. ??? Eat heart-healthy foods. Talk with your doctor about the right eating plan for you. ??? Exercise regularly as told by your doctor. ??? Do not drink alcohol. ??? Lose weight if you are overweight. General instructions ??? If you have sleep apnea, treat it as told by your doctor. ??? Do not use diet pills unless your doctor says they are safe for you. Diet pills may make heart problems worse. ??? Keep all follow-up visits. Your doctor will check your heart rate and rhythm regularly. Contact a doctor if: ??? You notice a change in the speed, rhythm, or strength of your heartbeat. ??? You are taking a blood-thinning medicine and you get more bruising. ??? You get tired more easily when you move or exercise. ??? You have a sudden change in weight. Get help right away if: ??? You have pain in your chest. ??? You have trouble breathing. ??? You have side effects of blood thinners, such as blood in your vomit, poop (stool), or pee (urine), or bleeding that cannot stop. ??? You have any signs of a stroke. BE FAST is an easy way to remember the main warning signs: ? B - Balance. Dizziness, sudden trouble walking, or loss of balance. ? E - Eyes. Trouble seeing or a change in how you see. ? F - Face. Sudden weakness or loss of feeling in the face. The face or eyelid may droop on one side. ? A - Arms.Weakness or loss of feeling in an arm. This happens suddenly and usually on one side of the body. ? S - Speech. Sudden trouble speaking, slurred speech, or trouble understanding what people say. ? T - Time.Time to call emergency services. Write down what time symptoms started. ??? You have other signs of a stroke, such as: ? A sudden, very bad headache with no known cause. ? Feeling like you may vomit (nausea). ? Vomiting. ? A seizure. These symptoms may be an emergency. Get help right away. Call 911. ??? Do not wait to see if the symptoms will go away. ??? Do not drive yourself to the hospital. This information is not intended to replace advice given to you by your health care provider. Make sure you discuss any questions you have with your health care provider. Document Revised: 06/26/2023 Document Reviewed: 06/26/2023 [employer] Patient Education ? 2023 [employer].Emergency Medicine Heart Attack A heart attack occurs when blood and oxygen supply to the heart is cut off. A heart attack can cause damage to the heart that cannot be fixed. A heart attack is also called a myocardial infarction, or AK. If you think you are having a heart attack, do not wait to see if the symptoms will go away. Get medical help right away. What are the causes? This condition may be caused by: ??? A fatty substance (plaque) in the blood vessels (arteries). This can block the flow of blood to the heart. ??? A blood clot in the blood vessels that go to the heart. The blood clot blocks blood flow. ??? An abnormal heartbeat. ??? Some diseases, such as problems in red blood cells (anemia)orproblems in breathing (respiratory failure). ??? Tightening (spasm) of a blood vessel that cuts off blood to the heart. ??? A tear in a blood vessel of the heart. Other causes may include: ??? Using drugs such as cocaine or methamphetamine. ??? Low blood pressure. What increases the risk? Aging. The risk gets higher as you get older. ??? Having a personal or family history of chest pain, heart attack, stroke, or narrowing of the arteries in the legs, arms, head, or stomach (peripheral vascular disease). ??? Having taken chemotherapy or immune-suppressing medicines. ??? Being male. ??? Being overweight or obese. ??? Having any of these conditions: ? High blood pressure. ? High cholesterol. ? Diabetes. ??? Making lifestyle choices such as: ? Drinking too much alcohol. ? Not getting regular exercise. ? Smoking. What are the signs or symptoms? Chest pain. It may feel like: ? Crushing or squeezing. ? Tightness, pressure, fullness, or heaviness. ??? Pain in the arm, neck, jaw, back, or upper body. ??? Heartburn. ??? Upset stomach (indigestion). ??? Shortness of breath. ??? Feeling like you may vomit (nauseous). ??? Cold sweats. ??? Sudden light-headedness, dizziness, or passing out. ??? Feeling tired. How is this treated? A heart attack must be treated as soon as possible. Treatment may include: ??? Medicines to: ? Break up or dissolve blood clots. ? Thin your blood and help prevent blood clots. ? Treat blood pressure. ? Improve blood flow to the heart. ? Reduce pain. ? Reduce cholesterol. ??? Procedures to widen a blocked artery and keep it open. ??? Open heart surgery. ??? Making your heart strong again (cardiac rehabilitation) through exercise, education, and counseling. Follow these instructions at home: Medicines ??? Take lbdn-ecm-vvcxnfl and prescription medicines only as told by your doctor. ??? Do not take these medicines unless your doctor says it is okay: ? NSAIDs, such as ibuprofen, naproxen, or celecoxib. ? Any vitamins or supplements. ? Hormone replacement therapy that has estrogen with or without progestin. ??? If you are taking blood thinners: ? Talk with your doctor before taking any medicines that have aspirin or NSAIDs, such as ibuprofen. ? Take medicines exactly as told. Take them at the same time each day. ? Avoid doing things that could hurt or bruise you. Take action to prevent falls. ? Wear an alert bracelet or carry a card that shows you are taking blood thinners. Lifestyle ??? Do not smoke or use any products that contain nicotine or tobacco. If you need help quitting, ask your doctor. ??? Avoid secondhand smoke. ??? Exercise regularly. Ask your doctor about a cardiac rehab program. ??? Eat heart-healthy foods. Your doctor will tell you what foods to eat. ??? Stay at a healthy weight. ??? Learn ways to lower your stress level. ??? Do not use illegal drugs. Alcohol use ??? Do not drink alcohol if: ? Your doctor tells you not to drink. ? You are , may be , or are planning to become . ??? If you drink alcohol: ? Limit how [...] 1? oz glass of hard liquor (44 mL). General instructions ??? Work with your doctor to treat other problems you may have, such as diabetes or high blood pressure. ??? Get screened for depression. Get treatment if needed. ??? Keep your vaccines up to date. Get the flu shot (influenza vaccine) every year. ??? Keep all follow-up visits. Contact a doctor if: ??? You feel very sad. ??? You have trouble doing your daily activities. ??? You get light-headed or dizzy. Get help right away if: ??? You have sudden, unexplained discomfort in your chest, arms, back, neck, jaw, or upper body. ??? You have shortness of breath. ??? You have sudden sweating or clammy skin. ??? You feel like you may vomit or you vomit. ??? You feel tired or weak. ??? You feel your heart beating fast. ??? You feel your heart skipping beats. ??? You have blood pressure that is higher than 180/120. These symptoms may be an emergency. Get help right away. Call your local emergency services (911 in the [place] ??? Do not wait to see if the symptoms will go away. ??? Do not drive yourself to the hospital. Summary ??? A heart attack occurs when blood and oxygen supply to the heart is cut off. ??? Do not take NSAIDs unless your doctor says it is okay. ??? Do not smoke. Avoid secondhand smoke. ??? Exercise regularly. Ask your doctor about a cardiac rehab program. This information is not intended to replace advice given to you by your health care provider. Make sure you discuss any questions you have with your health care provider. Document Revised: 03/29/2022 Document Reviewed: 03/29/2022 [employer] Patient Education ? 2023 [employer]Nutrition DASH Eating Plan DASH stands for Dietary Approaches to Stop Hypertension. The DASH eating plan is a healthy eating plan that has been shown to: ??? Lower high blood pressure (hypertension). ??? Reduce your risk for type 2 diabetes, heart disease, and stroke. ??? Help with weight loss. What are tips for following this plan? Reading food labels ??? Check food labels for the amount of salt (sodium) per serving. Choose foods with less than 5 percent of the Daily Value (DV) of sodium. In general, foods with less than 300 milligrams (mg) of sodium per serving fit into this eating plan. ??? To find whole grains, look for the word whole as the first word in the ingredient list. Shopping ??? Buy products labeled as low-sodium or no salt added. ??? Buy fresh foods. Avoid canned foods and pre-made or frozen meals. Cooking ??? Try not to add salt when you cook. Use salt-free seasonings or herbs instead of table salt or sea salt. Check with your health care provider or pharmacist before using salt substitutes. ??? Do not cabral foods. Cook foods in healthy ways, such as baking, boiling, grilling, roasting, or broiling. ??? Cook using oils that are good for your heart. These include olive, canola, avocado, soybean, and sunflower oil. Meal planning ??? Eat a balanced diet. This should include: ? 4 or more servings of fruits and 4 or more servings of vegetables each day. Try to fill half of your plate with fruits and vegetables. ? 6?8 servings of whole grains each day. ? 6 or less servings of lean meat, poultry, or fish each day. 1 oz is 1 serving. A 3 oz (85 g) serving of meat is about the same size as the palm of your hand. One egg is 1 oz (28 g). ? 2?3 servings of low-fat dairy each day. One serving is 1 cup (237 mL). ? 1 serving of nuts, seeds, or beans 5 times each week. ? 2?3 servings of heart-healthy fats. Healthy fats called omega-3 fatty acids are found in foods such as walnuts, flaxseeds, fortified milks, and eggs. These fats are also found in cold-water fish, such as sardines, salmon, and mackerel. ??? Limit how much you eat of: ? Canned or prepackaged foods. ? Food that is high in trans fat, such as fried foods. ? Food that is high in saturated fat, such as fatty meat. ? Desserts and other sweets, sugary drinks, and other foods with added sugar. ? Full-fat dairy products. ??? Do not salt foods before eating. ??? Do not eat more than 4 egg yolks a week. ??? Try to eat at least 2 vegetarian meals a week. ??? Eat more home-cooked food and less restaurant, buffet, and fast food. Lifestyle ??? When eating at a restaurant, ask if your food can be made with less salt or no salt. ??? If you drink alcohol: ? Limit how much you have to: ? 0?1 drink a day if you are female. ? 0?2 drinks a day if you are male. ? Know how much alcohol is in your drink. In the [place] one drink is one 12 oz bottle of beer (355 mL), one 5 oz glass of wine (148 mL), or one 1? oz glass of hard liquor (44 mL). General information ??? Avoid eating more than 2,300 mg of salt a day. If you have hypertension, you may need to reduce your sodium intake to 1,500 mg a day. ??? Work with your provider to stay at a healthy body weight or lose weight. Ask what the best weight range is for you. ??? On most days of the week, get at least 30 minutes of exercise that causes your heart to beat faster. This may include walking, swimming, or biking. ??? Work with your provider or dietitian to adjust your eating plan to meet your specific calorie needs. What foods should I eat? Fruits All fresh, dried, or frozen fruit. Canned fruits that are in their natural juice and do not have sugar added to them. Vegetables Fresh or frozen vegetables that are raw, steamed, roasted, or grilled. Low- sodium or reduced-sodium tomato and vegetable juice. Low-sodium or reduced-sodium tomato sauce and tomato paste. Low-sodium or reduced-sodium canned vegetables. Grains Whole-grain or whole-wheat bread. Whole-grain or whole-wheat pasta. Brown rice. Oatmeal. Quinoa. Bulgur. Whole-grain and low-sodium cereals. Jacqueline bread. Low- fat, low-sodium crackers. Whole-wheat flour tortillas. Meats and other proteins Skinless chicken or turkey. Ground chicken or turkey. Pork with fat trimmed off. Fish and seafood. Egg whites. Dried beans, peas, or lentils. Unsalted nuts, nut butters, and seeds. Unsalted canned beans. Lean cuts of beef with fat trimmed off. Low- sodium, lean precooked or cured meat, such as sausages or meat loaves. Dairy Low-fat (1%) or fat-free (skim) milk. Reduced-fat, low-fat, or fat-free cheeses. Nonfat, low-sodium ricotta or cottage cheese. Low-fat or nonfat yogurt. Low-fat, low-sodium cheese. Fats and oils Soft margarine without trans fats. Vegetable oil. Reduced-fat, low-fat, or light mayonnaise and salad dressings (reduced-sodium). Canola, safflower, olive, avocado, soybean, and sunflower oils. Avocado. Seasonings and condiments Herbs. Spices. Seasoning mixes without salt. Other foods Unsalted popcorn and pretzels. Fat-free sweets. The items listed above may not be all the foods and drinks you can have. Talk to a dietitian to learn more. What foods should I avoid? Fruits Canned fruit in a light or heavy syrup. Fried fruit. Fruit in cream or butter sauce. Vegetables Creamed or fried vegetables. Vegetables in a cheese sauce. Regular canned vegetables that are not marked as low-sodium or reduced-sodium. Regular canned tomato sauce and paste that are not marked as low-sodium or reduced-sodium. Regular tomato and vegetable juices that are not marked as low-sodium or reduced-sodium. Pickles. Olives. Grains Baked goods made with fat, such as croissants, muffins, or some breads. Dry pasta or rice meal packs. Meats and other proteins Fatty cuts of meat. Ribs. Fried meat. Wren. Bologna, salami, and other precooked or cured meats, such as sausages or meat loaves, that are not lean and low in sodium. Fat from the back of a pig (fatback). Bratwurst. Salted nuts and seeds. Canned beans with added salt. Canned or smoked fish. Whole eggs or egg yolks. Chicken or turkey with skin. Dairy Whole or 2% milk, cream, and [id number]. Whole or full-fat cream cheese. Whole-fat or sweetened yogurt. Full-fat cheese. Nondairy creamers. Whipped toppings. Processed cheese and cheese spreads. Fats and oils Butter. Stick margarine. Lard. Shortening. Ghee. Wren fat. Tropical oils, such as coconut, palm kernel, or palm oil. Seasonings and condiments Onion salt, garlic salt, seasoned salt, table salt, and sea salt. Worcestershire sauce. Tartar sauce. Barbecue sauce. Teriyaki sauce. Soy sauce, including reduced-sodium soy sauce. Steak sauce. Canned and packaged gravies. Fish sauce. Oyster sauce. Cocktail sauce. Store-bought horseradish. Ketchup. Mustard. Meat flavorings and tenderizers. Bouillon cubes. Hot sauces. Pre-made or packaged marinades. Pre-made or packaged taco seasonings. Relishes. Regular salad dressings. Other foods Salted popcorn and pretzels. The items listed above may not be all the foods and drinks you should avoid. Talk to a dietitian to learn more. Where to find more information ??? National Heart, Lung, and Blood [place] (NHLBI): nhlbi.nih.gov ??? [place] Heart Association (AHA): heart.org ??? Academy of Nutrition and Dietetics: eatright.org ??? National Kidney Foundation (NKF): kidney.org This information is not intended to replace advice given to you by your health care provider. Make sure you discuss any questions you have with your health care provider. Document Revised: 10/24/2023 Document Reviewed: 10/24/2023 [employer] Patient Education ? 2023 [employer]BMI for Adults Body mass index (BMI) is a number found using a person's weight and height. BMI can help tell how much of a person's weight is made up of fat. BMI does not measure body fat directly. It is used instead of tests that directly measure body fat, which can be difficult and expensive. What are BMI measurements used for? BMI is useful to: ??? Find out if your weight puts you at higher risk for medical problems. ??? Help recommend changes, such as in diet and exercise. This can help you reach a healthy weight. BMI screening can be done again to see if these changes are working. How is BMI calculated? Your height and weight are measured. The BMI is found from those numbers. This can be done with [place] or metric measurements. Note that charts and online BMI calculators are available to help you find your BMI quickly and easily without doing these calculations. To calculate your BMI in [place] measurements: 1. Measure your weight in pounds (lb). 2. Multiply the number of pounds by 703. ??? So, for an adult who weighs 150 lb, multiply that number by 703: 150 x 703, which equals 105,450. 3. Measure your height in inches. Then multiply that number by itself to get a measurement called inches squared. ??? So, for an adult who is 70 inches tall, the inches squared measurement is 70 inches x 70 inches, which equals 4,900 inches squared. 4. Divide the total from step 2 (number of lb x 703) by the total from step 3 (inches squared): 105,450 ? 4,900 = 21.5. This is your BMI. To calculate your BMI in metric measurements: 1. Measure your weight in kilograms (kg). ??? For this example, the weight is 70 kg. 2. Measure your height in meters (m). Then multiply that number by itself to get a measurement called meters squared. ??? So, for an adult who is 1.75 m tall, the meters squared measurement is 1.75 m x 1.75 m, which equals 3.1 meters squared. 3. Divide the number of kilograms (your weight) by the meters squared number. In this example: 70 ? 3.1 = 22.6. This is your BMI. What do the results mean? BMI charts are used to see if you are underweight, normal weight, overweight, or obese. The following guidelines will be used: ??? Underweight: BMI less than 18.5. ??? Normal weight: BMI between 18.5 and 24.9. ??? Overweight: BMI between 25 and 29.9. ??? Obese: BMI of 30 or above. BMI is a tool and cannot diagnose a condition. Talk with your health care provider about what your BMI means for you. Keep these notes in mind: ??? Weight includes fat and muscle. Someone with a muscular build, such as an athlete, may have a BMI that is higher than 24.9. In cases like these, BMI is not a correct measure of body fat. ??? If you have a BMI of 25 or higher, your provider may need to do more testing to find out if excess body fat is the cause. ??? BMI is measured the same way for males and females. Females usually have more body fat than males of the same height and weight. Where to find more information For more information about BMI, including tools to quickly find your BMI, go to: ??? Centers for Disease Control and Prevention: cdc.gov ??? [place] Heart Association: heart.org ??? National Heart, Lung, and Blood [place]: nhlbi.nih.gov This information is not intended to replace advice given to you by your health care provider. Make sure you discuss any questions you have with your health care provider. Document Revised: 06/27/2023 Document Reviewed: 06/20/2023 [employer] Patient Education ? 2023 [employer]. FAMILY MEDICINE OFFICE/CLINI C NOTE Observed: 02/08/2025 11:00 AM Status: F Source: [facility] Family Medicine Office/Clini c Note Chief Complaint Medicare Subsequent Visit History of Present Illness Document Has Been Revised Medicare Annual Wellness Visit FT Entered On: 02/08/2025 11:25 EDT Performed On: 02/08/2025 11:11 EDT by Megan Harrington Covid-19, MERS, Ebola Screen *Contact With Person [...] Airborne, Droplet Precautions for MERS/COVID-19 : N/A Megan Harrington Maria Victoria 02/08/2025 11:11 EDT Medicare/Medicaid Summary Chief Complaint : Medicare Subsequent Visit Patient Counseled : Nutrition, Physical activity, Elevated BMI Height/Length Measured : 178 cm(Converted to: 5 ft 10 in, 70.08 in) Weight Measured : 91.4 kg(Converted to: 201 lb 8 Ounces, 201.503 lb) Body Mass Index Measured : 28.85 kg/m2 Height in Inches : 70 in Weight in Pounds : 201.502 lb Systolic Blood Pressure : 136 mmHg Diastolic Blood Pressure : 86 mmHg Blood Pressure Position : Sitting O2 Sat Resting/Exertion Alpha : Resting Peripheral Pulse Rate : 60 bpm SpO2 : 98 % Pain Present : No actual or suspected pain Megan Harrington Maria Victoria 02/08/2025 11:11 EDT Hearing and Vision Screening FT FT Whisper Test Comments : has hearing loss, does not wear hearing aides. Vision Screen Comments : wears reading glasses. Megan Harrington Maria Victoria 02/08/2025 11:11 EDT Advance Directive FT Advance Directive : Yes Type of Advance Directive : Living will, Medical durable power of qc scientist Location of Advance Directive : Scanned into EMR Organ Donation Consent : No Megan Harrington Maria Victoria 02/08/2025 11:11 EDT Procedures / Surgeries FT - Procedure History (As Of: 02/08/2025 11:43:22 EDT) Anesthesia Minutes: 0 ; Procedure Name: Arthroplasty, left knee ; Procedure Minutes: 0 ; Last Reviewed Dt/Tm: 02/08/2025 11:42:55 EDT Anesthesia Minutes: 0 ; Procedure Name: Knee replacement, left ; Procedure Minutes: 0 ; Last Reviewed Dt/Tm: 02/08/2025 11:42:55 EDT Anesthesia Minutes: 0 ; Procedure Name: Knee replacement, right ; Procedure Minutes: 0 ; Last Reviewed Dt/Tm: 02/08/2025 11:42:55 EDT Anesthesia Minutes: 0 ; Procedure Name: Cardiac pacemaker ; Procedure Minutes: 0 ; Comments: 02/03/2024 13:29 EDT - Renee Dillon LPN 2015 ; Last Reviewed Dt/Tm: 02/08/2025 11:42:55 EDT Procedure Dt/Tm: 02/19/2017 ; Anesthesia Minutes: 0 ; Procedure Name: Colonoscopy ; Procedure Minutes: 0 ; Last Reviewed Dt/Tm: 02/08/2025 11:42:55 EDT Family History Family History (As Of: 02/08/2025 11:43:22 EDT) Father: Relation: Father ; Gender: Male ; Unknown History Mother: Relation: Mother ; Gender: Female ; Unknown History Medicare/Medicaid Social History FT Social History (As Of: 02/08/2025 11:43:22 EDT) Alcohol: Low Risk Current, Beer, 1-2 times per week, 1 drinks/episode average. 2.00 drinks/episode maximum. Previous treatment: None. Alcohol use interferes with work or home: No. Drinks more than intended: No. Others hurt by drinking: No. Ready to change: No. Household alcohol concerns: No. (Last Updated: 02/08/2025 11:19:44 EDT by Megan Harrington) Tobacco: Denies Tobacco Use Former smoker, quit more than 30 days ago, quit 1979 Tobacco Use:. Never Smokeless Tobacco Use:. Cigarettes, 0.25 per day. 21 year(s). Total pack years: 6. Started age 17.0 Years. Stopped age 39 Years. Household tobacco concerns: No. Yes Comments: 02/08/2025 11:20 - Megan Harrington: former smoker quit 1979 (Last Updated: 02/08/2025 11:20:17 EDT by Megan Harrington) Substance Abuse: Denies Substance Abuse Comments: 02/08/2025 11:20 - Megan Harrington: denies use. (Last Updated: 02/08/2025 11:20:28 EDT by Megan Harrington) Health Risk Assessment FT HRA little interest [...] Overall mood for past four weeks : Good and bad parts about equal General health rating : Good Someone avail. to help if needed? : Yes, as much as I wanted Phys. & emotional health limit social act? : Not at all Megan Harrington Maria Victoria 02/08/2025 11:11 EDT Misc Health Risks Grid Sexual problems : Never Trouble eating well : Never Teeth or denture problems : Never Problems using the telephone : Never Megan Harrington Maria Victoria 02/08/2025 11:11 EDT Confident you control health problems : Very confident Difficulties driving your car? : No Seatbelts : I always fasten my seat belt Megan Harrington Maria Victoria 02/08/2025 11:11 EDT Depression Screening Little Interest, Pleasure in Activities (ref) : Not at all Feeling Down, Depressed, Hopeless : Not at all Megan Harrington Maria Victoria 02/08/2025 11:27 EDT Thoughts of Harming Self or Others : No Megan Harrington Maria Victoria 02/08/2025 14:02 EDT Initial Depression Screening Score : 0 SCORE Depression Screening Result : Negative Megan Harrington Maria Victoria 02/08/2025 11:27 EDT Social Determinants (PRAPARE) Currently Live in Physical and Emotional Safety : Yes Megan Harrington Maria Victoria 02/08/2025 11:42 EDT Only Required Zepeda highlighed in yellow need to be filled out and will trigger a referral to the Chronic Care Navigators : Burmese What is your housing situation today? : I have housing You or Family Gone Without Household Needs Past Year : No No Transport to Med Appts/Meetings/Work/Meds/Necessities : No Megan Harrington Maria Victoria 02/08/2025 11:27 EDT Social Determinants (PRAPARE) Info RTF : Social Determinants (PRAPARE) No qualifying data available. Megan Harrington Maria Victoria 02/08/2025 11:11 EDT Mini-Cog FT CDT(Clock Drawing Test) score : Abnormal # of Recalled Words : 3 Mini-Cog Score : Negative for cognitive impairment Megan Harrington Rosa Isela Irene 02/08/2025 11:27 EDT Mini-Mental State Examination (MMSE) FT Date : 02/08/2025 EDT Len Megan Natarajan 02/08/2025 11:11 EDT Image 1 - Images currently included in the form version of this document have not been included in the text rendition version of the form. Home Safety Screen FT Emergency Numbers Kept/Updated : Yes Aware of Smoking Dangers : Yes Smoke Alarms/Fire Extinguisher Available : Yes Household Members Fire Safety Knowledge : Yes Firearms Unloaded and Secure : Yes Floor Rugs Removed or Fastened : Yes Mats in Bathtub/Shower : Yes Stairway Rails or Banisters : Yes Outdoor Clutter Safety : Yes Indoor Clutter Safety : Yes Electrical Cord Safety : Yes Megan Harrington Rosa Isela Irene 02/08/2025 11:11 EDT Medicare/Medicaid Campos Fall Risk History of Fall in Last 3 Months Campos : No Presence of Secondary Diagnosis Campos : No Use of Ambulatory Aid Campos : None, bedrest, wheelchair, nurse IV/Heparin Lock Fall Risk Campos : No Gait Weak or Impaired Fall Risk Campos : Normal, bedrest, immobile Mental Status Fall Risk Campos : Oriented to own ability Campos Fall Risk Score : 0 Mari Harringtonmesha Irene 02/08/2025 11:11 EDT Functional Assessment FT Functional ADL Evaluation Index EBN Grid Bathing : Independent (2) Dressing : Independent (2) Toileting : Independent (2) Transferring Bed or Chair : Independent (2) Continence : Independent (2) Feeding : Independent (2) Mari Harringtonmesha Irene 02/08/2025 11:11 EDT ADL Index Score : 12 Mari Harringtonmesha Irene 02/08/2025 11:11 EDT IADL FT IADL Grid FT Meal Prep IADL : Independent FT Writig IADL : Independent FT Keyboarding IADL : Independent FT Phone Use IADL : Independent FT Money Management IADL : Independent FT Grocery Shopping IADL : Independent FT Clothing Care IADL : Independent FT Light Cleaning IADL : Independent FT Heavy Cleaning IADL : Independent FT Transportation IADL : Independent FT Community Mobility, Safety IADL : Independent FT Care of Others IADL : Independent FT Medication Management IADL : Independent FT Other IADL : Independent Lne Megan Irene 02/08/2025 11:11 EDT AUDIT Screening FT AUDIT Frequency of Drinks Containing Alcohol : 2 to 3 times a week AUDIT Anyone Injured Due to Drinking : No AUDIT Number Alcohol Drinks If Drinking : 1 or 2 AUDIT Past Year Freq Failure of Previous Night Memory : Never AUDIT Freq of Six or More Drinks on One Occasion : Never AUDIT Past Year Freq Need Drink in AM After Heavy Drinking : Never AUDIT Past Year Freq Cannot Stop Drinking Once Started : Never AUDIT Past Year Freq Feeling Guilt, Remorse After Drinking : Never AUDIT Past Year Freq Fail to do as Expected Due to Drinking : Never AUDIT Anyone Worried w- Drinking : No AUDIT Score : 3 Megan Harrington - 02/08/2025 11:11 EDT Diabetes Risk Test FT FT Pre DM Age : 2 FT Pre DM Gender : 1 FT Pre DM Gestational : 0 FT Pre DM Family : 0 FT Pre DM BP : 1 FT Pre DM Physical Activity : 0 FT Pre DM Weight : 1 FT Pre DM Score : 6 Megan Harrington - 02/08/2025 11:11 EDT Medication History Medication History Progress Note : n/a Manages Home Medication Administration : Independently Medication History Source : Self Verbalizes Home Medications : Accurately Megan Harrington - 02/08/2025 11:26 EDT Medication List (As Of: 02/08/2025 11:27:41 EDT) Image 2 - Images currently included in the form version of this document have not been included in the text rendition version of the form. Review of Systems PHQ Score Initial Depression Screen Score: 0 SCORE Physical Exam Vitals & Measurements HR: 60(Peripheral) BP: 136/86 SpO2: 98% HT: 70 in HT: 178 cm WT: 91.4 kg WT: 201.502 lb BMI: 28.85 Assessment/Plan 1. Encounter for subsequent annual wellness visit (AWV) in Medicare patient (Z00.00: Encounter for general adult medical examination without abnormal findings) The current AHRQ USPSTF???s recommendations for preventative services and all current CDC recommended immunizations, relevant risk recommendations discussed. Reviewed Medicare Prevention Services checklist. CDC-Falls Prevention and home safety screening reviewed. Patient denies any falls in last 12 months, voices no worry about falling. Exhibits no problems with sitting, standing or ambulation. Patient aware with keeping walk way area free of clutter to prevent tripping and/or falling. [place] Advance Directives reviewed. Documents present in chart. Patient denies any problems with ADL???s and Instrumental ADL???s. Cognitive screening completed with memory and clock face drawing. Clock not done correctly. Patient did recit 3/3 memory words. Immunization record reviewed, patient has received 2 Covid vaccines with 1 booster. Discussed Shingrix vaccine. Allergies and medications reviewed and up to date. No concerns with taking medication as prescribed. Reviewed OTC medications, medication list up to date. Blood tests were reviewed: Discussed what tests need to be updated. Labs were ordered, will have completed prior to next PCP visit. Labs to be completed with [facility]. No concerns with bowel/ bladder. Colonoscopy last completed 02/19/[address] Mojica. 10 year repeat. Reviewed pain symptoms: Patient denies pain. Reviewed all outside providers that patient follows. Last visit summary notes available in chart and/or have been requested. Patient declines any signs or symptoms of depression at this time. 8 minutes spent with screening and documentation. PHQ2 screening score 0. Patient drinks alcohol 2-3 times weekly 1-2 drinks, denies concerns. 8 minutes spent with screening and documentation. Audit score 3. Follow up scheduled with PCP, 04/05/2025 AWV has been scheduled, 02/07/2026 Medicare provides yearly screening for alcohol and depression concerns. This is completed during our Medicare wellness visit for those who do not have a current diagnosis of depression or concerns with alcohol use. I spent a total of 17 minutes on this date of service which included preparing to see the patient, face to face patient care, completing clinical documentation, obtaining and/or reviewing separately obtained history, counseling and educating the patient with handouts. Explanations were provided with reviewing questionnaires. AUDIT risk assessment screening completed, risk score (3) with patient denying concerns with use. Completed PHQ-2 risk assessment for depression with risk score (0), negative findings. Patient has been reminded to notify the provider if there would be a change or concerns with symptoms with fear, unable to sleep, worrying too much or feeling down and/or sad with lost of interest with daily activities. Will continue to monitor with screening yearly during Medicare wellness visits. 2. Atrial fibrillation (I48.91: Unspecified atrial fibrillation) Patient denies having episodes with irregular or fast/rapid heartbeat. Heart rate in office today is 60 and regular. Taking medications (carvedilol and Eliquis) Denies concerns with increased fatigue and/or sudden change in weight. No pain to chest or belly region. Patients are at higher risk of this condition if you smoke, are older, have diabetes, or are overweight. Voices understanding with symptoms to monitor for and follow instructions about medicines, diet, exercise, and follow up visits. Patient follows up with [facility], last visit notes available in chart and have been reviewed. Cardiac Healthy Nutrition reviewed with patient. 3. HTN (hypertension) (I10: Essential (primary) hypertension) Patient is taking carvedilol daily as directed. Does not monitor BP pressure at home. HTN stoplight reviewed with BP goal to be <140/90. Reviewed different factors that can alter blood pressure readings. Education handout provided with s/s to monitor for and report to provider. Patient is encouraged to increase portions of fruit, vegetables, fiber and increase exercise as much as tolerable. Reviewed importance with monitoring foods high in salt content and encouraged to limit intake, if unsure encouraged to discuss with their PCP. Encouraged to eat more chicken, fish and lean white meats and limits red meats in diet. Discussed importance with keeping BP under good control to reduce CVA risk factors. Will continue to f/u with PCP during office visits and as needed. CMP ordered. 4. 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 LIPID Panel ordered. 5. Flu vaccine refused (Z28.21: Immunization not carried out because of patient refusal) Influenza and pneumococcal vaccines declined with today's visit. Advised all appropriate vaccines available in office if ever he may chose. 6. Diabetes mellitus screening (Z13.1: Encounter for screening for diabetes mellitus) Patient screened for diabetes with risk score of (6), denies family history with increased risk for diabetes. DM stoplight handout reviewed with symptoms to monitor for and report to PCP. Reminded pt importance with healthy nutritional intake to keep glucose under good control, handout provided with healthy dietary choices to review. Will continue to f/u with PCP during office visits. Blood work repeated as directed. 7. Overweight (BMI 25.0-29.9) (E66.3: Overweight) The standard range for ages 18 and older is >=18.5 and < 25 kg/m2. Your BMI (28.85) today was above this range, this falls in the overweight category and there are medical benefits to weight loss. We can offer counselling, referral, and/or medical support in addressing this problem. Your BMI and weight management will be followed at subsequent visits. Follow-up No qualifying data available Patient Education DASH Eating Plan Heart Attack, Amcb-by-Ljee BMI for Adults Atrial Fibrillation, [place] Problem List/Past Medical History Ongoing ASCVD (arteriosclerotic cardiovascular disease) Atrial fibrillation BMI 28.0-28.9,adult Encounter for surveillance of abnormal nevi HTN (hypertension) Nonsmoker Overweight (BMI 25.0-29.9) Peripheral edema Sleep apnea Venous insufficiency Visit for suture removal Weakness Historical No qualifying data Procedure/Surgical History Colonoscopy (02/19/2017), Arthroplasty, Cardiac pacemaker, Knee replacement, Knee replacement. Medications carvedilol 12.5 mg Tab cetirizine 10 mg Tab, 10 mg= 1 tab(s), Oral, Daily Eliquis 5 mg oral tablet, 5 mg= 1 tab(s), Oral, BID equipment for cpap, See Instructions nitroglycerin, 0.4 mg, SubLingual, q5min, PRN predniSONE 20 mg Tab, 20 mg= 1 tab(s), Oral, Daily saw [place], See Instructions Ventolin HFA 90 mcg/inh Aerosol-Adpt, 1 puff(s), Inhalation, Once, PRN Allergies Adhesive Bandage (Unknown) Vistaril Social History Alcohol - Low Risk, 02/10/2024 Current, Beer, 1-2 times per week, 1 drinks/episode average. 2.00 drinks/episode maximum. Previous treatment: None. Alcohol use interferes with work or home: No. Drinks more than intended: No. Others hurt by drinking: No. Ready to change: No. Household alcohol concerns: No., 02/08/2025 Substance Abuse - Denies Substance Abuse, 02/10/2024 Tobacco - Denies Tobacco Use, 02/10/2024 Former smoker, quit more than 30 days ago, quit 1979 Tobacco Use:. Never Smokeless Tobacco Use:. Cigarettes, 0.25 per day. 22 year(s). Total pack years: 6. Started age 18.0 Years. Stopped age 39 Years. Household tobacco concerns: No. Yes, 02/08/2025 Immunizations Vaccine Date Status Comments influenza virus vaccine, inactivated - Not Given Patient Refuses tetanus-diphtheria toxoids 06/11/2023 Given SARS-CoV-2 (COVID-19) mRNA BNT-162b2 vax 10/11/2021 Recorded SARS-CoV-2 (COVID-19) mRNA BNT-162b2 vax 12/15/2020 Recorded 2024-02-03: [id number] SARS-CoV-2 (COVID-19) mRNA BNT-162b2 vax 11/23/2020 Recorded 2024-02-03: TPV80 Result Comment: Electronical ly Signed By: Cory Carl MD\.br\Date and Time Signed: 02/16/25 11:08 EDT\.br\Electronically Co-Signed By: Megan Harrington\.br\Date and Time Co-Signed: 02/08/25 14:20 EDT AMBULATORY VISIT SUMMARY Observed: 02/08 11:00 AM Status: F Source: [facility] Ambulatory Visit Summary SUMEET MORGAN Natarajan :1940 Visit Date:02/08/2025 Ambulatory Visit Instructions Your Diagnosis Encounter for subsequent annual wellness visit (AWV) in Medicare patient Atrial fibrillation HTN (hypertension) ASCVD (arteriosclerotic cardiovascular disease) Flu vaccine refused Diabetes mellitus screening Overweight (BMI 25.0-29.9) Your Care Team Attending Physician - Cory Carl MD. Primary Care Physician - Cory Carl MD. This Is Your Medications List [facility] Prescription (equipment for cpap) albuterol (Ventolin HFA 90 mcg/inh Aerosol-Adpt) apixaban (Eliquis 5 mg oral tablet) carvedilol (carvedilol 12.5 mg Tab) cetirizine (cetirizine 10 mg Tab) nitroglycerin predniSONE (predniSONE 20 mg Tab) saw [place] Procedures Performed Colonoscopy (02/19/2017), Arthroplasty, Cardiac pacemaker, Knee replacement, Knee replacement. Discharge Vitals Heart Rate (Peripheral) 60 Blood Pressure 136/86 Height 178 cm Height 70 in Weight 91.4 kg Weight 201.502 lb BMI 28.85 What to do next Scheduled Follow-Up Appointments 2024 8:20 AM EDT With: Where: [address] [address]- Saturday 9:20 AM EDT With: Yoseph OROZCO, Cory Sanderson Where: [address] [address]- Saturday2025 8:00 AM EDT With: Where: [address] [address]- You Need to Complete the Following Comprehensive Metabolic Panel, Blood, Routine collect, 02/08/25, Order for future visit, Lab Collect, HTN (hypertension), Not Required, Print Label By Order Location Lipid Panel, Blood, Routine collect, 02/08/25, Order for future visit, Lab Collect, ASCVD (arteriosclerotic cardiovascular disease), Required & Missing, Print Label By Order Location Medications What How Much When Why Instructions Unchanged albuterol (Ventolin HFA 90 mcg/ inh Aerosol-Adpt) 1 Puffs Inhalation Once as needed for for wheezing Cough BMI 29.0-29.9,adult Non-smoker Unchanged apixaban (Eliquis 5 mg oral tablet) 1 Tablets By Mouth 2 times a day TAKE 1 TABLET BY MOUTH IN THE MORNING and ONE TABLET BY MOUTH AT BEDTIME Unchanged carvedilol (carvedilol 12.5 mg Tab) 180 EA, 0 Refill(s), TAKE 1 TABLET BY MOUTH TWICE DAILY (WITH BREAKFAST and WITH evening meal) Unchanged cetirizine (cetirizine 10 mg Tab) 1 Tablets By Mouth Every day Unchanged [facility] Prescription (equipment for cpap) See instructions hear gear, face mask, tubing for cpap Unchanged nitroglycerin 0.4 Milligram Sublingual Every 5 minutes as needed for Chest pain Unchanged predniSONE (predniSONE 20 mg Tab) 1 Tablets By Mouth Every day Atrial fibrillation ASCVD (arteriosclerotic cardiovascular disease) HTN (hypertension) Sleep apnea BMI 28.0-28.9,adult Overweight (BMI 25.0-29.9) Nonsmoker Chronic cough Testicular swelling Duration: 5 Days Unchanged saw maycol See instructions take 450mg twice daily Allergies Adhesive Bandage (Unknown) Vistaril Problems Ongoing - Any problem that you are currently receiving treatment for. ASCVD (arteriosclerotic cardiovascular disease) Atrial fibrillation BMI 28.0-28.9,adult Encounter for surveillance of abnormal nevi HTN (hypertension) Nonsmoker Overweight (BMI 25.0-29.9) Peripheral edema Sleep apnea Venous insufficiency Visit for suture removal Weakness Patient Survey You may receive a survey via text or e-mail asking about your office visit. Please share your experience with us by completing your survey. We appreciate your feedback and thank you for choosing us for your care. Education Materials DASH Eating Plan DASH stands for Dietary Approaches to Stop Hypertension. The DASH eating plan is a healthy eating plan that has been shown to: ??? Lower high blood pressure (hypertension). ??? Reduce your risk for type 2 diabetes, heart disease, and stroke. ??? Help with weight loss. What are tips for following this plan? Reading food labels ??? Check food labels for the amount of salt (sodium) per serving. Choose foods with less than 5 percent of the Daily Value (DV) of sodium. In general, foods with less than 300 milligrams (mg) of sodium per serving fit into this eating plan. ??? To find whole grains, look for the word whole as the first word in the ingredient list. Shopping ??? Buy products labeled as low-sodium or no salt added. ??? Buy fresh foods. Avoid canned foods and pre-made or frozen meals. Cooking ??? Try not to add salt when you cook. Use salt-free seasonings or herbs instead of table salt or sea salt. Check with your health care provider or pharmacist before using salt substitutes. ??? Do not cabral foods. Cook foods in healthy ways, such as baking, boiling, grilling, roasting, or broiling. ??? Cook using oils that are good for your heart. These include olive, canola, avocado, soybean, and sunflower oil. Meal planning ??? Eat a balanced diet. This should include: ? 4 or more servings of fruits and 4 or more servings of vegetables each day. Try to fill half of your plate with fruits and vegetables. ? 6???8 servings of whole grains each day. ? 6 or less servings of lean meat, poultry, or fish each day. 1 oz is 1 serving. A 3 oz (85 g) serving of meat is about the same size as the palm of your hand. One egg is 1 oz (28 g). ? 2???3 servings of low-fat dairy each day. One serving is 1 cup (237 mL). ? 1 serving of nuts, seeds, or beans 5 times each week. ? 2???3 servings of heart-healthy fats. Healthy fats called omega-3 fatty acids are found in foods such as walnuts, flaxseeds, fortified milks, and eggs. These fats are also found in cold-water fish, such as sardines, salmon, and mackerel. ??? Limit how much you eat of: ? Canned or prepackaged foods. ? Food that is high in trans fat, such as fried foods. ? Food that is high in saturated fat, such as fatty meat. ? Desserts and other sweets, sugary drinks, and other foods with added sugar. ? Full-fat dairy products. ??? Do not salt foods before eating. ??? Do not eat more than 4 egg yolks a week. ??? Try to eat at least 2 vegetarian meals a week. ??? Eat more home-cooked food and less restaurant, buffet, and fast food. Lifestyle ??? When eating at a restaurant, ask if your food can be made with less salt or no salt. ??? If you drink alcohol: ? Limit how much you have to: ? 0???1 drink a day if you are female. ? 0???2 drinks a day if you are male. ? Know how much alcohol is in your drink. In the [place] one drink is one 12 oz bottle of beer (355 mL), one 5 oz glass of wine (148 mL), or one 1??? oz glass of hard liquor (44 mL). General information ??? Avoid eating more than 2,300 mg of salt a day. If you have hypertension, you may need to reduce your sodium intake to 1,500 mg a day. ??? Work with your provider to stay at a healthy body weight or lose weight. Ask what the best weight range is for you. ??? On most days of the week, get at least 30 minutes of exercise that causes your heart to beat faster. This may include walking, swimming, or biking. ??? Work with your provider or dietitian to adjust your eating plan to meet your specific calorie needs. What foods should I eat? Fruits All fresh, dried, or frozen fruit. Canned fruits that are in their natural juice and do not have sugar added to them. Vegetables Fresh or frozen vegetables that are raw, steamed, roasted, or grilled. Low- sodium or reduced-sodium tomato and vegetable juice. Low-sodium or reduced-sodium tomato sauce and tomato paste. Low-sodium or reduced-sodium canned vegetables. Grains Whole-grain or whole-wheat bread. Whole-grain or whole-wheat pasta. Brown rice. Oatmeal. Quinoa. Bulgur. Whole-grain and low-sodium cereals. Jacqueline bread. Low- fat, low-sodium crackers. Whole-wheat flour tortillas. Meats and other proteins Skinless chicken or turkey. Ground chicken or turkey. Pork with fat trimmed off. Fish and seafood. Egg whites. Dried beans, peas, or lentils. Unsalted nuts, nut butters, and seeds. Unsalted canned beans. Lean cuts of beef with fat trimmed off. Low- sodium, lean precooked or cured meat, such as sausages or meat loaves. Dairy Low-fat (1%) or fat-free (skim) milk. Reduced-fat, low-fat, or fat-free cheeses. Nonfat, low-sodium ricotta or cottage cheese. Low-fat or nonfat yogurt. Low-fat, low-sodium cheese. Fats and oils Soft margarine without trans fats. Vegetable oil. Reduced-fat, low-fat, or light mayonnaise and salad dressings (reduced-sodium). Canola, safflower, olive, avocado, soybean, and sunflower oils. Avocado. Seasonings and condiments Herbs. Spices. Seasoning mixes without salt. Other foods Unsalted popcorn and pretzels. Fat-free sweets. The items listed above may not be all the foods and drinks you can have. Talk to a dietitian to learn more. What foods should I avoid? Fruits Canned fruit in a light or heavy syrup. Fried fruit. Fruit in cream or butter sauce. Vegetables Creamed or fried vegetables. Vegetables in a cheese sauce. Regular canned vegetables that are not marked as low-sodium or reduced-sodium. Regular canned tomato sauce and paste that are not marked as low-sodium or reduced-sodium. Regular tomato and vegetable juices that are not marked as low-sodium or reduced-sodium. Pickles. Olives. Grains Baked goods made with fat, such as croissants, muffins, or some breads. Dry pasta or rice meal packs. Meats and other proteins Fatty cuts of meat. Ribs. Fried meat. Wren. Bologna, salami, and other precooked or cured meats, such as sausages or meat loaves, that are not lean and low in sodium. Fat from the back of a pig (fatback). Bratwurst. Salted nuts and seeds. Canned beans with added salt. Canned or smoked fish. Whole eggs or egg yolks. Chicken or turkey with skin. Dairy Whole or 2% milk, cream, and [id number]. Whole or full-fat cream cheese. Whole-fat or sweetened yogurt. Full-fat cheese. Nondairy creamers. Whipped toppings. Processed cheese and cheese spreads. Fats and oils Butter. Stick margarine. Lard. Shortening. Ghee. Wren fat. Tropical oils, such as coconut, palm kernel, or palm oil. Seasonings and condiments Onion salt, garlic salt, seasoned salt, table salt, and sea salt. Worcestershire sauce. Tartar sauce. Barbecue sauce. Teriyaki sauce. Soy sauce, including reduced-sodium soy sauce. Steak sauce. Canned and packaged gravies. Fish sauce. Oyster sauce. Cocktail sauce. Store-bought horseradish. Ketchup. Mustard. Meat flavorings and tenderizers. Bouillon cubes. Hot sauces. Pre-made or packaged marinades. Pre-made or packaged taco seasonings. Relishes. Regular salad dressings. Other foods Salted popcorn and pretzels. The items listed above may not be all the foods and drinks you should avoid. Talk to a dietitian to learn more. Where to find more information ??? National Heart, Lung, and Blood [place] (NHLBI): nhlbi.nih.gov ??? [place] Heart Association (AHA): heart.org ??? Academy of Nutrition and Dietetics: eatright.org ??? National Kidney Foundation (NKF): kidney.org This information is not intended to replace advice given to you by your health care provider. Make sure you discuss any questions you have with your health care provider. Document Revised: 10/24/2023 Document Reviewed: 10/24/2023 [employer] Patient Education ??? 2023 [employer] Heart Attack A heart attack occurs when blood and oxygen supply to the heart is cut off. A heart attack can cause damage to the heart that cannot be fixed. A heart attack is also called a myocardial infarction, or AK. If you think you are having a heart attack, do not wait to see if the symptoms will go away. Get medical help right away. What are the causes? This condition may be caused by: ??? A fatty substance (plaque) in the blood vessels (arteries). This can block the flow of blood to the heart. ??? A blood clot in the blood vessels that go to the heart. The blood clot blocks blood flow. ??? An abnormal heartbeat. ??? Some diseases, such as problems in red blood cells (anemia)orproblems in breathing (respiratory failure). ??? Tightening (spasm) of a blood vessel that cuts off blood to the heart. ??? A tear in a blood vessel of the heart. Other causes may include: ??? Using drugs such as cocaine or methamphetamine. ??? Low blood pressure. What increases the risk? Aging. The risk gets higher as you get older. ??? Having a personal or family history of chest pain, heart attack, stroke, or narrowing of the arteries in the legs, arms, head, or stomach (peripheral vascular disease). ??? Having taken chemotherapy or immune-suppressing medicines. ??? Being male. ??? Being overweight or obese. ??? Having any of these conditions: ? High blood pressure. ? High cholesterol. ? Diabetes. ??? Making lifestyle choices such as: ? Drinking too much alcohol. ? Not getting regular exercise. ? Smoking. What are the signs or symptoms? Chest pain. It may feel like: ? Crushing or squeezing. ? Tightness, pressure, fullness, or heaviness. ??? Pain in the arm, neck, jaw, back, or upper body. ??? Heartburn. ??? Upset stomach (indigestion). ??? Shortness of breath. ??? Feeling like you may vomit (nauseous). ??? Cold sweats. ??? Sudden light-headedness, dizziness, or passing out. ??? Feeling tired. How is this treated? A heart attack must be treated as soon as possible. Treatment may include: ??? Medicines to: ? Break up or dissolve blood clots. ? Thin your blood and help prevent blood clots. ? Treat blood pressure. ? Improve blood flow to the heart. ? Reduce pain. ? Reduce cholesterol. ??? Procedures to widen a blocked artery and keep it open. ??? Open heart surgery. ??? Making your heart strong again (cardiac rehabilitation) through exercise, education, and counseling. Follow these instructions at home: Medicines ??? Take [id number] and prescription medicines only as told by your doctor. ??? Do not take these medicines unless your doctor says it is okay: ? NSAIDs, such as ibuprofen, naproxen, or celecoxib. ? Any vitamins or supplements. ? Hormone replacement therapy that has estrogen with or without progestin. ??? If you are taking blood thinners: ? Talk with your doctor before taking any medicines that have aspirin or NSAIDs, such as ibuprofen. ? Take medicines exactly as told. Take them at the same time each day. ? Avoid doing things that could hurt or bruise you. Take action to prevent falls. ? Wear an alert bracelet or carry a card that shows you are taking blood thinners. Lifestyle ??? Do not smoke or use any products that contain nicotine or tobacco. If you need help quitting, ask your doctor. ??? Avoid secondhand smoke. ??? Exercise regularly. Ask your doctor about a cardiac rehab program. ??? Eat heart-healthy foods. Your doctor will tell you what foods to eat. ??? Stay at a healthy weight. ??? Learn ways to lower your stress level. ??? Do not use illegal drugs. Alcohol use ??? Do not drink alcohol if: ? Your doctor tells you not to drink. ? You are , may be , or are planning to become . ??? If you drink alcohol: ? Limit how much you have to: ? 0???1 drink a day for women. ? 0???2 drinks a day for men. ? Know how much alcohol is in your drink. In the [place] one drink equals one 12 oz bottle of beer (355 mL), one 5 oz glass of wine (148 mL), or one 1??? oz glass of hard liquor (44 mL). General instructions ??? Work with your doctor to treat other problems you may have, such as diabetes or high blood pressure. ??? Get screened for depression. Get treatment if needed. ??? Keep your vaccines up to date. Get the flu shot (influenza vaccine) every year. ??? Keep all follow-up visits. Contact a doctor if: ??? You feel very sad. ??? You have trouble doing your daily activities. ??? You get light-headed or dizzy. Get help right away if: ??? You have sudden, unexplained discomfort in your chest, arms, back, neck, jaw, or upper body. ??? You have shortness of breath. ??? You have sudden sweating or clammy skin. ??? You feel like you may vomit or you vomit. ??? You feel tired or weak. ??? You feel your heart beating fast. ??? You feel your heart skipping beats. ??? You have blood pressure that is higher than 180/120. These symptoms may be an emergency. Get help right away. Call your local emergency services (911 in the [place] ??? Do not wait to see if the symptoms will go away. ??? Do not drive yourself to the hospital. Summary ??? A heart attack occurs when blood and oxygen supply to the heart is cut off. ??? Do not take NSAIDs unless your doctor says it is okay. ??? Do not smoke. Avoid secondhand smoke. ??? Exercise regularly. Ask your doctor about a cardiac rehab program. This information is not intended to replace advice given to you by your health care provider. Make sure you discuss any questions you have with your health care provider. Document Revised: 03/29/2022 Document Reviewed: 03/29/2022 [employer] Patient Education ??? 2023 [employer] BMI for Adults Body mass index (BMI) is a number found using a person's weight and height. BMI can help tell how much of a person's weight is made up of fat. BMI does not measure body fat directly. It is used instead of tests that directly measure body fat, which can be difficult and expensive. What are BMI measurements used for? BMI is useful to: ??? Find out if your weight puts you at higher risk for medical problems. ??? Help recommend changes, such as in diet and exercise. This can help you reach a healthy weight. BMI screening can be done again to see if these changes are working. How is BMI calculated? Your height and weight are measured. The BMI is found from those numbers. This can be done with [place] or metric measurements. Note that charts and online BMI calculators are available to help you find your BMI quickly and easily without doing these calculations. To calculate your BMI in [place] measurements: 1. Measure your weight in pounds (lb). 2. Multiply the number of pounds by 703. ??? So, for an adult who weighs 150 lb, multiply that number by 703: 150 x 703, which equals 105,450. 3. Measure your height in inches. Then multiply that number by itself to get a measurement called inches squared. ??? So, for an adult who is 70 inches tall, the inches squared measurement is 70 inches x 70 inches, which equals 4,900 inches squared. 4. Divide the total from step 2 (number of lb x 703) by the total from step 3 (inches squared): 105,450 ??? 4,900 = 21.5. This is your BMI. To calculate your BMI in metric measurements: 1. Measure your weight in kilograms (kg). ??? For this example, the weight is 70 kg. 2. Measure your height in meters (m). Then multiply that number by itself to get a measurement called meters squared. ??? So, for an adult who is 1.75 m tall, the meters squared measurement is 1.75 m x 1.75 m, which equals 3.1 meters squared. 3. Divide the number of kilograms (your weight) by the meters squared number. In this example: 70 ??? 3.1 = 22.6. This is your BMI. What do the results mean? BMI charts are used to see if you are underweight, normal weight, overweight, or obese. The following guidelines will be used: ??? Underweight: BMI less than 18.5. ??? Normal weight: BMI between 18.5 and 24.9. ??? Overweight: BMI between 25 and 29.9. ??? Obese: BMI of 30 or above. BMI is a tool and cannot diagnose a condition. Talk with your health care provider about what your BMI means for you. Keep these notes in mind: ??? Weight includes fat and muscle. Someone with a muscular build, such as an athlete, may have a BMI that is higher than 24.9. In cases like these, BMI is not a correct measure of body fat. ??? If you have a BMI of 25 or higher, your provider may need to do more testing to find out if excess body fat is the cause. ??? BMI is measured the same way for males and females. Females usually have more body fat than males of the same height and weight. Where to find more information For more information about BMI, including tools to quickly find your BMI, go to: ??? Centers for Disease Control and Prevention: cdc.gov ??? [place] Heart Association: heart.org ??? National Heart, Lung, and Blood [place]: nhlbi.nih.gov This information is not intended to replace advice given to you by your health care provider. Make sure you discuss any questions you have with your health care provider. Document Revised: 06/27/2023 Document Reviewed: 06/20/2023 [employer] Patient Education ??? 2023 [employer] Atrial Fibrillation Atrial fibrillation (AFib) is a type of heartbeat that is irregular or fast. If you have AFib, your heart beats without any order. This makes it hard for your heart to pump blood in a normal way. AFib may come and go, or it may become a long-lasting problem. If AFib is not treated, it can put you at higher risk for stroke, heart failure, and other heart problems. What are the causes? AFib may be caused by diseases that damage the heart's electrical system. They include: ??? High blood pressure. ??? Heart failure. ??? Heart valve diseases. ??? Heart surgery. ??? Diabetes. ??? Thyroid disease. ??? Kidney disease. ??? Lung diseases, such as pneumonia or COPD. ??? Sleep apnea. Sometimes the cause is not known. What increases the risk? You are more likely to develop AFib if: ??? You are older. ??? You exercise often and very hard. ??? You have a family history of AFib. ??? You are male. ??? You are . ??? You are overweight. ??? You smoke. ??? You drink a lot of alcohol. What are the signs or symptoms? Common symptoms of this condition include: ??? A feeling that your heart is beating very fast. ??? Chest pain or discomfort. ??? Feeling short of breath. ??? Suddenly feeling light-headed or weak. ??? Getting tired easily during activity. ??? Fainting. ??? Sweating. In some cases, there are no symptoms. How is this treated? Medicines to: ? Prevent blood clots. ? Treat heart rate or heart rhythm problems. ??? Using devices, such as a pacemaker, to correct heart rhythm problems. ??? Doing surgery to remove the part of the heart that sends bad signals. ??? Closing an area where clots can form in the heart (left atrial appendage). In some cases, your doctor will treat other underlying conditions. Follow these instructions at home: Medicines ??? Take nwkw-uff-lchgqll and prescription medicines only as told by your doctor. ??? Do not take any new medicines without first talking to your doctor. ??? If you are taking blood thinners: ? Talk with your doctor before taking aspirin or NSAIDs, such as ibuprofen. ? Take your medicines as told. Take them at the same time each day. ? Do not do things that could hurt or bruise you. Be careful to avoid falls. ? Wear an alert bracelet or carry a card that says you take blood thinners. Lifestyle ??? Do not smoke or use any products that contain nicotine or tobacco. If you need help quitting, ask your doctor. ??? Eat heart-healthy foods. Talk with your doctor about the right eating plan for you. ??? Exercise regularly as told by your doctor. ??? Do not drink alcohol. ??? Lose weight if you are overweight. General instructions ??? If you have sleep apnea, treat it as told by your doctor. ??? Do not use diet pills unless your doctor says they are safe for you. Diet pills may make heart problems worse. ??? Keep all follow-up visits. Your doctor will check your heart rate and rhythm regularly. Contact a doctor if: ??? You notice a change in the speed, rhythm, or strength of your heartbeat. ??? You are taking a blood-thinning medicine and you get more bruising. ??? You get tired more easily when you move or exercise. ??? You have a sudden change in weight. Get help right away if: ??? You have pain in your chest. ??? You have trouble breathing. ??? You have side effects of blood thinners, such as blood in your vomit, poop (stool), or pee (urine), or bleeding that cannot stop. ??? You have any signs of a stroke. BE FAST is an easy way to remember the main warning signs: ? B - Balance. Dizziness, sudden trouble walking, or loss of balance. ? E - Eyes. Trouble seeing or a change in how you see. ? F - Face. Sudden weakness or loss of feeling in the face. The face or eyelid may droop on one side. ? A - Arms.Weakness or loss of feeling in an arm. This happens suddenly and usually on one side of the body. ? S - Speech. Sudden trouble speaking, slurred speech, or trouble understanding what people say. ? T - Time.Time to call emergency services. Write down what time symptoms started. ??? You have other signs of a stroke, such as: ? A sudden, very bad headache with no known cause. ? Feeling like you may vomit (nausea). ? Vomiting. ? A seizure. These symptoms may be an emergency. Get help right away. Call 911. ??? Do not wait to see if the symptoms will go away. ??? Do not drive yourself to the hospital. This information is not intended to replace advice given to you by your health care provider. Make sure you discuss any questions you have with your health care provider. Document Revised: 06/26/2023 Document Reviewed: 06/26/2023 Else[employer] Patient Education ??? 2023 [employer] FAMILY MEDICINE OFFICE/CLINI C NOTE Observed: 02/08/2025 10:45 AM Status: F Source: [facility] Medicine Office/Clini c Note Chief Complaint 6m follow up The patient presents with persistent cough and chest congestion. HPI Staff 6m follow up to AFib, HTN & Sleep apnea Patient is here for follow up on hypertension. How often are you checking your blood pressure? no What are your average readings? _does not take at home Yearly BMP: _01/13/24 ([facility]) Concerns: No concerns at this time. Does not need refills. Does have medicare wellness w/Megan after today's visit. History of Present Illness - The patient is an 85-year-old male presenting with a persistent cough and chest congestion. - Reports frequent coughing episodes decreasing in severity. - Describes coughing and spitting, particularly in mornings. - Nasal drainage and chest congestion noted. - Difficulty using CPAP machine due to cough. Review of Systems PHQ Score Initial Depression Screen Score: 0 SCORE Physical Exam Vitals & Measurements T: 36.8 ???C(Tympanic) HR: 60(Peripheral) RR: 18 BP: 136/86 SpO2: 98% HT: 70 in HT: 178 cm WT: 201.502 lb WT: 91.4 kg BMI: 28.85 General: alert, no acute distress ENMT: oral mucosa moist Cardiovascular: Irregular rate and rhythm due to AFib, normal peripheral perfusion Respiratory: Lungs clear to auscultation, respirations non labored, congestion noted Extremities: no deformity, no trauma, no swelling in legs Neurological: oriented x 4, level of consciousness appropriate for age, CN II- XII intact, motor strength equal & normal bilaterally, speech normal Abdomen: Soft, Non-tender, Non-distended, + Bowel sounds Assessment/Plan 1. Atrial fibrillation (I48.91: Unspecified atrial fibrillation) - Monitor atrial fibrillation symptoms. Continue on Eliquis. Rate controlled with Coreg. Ordered: predniSONE, 20 mg = 1 tab(s), Oral, Daily, X 5 day(s), # 5 tab(s), Refills(s) 0, Pharmacy: [facility], 178, cm, 02/08/25 11:00:00 EDT, Height/Length Dosing, 91.4, kg, 02/08/25 11:00:00 EDT, Weight Dosing [facility] Internal Ambulatory Referral 2. ASCVD (arteriosclerotic cardiovascular disease) (I25.10: Atherosclerotic heart disease of [place] coronary artery without angina pectoris) Denies any chest pain at this time. Continue follow-up with cardiology Ordered: predniSONE, 20 mg = 1 tab(s), Oral, Daily, X 5 day(s), # 5 tab(s), Refills(s) 0, Pharmacy: [facility], 178, cm, 02/08/25 11:00:00 EDT, Height/Length Dosing, 91.4, kg, 02/08/25 11:00:00 EDT, Weight Dosing [facility] Internal Ambulatory Referral 3. HTN (hypertension) (I10: Essential (primary) hypertension) Blood pressure is well-controlled. No concerns at this time. Ordered: predniSONE, 20 mg = 1 tab(s), Oral, Daily, X 5 day(s), # 5 tab(s), Refills(s) 0, Pharmacy: [facility], 178, cm, 02/08/25 11:00:00 EDT, Height/Length Dosing, 91.4, kg, 02/08/25 11:00:00 EDT, Weight Dosing [facility] Internal Ambulatory Referral 4. Sleep apnea (G47.30: Sleep apnea, unspecified) - Advise CPAP usage with cleaning, despite cough. Ordered: predniSONE, 20 mg = 1 tab(s), Oral, Daily, X 5 day(s), # 5 tab(s), Refills(s) 0, Pharmacy: [facility], 178, cm, 02/08/25 11:00:00 EDT, Height/Length Dosing, 91.4, kg, 02/08/25 11:00:00 EDT, Weight Dosing [facility] Internal Ambulatory Referral 5. BMI 28.0-28.9,adult (Z68.28: Body mass index [BMI] 28.0-28.9, adult) BMI education added Ordered: predniSONE, 20 mg = 1 tab(s), Oral, Daily, X 5 day(s), # 5 tab(s), Refills(s) 0, Pharmacy: [facility], 178, cm, 02/08/25 11:00:00 EDT, Height/Length Dosing, 91.4, kg, 02/08/25 11:00:00 EDT, Weight Dosing Body Mass Index (BMI) documented 3008F Current tobacco non-user 1036F Depression Screening Negative 3352F Discharge medications reconciled with current medications in outpatient record 1111F [facility] Internal Ambulatory Referral Influenza immunization status assessed 1030F Medication list documented in medical record 1159F Most recent diastolic blood pressure 80-89 mm Hg 3079F Patient screen for fall risk: no falls in last year or 1 fall with no injury in last year 1101F Review of all meds by a prescribing practitioner or clinical pharmacist documented in EHR 1160F Systolic BP 130-139 mm Hg (Most Recent) 3075F 6. Overweight (BMI 25.0-29.9) (E66.3: Overweight) Diet and exercise advised Ordered: predniSONE, 20 mg = 1 tab(s), Oral, Daily, X 5 day(s), # 5 tab(s), Refills(s) 0, Pharmacy: [facility], 178, cm, 02/08/25 11:00:00 EDT, Height/Length Dosing, 91.4, kg, 02/08/25 11:00:00 EDT, Weight Dosing 7. Nonsmoker (Z78.9: Other specified health status) Please continue not to smoke. Ordered: predniSONE, 20 mg = 1 tab(s), Oral, Daily, X 5 day(s), # 5 tab(s), Refills(s) 0, Pharmacy: [facility], 178, cm, 02/08/25 11:00:00 EDT, Height/Length Dosing, 91.4, kg, 02/08/25 11:00:00 EDT, Weight Dosing 8. Chronic cough (R05.3) - Start Mucinex for congestion relief. - Prescribe low-dose steroid. - Evaluate treatment effectiveness. Ordered: predniSONE, 20 mg = 1 tab(s), Oral, Daily, X 5 day(s), # 5 tab(s), Refills(s) 0, Pharmacy: [facility], 178, cm, 02/08/25 11:00:00 EDT, Height/Length Dosing, 91.4, kg, 02/08/25 11:00:00 EDT, Weight Dosing 9. Testicular swelling (N50.89: Other specified disorders of the male genital organs) This is bilateral and has been there for months. Patient states it is improved recently. On physical exam unable to feel all structures in the testicles secondary to there being so much swelling. No pain with palpation. Will send to urology for further workup. Ordered: predniSONE, 20 mg = 1 tab(s), Oral, Daily, X 5 day(s), # 5 tab(s), Refills(s) 0, Pharmacy: [facility], 178, cm, 02/08/25 11:00:00 EDT, Height/Length Dosing, 91.4, kg, 02/08/25 11:00:00 EDT, Weight Dosing - Initiated a trial of [id number]-[id number] Mucinex. - Prescribed a low-dose steroid to assist with symptom control. - 85-year-old male with history of atrial fibrillation, atherosclerotic cardiovascular disease, and sleep apnea presenting with persistent cough and chest congestion. - Persistent cough potentially seasonal, suggestions of improvement noted. - Symptom management with Mucinex and low-dose steroid trial. - Stable atrial fibrillation, monitored without complications. During the visit, I discussed with the patient the management of his persistent cough and chest congestion. We explored potential seasonal influences of the symptoms and agreed on a trial of Mucinex for congestion relief and a low-dose steroid to decrease inflammation. I emphasized the importance of assessing the effectiveness of these treatments. Regarding his atrial fibrillation and sleep apnea, I confirmed that they are stable without additional issues, although I reiterated the need to clean and maintain the CPAP machine. We reviewed that atrial fibrillation was not currently causing notable symptoms. The patient was informed about the importance of continuing CPAP usage despite coughing, and the patient agreed to the plan. Follow-up No qualifying data available Problem List/Past Medical History Ongoing ASCVD (arteriosclerotic cardiovascular disease) Atrial fibrillation BMI 28.0-28.9,adult Encounter for surveillance of abnormal nevi HTN (hypertension) Nonsmoker Overweight (BMI 25.0-29.9) Peripheral edema Sleep apnea Venous insufficiency Visit for suture removal Weakness Historical No qualifying data Procedure/Surgical History Colonoscopy (02/19/2017), Arthroplasty, Cardiac pacemaker, Knee replacement, Knee replacement. Medications benzonatate 200 mg oral capsule, 200 mg= 1 cap(s), Oral, TID, Not taking carvedilol 12.5 mg Tab cetirizine 10 mg Tab, 10 mg= 1 tab(s), Oral, Daily Eliquis 5 mg oral tablet, 5 mg= 1 tab(s), Oral, BID equipment for cpap, See Instructions nitroglycerin, 0.4 mg, SubLingual, q5min, PRN predniSONE 20 mg Tab, 20 mg= 1 tab(s), Oral, Daily saw palmetto, See Instructions Ventolin HFA 90 mcg/inh Aerosol-Adpt, 1 puff(s), Inhalation, Once, PRN Allergies Adhesive Bandage (Unknown) Vistaril Social History Alcohol - Low Risk, 02/10/2024 Current, Beer, 1-2 times per week, 1 drinks/episode average. 2.00 drinks/episode maximum. Previous treatment: None. Alcohol use interferes with work or home: No. Drinks more than intended: No. Others hurt by drinking: No. Ready to change: No. Household alcohol concerns: No., 02/08/2025 Substance Abuse - Denies Substance Abuse, 02/10/2024 Tobacco - Denies Tobacco Use, 02/10/2024 Former smoker, quit more than 30 days ago, quit 1979 Tobacco Use:. Never Smokeless Tobacco Use:. Cigarettes, 0.25 per day. 22 year(s). Total pack years: 6. Started age 18.0 Years. Stopped age 39 Years. Household tobacco concerns: No. Yes, 02/08/2025 Immunizations Vaccine Date Status Comments influenza virus vaccine, inactivated - Not Given Patient Refuses tetanus-diphtheria toxoids 06/11/2023 Given SARS-CoV-2 (COVID-19) mRNA BNT-162b2 vax 10/11/2021 Recorded SARS-CoV-2 (COVID-19) mRNA BNT-162b2 vax 12/15/2020 Recorded 2024-02-03: [id number] SARS-CoV-2 (COVID-19) mRNA BNT-162b2 vax 11/23/2020 Recorded 2024-02-03: [id number] Result Comment: Electronical ly Signed By: Yoseph OROZCO, Cory Chasebr\Date and Time Signed: 02/08/25 11:20 EDT AMBULATORY VISIT SUMMARY Observed: 02/08 10:45 AM Status: F Source: [facility] Ambulatory Visit Summary MORGAN BARRIENTOS :1940 Visit Date:02/08/2025 Ambulatory Visit Instructions Your Diagnosis Atrial fibrillation ASCVD (arteriosclerotic cardiovascular disease) HTN (hypertension) Sleep apnea BMI 28.0-28.9,adult Overweight (BMI 25.0-29.9) Nonsmoker Chronic cough Your Care Team Attending Physician - Cory Carl MD Primary Care Physician - Cory Carl MD This Is Your Medications List [facility] Prescription (equipment for cpap) albuterol (Ventolin HFA 90 mcg/inh Aerosol-Adpt) apixaban (Eliquis 5 mg oral tablet) benzonatate (benzonatate 200 mg oral capsule) carvedilol (carvedilol 12.5 mg Tab) cetirizine (cetirizine 10 mg Tab) nitroglycerin [facility] Procedures Performed Arthroplasty, Cardiac pacemaker, Knee replacement, Knee replacement. Discharge Vitals Temperature (Tympanic) 36.8 ???C Heart Rate (Peripheral) 60 Respiratory Rate 18 Blood Pressure 136/86 Height 178 cm Height 70 in Weight 91.4 kg Weight 201.502 lb BMI 28.85 What to do next Scheduled Follow-Up Appointments Saturday 9:20 AM EDT With: Cory Carl MD Where: [place] [id number]- Medications What How Much When Why Instructions Unchanged albuterol (Ventolin HFA 90 mcg/ inh Aerosol-Adpt) 1 Puffs Inhalation Once as needed for for wheezing Cough BMI 29.0-29.9,adult Non-smoker Unchanged apixaban (Eliquis 5 mg oral tablet) 1 Tablets By Mouth 2 times a day TAKE 1 TABLET BY MOUTH IN THE MORNING and ONE TABLET BY MOUTH AT BEDTIME Unchanged benzonatate (benzonatate 200 mg oral capsule) 1 Capsules By Mouth 3 times a day Duration: 7 Days Unchanged carvedilol (carvedilol 12.5 mg Tab) 180 EA, 0 Refill(s), TAKE 1 TABLET BY MOUTH TWICE DAILY (WITH BREAKFAST and WITH evening meal) Unchanged cetirizine (cetirizine 10 mg Tab) 1 Tablets By Mouth Every day Unchanged [facility] Prescription (equipment for cpap) See instructions hear gear, face mask, tubing for cpap Unchanged nitroglycerin 0.4 Milligram Sublingual Every 5 minutes as needed for Chest pain Unchanged saw palmetto See instructions take 450mg twice daily Allergies Adhesive Bandage (Unknown) Vistaril Problems Ongoing - Any problem that you are currently receiving treatment for. ASCVD (arteriosclerotic cardiovascular disease) Atrial fibrillation BMI 28.0-28.9,adult Encounter for surveillance of abnormal nevi HTN (hypertension) Nonsmoker Overweight (BMI 25.0-29.9) Peripheral edema Sleep apnea Venous insufficiency Visit for suture removal Weakness Patient Survey You may receive a survey via text or e-mail asking about your office visit. Please share your experience with us by completing your survey. We appreciate your feedback and thank you for choosing us for your care. AMBULATORY VISIT SUMMARY Observed: 02/01 10:52 AM Status: F Source: [facility] Ambulatory Visit Summary MORGAN BARRIENTOS :1940 Visit Date:02/01/2025 Ambulatory Visit Instructions Your Diagnosis BMI 28.0-28.9,adult Nonsmoker Overweight (BMI 25.0-29.9) Your Care Team Attending Physician - Cory Carl MD. Primary Care Physician - Cory Carl MD. This Is Your Medications List [facility] Prescription (equipment for cpap) albuterol (Ventolin HFA 90 mcg/inh Aerosol-Adpt) apixaban (Eliquis 5 mg oral tablet) carvedilol (carvedilol 12.5 mg Tab) codeine/phenylephrine/promethazine (Codeine Phosphate/PE/Promethazine HCl 10 mg- 5 mg-6.25 mg/5 mL Syrup) nitroglycerin saw palmetto Procedures Performed Arthroplasty, Cardiac pacemaker, Knee replacement, Knee replacement. Discharge Vitals Temperature (Tympanic) 36.5 ???C Heart Rate (Peripheral) 76 Respiratory Rate 20 Blood Pressure 124/80 Height 178 cm Height 70 in Weight 91.8 kg Weight 202.384 lb BMI 28.97 What to do next Scheduled Follow-Up Appointments Saturday 10:45 AM EDT With: Cory Carl MD. Where: [address] [id number]- Saturday 11:00 AM EDT With: Where: [address] [id number]- Medications What How Much When Why Instructions Unchanged albuterol (Ventolin HFA 90 mcg/ inh Aerosol-Adpt) 1 Puffs Inhalation Once as needed for for wheezing Cough BMI 29.0-29.9,adult Non-smoker Unchanged apixaban (Eliquis 5 mg oral tablet) 1 Tablets By Mouth 2 times a day TAKE 1 TABLET BY MOUTH IN THE MORNING and ONE TABLET BY MOUTH AT BEDTIME Unchanged carvedilol (carvedilol 12.5 mg Tab) 180 EA, 0 Refill(s), TAKE 1 TABLET BY MOUTH TWICE DAILY (WITH BREAKFAST and WITH evening meal) Unchanged codeine/ phenylephrine/ promethazine (Codeine Phosphate/ PE/ Promethazine HCl 10 mg-5 mg-6.25 mg/ 5 mL Syrup) See instructions TAKE 5ml BY MOUTH EVERY 4 TO 6 HOURS NEEDED for cough FOR 7 DAYS Unchanged Misc Prescription (equipment for cpap) See instructions hear gear, face mask, tubing for cpap Unchanged nitroglycerin 0.4 Milligram Sublingual Every 5 minutes as needed for Chest pain Unchanged saw palmetto See instructions take 450mg twice daily Allergies Adhesive Bandage (Unknown) Vistaril Problems Ongoing - Any problem that you are currently receiving treatment for. ASCVD (arteriosclerotic cardiovascular disease) Atrial fibrillation BMI 28.0-28.9,adult Cough Encounter for surveillance of abnormal nevi HTN (hypertension) Nonsmoker Overweight (BMI 25.0-29.9) Peripheral edema Sleep apnea Venous insufficiency Visit for suture removal Weakness Patient Survey You may receive a survey via text or e-mail asking about your office visit. Please share your experience with us by completing your survey. We appreciate your feedback and thank you for choosing us for your care. FAMILY MEDICINE OFFICE/CLINI C NOTE Observed: 02/01/2025 10:52 AM Status: F Source: [facility] Medicine Office/Clini c Note Chief Complaint Acute Sick Visit The patient presents with a persistent cough. HPI Staff Pt presents today for acute sick visit. Has been seen in our office 2x since 01/18/25 for acute visits (coughing) TIMOTHY dc'd doxycycline & started augmentin. Was also given kenalog injection as well as cough medication. Coughing up mucus. [place] in color. Coughs up so much that he starts to choke. Hard to breathe. Denies chest pain. Has been using cough medicine. Thinks he needs another round of abx. History of Present Illness The patient is an 84-year-old male presenting with a persistent cough. The cough has diminished in frequency over time, but individual episodes remain severe, causing significant discomfort and breathing challenges. The patient previously used Mucinex 600 mg twice daily during antibiotic therapy to manage symptoms related to thick mucus which were more prominent during the course of an antibiotic treatment. Relief was noted with reduced frequency of episodes despite challenges in expelling thick mucus at times. The patient has utilized an inhaler but ceased its use as symptoms moderately improved. Concerns regarding potential sinus issues were discussed, potentially linked to under-addressed dental health problems; however, no acute signs of infection were observed upon examination. The patient mentions follow-ups for dental care are scheduled, and past antibiotic use with doxycycline and Augmentin seemed effective initially. - Antibiotic regimen completed recently for potential sinus/dental infection. - Ongoing monitoring of dental health and related impacts on respiratory health. - Past use of Mucinex to assist with mucus management. Review of Systems PHQ Score Initial Depression Screen Score: 0 SCORE Physical Exam Vitals & Measurements T: 36.5 ???C(Tympanic) HR: 76(Peripheral) RR: 20 BP: 124/80 SpO2: 97% HT: 70 in HT: 178 cm WT: 202.384 lb WT: 91.8 kg BMI: 28.97 General: alert, no acute distress ENMT: oral mucosa moist, no signs of infection, gums not swollen Cardiovascular: Regular rate and rhythm, normal peripheral perfusion Respiratory: Lungs clear to auscultation, respirations non labored, occasional coughing episodes, phlegm present Extremities: no deformity, no trauma Neurological: oriented x 4, level of consciousness appropriate for age, CN II- XII intact, motor strength equal & normal bilaterally, speech normal Abdomen: Soft, Non-tender, Non-distended, + Bowel sounds Assessment/Plan 1. Persistent cough (R05.3: Chronic cough) For the persistent cough, the plan is to restart Mucinex and employ Zyrtec to manage allergy-induced symptoms. Monitoring for symptom changes and effectiveness of the treatment is essential. Will check on the Vistaril allergy before the patient takes Zyrtec. 2. BMI 28.0-28.9,adult (Z68.28: Body mass index [BMI] 28.0-28.9, adult) BMI education added Ordered: Body Mass Index (BMI) documented 3008F Current tobacco non-user 1036F Depression Screening Negative 3352F Discharge medications reconciled with current medications in outpatient record 1111F Influenza immunization status assessed 1030F Medication list documented in medical record 1159F Most recent diastolic blood pressure 80-89 mm Hg 3079F Patient screen for fall risk: no falls in last year or 1 fall with no injury in last year 1101F Review of all meds by a prescribing practitioner or clinical pharmacist documented in EHR 1160F Systolic BP <130 mm Hg (Most Recent) 3074F 3. Nonsmoker (Z78.9: Other specified health status) Please continue not to smoke 4. Overweight (BMI 25.0-29.9) (E66.3: Overweight) Encourage weight management through monitored diet and lifestyle changes to address overweight status. 5. Poor dentition (K08.9: Disorder of teeth and supporting structures, unspecified) No active infection is noted, with past antibiotics providing symptom relief. Dental monitoring and care remain critical. Orders: benzonatate, 200 mg = 1 cap(s), Oral, TID, X 7 day(s), # 21 cap(s), Refills(s) 0, Pharmacy: [facility], 178, cm, 02/01/25 11:12:00 EDT, Height/Length Dosing, 91.8, kg, 02/01/25 11:12:00 EDT, Weight Dosing cetirizine, 10 mg = 1 tab(s), Oral, Daily, # 90 tab(s), Refills(s) 0, Pharmacy: [facility], 178, cm, 02/01/25 11:12:00 EDT, Height/Length Dosing, 91.8, kg, 02/01/25 11:12:00 EDT, Weight Dosing 84-year-old male with a history of being overweight presenting with a persistent cough. Though the frequency of coughing episodes has decreased, the remaining episodes are distressing and intense. Recent antibiotic courses and mucus- thinning treatment indicated initial resolutions. The physical examination signifies no immediate respiratory distress, and past dental health assessments have not indicated active infection post-antibiotic therapy. During discussions, I outlined the potential diagnoses related to the persistent cough and the relationship to dental health. I discussed starting Mucinex for managing mucus and Zyrtec for potential allergic components to the cough, providing information on the anticipated benefits such as improved mucus clearance and symptom reduction. Concerns about the lack of active sinus infection were alleviated through past successful antibiotic treatment, emphasizing vigilance for recurrence. Recommendations were made to attend to dental follow-ups to avert potential sinus-related impacts, and strategies for dealing with overweight status were advised. The patient understood the need for scheduled monitoring, particularly for cough severity and any potential changes in dental health. Follow-up No qualifying data available Problem List/Past Medical History Ongoing ASCVD (arteriosclerotic cardiovascular disease) Atrial fibrillation BMI 28.0-28.9,adult Cough Encounter for surveillance of abnormal nevi HTN (hypertension) Nonsmoker Overweight (BMI 25.0-29.9) Peripheral edema Sleep apnea Venous insufficiency Visit for suture removal Weakness Historical No qualifying data Procedure/Surgical History Arthroplasty, Cardiac pacemaker, Knee replacement, Knee replacement. Medications benzonatate 200 mg oral capsule, 200 mg= 1 cap(s), Oral, TID carvedilol 12.5 mg Tab cetirizine 10 mg Tab, 10 mg= 1 tab(s), Oral, Daily Eliquis 5 mg oral tablet, 5 mg= 1 tab(s), Oral, BID equipment for cpap, See Instructions nitroglycerin, 0.4 mg, SubLingual, q5min, PRN aide severino, See Instructions Ventolin HFA 90 mcg/inh Aerosol-Adpt, 1 puff(s), Inhalation, Once, PRN Allergies Adhesive Bandage (Unknown) Vistaril Social History [...] 02/10/2024 Tobacco - Denies Tobacco Use, 02/10/2024 Former smoker, quit more than 30 days ago, quit 1979 Tobacco Use:. Never Smokeless Tobacco Use:. Cigarettes, 0.25 per day. 22 year(s). Total pack years: 6. Started age 17.0 Years. Stopped age 39 Years. Household tobacco concerns: No. Yes, 02/01/2025 Immunizations Vaccine Date Status Comments influenza virus vaccine, inactivated - Not Given Patient Refuses tetanus-diphtheria toxoids 06/11/2023 Given SARS-CoV-2 (COVID-19) mRNA BNT-162b2 vax 10/11/2021 Recorded SARS-CoV-2 (COVID-19) mRNA BNT-162b2 vax 12/15/2020 Recorded 2024-02-03: TPV80 SARS-CoV-2 (COVID-19) mRNA BNT-162b2 vax 11/23/2020 Recorded 2024-02-03: TPV80 Result Comment: Electronical ly Signed By: Yoseph OROZCO, Cory Sanderson\.br\Date and Time Signed: 02/01/25 11:42 EDT FAMILY MEDICINE OFFICE/CLINI C NOTE Observed: 01/22/2025 10:20 AM Status: F Source: [facility] Family Medicine Office/Clini c Note HPI Staff Morgan is a 84 year old male presenting for follow up [facility] 01/18/25 cough recommended guaifenesin Respiratory C/O: Onset: Body aches: no Chest congestion: no Chills: no Cough: yes Sputum production: yes Sore throat: yes Ear complaints: no Eye itching/watering: no Fever: no Headache: no Nasal congestion: no Nasal discharge: no Poor appetite: no Reduced activity: no Sinus pain/pressure: no Sneezing: no Wheezing: yes SOB Ill contacts: no Remedies tried: Questions/Concerns: Pt didn't picked up medrol dose pack pharmacy said they didn't have that. Would like order for promethazine VC-codeine cough syrup. He does have 3 days left of doxycycline and has been using the Tessalon pearls. Have productive cough states he is coughing up about cup a day. When cough up he struggles to catch his breath sometime will feel like he is chocking History of Present Illness pt presents today for continued cough Review of Systems PHQ Score Initial Depression Screen Score: 0 SCORE Physical Exam Vitals & Measurements T: 36.2 ???C(Tympanic) HR: 68(Peripheral) RR: 18 BP: 120/62 SpO2: 96% HT: 178.0 cm HT: 70 in WT: 93.30 kg WT: 205.691 lb BMI: 29.45 General: alert, no acute distress ENMT: oral mucosa moist, no pharyngeal erythema or exudate Cardiovascular: regular rate and rhythm, normal peripheral perfusion Respiratory: Lungs CTA, respirations non labored Extremities: no deformity, no trauma Neurological: oriented x 4, LOC appropriate for age, CN II-XII intact, motor strength equal & normal bilaterally, speech normal Assessment/Plan 1. Cough (R05.9: Cough, unspecified) pt continue with severe cough. pt states he has coughed so hard a few times he almost blacked out and can't catch his breath. will stop doxy and start augmentin. cough syrup sent in. kenalog 40mg given in office today. refill on ventolin sent Ordered: albuterol, 1 puff(s), Inhalation, Once for wheezing, 18 gram, Refill(s) 0, [facility], 178, cm, 01/22/25 10:48:00 EDT, Height/Length Dosing, 93.3, kg, 01/22/25 10:48:00 EDT, Weight Dosing amoxicillin-clavulanate, = 1 tab(s), Oral, q12hr, X 7 day(s), # 14 tab(s), Refills(s) 0, Pharmacy: [facility], 178, cm, 01/22/25 10:48:00 EDT, Height/Length Dosing, 93.3, kg, 01/22/25 10:48:00 EDT, Weight Dosing triamcinolone, 40 mg = 1 mL, Injection, IntraMuscular, Once, Stop date 01/22/25 11:13:00 EDT, Routine, Start date 01/22/25 11:13:00 EDT, 01/22/25 11:13:00 EDT 2. BMI 29.0-29.9,adult (Z68.29: Body mass index [BMI] 29.0-29.9, adult) BMI education given Ordered: albuterol, 1 puff(s), Inhalation, Once for wheezing, 18 gram, Refill(s) 0, [facility], 178, cm, 01/22/25 10:48:00 EDT, Height/Length Dosing, 93.3, kg, 01/22/25 10:48:00 EDT, Weight Dosing amoxicillin-clavulanate, = 1 tab(s), Oral, q12hr, X 7 day(s), # 14 tab(s), Refills(s) 0, Pharmacy: [facility], 178, cm, 01/22/25 10:48:00 EDT, Height/Length Dosing, 93.3, kg, 01/22/25 10:48:00 EDT, Weight Dosing triamcinolone, 40 mg = 1 mL, Injection, IntraMuscular, Once, Stop date 01/22/25 11:13:00 EDT, Routine, Start date 01/22/25 11:13:00 EDT, 01/22/25 11:13:00 EDT 3. Non-smoker (Z78.9: Other specified health status) continue not smoking Ordered: albuterol, 1 puff(s), Inhalation, Once for wheezing, 18 gram, Refill(s) 0, [facility], 178, cm, 01/22/25 10:48:00 EDT, Height/Length Dosing, 93.3, kg, 01/22/25 10:48:00 EDT, Weight Dosing amoxicillin-clavulanate, = 1 tab(s), Oral, q12hr, X 7 day(s), # 14 tab(s), Refills(s) 0, Pharmacy: [facility], 178, cm, 01/22/25 10:48:00 EDT, Height/Length Dosing, 93.3, kg, 01/22/25 10:48:00 EDT, Weight Dosing triamcinolone, 40 mg = 1 mL, Injection, IntraMuscular, Once, Stop date 01/22/25 11:13:00 EDT, Routine, Start date 01/22/25 11:13:00 EDT, 01/22/25 11:13:00 EDT Orders: codeine/phenylephrine/promethazine, See Instructions, 180 mL, Refill(s) 0, TAKE 5ml BY MOUTH EVERY 4 TO 6 HOURS NEEDED for cough FOR 7 DAYS, [facility], 178, cm, 01/22/25 10:48:00 EDT, Height/Length Dosing, 93.3, kg, 01/22/25 10:48:00 EDT, Weight Dosing Follow-up No qualifying data available Problem List/Past Medical History Ongoing ASCVD (arteriosclerotic cardiovascular disease) Atrial fibrillation BMI 29.0-29.9,adult Cough Encounter for surveillance of abnormal nevi HTN (hypertension) Nonsmoker Overweight (BMI 25.0-29.9) Peripheral edema Sleep apnea Venous insufficiency Visit for suture removal Weakness Historical No qualifying data Procedure/Surgical History Arthroplasty, Cardiac pacemaker, Knee replacement, Knee replacement. Medications Augmentin 875 mg oral tablet, 1 tab(s), Oral, q12hr benzonatate 200 mg oral capsule, 200 mg= 1 cap(s), Oral, TID carvedilol 12.5 mg Tab carvedilol 6.25 mg Tab, 12.5 mg= 2 tab(s), Oral, BID Codeine Phosphate/PE/Promethazine HCl 10 mg-5 mg-6.25 mg/5 mL Syrup, See Instructions doxycycline hyclate 100 mg Cap Eliquis 5 mg oral tablet, 5 mg= 1 tab(s), Oral, BID equipment for cpap, See Instructions Medrol 4 mg Tab, 1 packet(s), Oral, As Directed, Not taking: pt states pharmacy didn't have this RX on 01/18/25 nitroglycerin, 0.4 mg, SubLingual, q5min, PRN saw maycol, See Instructions Ventolin HFA 90 mcg/inh Aerosol-Adpt, 1 puff(s), Inhalation, Once, PRN Allergies Adhesive Bandage (Unknown) Vistaril Social History [...] 02/10/2024 Tobacco - Denies Tobacco Use, 02/10/2024 Former smoker, quit more than 30 days ago, quit 1979 Tobacco Use:. Never Smokeless Tobacco Use:. Cigarettes, 0.25 per day. 22 year(s). Total pack years: 6. Started age 17.0 Years. Stopped age 39 Years. Household tobacco concerns: No. Yes, 01/18/2025 Immunizations Vaccine Date Status Comments influenza virus vaccine, inactivated - Not Given Patient Refuses tetanus-diphtheria toxoids 06/11/2023 Given SARS-CoV-2 (COVID-19) mRNA BNT-162b2 vax 10/11/2021 Recorded SARS-CoV-2 (COVID-19) mRNA BNT-162b2 vax 12/15/2020 Recorded 2024-02-03: TPV80 SARS-CoV-2 (COVID-19) mRNA BNT-162b2 vax 11/23/2020 Recorded 2024-02-03: TPV80 Result Comment: Electronical ly Signed By: Suzie Amaya\.br\Date and Time Signed: 01/22/25 12:05 EDT FAMILY MEDICINE OFFICE/CLINI C NOTE Observed: 01/18/2025 10:45 AM Status: F Source: [facility] Family Medicine Office/Clini c Note Chief Complaint Follow Up to Urgent Care The patient reports having a persistent cough with significant phlegm for over a week. HPI Staff Pt presents today for follow up to Urgent Care on 01/16/25. Tx'd w/Doxy script. Still taking. No change in sx. Coughing causing phlegm to come up, occasionally feels like he is going to choke on the phlegm. Denies fever. History of Present Illness The patient is an 84-year-old male presenting with a persistent cough with phlegm. He reports that this condition began over a week ago. The severity is significant enough that when he starts coughing, it's challenging to cease, with the expectoration of a considerable amount of phlegm noted. The cough is exacerbated by environmental factors such as pollen and dust. He sought care at urgent care facilities yet felt the clinic did not perform necessary diagnostic tests. The patient has been using plain Mucinex to alleviate phlegm with variable success in ingestion, turning to liquid formulations. He reported experimenting with other remedies such as whiskey mixed with honey, which provided some subjective improvement. He also mentioned difficulty managing the symptoms at night, affecting the use of his sleep apnea machine. The patient remains a nonsmoker, which may positively contribute to respiratory health in this context. - Discussion on the regular use of guaifenesin (plain Mucinex) for phlegm management. - Recommendations to maintain hydration to aid in breaking up mucus. - Dietary and lifestyle guidance focusing on weight management to address overweight status. - Emphasis on environmental control to manage exposure to pollen and dust, considering allergy-like symptoms. - No smoking history documented, supporting current respiratory health. - Encouragement of moderate alcohol use, specifically a traditional remedy involving whiskey and honey for symptomatic relief. Review of Systems PHQ Score Initial Depression Screen Score: 0 SCORE Physical Exam Vitals & Measurements T: 36.7 ???C(Tympanic) HR: 66(Peripheral) RR: 20 BP: 122/76 SpO2: 100% HT: 70 in HT: 178 cm WT: 204.589 lb WT: 92.8 kg BMI: 29.29 General: alert, no acute distress ENMT: oral mucosa moist Cardiovascular: Regular rate and rhythm, normal peripheral perfusion Respiratory: Lungs clear to auscultation, respirations non labored, no signs of AFib Extremities: no deformity, no trauma Neurological: oriented x 4, level of consciousness appropriate for age, CN II- XII intact, motor strength equal & normal bilaterally, speech normal Abdomen: Soft, Non-tender, Non-distended, + Bowel sounds Assessment/Plan 1. Atrial fibrillation (I48.91: Unspecified atrial fibrillation) The patient's atrial fibrillation is stable, with no acute exacerbation noted during the visit. Regular monitoring is advised to ensure ongoing stability. Ordered: benzonatate, 200 mg = 1 cap(s), Oral, TID, X 7 day(s), # 21 cap(s), Refills(s) 0, Pharmacy: [facility], 178, cm, 01/18/25 10:53:00 EDT, Height/Length Dosing, 92.8, kg, 01/18/25 10:53:00 EDT, Weight Dosing Current tobacco non-user 1036F Depression Screening Negative 3352F Medication list documented in medical record 1159F Review of all meds by a prescribing practitioner or clinical pharmacist documented in EHR 1160F 2. Cough (R05.9: Cough, unspecified) Continued use of guaifenesin is recommended to address mucus production. Adequate hydration is essential to enhance symptomatic relief. Cough suppressants at night may be considered if symptoms persist. Ordered: benzonatate, 200 mg = 1 cap(s), Oral, TID, X 7 day(s), # 21 cap(s), Refills(s) 0, Pharmacy: [facility], 178, cm, 01/18/25 10:53:00 EDT, Height/Length Dosing, 92.8, kg, 01/18/25 10:53:00 EDT, Weight Dosing 3. BMI 29.0-29.9,adult (Z68.29: Body mass index [BMI] 29.0-29.9, adult) Weight management is advised through a focus on balanced nutrition and increased physical activity aimed at improving the patient's BMI and overall health profile. Ordered: benzonatate, 200 mg = 1 cap(s), Oral, TID, X 7 day(s), # 21 cap(s), Refills(s) 0, Pharmacy: [facility], 178, cm, 01/18/25 10:53:00 EDT, Height/Length Dosing, 92.8, kg, 01/18/25 10:53:00 EDT, Weight Dosing 4. Overweight (BMI 25.0-29.9) (E66.3: Overweight) Lifestyle modifications are recommended to manage weight, focusing on dietary control and physical exercise. Ordered: benzonatate, 200 mg = 1 cap(s), Oral, TID, X 7 day(s), # 21 cap(s), Refills(s) 0, Pharmacy: [facility], 178, cm, 01/18/25 10:53:00 EDT, Height/Length Dosing, 92.8, kg, 01/18/25 10:53:00 EDT, Weight Dosing 5. Nonsmoker (Z78.9: Other specified health status) The patient's nonsmoker status supports respiratory health, reducing the risk of respiratory complications. Ordered: benzonatate, 200 mg = 1 cap(s), Oral, TID, X 7 day(s), # 21 cap(s), Refills(s) 0, Pharmacy: [facility], 178, cm, 01/18/25 10:53:00 EDT, Height/Length Dosing, 92.8, kg, 01/18/25 10:53:00 EDT, Weight Dosing An 84-year-old male with a history of atrial fibrillation presented with a persistent cough and phlegm production due to an upper respiratory condition that has been ongoing for more than a week. Despite exacerbation by environmental elements and difficulty in managing nighttime symptoms, his lung auscultation shows no lower airway disease. His airway issues appear related to upper airway inflammation and postnasal drip, with environmental pollen possibly playing a role. Stable cardiac findings suggest no acute atrial fibrillation exacerbation. Management emphasizes symptom control with hydration and guaifenesin use, targeting the improvement of mucus clearance and promoting a stable airway environment. I discussed with the patient the management of current respiratory symptoms and the strategies for addressing cough and mucus. Emphasis was on the importance of hydration and the continued use of guaifenesin to relieve phlegm. I acknowledged the utility of traditional remedies and confirmed they could be utilized safely in moderation. I reviewed the environmental factors contributing to symptoms, such as pollen, and discussed measures to mitigate exposures. The patient???s atrial fibrillation was reviewed, remaining stable at this time. I encouraged regular reviews to manage weight and address environmental allergens impacting his condition. The patient understood the discussed plan and will follow up with any changes or escalation of symptoms. Follow-up No qualifying data available Problem List/Past Medical History Ongoing ASCVD (arteriosclerotic cardiovascular disease) Atrial fibrillation BMI 29.0-29.9,adult Cough Encounter for surveillance of abnormal nevi HTN (hypertension) Nonsmoker Overweight (BMI 25.0-29.9) Peripheral edema Sleep apnea Venous insufficiency Visit for suture removal Weakness Historical No qualifying data Procedure/Surgical History Arthroplasty, Cardiac pacemaker, Knee replacement, Knee replacement. Medications benzonatate 200 mg oral capsule, 200 mg= 1 cap(s), Oral, TID carvedilol 12.5 mg Tab carvedilol 6.25 mg Tab, 12.5 mg= 2 tab(s), Oral, BID doxycycline hyclate 100 mg Cap Eliquis 5 mg oral tablet, 5 mg= 1 tab(s), Oral, BID equipment for cpap, See Instructions nitroglycerin, 0.4 mg, SubLingual, q5min, PRN aide [...] 02/10/2024 Tobacco - Denies Tobacco Use, 02/10/2024 Former smoker, quit more than 30 days ago, quit 1979 Tobacco Use:. Never Smokeless Tobacco Use:. Cigarettes, 0.25 per day. 22 year(s). Total pack years: 6. Started age 17.0 Years. Stopped age 39 Years. Household tobacco concerns: No. Yes, 01/18/2025 Immunizations Vaccine Date Status Comments influenza virus vaccine, inactivated - Not Given Patient Refuses tetanus-diphtheria toxoids 06/11/2023 Given SARS-CoV-2 (COVID-19) mRNA BNT-162b2 vax 10/11/2021 Recorded SARS-CoV-2 (COVID-19) mRNA BNT-162b2 vax 12/15/2020 Recorded 2024-02-03: TPV80 SARS-CoV-2 (COVID-19) mRNA BNT-162b2 vax 11/23/2020 Recorded 2024-02-03: TPV80 Result Comment: Electronical ly Signed By: Yoseph OROZCO, Cory Armstrong.brandon\Date and Time Signed: 01/18/25 11:11 EDT AMBULATORY VISIT SUMMARY Observed: 01/18 10:45 AM Status: F Source: [facility] Ambulatory Visit Summary MORGAN BARRIENTOS :1940 Visit Date:01/18/2025 Ambulatory Visit Instructions Your Diagnosis Atrial fibrillation Cough BMI 29.0-29.9,adult Overweight (BMI 25.0-29.9) Nonsmoker Your Care Team Attending Physician - Cory Carl MD Primary Care Physician - Cory Carl MD This Is Your Medications List benzonatate (benzonatate 200 mg oral capsule) Contact prescribing physician if questions or concerns Misc Prescription (equipment for cpap) apixaban (Eliquis 5 mg oral tablet) carvedilol (carvedilol 12.5 mg Tab) carvedilol (carvedilol 6.25 mg Tab) doxycycline (doxycycline hyclate 100 mg Cap) nitroglycerin saw maycol Procedures Performed Arthroplasty, Cardiac pacemaker, Knee replacement, Knee replacement. Discharge Vitals Temperature (Tympanic) 36.7 ???C Heart Rate (Peripheral) 66 Respiratory Rate 20 Blood Pressure 122/76 Height 178 cm Height 70 in Weight 92.8 kg Weight 204.589 lb BMI 29.29 What to do next Scheduled Follow-Up Appointments Saturday 10:45 AM EDT With: Cory Carl MD Where: [address] [id number]- Saturday 11:00 AM EDT With: Where: [address] [id number]- Medications What How Much When Why Instructions New benzonatate (benzonatate 200 mg oral capsule) 1 Capsules By Mouth 3 times a day Atrial fibrillation Cough BMI 29.0-29.9,adult Overweight (BMI 25.0-29.9) Nonsmoker Duration: 7 Days Pickup at [facility] Unchanged apixaban (Eliquis 5 mg oral tablet) 1 Tablets By Mouth 2 times a day TAKE 1 TABLET BY MOUTH IN THE MORNING and ONE TABLET BY MOUTH AT BEDTIME Contact prescribing physician if questions or concerns Unchanged carvedilol (carvedilol 12.5 mg Tab) 180 EA, 0 Refill(s), TAKE 1 TABLET BY MOUTH TWICE DAILY (WITH BREAKFAST and WITH evening meal) Contact prescribing physician if questions or concerns Unchanged carvedilol (carvedilol 6.25 mg Tab) 2 Tablets By Mouth 2 times a day TAKE 1 TABLET BY MOUTH IN THE MORNING then TAKE 1 TABLET BY MOUTH AT BEDTIME Contact prescribing physician if questions or concerns Unchanged doxycycline (doxycycline hyclate 100 mg Cap) TAKE 1 CAPSULE BY MOUTH TWICE DAILY FOR 10 DAYS Contact prescribing physician if questions or concerns Unchanged Misc Prescription (equipment for cpap) See instructions hear gear, face mask, tubing for cpap Contact prescribing physician if questions or concerns Unchanged nitroglycerin 0.4 Milligram Sublingual Every 5 minutes as needed for Chest pain Contact prescribing physician if questions or concerns Unchanged saw palmetto See instructions take 450mg twice daily Contact prescribing physician if questions or concerns Pharmacy Information [facility]: [address] [place], [place] [phone] Allergies Adhesive Bandage (Unknown) Vistaril Problems Ongoing - Any problem that you are currently receiving treatment for. ASCVD (arteriosclerotic cardiovascular disease) Atrial fibrillation BMI 29.0-29.9,adult Cough Encounter for surveillance of abnormal nevi HTN (hypertension) Nonsmoker Overweight (BMI 25.0-29.9) Peripheral edema Sleep apnea Venous insufficiency Visit for suture removal Weakness Patient Survey You may receive a survey via text or e-mail asking about your office visit. Please share your experience with us by completing your survey. We appreciate your feedback and thank you for choosing us for your care. OFFICE VISIT Observed: 09/30/2024 10:20 AM Status: COMPLETED Source: [facility] [id number] Morgan Barrientos [birth year] M Date Provider Department Center 09/30/2024 ROSEMARIE LANDIN TOBY [facility] Family History Problem Relation Age of Onset Heart disease Mother Other Mother Heart disease Father Family Status - Relation Status Age at Mother Father Level of Service:15962 HI OFFICE/OUTPATIENT ESTABLISHED MOD MDM 30 MIN Reason for Visit and Comments: Coronary Artery Disease [187] Hypertension [427290] PROGRESS Observed: 09/30/2024 10:20 AM Status: COMPLETED Source: [facility] Patient here for 6 mo follow up afib, PVC's, hypertension, and SND s/p PPM. His device was interrogated last month. Had an echo back in March 2024. Denies chest pain, SOB, palpitations, and bleeding on Eliquis. Gets lightheaded sometimes when he stands up too quickly, but denies syncope/falls. Review of Systems Hematologic/Lymphatic: Bruises/bleeds easily. All other systems reviewed and are negative. PROGRESS Observed: 09/30/2024 10:20 AM Status: COMPLETED Source: [facility] Cardiovascular Medicine [facility] SUBJECTIVE Chief Complaint Patient presents with [...] function Moderate biatrial dilatation Mild MR and HI Normal right sided pressures 11/16/2022 TTE Echocardiogram [...] all orders for this visit: PVC (premature ventricular contraction) - Transthoracic echo (TTE) limited; Future Coronary arteriosclerosis Nonrheumatic mitral valve regurgitation Primary hypertension Cardiac pacemaker in situ #CAD, nonobstructive per 2016 cath -Stable, denies angina or dyspnea -Continue BB #HTN -Controlled, continue coreg #SND s/p PPM -Device check 09/01/24 showed one episode of NSVT, 3 seconds-asymptomatic, continue BB -Continue q6m device checks #PVCs -ECHO 03/2024 showed low normal EF - reviewed with pt -F/U limited ECHO ordered to reassess EF #Mitral valve regurg -Mild per 03/2024 ECHO. Reviewed with pt. -Continue to monitor No follow-ups on file. Rosemarie Rosario NP [facility] Cardiovascular Medicine FAMILY MEDICINE OFFICE/CLINI C NOTE Observed: 09/25/2024 1:39 PM Status: F Source: [facility] Family Medicine Office/Clini c Note HPI Staff Morgan is a 84 year old male presenting with removing a suture in right ankle History of Present Illness pt presents today for suture removal Review of Systems PHQ Score Initial Depression Screen Score: 0 SCORE Physical Exam Vitals & Measurements T: 36.4 ???C(Oral) HR: 84(Peripheral) RR: 18 BP: 122/84 SpO2: 97% HT: 70 in HT: 178.0 cm WT: 92.6 kg WT: 204.148 lb BMI: 29.23 General: alert, no acute distress ENMT: oral mucosa moist, no pharyngeal erythema or exudate Cardiovascular: regular rate and rhythm, normal peripheral perfusion Respiratory: Lungs CTA, respirations non labored Extremities: no deformity, no trauma Neurological: oriented x 4, LOC appropriate for age, CN II-XII intact, motor strength equal & normal bilaterally, speech normal 1 single suture right inner ankle Assessment/Plan 1. Visit for suture removal (Z48.02: Encounter for removal of sutures) pt presents today to have suture removed. had a small laceration on right ankle that would not stop bleeding. 1 suture was removed without difficulty. pt is doing well. area had no redness or drainage. 2. Former smoker (Z87.891: Personal history of nicotine dependence) continue not smoking 3. BMI 29.0-29.9,adult (Z68.29: Body mass index [BMI] 29.0-29.9, adult) BMI education 4. Overweight (BMI 25.0-29.9) (E66.3: Overweight) Follow-up No qualifying data available Problem List/Past Medical History Ongoing ASCVD (arteriosclerotic cardiovascular disease) Atrial fibrillation BMI 28.0-28.9,adult Encounter for surveillance of abnormal nevi HTN (hypertension) Peripheral edema Sleep apnea Venous insufficiency Visit for suture removal Weakness Historical No qualifying data Procedure/Surgical History Arthroplasty, Cardiac pacemaker, Knee replacement, Knee replacement. Medications carvedilol 6.25 mg Tab, 12.5 mg= 2 tab(s), Oral, BID Eliquis 5 mg oral tablet, 5 mg= 1 tab(s), Oral, BID equipment for cpap, See Instructions nitroglycerin, 0.4 mg, SubLingual, q5min, PRN aide [...] 02/10/2024 Tobacco - Denies Tobacco Use, 02/10/2024 Former smoker, quit more than 30 days ago, quit 1979 Tobacco Use:. Never Smokeless Tobacco Use:. Cigarettes, 0.25 per day. 22 year(s). Total pack years: 6. Started age 18.0 Years. Stopped age 39 Years., 09/25/2024 Immunizations Vaccine Date Status Comments influenza virus vaccine, inactivated - Not Given Patient Refuses tetanus-diphtheria toxoids 06/11/2023 Given SARS-CoV-2 (COVID-19) mRNA BNT-162b2 vax 10/11/2021 Recorded SARS-CoV-2 (COVID-19) mRNA BNT-162b2 vax 12/15/2020 Recorded 2024-02-03: TPV80 SARS-CoV-2 (COVID-19) mRNA BNT-162b2 vax 11/23/2020 Recorded 2024-02-03: TPV80 Result Comment: Electronical ly Signed By: Suzie Amaya.brandon\Date and Time Signed: 09/25/24 13:39 EST AMBULATORY VISIT SUMMARY Observed: 08/03 10:19 AM Status: F Source: [facility] Ambulatory Visit Summary MORGAN BARRIENTOS :1940 Visit Date:08/03/2024 Ambulatory Visit Instructions Your Diagnosis ASCVD (arteriosclerotic cardiovascular disease) Atrial fibrillation HTN (hypertension) Sleep apnea BMI 28.0-28.9,adult Overweight Former smoker Other benign neoplasm of skin, unspecified Your Care Team Attending Physician - Cory Carl MD Primary Care Physician - Cory Carl MD This Is Your Medications List Contact [...] Appointments Saturday 10:45 AM EDT With: Cory Carl MD Where: [address] [address]- Saturday 11:00 AM EDT With: Where: [address] [place] [address]- Medications What How Much When Instructions Unchanged [...] physician if questions or concerns Unchanged saw maycol See instructions take 450mg twice daily Contact [...] you for choosing us for your care. FAMILY MEDICINE OFFICE/CLINI C NOTE Observed: 08/03/2024 10:17 AM Status: F Source: [facility] Family Medicine Office/Clini c Note Chief Complaint The patient presents for [...] level of consciousness appropriate for age, CN II- XII intact, motor strength equal & normal bilaterally, speech normal Abdomen: Soft, Non-tender, Non-distended, + Bowel sounds Assessment/Plan 1. ASCVD (arteriosclerotic cardiovascular disease) (I25.10: Atherosclerotic heart disease of [place] coronary artery without angina pectoris) The patient [...] BP <130 mm Hg (Most Recent) 3074F 4. Sleep apnea (G47.30: Sleep apnea, unspecified) Ongoing treatment with CPAP therapy remains effective, with the patient reporting good adherence. No recent exacerbations have been noted, and no further changes to the treatment plan are necessary at this time. Routine follow-up and compliance monitoring will continue. Ordered: Body Mass Index (BMI) documented 3008F Current tobacco non-user 1036F Depression Screening Negative 3352F Influenza immunization status assessed 1030F Most recent diastolic blood pressure <80 mm Hg 3078F Patient screen for fall risk: no falls in last year or 1 fall with no injury in last year 1101F Systolic BP <130 mm Hg (Most Recent) 3074F 5. BMI 28.0-28.9,adult (Z68.28: Body mass index [BMI] 28.0-28.9, adult) BMI education added Ordered: Body Mass Index (BMI) documented 3008F Current tobacco non-user 1036F Depression Screening Negative 3352F Influenza immunization status assessed 1030F Most recent diastolic blood pressure <80 mm Hg 3078F Patient screen for fall risk: no falls in last year or 1 fall with no injury in last year 1101F Systolic BP <130 mm Hg (Most Recent) 3074F 6. Overweight (E66.3: Overweight) Diet and exercise advised. Ordered: Body Mass Index (BMI) documented 3008F Current tobacco non-user 1036F Depression Screening Negative 3352F Influenza immunization status assessed 1030F Most recent diastolic blood pressure <80 mm Hg 3078F Patient screen for fall risk: no falls in last year or 1 fall with no injury in last year 1101F Systolic BP <130 mm Hg (Most Recent) 3074F 7. Former smoker (Z87.891: Personal history of nicotine dependence) Please continue to not smoke. Ordered: Body Mass Index (BMI) documented 3008F Current tobacco non-user 1036F Depression Screening Negative 3352F Influenza immunization status assessed 1030F Most recent diastolic blood pressure <80 mm Hg 3078F Patient screen for fall risk: no falls in last year or 1 fall with no injury in last year 1101F Systolic BP <130 mm Hg (Most Recent) 3074F 8. Other benign neoplasm of skin, unspecified (D23.9) The patient had a dermatological intervention for lesion excision. The lesion suspected to be cancerous was removed, with patient-reported residual nodularity at the excision site. Continued observation for any changes at the previously affected site is recommended, though no further dermatologic consultation is advised at this point. Follow-up No qualifying data available Problem List/Past [...] tablet, 5 mg= 1 tab(s), Oral, BID nitroglycerin, 0.4 mg, SubLingual, q5min, PRN, Self Directed saw maycol, See Instructions Allergies Adhesive Bandage (Unknown) Vistaril [...] Years., 03/10/2024 Immunizations Vaccine Date Status Comments influenza virus vaccine, inactivated - Not Given Patient Refuses tetanus-diphtheria toxoids 06/11/2023 Given SARS-CoV-2 (COVID-19) mRNA BNT-162b2 vax 10/11/2021 Recorded SARS-CoV-2 (COVID-19) mRNA BNT-162b2 vax 12/15/2020 Recorded 2024-02-03: TPV80 SARS-CoV-2 (COVID-19) mRNA BNT-162b2 vax 11/23/2020 Recorded 2024-02-03: TPV80 Result Comment: Electronical ly Signed By: Yoseph OROZCO, Cory Sanderson\.br\Date and Time Signed: 08/03/24 10:18 EDT L Observed: 05/05/2024 12:00 AM Status: F Source: [facility] Specimen: [id number] Received: 05/06/24 Status: TAYLOR Joshi Num: [id number] Spec Type: Surgical Subm Dr: Brian Hernandez DO Tissues: A Skin-Other than Cyst, tag, debridement or plastic repair (LT POSTERIOR NECK) Procedures: HE/8, Gross/Micro L4 Age/ Patient Sex Location Account Attending Physician Morgan Barrientos/M ND [id number] Brian Hernandez DO SPEC NUM: [id number] RECD: 05/06/24 STATUS: TAYLOR JOSHI NUM: [id number] JORGE: 05/05/24- DR: Brian Hernandez DO ENTERED: 05/06/[address] [facility] [address]: [facility] SPEC TYPE: Surgical DEPT: S [...] an eccentrically located 0.9 x 0.6 cm well- healed, ill- defined previous biopsy site coming to within 0.2 cm of the nearest margin. The specimen is inked black along its resection margin. The tips are amputated. The remainder of the excision is serially sectioned. The specimen is submitted entirely in A1 (tips), A2-A4 (remainder of excision). CPT Codes 44809 ----- ------- ----- ------- Specimen: [id number] Received: 05/06/24 Status: TAYLOR Adi Num: [id number] Spec Type: Surgical Subm Dr: Brian Hernandez DO Tissues: A Skin-Other than Cyst, tag, debridement or plastic repair (LT POSTERIOR NECK) Procedures: , Gross/Micro L4 ----- ------- Patient: Morgan Barrientos Rosa Isela [id number] (Continued) ----- ------- Signed (signature on file) Isaiah Olivarez Jr., MD 05/12/24 0859 BASIC METABOLIC PANEL Collected: 2023 11:50 AM Status: F Source: [facility] TYPE CODE TESTS RESULT OUT OF RANGE REFERENCE UNITS LAB GLU Glucose 85 Normal 70-100 mg/dL Result Comment: Random Gluco se Reference Range is dependent on time and content of last meal. Glucose of more than 200 mg/dL in a nonstressed, ambulatory subject supports the diagnosis of Diabetes Mellitus. ADA recommended reference range LAB BUN Blood Urea Nitrogen 18 Normal 7-25 mg/dL LAB CREATT Creatinine 1.11 Normal 0.70-1.30 mg/dL LAB GFReNR Estimated GFR > 60.0 LAB NA Sodium 139 Normal 136-145 mmol/L LAB K Potassium 4.6 Normal 3.5-5.1 mmol/L LAB CL Chloride 105 Normal 98-107 mmol/L LAB CO2 Carbon Dioxide 30.8 Normal 21.0-31.0 mmol/L LAB GAP Anion Gap 7.8 Normal 6.0-15.0 LAB CA Calcium 9.0 Normal 8.6-10.3 mg/dL Result Comment: PERFORMED BY : [place] [address] PATHOLOGIST [employer] MARY JANE ORNELAS M.D. Performed By: #### BMP #### [place] [id number] [facility] COMPLETE BLOOD COUNT AUTO DIFF Collected: 04/28/2024 11:50 AM Status: F Source: [facility] TYPE CODE TESTS RESULT OUT OF RANGE REFERENCE UNITS LAB WBC White Blood Count 6.2 Normal 4.1-10.5 10*3/uL LAB UNWBC Uncorrected WBC 6.2 Normal 4.1-10.5 10*3/uL LAB RBC Red Blood Count 4.66 Normal 3.90-5.60 LAB HGB Hemoglobin 13.8 Normal 13.0-17.0 g/dL LAB HCT Hematocrit 41.6 Normal 38.8-50.0 % LAB MCV Mean Corpuscular Volume 89.4 Normal 83.5-101 fL LAB MCH Mean Corpuscular Hemoglobin 29.7 Normal 27.5-35.2 pg LAB MCHC Mean Corpuscular HGB Conc 33.2 Normal 32.5-35.6 g/dL LAB RDW Red Cell Distribution Width 15.9 High 12.0-14.8 % LAB PLT Platelet Count 181 Normal 150-450 10*3/uL LAB MPV Mean Platelet Volume 8.3 Normal 6.6-10.1 fL LAB NE% Neutrophils % (Auto) 76.4 . % LAB LY% Lymphocytes % (Auto) 14.0 . % LAB MO% Monocytes % (Auto) 7.5 . % LAB EO% Eosinophils % (Auto) 1.6 . % LAB BA% Basophils % (Auto) 0.5 . % LAB NRBC% NRBC% 0.1 Normal 0-0.5 /100{WBC} LAB NE# Neutrophils # (Auto) 4.7 Normal 1.8-7.7 10*3/uL LAB LY# Lymphocytes # (Auto) 0.9 Low 1.00-4.8 10*3/uL LAB MO# Monocytes # (Auto) 0.5 Normal 0.0-0.8 10*3/uL LAB EO# Eosinophils # (Auto) 0.1 Normal 0.0-0.45 10*3/uL LAB BA# Basophils # (Auto) 0.0 Normal 0.0-0.2 10*3/uL Result Comment: PERFORMED BY : [place] [address] PATHOLOGIST [employer] MARY JANE ORNELAS M.D. Performed By: #### CBC #### [facility] [address] [place] [address] ECG 12 LEAD ECG Observed: 04/28/2024 11:43 AM Status: COMPLETED Source: [facility] [place] [address] Electrocardiograph Report Signed Patient: Morgan Barrientos MR#: [id number] : 1940 Acct:[id number] Age/Sex: 84 / M ADM Date: 04/28/24 Loc: Room: Type: [facility] Attending Dr: Brian Hernandez DO Ordering Provider: [...] replaced sinus rhythm Confirmed by SERGO OROZCO [facility] (137) on 04/28/2024 4:02:29 PM Referred By: Electronically Signed By:GARFIELD SHULTZ MD [facility] Transcribed By: MUS Signed By Garfield Shultz MD, FACC 04/28/24 1602 ALLERGIES DATE TYPE / CODE NAME / CODE REACTION SEVERITY SOURCE 02/13/2024 Drug Allergy/36241 8002(SNOMED CT) adhesive tape/[id number](R XNORM) Blister, redness Unknown [facility] 06/14/2022 DRUG/59584707 3(SNOMED CT) ADHESIVE TAPE-SILICONES [facility] /086819929( SNOMED CT) Adhesive Bandage Unknown [facility] /116227265( SNOMED CT) Vistaril [facility] ENCOUNTERS ADMIT/DISCHARGE ACCOUNT NUMBER ADMITTING ENCOUNTER CLASS LOCATION SOURCE 02/24/2025 [id number] Ambulatory Building:[facility] 02/15/2025/02/16/20 [id number] Ambulatory [facility] [facility] : CD:[id number] [facility] 02/12/2025 [id number] Ambulatory [facility] [place]:EU [place]in [facility] 02/11/2025 [id number] Cory Carl Ambulatory [facility] 02/11/2025/02/12/20 [id number] Cory Carl Ambulatory [facility]FT [facility] 02/11/2025/02/12/20 [id number] Ambulatory FT [facility] [facility]:FT [facility] : CD:[id number] [address] [place] [address] 02/08/2025/02/09/20 25 [id number] Ambulatory FT [facility] [place]:FT FM Bertin [facility] 02/08/2025/02/09/20 25 [id number] Ambulatory FT [facility] [place]:FT [facility] : CD:[id number] [facility] 02/01/2025/02/02/20 25 [id number] Ambulatory FT [facility] [place]:FT [facility] : CD:[id number] [facility] 01/22/2025/01/23/20 25 [id number] Ambulatory FT [facility] [facility]:FT FM Bertin [facility] 01/18/2025/01/19/20 [id number] Ambulatory FT [facility] [place] [facility]:FT [facility] : CD:[id number] 5 [facility] 11/03/2024/11/03/19 [id number] Ambulatory Building:[facility] 09/30/2024/09/30/20 24 [id number] Ambulatory Building:[facility] 09/25/2024/09/25/20 24 [id number] Ambulatory FT [facility] [place]:FT [facility] : CD:[id number] 3 [facility] 09/14/2024/09/14/20 24 [id number] [facility] 09/01/2024/09/01/20 24 [id number] Ambulatory Building:[facility] 08/03/2024/08/03/20 24 [id number] Ambulatory FT [facility] [place]:FT [facility] : CD:[id number] [facility] 06/30/2024/06/30/20 24 [id number] Ambulatory Building:NOM S ENT [facility] 05/13/2024/05/13/20 24 [id number] Ambulatory Building:NOM S SH ENT [facility] 05/06/2024/05/06/20 24 [id number] Ambulatory Building:NOM S EXT DEP [facility] 05/05/2024/05/05/20 24 [id number] [facility] 04/28/2024/04/28/20 [id number] Brian [facility] 04/28/2024/04/28/20 24 [id number] Cory [facility] 04/22/2024/04/22/20 24 [id number] Ambulatory Building:NOM S ENT [facility] 03/24/2024/03/24/20 24 [id number] Ambulatory Building:NOM S [facility] EP[facility] PAYERS ENCOUNTER GUARANTOR PAYER SUBSCRIBER SOURCE 02/15/2025 MORGAN FUENTES: [id number] [place] Alexis: ~(41 [phone] (HP) Primary Insurance:AnthemPolicy Number: [id number] Date:0905-98-51OA [address] [place] [address] 49[address]BQ: MORGAN MATOS [facility] 02/11/2025 MORGAN Rosa Isela MOB: [place] BLACKMANTel: ~(41 9 (HP) Primary Insurance:AnthemPolicy Number: [id number] Date:5593-06-90RM [id number] [place] [address]JH: MORGAN MATOS [facility] 02/11/2025 MORGAN FUENTES: [place] BLACKMANTel: ~(41 9 (HP) Primary Insurance:AnthemPolicy Number: [id number] Date:3597-81-16CV [address] [place] [address] 72296XE: MORGAN Rosa Isela MATOS [facility] 02/08/2025 MORGAN FUENTES: [place] Alexis: ~(41 [phone] (HP) Primary Insurance:AnthemPolicy Number: [id number] Date:3961-77-00NA [address] [place] [address] 56399DT: MORGAN Rosa Isela MATOS [facility] 02/08/2025 MORGAN FUENTES: [place] BLACKMANTestephani: ~(41 9 (HP) Primary Insurance:AnthemPolicy Number: [id number] Date:7342-03-38BR [address] [place] [address] 70495QL: MORGAN Rosa Isela MATOS [facility] 02/01/2025 MORGAN FUENTES: [place] BLACKMANTel: ~(41 9 (HP) Primary Insurance:AnthemPolicy Number: [id number] Date:4798-20-30DC [address] [place] [address] 074[address]SD: MORGAN Natarajan CLAEVELIN [facility] 01/22/2025 MORGAN FUENTES: [place] Alexis: (HP) Primary Insurance:AnthemPolicy Number: [id number] Date:5039-44-41BL [address] [place] [address] 826[address]GR: MORGAN Rosa Isela MATOS [facility] 01/18/2025 MORGAN FUENTES: [place] Alexis: (HP) Primary Insurance:AnthemPolicy Number: [id number] Date:8068-23-69GF [address] [place] [address] 62866QV: MORGAN Rosa Isela MATOS [facility] 11/03/2024 Primary Insurance:ANTHEM MEDICARE ADVANTAGEPolicy Number: [id number] Date:2023-10-21 MORGAN FUENTES: [id number] [place] [address] [facility] 09/30/2024 Primary Insurance:[employer]HEM MEDICARE ADVANTAGEPolicy Number: [id number] Date:2023-10-21 MORGAN FUENTES: [id number] [place] [address] [facility] 09/25/2024 MORGAN FUENTES: [place] Alexis: (HP) Primary Insurance:AnthemPolicy Number: [id number] Date:9638-32-22NB [id number] [place] [address]GS: MORGAN MATOS [facility] 09/14/2024 MORGAN FUENTES: [place], [place] [address]Xzf: (HP) Primary Insurance:[employer] MEDICARE ADVANTAGEPolicy Number: [id number] Date:2023-10-21 MORGAN HASSANB: [id number] [place] [address] [facility] 09/01/2024 Primary Insurance:[employer] MEDICARE ADVANTAGEPolicy Number: [id number] Date:2023-10-21 MORGAN HASSANB: [id number] [place] [address] [facility] 08/03/2024 MORGAN HASSANB: [place] DRTel: (HP) Primary Insurance:AnthemPolicy Number: [id number] Date:1809-15-31MW [address] [address]YG: MORGAN MATOS [facility] 06/30/2024 MORGAN FUENTES: [place], [place] [address]Rvd: (HP) Primary Insurance:[employer] MEDICARE ADVANTAGEPolicy Number: [id number] Date:2023-10-21 MORGAN HASSANB: [id number] [place] [address] [facility] 05/13/2024 MORGAN HASSANB: [place], [place] [address]Waf: (HP) Primary Insurance:[employer] MEDICARE ADVANTAGEPolicy Number: [id number] Date:2023-10-21 MORGAN HASSANB: [id number] [place] [address] [facility] 05/06/2024 MORGAN HASSANB: [place], [place] [address]Hoz: (HP) Primary Insurance:[employer] MEDICARE ADVANTAGEPolicy Number: [id number] Date:2023-10-21 MORGAN FUENTES: [id number] [place] [address] [facility] 05/05/2024 [place] [address]Avp: (HP) Primary Insurance:[place] MCR PFFSPolicy Number: [id number] Date:2024-05-05 Morgan Fuentes: [id number] [place] [address]Sms: (HP) [facility] 05/05/2024 Secondary Insurance:Self PayPolicy Number: Effective Date:2024-05-05 [facility]24 [place] [address]Ige: (HP) Primary Insurance:[place] MCR PFFSPolicy Number: [id number] Date:2024-04-28 Morgan Fuentes: [id number] [place] [address]Vme: (HP) [facility] 04/28/2024 Secondary Insurance:Self PayPolicy Number: Effective Date:2024-04-28 [facility] 04/28/2024 [place] [address]Rnp: (HP) Primary Insurance:[place] MCR PFFSPolicy Number: [id number] Date:2024-03-19 Morgan Fuentes: [id number] [place] [address]Vab: (HP) [facility] 04/28/2024 Secondary Insurance:Self PayPolicy Number: Effective Date:2024-03-19 NOT GIVENUNK [facility] 04/22/2024 MORGAN FUENTES: [place], [place] [address]Khi: (HP) Primary Insurance:ANTH MEDICARE ADVANTAGEPolicy Number: [id number] Date:2023-10-21 MORGAN FUENTES: [id number] [place] [address] [facility] 03/24/2024 MORGAN FUENTES: [place], [place] [address]Fff: (HP) Primary Insurance:[facility] MEDICARE ADVANTAGEPolicy Number: [id number] Date:2023-10-21 MORGAN FUENTES: [id number] [place] [address] [facility]
--- NOTE | 2025-03-12 09:59 | US_ITS ---
[address] [address] Patient Name: DORIS FAY MRN: [id number] date: 1940 Sex: M Assigned Patient Location: US Current Patient Location: Accession/Order Number: [id number] Exam Date: 03/12/2025 14:03 Report Date: 03/12/2025 14:06 At the request of: BRYSON OTOOLE Procedure: US scrotum EXAMINATION TYPE: US scrotum grayscale, color Doppler, waveform duplex analysis was performed. DATE OF EXAM ORDERED: 03/12/2025 10:45 AM HISTORY: Hydrocele, urinary frequency, pain on urination COMPARISON: NONE TECHNIQUE: Realtime imaging of the scrotum was performed. Waldron scale, color Doppler and spectral Doppler imaging of the testicles was performed. FINDINGS: Testicles: Both testicles demonstrate homogeneous echotexture without intratesticular filling defect. Right measurements: 4.5 x 2.9 x 3.3 cm Left measurements: 4.2 x 2.7 x 2.8 cm Epididymis: There is a cyst in the head of the epididymis on the right measuring 1.1 x 0.7 x 0.7 cm. Hydrocele: Hydroceles are present bilaterally, right greater than left.. Doppler ultrasound of the testicles: Arterial and venous waveforms are seen within both testicles. No sonographic evidence of testicular ischemia. US/US scrotum IMPRESSION: 1. The testicles are normal in size and echogenicity. No intratesticular lesions. 2. No sonographic evidence of testicular ischemia. 3. Bilateral hydroceles are noted, right greater than left. Impression dictated by: Sergio Antony M.D. 03/12/2025 2:06 PM Dictation Location: [place] [address] Electronically authenticated by: [id number] Y Date: 03/12/2025 14:06
== END 2025-03-12 09:49 | disposition home or self-care (01) ==
LOC: US 09:51
PROVIDERS: PCP Family Medicine; Visit Provider Physician Assistant
DX: N43.3 Hydrocele, unspecified (principal)
CPT/HCPCS: 76870

== ENCOUNTER 2025-03-31 17:52 | Emergency (ER) | payer MEDICARE, SELFPAY ==
[2025-03-31 18:01] VITALS: BP 144/71; PULSE 60; TEMP 37; O2SAT 94; BMI 26.4
--- NOTE | 2025-03-31 18:13 | XR_ITS ---
[place] [id number] Patient Name: DORIS FAY MRN: [id number] date: 1940 Sex: M Assigned Patient Location: ER Current Patient Location: ED.MAIN Accession/Order Number: [id number] Exam Date: 03/31/2025 20:11 Report Date: 03/31/2025 20:12 At the request of: CLARA OTOOLE Procedure: XR knee LT 4V 4 views left knee plain film COMPARISON: None HISTORY: Left knee pain ACUTE FINDINGS: No acute findings DEGENERATIVE CHANGE: Unremarkable SOFT TISSUE FINDINGS: Unremarkable JOINT EFFUSION: None POSTOP CHANGES: Left knee arthroplasty hardware adequate. No complication BONE MINERALIZATION: Adequate XR/XR knee LT 4V IMPRESSION: Uncomplicated left knee arthroplasty. Impression dictated by: Kirill Garcia M.D. 03/31/2025 8:12 PM [facility]ictation [facility] Electronically authenticated by: [id number] Y Date: 03/31/2025 20:12
--- NOTE | 2025-03-31 18:24 | PC.NURSE ---
portable knee XR at bedside at this time.
[2025-03-31] MEDS: OXYCODONE HCL 5 MG TABLET PO (18:29)
--- NOTE | 2025-03-31 20:07 | ED_ITS ---
HPI - Extremity Problem General Chief complaint: Extremity Problem, Nontraumatic Stated complaint: Lower pain Time Seen by Provider: 03/31/25 17:55 Source: patient and family (daughter) Mode of arrival: Wheelchair Limitations: no limitations History of Present Illness HPI Narrative: 85-year-old male presents to the emergency department with his daughter with complaint of left knee pain. Given onset while he was working on the yard today. Denies any blunt trauma. Describes it as stabbing, knifelike pain coming from either side of his joint. Denies any motor or sensory changes, paresthesias. Quality:?as above Severity:?moderate Timing:?as above Context: Normal setting and activity? Modifying factors:?Pain worse with bearing weight, ambulating Associated symptoms: none Related Data Home Medications ?Medication ?Instructions ?Recorded ?Confirmed acetaminophen 500 mg tablet 500 mg PO Q4H PRN pain 05/1302/25/24 apixaban 5 mg tablet (Eliquis) 5 mg PO Q12H 02/25/24 0 03/31/25 carvedilol 6.25 mg tablet 12.5 mg PO Q12H 02/25/2409/14 saw palmetto 450 mg capsule 450 mg PO BID 02/25/2409/14 cetirizine 10 mg tablet 10 mg PO DAILY 03/31/2503/21 finasteride 5 mg tablet 5 mg PO HS 03/31/25 03/31/25 Previous Rx's ?Medication ?Instructions ?Recorded oxycodone 5 mg tablet 2.5 mg (1/2 x 5 mg) PO Q8H P RN 03/31/25 pain 2 days #5 tabs Allergies Allergy/AdvReac Type Severity Reaction Status Date / Time No Known Drug Allergies Allergy Verified 03/31/25 17:58 Review of Systems ROS Narrative CONST: Denies activity change, weakness MS: + arthralgias.? Denies joint swelling, myalgias SKIN: Denies color change, wound NEURO: Denies numbness, paresthesias, weakness PFSH PFSH Social History Little interest or pleasure in doing things: not at all Feeling down, depressed, or hopeless: not at all Exam Narrative Exam Narrative: Vital signs noted Nurses notes reviewed CONST: Nontoxic, well appearing, well nourished, in no distress.? HENT: normocephalic, atraumatic. CV: 2+ palpable left PT pulse MS: Left knee: No appreciable tenderness on exam. No tenderness to the calf, posterior fossa. No laxity. No swelling, ecchymosis, discoloration, crepitus, deformity, instability, warmth.? Active ROM is full with limited due to flexion and extension.? Strength 5/5 patient. Able to stand up on arm, but exacerbates his pain NEURO: Sensory intact throughout and distal to the injury SKIN: [] intact, warm, dry.? No wound PSYCHIATRIC: normal mood, affect Constitutional Vital Signs, click to edit/add: Last Vital Signs Temp 98.6 F 03/31/25 18:01 Pulse 60 03/31/25 18:01 Resp 18 03/31/25 18:01 BP 144/71 H 03/31/25 18:01 Pulse Ox 94 L 03/31/25 18:01 O2 Del Method Room Air 03/31/25 18:01 Course Vital Signs Vital signs: Vital Signs Temperature 98.6 F 03/31/25 18:01 Pulse Rate 60 03/31/25 18:01 Respiratory Rate 18 03/31/25 18:01 Blood Pressure 144/71 H 03/31/25 18:01 Pulse Oximetry 94 L 03/31/25 18:01 Oxygen Delivery Method Room Air 03/31/25 18:01 Temperature 98.6 F 03/31/25 18:01 Pulse Rate 60 03/31/25 18:01 Respiratory Rate 18 03/31/25 18:01 Blood Pressure 144/71 H 03/31/25 18:01 Pulse Oximetry 94 L 03/31/25 18:01 Oxygen Delivery Method Room Air 03/31/25 18:01 MDM - Extremity (Nontraumatic) MDM Narrative Medical decision making narrative: This is a pleasant 85-year-old male who presents to the emergency department for evaluation of left knee pain. Acute onset while he was walking in the yard. Thinks he may have twisted it. States he was doing more yard work than normal. Denies any blunt trauma, motor or sensory changes, paresthesias. On arrival, afebrile, vital signs stable. On exam, nontoxic, well appearing patient, in no apparent distress. No appreciable tenderness on examination of the knee. Denies any tenderness to the calf, popliteal fossa, medial thigh. Distal pulses intact. Neurovascular intact. Range of motion full. Pain exacerbated with bearing weight, ambulating. X-ray imaging left knee, per radiologist reveals no acute findings Favor nonspecific arthralgia Fx/Dislocation less likely based on imaging History and Record Review Discussion with independent historian: Daughter Management Independent interpretation: Left knee x-ray: Hardware intact. No fracture, dislocation, or other acute abnormality noted Re-Evaluation: Notes improvement of pain after oxycodone Disposition ? The patient was discharged. Prescriptions sent to pharmacy: Oxycodone Patient placed in Ted wrap Patient advised rest, ice, elevation, compression Patient advised Ibuprofen/Tylenol as needed for pain Plan: Patient will be discharged to home. Condition at time of disposition: stable, improved. ? Advised to follow up with referral provider, name and number placed on discharge paperwork. Advised to return for any worsening and/or development of new, concerning signs or symptoms PLEASE NOTE: Portions of the medical record may have been produced using electronic saw handle assembler and may contain errors with respect to translation of w ords which may not have been identified prior to finalization of the chart. Imaging Data Left knee xray: Radiologist's impression: ITS Impressions Knee X-Ray 03/31/25 18:13 IMPRESSION: Uncomplicated left knee arthroplasty. Impression dictated by: Kirill Garcia M.D. 03/31/2025 8:12 PM Dictation Location: [place] [address] Electronically authenticated by: [id number] Y Date: 03/31/2025 20:12 Discharge Plan Discharge Chief Complaint: Extremity Problem, Nontraumatic Clinical Impression: Acute pain of left knee Patient Disposition: Home, Self-Care Time of Disposition Decision: 19:54 Condition: Good Mode of Transportation: Private Vehicle Prescriptions / Home Meds: New oxycodone 5 mg tablet 2.5 mg PO Q8H PRN (Reason: pain) 2 Days Qty: 5 0RF No Action Eliquis 5 mg tablet 5 mg PO Q12H carvedilol 6.25 mg tablet 12.5 mg PO Q12H saw palmetto 450 mg capsule 450 mg PO BID Rx Instructions: give with food (meal/snack) acetaminophen 500 mg tablet 500 mg PO Q4H PRN (Reason: pain) finasteride 5 mg tablet 5 mg PO HS cetirizine 10 mg tablet 10 mg PO DAILY Print Language: Korean Instructions: Arthralgia (ED) Referrals: Jhony Coyle MD [Physician] - 1 week
[2025-03-31 20:20] VITALS: BP 138/89; PULSE 73; O2SAT 98
== END 2025-03-31 20:20 | disposition home or self-care (01) ==
PROVIDERS: Emergency Provider Emergency Medicine; PCP Family Medicine
DX: M25.562 Pain in left knee (principal); X50.1XXA Overexertion from prolonged static or awkward postures, initial encounter; Y93.H2 Activity, gardening and landscaping; Z96.652 Presence of left artificial knee joint
CPT/HCPCS: 73564; 99283